=== PATIENT | male | born 1935 | race Caucasian/White ===

== ENCOUNTER → 2017-09-23 | Outpatient (CLI) | payer MEDICARE ==
[~2017-09-23] MED LIST: ALLO300T2 PO; AMOX1TAB43 PO; AMOX875T PO; ASPI81TA28 PO; ATOR-22 PO; BENA20TA14 PO; CHOL100010 PO; CRDCD/180 PO; ENOX100I SC; GLIM1TAB2 PO; GLIM2TAB2 PO; GUAISYP4 PO; INDO-22 PO; LCTX PO; LEVO1TAB35 PO; LPR25 PO; LVNIS100 SQ; LVNIS120 SQ; METF-384 PO; METF1TAB85 PO; METO25TA56 PO; MIRT15TA3 PO; MIRT30TA2 PO; MULT-513 PO; NUTR-7 PO; NVLGI/PEN SC; ONDA-170 PO; OXGN; PRD20 PO; PRED20TA PO; SENN-65 PO; SENNTAB23 PO; TRAM-10 PO; VERA120T2 PO; VERA240T20 PO; keytruda IV; lasix; potassium
[2017-09-23 10:08] VITALS: BP 113/68; PULSE 98; TEMP 36.3; O2SAT 98
--- NOTE | 2017-09-23 17:10 | Radiation Oncology Follow-Up ---
Radiation Oncology Follow-Up Date of Visit Sep 23, 2017. 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 Sneed presented in April 2017 with a persistent cough for several months. He did have a chest x-ray on 04/23/2017 which revealed a left hilar mass. He did have a CT thorax completed on 05/05/2017 which revealed a large posterior left upper lobe mass extending from the dary with associated left hilar nodes and the mass measures 6.9 cm in greatest dimension and encases the left pulmonary artery. The patient underwent a CT-guided biopsy of the left lung mass on 05/17/2017 which confirmed spindle cell carcinoma with squamous differentiation. The patient underwent an MRI of the brain on 06/01/2017 which revealed no evidence of metastatic disease. The patient underwent a PET/CT scan on 06/08/2017 which confirmed in FDG avid mass in the superior segment of the left lower lobe with associated left hilar adenopathy consistent with lung cancer but no other areas of distant metastatic disease. The patient's was seen and evaluated at the multidisciplinary thoracic clinic at [facility] in [place], [place] and the general consensus and recommendation was to proceed with definitive chemotherapy and radiation therapy in the patient was deemed a poor surgical candidate based on anatomical findings and age. The patient was seen in consultation by Dr. Russell Ndiaye who has conferred with the medical team in [place], [place] and the consensus was to proceed with carboplatin/ Taxol chemotherapy with radiation therapy. We are now seeing the patient in consultation discussed role of radiation therapy. Overall, the patient is doing relatively well. He only has a cough. Otherwise his energy, appetite and weight are stable. He denies any hemoptysis. He denies any other significant symptoms. Status post completion of combined radiation and chemotherapy. Radiation completed 08/16/2017. He received 6000 cGy. Interim History He has had a slow recovery following the chemoradiation. He had significant difficulty with appetite. The chemotherapy affected his taste. He had approximate 30 pound weight loss. He has had issues with constipation. He recently saw Dr. Ndiaye who prescribed prednisone to stimulate his appetite. This did help and he has had improvement in his appetite over the past day. He also recommended Senokot for constipation. He feels that the prednisone is also helping with his respiratory status. He is having less coughing. He is able to take a deep breath without coughing. He is a diabetic. The prednisone thus far has not affected his blood sugars. He denies dysphagia. He does state that he eats slowly. He has seen Dr. Ndiaye in follow-up and recently underwent a PET scan. While under treatment he developed an area of cellulitis of his arm. That was treated and resolved without difficulty. He also was having some leg edema and was prescribed Lasix by his primary care physician. Allergies Coded Allergies: No Known Allergies (Unverified , 06/22/17) Home Medications Scheduled Allopurinol (Zyloprim), 300 MG PO DAILY Aspirin (Aspirin Ec), 81 MG PO DAILY Atorvastatin (Lipitor), 1 TAB PO DAILY Benazepril (Lotensin), 20 MG PO DAILY Cholecalciferol (Vitamin D), TAB DAILY Glimepiride (Glimepiride), 2 MG PO DAILY Metformin Hcl (Metformin Hcl Er), 1 TAB PO DAILY Multivitamins/Minerals (Mvi With Minerals), 1 TAB PO DAILY Prednisone (Prednisone), 1 TAB PO DIRECTED Senna/Docusate Sod (Senokot S), 2 TAB PO BID Verapamil Sust Rel (Calan Sr Ext Rel), 240 MG PO DAILY [lasix], DAILY [potassium], DAILY Scheduled PRN Indomethacin (Indocin), 25 MG PO TID PRN for prn Review of Systems Gastrointestinal: Symptoms: Constipation GI Comments: last BM weeks ago Oral: Symptoms: No Problems Respiratory: Symptoms: Dry Cough, SOB With Exertion Urinary: Symptoms: WNL Comments: slower, weaker stream Skin: Symptoms: No Problems Physical Exam Vital Signs Date Time Temp Pulse Resp B/P (MAP) Pulse Ox O2 Delivery O2 Flow Rate FiO2 09/23/17 10:08 36.3 98 20 113/68 98 General Appearance: no apparent distress Eyes: normal inspection, EOMI ENT: normal ENT inspection, hearing grossly normal Respiratory/Chest: no respiratory distress, no accessory muscle use, + decreased breath sounds Cardiovascular: regular rate, rhythm, no gallop, no murmur Extremities: no pedal edema Neurologic/Psychiatric: no motor/sensory deficits, alert, normal mood/affect Skin: warm/dry Pain Management Patient Reports Pain: No Pain Location: None Patient Preferred Pain Scale: 0 - 10 Initial Pain Intensity: 0.0 Pain Management Plan He denies pain and therefore requires no pain management. Pathology Pathology Results: not applicable Imaging Imaging Studies: were reviewed, and pertinent findings noted below Imaging Comments Date/Time of Imaging Study Study Completed: 09/07/2017 11:10 AM [employer] Interactive PACS Image Narrative EXAM PET CT SKULL BASE TO MID THIGH FDG - 09/07/2017 11:10 am HISTORY Evaluation of response of spindle cell lung carcinoma with squamous differentiation status post chemoradiation. DATE OF DICTATION: 09/07/2017 COMPARISON PET-CT dated 06/08/2017, CT chest 04/27/2017, MRI brain 06/01/2017, renal ultrasound 08/26/2017. TECHNIQUE Following the intravenous administration of approximately 7.75 mCi of FDG 18 and the oral administration of Gastrografin, PET/CT imaging was performed from the skull base to the mid thighs 65 minutes following the radiotracer injection. Low-dose CT was performed for anatomic localization and attenuation correction purposes only. The patient's glucose level at the time of radiotracer injection was 152mg/dL. This is a follow up PET/CT for the above indication. FINDINGS PET SCAN: Head/Neck: No metabolically active cervical lymphadenopathy. Physiologic FDG activity is present within the brain, salivary glands, and pharyngeal mucosa. Chest: Left lower lobe mass (SUV max 11.2 from 11.2), decreased in size now 3.3 x 5.1 cm from 4.2 x 5.1 cm in the 05/2017 PET-CT. Persistent consolidation between the left hilum and mass. There is focal uptake in the region of the medial basal left lower lobe bronchus with surrounding ground- glass opacity measuring approximately 1.0 x 1.5 cm, SUV max 4.2. Decreased uptake in the left hilum when compared to prior. No metabolically active axillary or mediastinal lymphadenopathy. Abdomen/Pelvis: No metabolically active intraperitoneal mass. No metabolically active abdominal or pelvic lymphadenopathy. Physiologic FDG activity is present within the gastrointestinal and genitourinary system. Musculoskeletal: No abnormal focal FDG activity localizes to the bones. No aggressive osseous abnormality. Decreased uptake over the mid thoracic spine likely secondary radiation changes. ADDITIONAL CT FINDINGS: Lines: None. Head / Neck: Stable 1.3 cm right thyroid lobe nodule. Chest: Aortic valve and coronary artery calcifications. Minimal dependent atelectasis in the right base. Abdomen / Pelvis: Punctate calcifications in the head of the pancreas. Coarse prostatic calcifications. Diverticulosis without evidence of diverticulitis. Aortic atherosclerosis. Musculoskeletal / Other: Degenerative changes of the spine. IMPRESSION 1. Mild decrease in size of the left lower lobe mass with similar metabolic activity compared to prior. 2. Small focal ground-glass opacity in the region of the medial basal left lower lobe bronchus with mild uptake, new from prior. This could be inflammatory or postobstructive, attention on follow-up. I have personally reviewed this examination and agree with the resident/fellow physician's interpretation. Resident Physician: DARIUS LOCKHART [[id number]] Radiologist: MERT HERNANDEZ MD [[id number]] Authenticated By Authenticating Date Authenticating Time Reading Providers(s) MERT HERNANDEZ MD 09-09-2017 09:10 MERT HERNANDEZ MD Assessment & Plan Plan: Patient was also seen and examined by Dr. Estevez today. He he has improved with initiation of prednisone therapy. His appetite has improved. He also feels his respiratory status has improved. The PET scan was reviewed. He' ll be seeing Dr. Ndiaye 10/05/2017. We asked him to return to our office in 4 months. We discussed that the side effects that he has experienced should steadily improve with time. He may call if he has any questions or concerns in the interim. Assessment & Plan (Attending) ADDENDUM: I agree with note created by Wilma Ragland PA-C. I reviewed the patient's chart and information with her. I have examined and evaluated the patient. I reviewed relevant clinical information and answered the patient's and /or family's questions. TELLER HEAD Total Time In Follow-Up I spent 20 minutes speaking to the patient performing examination. I spent 15 minutes reviewing information of completing this note. Total Time (Attending) In Follow-Up I spent 15 minutes examining and counseling the patient. TELLER HEAD Copy To Feliz St M.D.; Russell Ndiaye M.D.
== END | disposition home or self-care (01) ==
LOC: C.ONC 09:41
PROVIDERS: ATTEND Physician Assistant Medical
DX: Z08 Encounter for follow-up examination after completed treatment for malignant neoplasm (principal); Z92.3 Personal history of irradiation; Z85.118 Personal history of other malignant neoplasm of bronchus and lung

== ENCOUNTER 2018-01-03 10:54 | Inpatient (IN) | payer MEDICARE, OTHER ==
[~2018-01-03] VITALS: Ht 177.8 cm; Wt 97.5 kg
[~2018-01-03 10:54] MED LIST changes: -AMOX1TAB43 PO; -AMOX875T PO; -CRDCD/180 PO; -ENOX100I SC; -GLIM2TAB2 PO; -GUAISYP4 PO; -LCTX PO; -LEVO1TAB35 PO; -LPR25 PO; -LVNIS100 SQ; -LVNIS120 SQ; -METF-384 PO; -METO25TA56 PO; -MIRT15TA3 PO; -MIRT30TA2 PO; -NUTR-7 PO; -NVLGI/PEN SC; -ONDA-170 PO; -OXGN; -PRD20 PO; -SENNTAB23 PO; -TRAM-10 PO; -VERA120T2 PO; -keytruda IV
--- NOTE | 2018-01-03 11:10 | EMERGENCY ROOM VISIT NOTE ---
History Report prepared by Nani: Derrick Garcia Under the Supervision of: Dr. Donn Damian D.O. First contact with patient: 11:02 Chief Complaint: RESPIRATORY PROBLEMS Stated Complaint: SHORTNESS OF BREATH Nursing Triage Summary: pt reports feeling sob has red warm left leg . pt hwere form [facility] office. History of Present Illness The patient is a 82 year old male who presents to the Emergency Room with complaints of persistent shortness of breath since this morning. The patient has a history of lung cancer. Per , the patient has only been drinking Boost supplements and has not eaten for five days. The patient does not use at home oxygen. He denies any chest pain, new swelling in legs, nausea, vomiting, or fevers. He states that he is cold all of the time, though this is normal for him. He has a history of DM. He denies any history of HTN. He denies any history of blood clots. He denies any history of PNA. Dr. Estevez is the patients oncologist. Per , the patient had his third treatment recently and has not been well since then. Per nursing staff, the patient was sent to the ED by his oncologists office due to redness in his legs and increased warmth. They were concerned for a DVT, though the patient states that his legs are always red and swollen. The patient is scheduled to have PET scan next week. Source of History: patient, spouse/significant other Onset: since this morning Position: chest (lungs) Quality: other (shortness of breath) Timing: other (persistent) Associated Symptoms: No fevers, No chest pain, No nausea, No vomiting Note: He notes loss of appetite. He denies any new leg swelling. Review of Systems See HPI for pertinent positives & negatives. A total of 10 systems reviewed and were otherwise negative. Past Medical & Surgical Medical Problems: (1) Cancer of lower lobe of left lung (2) Diastolic dysfunction (3) DM type 2 (diabetes mellitus, type 2) (4) Dyslipidemia (5) HTN (hypertension) (6) Mild aortic valve stenosis Surgical Problems: (1) History of cataract surgery (2) S/P tonsillectomy Family History Cancer Diabetes mellitus Heart disease Hypertension Social History Smoking Status: Never Smoker Smokeless Tobacco Use: No Alcohol Use: none Drug Use: none Marital Status: Housing Status: lives with significant other Occupation Status: unemployed Current/Historical Medications Scheduled Allopurinol (Zyloprim), 300 MG PO DAILY Aspirin (Aspirin Ec), 81 MG PO DAILY Atorvastatin (Lipitor), 1 TAB PO DAILY Cholecalciferol (Vitamin D), 1 TAB PO DAILY Glimepiride (Glimepiride), 2 MG PO DAILY Metformin Hcl (Metformin Hcl Er), 1 TAB PO DAILY Multivitamins/Minerals (Mvi With Minerals), 1 TAB PO DAILY Verapamil Sust Rel (Calan Sr Ext Rel), 120 MG PO DAILY Scheduled PRN Sennosides-Docusate Sodium (Stool Softener), 1 TAB PO BID PRN for Constipation Allergies Coded Allergies: No Known Allergies (Unverified , 01/03/18) Physical Exam Vital Signs Date Time Temp Pulse Resp B/P (MAP) Pulse Ox O2 Delivery O2 Flow Rate FiO2 01/03/18 17:30 36.5 81 20 136/74 95 Nasal Cannula 2.0 01/03/18 17:16 77 103/68 95 01/03/18 14:01 78 20 118/70 99 Nasal Cannula 2.0 01/03/18 13:57 116/49 01/03/18 12:31 81 20 102/57 97 Nasal Cannula 2.0 01/03/18 12:24 83 23 96 01/03/18 12:01 108/62 01/03/18 11:59 95 Nasal Cannula 2.0 01/03/18 11:59 95 Nasal Cannula 2.0 01/03/18 11:54 84 23 01/03/18 11:31 117/64 01/03/18 11:24 86 33 01/03/18 11:22 91 01/03/18 11:19 121/61 01/03/18 10:58 36.5 97 20 110/63 87 Room Air Physical Exam GENERAL: Patient is awake, alert, and in no acute distress. Patient is non- anxious appearing. EYES: The conjunctivae are clear. The pupils are round and reactive. EARS, NOSE, MOUTH AND THROAT: The nose is without any evidence of any deformity. Mucous membranes are dry, tongue is midline NECK: The neck is nontender and supple. RESPIRATORY: Normal respiratory effort is noted there is no evidence of wheezing rhonchi or rales CARDIOVASCULAR: Lung sounds were diminished throughout with rales at both bases. Mild tachypnea noted. GASTROINTESTINAL: The abdomen is soft. Bowel sounds are present in all quadrants. Abdomen is nontender MUSCULOSKELETAL/EXTREMITIES: There is no evidence of gross deformity full range of motion is noted in the hips and shoulders SKIN: Pedal edema bilaterally. NEUROLOGIC: Patient is awake alert and oriented x3. Medical Decision & Procedures ER Provider Diagnostic Interpretation: Radiology results as stated below per my review and radiologist interpretation: SINGLE VIEW CHEST CLINICAL HISTORY: Dyspnea. FINDINGS: An AP, portable, upright chest radiograph is compared to study dated 05/17/2017 and correlated with PET/CT dated 09/07/2017. The examination is degraded by portable technique and patient rotation. The heart is top normal for projection and there is atherosclerotic calcification of the thoracic aorta. There is dense airspace consolidation seen in the lower lobes bilaterally, left greater than right. Trace pleural effusions are suspected. No pneumothorax is seen. The skeletal structures are osteopenic. The bony thorax is grossly intact. IMPRESSION: 1. There is dense bibasilar lower lobe airspace consolidation, left greater than right. Although some of this is likely related to the patient's known left-sided lung mass, the appearance suggests superimposed pneumonia/aspiration pneumonitis. Clinical correlation will be required. Follow-up to resolution is recommended. 2. Trace pleural effusions. Electronically signed by: Michael Pollock M.D. 01/03/2018 11:48 AM Dictated Date/Time: 01/03/2018 11:46 AM ULTRASOUND BILATERAL LOWER EXTREMITY VENOUS CLINICAL HISTORY: Lower extremity edema. COMPARISON STUDY: No priors. TECHNIQUE: Real-time, grayscale, and color Doppler sonography of the deep veins of the right and left lower extremity was performed from the inguinal crease to the calf. Compression and augmentation were utilized. FINDINGS: Right lower extremity: There is no sonographic evidence of deep venous thrombosis in the right lower extremity. The common femoral, superficial femoral, and popliteal veins are patent and normally compressible. The greater saphenous vein and the profunda femoris vein at the junction with the common femoral vein are clear. The visualized calf veins are patent. Left lower extremity: There is age indeterminant and nonocclusive deep venous thrombosis identified in the left popliteal vein. Remaining left lower extremity veins are clear. The common femoral and superficial femoral veins are patent and normally compressible. The greater saphenous vein and the profunda femoris vein at the junction with the common femoral vein are clear. The visualized calf veins are patent. IMPRESSION: 1. There is no sonographic evidence of deep venous thrombosis identified in the right lower extremity. 2. There is age indeterminant and possibly chronic nonocclusive deep venous thrombosis identified in the left popliteal vein. Electronically signed by: Michael Pollock M.D. 01/03/2018 1:24 PM Dictated Date/Time: 01/03/2018 1:16 PM CHEST CTA for PULMONARY ARTERIES CT DOSE: 535.32 mGycm HISTORY: Short of breath. TECHNIQUE: Multiaxial CT images of the chest were performed following the intravenous administration of contrast to evaluate the pulmonary arteries. Maximal intensity projection images were also obtained. A dose lowering technique was utilized adhering to the principles of ALARA. COMPARISON STUDY: PET CT 09/07/2017. FINDINGS: The central airways are patent. Mild emphysema. Small focus of gas within the apex of the left pleural space consistent with a tiny pneumothorax. No significant pleural or pericardial effusions. The upper abdominal structures are not well visualized due to streak artifact from the overlapping arms. No definite hepatic or splenic masses. The 1.5 cm right adrenal gland nodule appears stable. This may contain macroscopic fat suggestive of an adrenal myelolipoma. However, this is difficult to characterize due to the artifact. No suspicious lytic or blastic osseous lesions. Prominent subcarinal lymph nodes have slightly increased in size. Dominant subcarinal lymph node measures 1 cm short axis diameter. A few mildly enlarged right hilar lymph nodes measuring up to 1.3 cm. Normal caliber thoracic aorta with no evidence for dissection. The heart remains top normal in size. No new filling defects within the opacified pulmonary arteries to suggest acute pulmonary embolus. Of note the left lower lobe posterior and lateral segmental pulmonary arteries are occluded. This remains unchanged from the prior study and is likely due to the known left lower lobe mass. Abnormal left retrohilar soft tissue abutting the distal left lower lobe pulmonary artery best in image 153. This is consistent with left hilar lymphadenopathy/residual mass. Interval development of multifocal consolidation seen within the bilateral mid to lower lung zones. This obscures the patient's left lower lobe mass. Mild interstitial thickening at the base of the left lower lobe. IMPRESSION: 1. No evidence for acute pulmonary embolus. 2. 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 Of note, the left retrohilar lymphadenopathy and left lower lobe mass are not well delineated due to the interval development of bilateral mid to lower lung zone areas of consolidation. This is nonspecific but favors a pneumonia. 3. Tiny left apical pneumothorax. 4. Slight progression of the bilateral hilar and subcarinal lymphadenopathy. 5. Emphysema. 6. Mild interstitial thickening at the base of the left lower lobe. This bears watching to exclude the possibility of developing lymphangitic spread of tumor. Electronically signed by: Joseph Duffy M.D. 01/03/2018 2:17 PM Dictated Date/Time: 01/03/2018 1:58 PM Laboratory Results Test 01/03/18 11:40 01/03/18 11:46 01/03/18 14:30 Immature Granulocyte % (Auto) 0.5 % White Blood Count 17.61 K/uL (4.8-10.8) Red Blood Count 3.36 M/uL (4.7-6.1) Hemoglobin 8.9 g/dL (14.0-18.0) Hematocrit 28.2 % (42-52) Mean Corpuscular Volume 83.9 fL (80-100) Mean Corpuscular Hemoglobin 26.5 pg (25-34) Mean Corpuscular Hemoglobin Concent 31.6 g/dl (32-36) Platelet Count 580 K/uL (130-400) Mean Platelet Volume 8.2 fL (7.4-10.4) Neutrophils (%) (Auto) 87.5 % Lymphocytes (%) (Auto) 4.2 % Monocytes (%) (Auto) 4.8 % Eosinophils (%) (Auto) 2.8 % Basophils (%) (Auto) 0.2 % Neutrophils # (Auto) 15.41 K/uL (1.4-6.5) Lymphocytes # (Auto) 0.74 K/uL (1.2-3.4) Monocytes # (Auto) 0.84 K/uL (0.11-0.59) Eosinophils # (Auto) 0.49 K/uL (0-0.5) Basophils # (Auto) 0.04 K/uL (0-0.2) Immature Granulocyte # (Auto) 0.09 K/uL (0.00-0.02) Polychromasia 1+ Hypochromasia PRESENT Anisocytosis PRESENT Prothrombin Time 12.6 SECONDS (9.0-12.0) Prothromb Time International Ratio 1.2 (0.9-1.1) Activated Partial Thromboplast Time 30.8 SECONDS (21.0-31.0) Partial Thromboplastin Ratio 1.2 Total Bilirubin 0.5 mg/dl (0.2-1) Aspartate Amino Transf (AST/SGOT) 45 U/L (15-37) Alanine Aminotransferase (ALT/SGPT) 40 U/L (12-78) Alkaline Phosphatase 84 U/L (45-117) Troponin I < 0.015 ng/ml (0-0.045) Pro-B-Type Natriuretic Peptide 4999 pg/ml (0-1800) Total Protein 7.6 gm/dl (6.4-8.2) Albumin 1.8 gm/dl (3.4-5.0) Globulin 5.8 gm/dl (2.5-4.0) Albumin/Globulin Ratio 0.3 (0.9-2) Bedside D-Dimer > 450 ng/mlFEU (0-450) Influenza Type A (RT-PCR) Neg for Influ A (NEG) Influenza Type B (RT-PCR) Neg for Influ B (NEG) Laboratory results per my review. Medications Administered Medications (Trade) Dose Ordered Sig/Mert Route Start Time Stop Time Status Last Admin Dose Admin Levofloxacin (Levaquin / D5W) 750 mg NOW STAT IV 01/03/18 14:08 01/03/18 14:09 DC 01/03/18 14:34 750 MG Sodium Chloride 1,000 ml @ 999 mls/hr Q1H1M STAT IV 01/03/18 14:08 01/03/18 15:08 DC 01/03/18 14:34 999 MLS/HR Sodium Chloride 1,000 ml @ 80 mls/hr [id number] IV 01/03/18 16:00 02/02/18 15:59 01/04/18 05:40 80 MLS/HR Insulin Aspart (novoLOG ASPART) SLIDING SCALE If C... ACHS SC 01/03/18 16:00 02/02/18 15:59 01/03/18 21:06 3 UNITS ECG Per My Interpretation Indication: SOB/dyspnea Rate (beats per minute): 90 Rhythm: normal sinus Findings: no acute ischemic change, no ectopy (No PVCs) Comparison ECG Date: no prior available ED Course 1104: The patient was evaluated in room C1B. A complete history and physical examination were performed. 1408: Ordered NSS 1,000 ml @ 999 mls/hr IV and Levofloxacin 750 mg IV 1314: I reassessed the patient at this time. The patient agreed to have a CT scan. 1406: I reassessed the patient at this time. He is resting comfortably. I discussed the results and treatment plan with the patient. I answered all pertaining questions that he had. He expressed understanding and verbalized agreement. The patient will be further evaluated. 1413: I spoke with VERO Michel marino. We discussed the patient's case. The patient will be evaluated by the [facility] for further management. Medical Decision Prior records/ancillary studies reviewed. Triage Nursing notes reviewed. The patient's history was concerning for respiratory difficulties. Differential diagnosis: Etiologies such as infections, reactive airway disease, pneumonia, pneumothorax , COPD, CHF, cardiac ischemia, pulmonary embolism, musculoskeletal, gastrointestinal, as well as others were entertained. The patient is an 82-year-old male who presented to the emergency department at the request of his primary care physician for difficulty breathing. The patient was seen at the primary oncologist office for difficulty breathing and was found to have hypoxia. He was sent to the emergency department for further evaluation. The patient was found to have signs of pneumonia as well as worsening lung cancer. He also had a small apical pneumothorax. There is no definite pulmonary embolism noted on CT. I discussed patient's laboratory and radiographic studies with him. He was treated with IV fluids and IV antibiotics. Because of his hypoxia and other comorbidities I discussed his case with the on-call Critical access hospitalist group. They have agreed to evaluate the patient in the emergency department for further management and disposition. Medication Reconcilliation Current Medication List: was personally reviewed by me Blood Pressure Screening Patient's blood pressure: Normal blood pressure Consults Time Called: 1408 Consulting Physician: VERO Michel Returned Call: 1413 I spoke with VERO Michel. We discussed the patient' s case. The patient will be evaluated by the [facility] for further management. Impression Primary Impression: SOB (shortness of breath) Additional Impressions: Hypoxia PNA (pneumonia) Lung cancer Pneumothorax Scribe Attestation The scribe's documentation has been prepared under my direction and personally reviewed by me in its entirety. I confirm that the note above accurately reflects all work, treatment, procedures, and medical decision making performed by me. Departure Information Dispostion Being Evaluated By Hospitalist Referrals No Doctor, Assigned (PCP) Patient Instructions My [facility] Problem Qualifiers Additional Impressions: PNA (pneumonia) Pneumonia type: due to unspecified organism Laterality: unspecified laterality Lung location: unspecified part of lung Qualified Codes: J18.9 - Pneumonia, unspecified organism Lung cancer Laterality: unspecified laterality Lung location: unspecified part of lung Qualified Codes: C34.90 - Malignant neoplasm of unspecified part of unspecified bronchus or lung Pneumothorax Pneumothorax type: unspecified pneumothorax Qualified Codes: J93.9 - Pneumothorax, unspecified
[2018-01-03] MEDS ORDERED: SENNTAB23 PO (11:38)
--- NOTE | 2018-01-03 11:50 | DIAGNOSTIC IMAGING REPORT ---
SINGLE VIEW CHEST CLINICAL HISTORY: Dyspnea. FINDINGS: An AP, portable, upright chest radiograph is compared to study dated 05/17/2017 and correlated with PET/CT dated 09/07/2017. The examination is degraded by portable technique and patient rotation. The heart is top normal for projection and there is atherosclerotic calcification of the thoracic aorta. There is dense airspace consolidation seen in the lower lobes bilaterally, left greater than right. Trace pleural effusions are suspected. No pneumothorax is seen. The skeletal structures are osteopenic. The bony thorax is grossly intact. IMPRESSION: 1. There is dense bibasilar lower lobe airspace consolidation, left greater than right. Although some of this is likely related to the patient's known left-sided lung mass, the appearance suggests superimposed pneumonia/aspiration pneumonitis. Clinical correlation will be required. Follow-up to resolution is recommended. 2. Trace pleural effusions. Electronically signed by: Michael Pollock M.D. 01/03/2018 11:48 AM Dictated Date/Time: 01/03/2018 11:46 AM
[2018-01-03 11:53] LABS: HEMATOCRIT 28.2 % (42-52); HEMOGLOBIN 8.9 g/dL (14.0-18.0); MEAN CELL VOLUME 83.9 fL (80-100); MEAN CORPUSCULAR HEMOGLOBIN 26.5 pg (25-34); MEAN CORPUSCULAR HGB CONC 31.6 g/dl (32-36); MEAN PLATELET VOLUME 8.2 fL (7.4-10.4); PLATELET COUNT 580 K/uL (130-400); RED CELL DISTRIBUTION WIDTH CV 18.4 % (11.5-14.5); RED CELL DISTRIBUTION WIDTH SD 56.5 fL (36.4-46.3); WHITE BLOOD COUNT 17.61 K/uL (4.8-10.8)
[2018-01-03 12:02] LABS: INR 1.2 (0.9-1.1); PTT PATIENT 30.8 SECONDS (21.0-31.0)
[2018-01-03 12:11] LABS: ALBUMIN 1.8 gm/dl (3.4-5.0); ALT/SGPT 40 U/L (12-78); BLOOD UREA NITROGEN 23 mg/dl (7-18); CALCIUM 9.3 mg/dl (8.5-10.1); CARBON DIOXIDE 28 mmol/L (21-32); CREATININE 1.04 mg/dl (0.60-1.40); GLUCOSE 206 mg/dl (70-99); POTASSIUM 3.8 mmol/L (3.5-5.1); SODIUM 140 mmol/L (136-145)
[2018-01-03 12:13] LABS: BASO % 0.2 %; BASO ABS # 0.04 K/uL (0-0.2); EOS % 2.8 %; EOS ABS # 0.49 K/uL (0-0.5); IG# 0.09 K/uL (0.00-0.02); LYMPH % 4.2 %; LYMPH ABS # 0.74 K/uL (1.2-3.4); MONO % 4.8 %; MONO ABS # 0.84 K/uL (0.11-0.59); NEUT % 87.5 %; NEUT ABS # 15.41 K/uL (1.4-6.5)
[2018-01-03 12:16] LABS: ALKALINE PHOSPHATASE 84 U/L (45-117); AST/SGOT 45 U/L (15-37); TOTAL PROTEIN 7.6 gm/dl (6.4-8.2)
--- NOTE | 2018-01-03 13:25 | DIAGNOSTIC IMAGING REPORT ---
ULTRASOUND BILATERAL LOWER EXTREMITY VENOUS CLINICAL HISTORY: Lower extremity edema. COMPARISON STUDY: No priors. TECHNIQUE: Real-time, grayscale, and color Doppler sonography of the deep veins of the right and left lower extremity was performed from the inguinal crease to the calf. Compression and augmentation were utilized. FINDINGS: Right lower extremity: There is no sonographic evidence of deep venous thrombosis in the right lower extremity. The common femoral, superficial femoral, and popliteal veins are patent and normally compressible. The greater saphenous vein and the profunda femoris vein at the junction with the common femoral vein are clear. The visualized calf veins are patent. Left lower extremity: There is age indeterminant and nonocclusive deep venous thrombosis identified in the left popliteal vein. Remaining left lower extremity veins are clear. The common femoral and superficial femoral veins are patent and normally compressible. The greater saphenous vein and the profunda femoris vein at the junction with the common femoral vein are clear. The visualized calf veins are patent. IMPRESSION: 1. There is no sonographic evidence of deep venous thrombosis identified in the right lower extremity. 2. There is age indeterminant and possibly chronic nonocclusive deep venous thrombosis identified in the left popliteal vein. Electronically signed by: Michael Pollock M.D. 01/03/2018 1:24 PM Dictated Date/Time: 01/03/2018 1:16 PM
[2018-01-03] MEDS ORDERED: OPTIRAY 320 IV PRN (13:30)
[2018-01-03] MEDS ORDERED: LEVAQUIN 750MG / 150ML D5W IV STA (14:08)
[2018-01-03] MEDS ORDERED: SODIUM CHLORIDE 0.9% 1000ML 1,000 ML IV STA (14:08)
--- NOTE | 2018-01-03 14:18 | DIAGNOSTIC IMAGING REPORT ---
CHEST CTA for PULMONARY ARTERIES CT DOSE: 535.32 mGycm HISTORY: Short of breath. TECHNIQUE: Multiaxial CT images of the chest were performed following the intravenous administration of contrast to evaluate the pulmonary arteries. Maximal intensity projection images were also obtained. A dose lowering technique was utilized adhering to the principles of ALARA. COMPARISON STUDY: PET CT 09/07/2017. FINDINGS: The central airways are patent. Mild emphysema. Small focus of gas within the apex of the left pleural space consistent with a tiny pneumothorax. No significant pleural or pericardial effusions. The upper abdominal structures are not well visualized due to streak artifact from the overlapping arms. No definite hepatic or splenic masses. The 1.5 cm right adrenal gland nodule appears stable. This may contain macroscopic fat suggestive of an adrenal myelolipoma. However, this is difficult to characterize due to the artifact. No suspicious lytic or blastic osseous lesions. Prominent subcarinal lymph nodes have slightly increased in size. Dominant subcarinal lymph node measures 1 cm short axis diameter. A few mildly enlarged right hilar lymph nodes measuring up to 1.3 cm. Normal caliber thoracic aorta with no evidence for dissection. The heart remains top normal in size. No new filling defects within the opacified pulmonary arteries to suggest acute pulmonary embolus. Of note the left lower lobe posterior and lateral segmental pulmonary arteries are occluded. This remains unchanged from the prior study and is likely due to the known left lower lobe mass. Abnormal left retrohilar soft tissue abutting the distal left lower lobe pulmonary artery best in image 153. This is consistent with left hilar lymphadenopathy/residual mass. Interval development of multifocal consolidation seen within the bilateral mid to lower lung zones. This obscures the patient's left lower lobe mass. Mild interstitial thickening at the base of the left lower lobe. IMPRESSION: 1. No evidence for acute pulmonary embolus. 2. 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 Of note, the left retrohilar lymphadenopathy and left lower lobe mass are not well delineated due to the interval development of bilateral mid to lower lung zone areas of consolidation. This is nonspecific but favors a pneumonia. 3. Tiny left apical pneumothorax. 4. Slight progression of the bilateral hilar and subcarinal lymphadenopathy. 5. Emphysema. 6. Mild interstitial thickening at the base of the left lower lobe. This bears watching to exclude the possibility of developing lymphangitic spread of tumor. Electronically signed by: Joseph Duffy M.D. 01/03/2018 2:17 PM Dictated Date/Time: 01/03/2018 1:58 PM
[2018-01-03] MEDS ORDERED: CONSULT PHARMACY STA (15:12)
[2018-01-03] MEDS ORDERED: ACETAMINOPHEN 325 MG TAB PO PRN (15:15)
[2018-01-03] MEDS ORDERED: ONDANSETRON INJ 2 MG/ML 2 ML VIAL IV PRN (15:15)
[2018-01-03] MEDS ORDERED: DEXTROSE 50% 50 ML SYR IV PRN (15:30)
[2018-01-03] MEDS ORDERED: GLUCOSE 40% GEL 15 GM TUBE PO PRN (15:30)
[2018-01-03] MEDS ORDERED: DOCUSATE SODIUM/SENNA 50/8.6MG TAB PO PRN (15:30)
[2018-01-03] MEDS ORDERED: VERA120T2 PO (15:30)
[2018-01-03] MEDS ORDERED: GLUCAGON FOR INJ 1 MG VIAL SQ PRN (15:30)
[2018-01-03] MEDS ORDERED: GLUCOSE 10 TABS/TUBE PO PRN (15:30)
[2018-01-03 15:43] LABS: INFLUENZA A PCR Neg for Influ A (NEG); INFLUENZA B PCR Neg for Influ B (NEG)
--- NOTE | 2018-01-03 15:50 | Medical Consult ---
Consultation Note Date of Service Jan 03, 2018. Consultation Note Consult Dictated #[id number]
--- NOTE | 2018-01-03 16:22 | History and Physical ---
History & Physical Date & Time of Service: Jan 03, 2018 ~ 14:45 Chief Complaint: Shortness Of Breath Primary Care Physician: Ady Mayo MD History of Present Illness 82-year-old male who presents to the ER with a chief complaint of shortness of breath. Patient has history of lung cancer and follows with Dr. Ray Estevez. He completed chemotherapy and radiation treatments and is now currently receiving Pembrolizumab. Patient reports that over the past 1 week he has had increasing shortness of breath and generalized weakness. He was seen in the oncology clinic today and found to be saturating 85% on room air. He was referred to the ER for further evaluation. He reports a very poor appetite however denies nausea, abdominal pain, and vomiting. He is moving his bowels without difficulty. He has had a chronic cough since his diagnosis of lung cancer. He actually reports the cough has improved over the past 1 week. He reports cough is nonproductive. He denies fever and chills. No lightheadedness , dizziness, diaphoresis, or syncopal events. He denies chest pain or palpitations. He reports yesterday he developed urinary incontinence which is a new problem for him. He denies dysuria. In the ED patient underwent CTA chest that showed bibasilar pneumonia and a tiny left apical pneumothorax. He also had bilateral lower extremity Dopplers that showed an age indeterminate popliteal DVT on the left. He is saturating well on 2 L of oxygen. Other vitals are stable. WBC 17 K, other labs unremarkable. He was given IVF and IV Levaquin. 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 (2) Diastolic dysfunction Status: Chronic (3) DM type 2 (diabetes mellitus, type 2) Status: Chronic (4) Dyslipidemia Status: Chronic (5) HTN (hypertension) Status: Chronic (6) Mild aortic valve stenosis Status: Chronic Surgical Problems: (1) History of cataract surgery Status: Chronic (2) S/P tonsillectomy Status: Chronic Family History Noncontributory secondary to patient's advanced age Social History Smoking Status: Former Smoker Alcohol Use: none Immunizations History of Influenza Vaccine: Yes Influenza Vaccine Date: Aug 10, 2017 History of Tetanus Vaccine?: Yes Tetanus Immunization Date: Sep 09, 2010 History of Pneumococcal: Yes Pneumococcal Date: Jun 23, 2015 Allergies Coded Allergies: No Known Allergies (Unverified , 01/03/18) Home Medications Scheduled Allopurinol (Zyloprim), 300 MG PO DAILY Aspirin (Aspirin Ec), 81 MG PO DAILY Atorvastatin (Lipitor), 1 TAB PO DAILY Cholecalciferol (Vitamin D), 1 TAB PO DAILY Glimepiride (Glimepiride), 2 MG PO DAILY Metformin Hcl (Metformin Hcl Er), 1 TAB PO DAILY Multivitamins/Minerals (Mvi With Minerals), 1 TAB PO DAILY Verapamil Sust Rel (Calan Sr Ext Rel), 120 MG PO DAILY Scheduled PRN Sennosides-Docusate Sodium (Stool Softener), 1 TAB PO BID PRN for Constipation Review of Systems ROS per HPI, all other systems reviewed and negative Physical Exam Vital Signs Date Time Temp Pulse Resp B/P (MAP) Pulse Ox O2 Delivery O2 Flow Rate FiO2 01/03/18 14:01 78 20 118/70 99 Nasal Cannula 2.0 01/03/18 13:57 116/49 01/03/18 12:31 81 20 102/57 97 Nasal Cannula 2.0 01/03/18 12:24 83 23 96 01/03/18 12:01 108/62 01/03/18 11:59 95 Nasal Cannula 2.0 01/03/18 11:59 95 Nasal Cannula 2.0 01/03/18 11:54 84 23 01/03/18 11:31 117/64 01/03/18 11:24 86 33 01/03/18 11:22 91 01/03/18 11:19 121/61 01/03/18 10:58 36.5 97 20 110/63 87 Room Air General Appearance: WD/WN, no apparent distress Head: normocephalic, atraumatic Eyes: normal inspection, EOMI, sclerae normal ENT: hearing grossly normal, + pertinent finding (mucous membranes dry) Neck: supple, no JVD, trachea midline Respiratory/Chest: + decreased breath sounds, + crackles (BL bases, R>L) Cardiovascular: regular rate, rhythm, no edema, normal peripheral pulses, + systolic murmur Abdomen/GI: normal bowel sounds, non tender, soft, no organomegaly Extremities/Musculoskelatal: normal inspection, no calf tenderness, normal capillary refill Neurologic/Psych: no motor/sensory deficits, alert, normal mood/affect, oriented x 3 Skin: normal color, warm/dry Diagnostics Laboratory Results Results Past 24 Hours Test 01/03/18 11:40 01/03/18 11:46 01/03/18 14:30 Range/Units White Blood Count 17.61 4.8-10.8 K/uL Red Blood Count 3.36 4.7-6.1 M/uL Hemoglobin 8.9 14.0-18.0 g/dL Hematocrit 28.2 42-52 % Mean Corpuscular Volume 83.9 80-100 fL Mean Corpuscular Hemoglobin 26.5 25-34 pg Mean Corpuscular Hemoglobin Concent 31.6 32-36 g/dl Platelet Count 580 130-400 K/uL Mean Platelet Volume 8.2 7.4-10.4 fL Neutrophils (%) (Auto) 87.5 % Lymphocytes (%) (Auto) 4.2 % Monocytes (%) (Auto) 4.8 % Eosinophils (%) (Auto) 2.8 % Basophils (%) (Auto) 0.2 % Neutrophils # (Auto) 15.41 1.4-6.5 K/uL Lymphocytes # (Auto) 0.74 1.2-3.4 K/uL Monocytes # (Auto) 0.84 0.11-0.59 K/uL Eosinophils # (Auto) 0.49 0-0.5 K/uL Basophils # (Auto) 0.04 0-0.2 K/uL RDW Standard Deviation 56.5 36.4-46.3 fL RDW Coefficient of Variation 18.4 11.5-14.5 % Immature Granulocyte % (Auto) 0.5 % Immature Granulocyte # (Auto) 0.09 0.00-0.02 K/uL Polychromasia 1+ Hypochromasia PRESENT Anisocytosis PRESENT Prothrombin Time 12.6 9.0-12.0 SECONDS Prothromb Time International Ratio 1.2 0.9-1.1 Activated Partial Thromboplast Time 30.8 21.0-31.0 SECONDS Partial Thromboplastin Ratio 1.2 Sodium Level 140 136-145 mmol/L Potassium Level 3.8 3.5-5.1 mmol/L Chloride Level 105 98-107 mmol/L Carbon Dioxide Level 28 21-32 mmol/L Anion Gap 7.0 3-11 mmol/L Blood Urea Nitrogen 23 7-18 mg/dl Creatinine 1.04 0.60-1.40 mg/dl Est Creatinine Clear Calc Drug Dose 61.8 ml/min Estimated GFR () 76.1 Estimated GFR (Non- 65.6 BUN/Creatinine Ratio 22.4 10-20 Random Glucose 206 70-99 mg/dl Calcium Level 9.3 8.5-10.1 mg/dl Total Bilirubin 0.5 0.2-1 mg/dl Aspartate Amino Transf (AST/SGOT) 45 15-37 U/L Alanine Aminotransferase (ALT/SGPT) 40 12-78 U/L Alkaline Phosphatase 84 45-117 U/L Troponin I < 0.015 0-0.045 ng/ml Pro-B-Type Natriuretic Peptide 4999 0-1800 pg/ml Total Protein 7.6 6.4-8.2 gm/dl Albumin 1.8 3.4-5.0 gm/dl Globulin 5.8 2.5-4.0 gm/dl Albumin/Globulin Ratio 0.3 0.9-2 Bedside D-Dimer > 450 0-450 ng/mlFEU Influenza Type A (RT-PCR) Neg for Influ A NEG Influenza Type B (RT-PCR) Neg for Influ B NEG Microbiology Results 01/03/18 Blood Culture, Received Pending 01/03/18 Blood Culture, Received Pending Diagnostic Radiology BLLE DOPPLER IMPRESSION: 1. There is no sonographic evidence of deep venous thrombosis identified in the right lower extremity. 2. There is age indeterminant and possibly chronic nonocclusive deep venous thrombosis identified in the left popliteal vein. CXR IMPRESSION: 1. There is dense bibasilar lower lobe airspace consolidation, left greater than right. Although some of this is likely related to the patient's known left-sided lung mass, the appearance suggests superimposed pneumonia/aspiration pneumonitis. Clinical correlation will be required. Follow-up to resolution is recommended. 2. Trace pleural effusions. CTA CHEST IMPRESSION: 1. No evidence for acute pulmonary embolus. 2. 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 Of note, the left retrohilar lymphadenopathy and left lower lobe mass are not well delineated due to the interval development of bilateral mid to lower lung zone areas of consolidation. This is nonspecific but favors a pneumonia. 3. Tiny left apical pneumothorax. 4. Slight progression of the bilateral hilar and subcarinal lymphadenopathy. 5. Emphysema. 6. Mild interstitial thickening at the base of the left lower lobe. This bears watching to exclude the possibility of developing lymphangitic spread of tumor. Impression Assessment and Plan ACUTE HYPOXIC RESPIRATORY FAILURE BIBASILAR PNEUMONIA LEFT APICAL PNEUMOTHORAX -Admit patient to telemetry -Patient presenting from oncology clinic for increasing shortness of breath and hypoxia; in the ED patient saturating 87% on room air which improved with 2 L of oxygen via nasal cannula -Chest x-ray and CT chest showing bibasilar pneumonia; no signs of pulmonary embolism on CT -S/P Levaquin in the ED, will continue with an check MRSA nasal swab and if positive will add vancomycin -WBC 17 K, however no other signs of sepsis -Blood and sputum cultures -Tiny left apical pneumothorax noted on CT chest, will consult thoracic surgery , case discussed with Da Baker PA-C LEFT POPLITEAL DVT -Age indeterminate versus chronic noted on Doppler -Given patient's malignancy history will start Lovenox 1 mg/KG Q12h HISTORY OF SPINDLE CELL LUNG CARCINOMA -Follows with Dr. Ray Estevez -Completed radiation and chemotherapy, currently receiving Keytruda HYPERTENSION -Blood pressure controlled we will continue verapamil DIABETES MELLITUS -Hgb A1c 6.3 11/2017 -We will hold oral agents and utilize SSI while hospitalized HYPERLIPIDEMIA -Continue statin DVT PROPHYLAXIS -Started on therapeutic dose Lovenox CODE STATUS -Full code as per my discussion with the patient DISPOSITION -In my clinical judgment this beneficiary meets acute admission criteria, established by [facility], that includes being hospitalized through two midnights. Resuscitation Status VTE Prophylaxis Will order VTE Prophylaxis: Yes Note ATTENDING ADDENDUM Record reviewed. Patient interviewed and examined. Care coordinated with VERO Michel. Please refer to her documentation for patient's history. Briefly, 82-year-old male undergoing chemotherapy for lung cancer. Experiencing malaise and increasing dyspnea over past several days. Congested cough which is nonproductive. Seen in clinic today and found to be hypoxic. Referred to ED for further evaluation and management. EXAM: General-no acute distress VS- as noted HEENT-anicteric Neck-no JVD Lungs-bibasilar rales Heart- RRR, III/ sys murmur at base Abdomen- + BS, soft, nontender Extremities- no pretibial edema or calf tenderness Neuro-alert, oriented DATA: Hemoglobin 8.9, white count 17,610, platelet count 580,000. D-dimer greater than 450. Random glucose 206. Other labs as noted. Chest x-ray demonstrated bibasilar densities and trace pleural effusions. CTA chest negative for pulmonary embolism. Left lower lobe mass and hilar adenopathy noted. Bibasilar infiltrates. Suspected small left apical pneumothorax. Venous duplex of lower extremities demonstrated nonocclusive age-indeterminate thrombus in the left popliteal vein. EKG performed 1114 reviewed and demonstrated normal sinus rhythm at 90/minute, no acute changes. ASSESSMENT AND PLAN: Bibasilar pneumonia. Blood cultures obtained. Not producing any sputum for Gram stain, C&S. IV antibiotic coverage with levofloxacin. Add MRSA coverage for possible MRSA pneumonia if nasal MRSA screen positive. Hypoxia probably secondary to underlying COPD and lung cancer with superimposed pneumonia. Pulmonary embolism ruled out by CTA. Supplemental oxygen as necessary. Venous duplex of lower extremities demonstrates nonocclusive thrombus left popliteal vein. SQ enoxaparin best therapy in light of active malignancy. Please refer to SHIRLEY Eagle's documentation for discussion of other issues. Reji Kennedy MD .
--- NOTE | 2018-01-03 16:40 | CONSULTATION REPORT ---
DATE OF CONSULTATION: 01/03/2018 REASON FOR CONSULTATION: Questionable left apical pneumothorax. HISTORY OF PRESENT ILLNESS: Mr. Sneed is an 82-year-old male I evaluated in the Emergency Department with his son and , who were present. The patient says that he was diagnosed with lung cancer in April of 2017. He has been treated with radiation as well as traditional chemotherapy and he says that now, he is currently being treated with Keytruda. The patient presented to the Emergency Department because over the past several days, the patient has had some worsening fatigue, short of breath with activity and a poor appetite and generally feeling weak and run down. Because of this, his prompted him to come to the Emergency Department. The patient says that he has not fallen, hit his head, or had any visual changes, tinnitus, sore throat or neck pain. He denies any chest pain, but he says he is short of breath. He denies any fever, shakes, or chills. He denies abdominal pain, nausea, or vomiting. He denies dysuria. He does not have any history of DVT or PE. He denies anxiety or depression. In the Emergency Department, labs were drawn where CBC showed a white blood cell count of 17.6. Hemoglobin and hematocrit 8.9 and 28.2. Platelet count was 580,000. Coagulation studies showed an INR of 1.2. PTT was within normal range and a D-dimer is elevated at greater than 450. Chemistry profile showed sodium, potassium and creatinine were all within the normal range. BUN was noted to have a slight elevation at 23. Serology was sent for influenza A and B, which were both noted to be negative. The patient did have a lower extremity venous ultrasound that showed concern for a chronic nonocclusive DVT in the left popliteal vein. A chest x-ray was undertaken that showed trace pleural effusions. This did show a bibasilar lower lobe airspace consolidations, worse on the left than on the right. In addition, a CT scan of the chest was performed that did show a tiny left apical pneumothorax. There was hilar and subcarinal adenopathy noted. There are bibasilar areas of lung zone consolidation concerning for pneumonia. We have been asked to see the patient due to the concern for a tiny left apical pneumothorax. At time of visit with the Emergency Department, he is resting comfortably in bed and was in no distress at this time. PAST MEDICAL HISTORY: Includes, 1. Lung cancer. 2. Hyperlipidemia. 3. Diabetes. SURGICAL HISTORY: The patient says he has never had any surgery other than a needle biopsy to diagnose his lung cancer. SOCIAL HISTORY: He is a lifetime nonsmoker. 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 FAMILY HISTORY: Negative for lung cancer. He said several family members did have melanoma. REVIEW OF SYSTEMS: As noted above. PHYSICAL EXAMINATION: VITAL SIGNS: The patient is afebrile with a temperature of 36.5, pulse is 70 and regular, respirations are 20 and unlabored, blood pressure 118/70, and pulse ox 99% on 2 liters. SKIN: Warm with turgor. GENERAL: He is alert and he is oriented x3, in no distress. HEENT: Head is atraumatic and normocephalic. Eyes: Pupils are equal, round and reactive to light and accommodation. Extraocular motions are intact. Ears: Auditory acuity is grossly intact. Nose: Nasal patency was intact. Sinuses are nontender. Mouth is moist without exudates. NECK: Supple. No JVD is noted. CARDIOVASCULAR: Regular rate and rhythm. LUNGS: The patient's lungs sounds reveal decreased breath sounds at the bases. There is no wheezing, rhonchi, rales, or use of accessory muscles. ABDOMEN: Soft and nontender. EXTREMITIES: Revealed no cyanosis, clubbing or edema. NEUROLOGIC: Revealed cranial nerves II through XII are grossly intact. No focal deficits are noted. DIAGNOSTIC DATA: As noted above. IMPRESSION: An 82-year-old male with lung cancer with questionable left apical pneumothorax. PLAN: I have reviewed the CT scan. It is unclear if the patient does have a tiny left apical pneumothorax or if this merely represents a bullae or bleb. Nonetheless, the patient is in no distress at this time and even if this was a tiny left apical pneumothorax, due to its small size and lack of distress on the part of the patient, no intervention is required. We will follow the patient with a chest x-ray tomorrow and then we will follow x-rays thereafter based on the patient's symptoms. Again at this time, the patient does not require any intervention such as a chest tube. The remainder of his care will be deferred to the medical service and I have discussed with Dr. Kennedy our plan for the patient's questionable pneumothorax.
[2018-01-03] MEDS: INSULIN ASPART 100 UNITS/ML 3 ML PEN SC SCH ×2 (17:00→21:06)
[2018-01-03 17:30] VITALS: BP 136/74; PULSE 81; TEMP 36.5; O2SAT 95; BMI 30.4
[2018-01-03] MEDS: SODIUM CHLORIDE 0.9% 1000ML 1,000 ML IV SCH (18:52)
[2018-01-03] MEDS: ENOXAPARIN 100 MG/1ML SYR SQ SCH (18:53)
[2018-01-03 18:59] VITALS: BP 117/81; PULSE 98; TEMP 36.4
[2018-01-03 19:09] VITALS: BP 101/49; PULSE 86; TEMP 36.9; O2SAT 94
[2018-01-03 20:00] VITALS: O2SAT 94
[2018-01-04] VITALS (10 sets, daily range): BP systolic 103–125; BP diastolic 55–74; PULSE 78–93; TEMP 36.5–37.4; O2SAT 91–95; Ht 177.8 cm; Wt 97.5 kg
[2018-01-04] MEDS: SODIUM CHLORIDE 0.9% 1000ML 1,000 ML IV SCH (05:40)
[2018-01-04] MEDS: ENOXAPARIN 100 MG/1ML SYR SQ SCH ×2 (05:42→17:46)
--- NOTE | 2018-01-04 07:16 | DIAGNOSTIC IMAGING REPORT ---
CHEST ONE VIEW PORTABLE CLINICAL HISTORY: pneumothorax dyspnea COMPARISON STUDY: 01/03/2018 FINDINGS: Unchanging parenchymal infiltrative change left mid to lower lung as well as right base. No significant pneumothorax. Mild chronic elevation left hemidiaphragm. Left basilar parenchymal masses partially obscured. IMPRESSION: Stable examination chest with no change in the prior study. Bibasilar parenchymal densities persist and are stable. No significant pneumothorax. The above report was generated using voice recognition software. It may contain grammatical, syntax or spelling errors. Electronically signed by: Aureliano Otoole M.D. 01/04/2018 7:14 AM Dictated Date/Time: 01/04/2018 7:13 AM
[2018-01-04 07:28] LABS: HEMATOCRIT 28.2 % (42-52); HEMOGLOBIN 8.6 g/dL (14.0-18.0); MEAN CELL VOLUME 85.2 fL (80-100); MEAN CORPUSCULAR HGB CONC 30.5 g/dl (32-36); MEAN PLATELET VOLUME 8.6 fL (7.4-10.4); PLATELET COUNT 581 K/uL (130-400); RED CELL DISTRIBUTION WIDTH CV 18.3 % (11.5-14.5); WHITE BLOOD COUNT 16.26 K/uL (4.8-10.8)
[2018-01-04] MEDS: INSULIN ASPART 100 UNITS/ML 3 ML PEN SC SCH ×4 (07:36→21:00)
[2018-01-04 08:05] LABS: CALCIUM 8.7 mg/dl (8.5-10.1); CREATININE 0.73 mg/dl (0.60-1.40); POTASSIUM 3.6 mmol/L (3.5-5.1)
[2018-01-04] MEDS: VERAPAMIL HCL 120 MG TABCR PO SCH (08:34)
[2018-01-04] MEDS: ALLOPURINOL 300 MG TAB PO SCH (08:34)
[2018-01-04] MEDS: CEROVITE ADV FORMULA TAB PO SCH (08:34)
[2018-01-04] MEDS: ASPIRIN 81 MG ECTAB PO SCH (08:34)
[2018-01-04] MEDS: ATORVASTATIN 20 MG TAB PO SCH (08:34)
[2018-01-04] MEDS: CHOLECALCIFEROL 1000 INTER.UNIT TAB PO SCH (08:35)
--- NOTE | 2018-01-04 09:13 | Progress Note ---
Progress Note Date of Service Jan 04, 2018. Progress Note Mr. Sneed was seen this morning. I reviewed his CT scan yesterday. This is a small bulla or a small loculated pneumothorax in the medial aspect of the left side and I would not be concerned with it. His x-ray today shows no evidence for pneumothorax. I think this is a serendipitous finding which has no clinical significance. We will continue to follow along but I do not think this is going to become an issue for this unfortunate man with lung cancer.
--- NOTE | 2018-01-04 13:14 | Progress Note ---
Subjective Date of Service: Jan 04, 2018. Subjective Pt evaluation today including: conversation w/ patient, conversation w/ family , physical exam, lab review, review of studies, review of inpatient medication list Saw/examined the patient in room 212 patient is sitting comfortably in a chair no significant shortness of breath +weakness persists denies chest pain/palpitations as per - patient has been having lack of appetite for the past few months; has had 60lbs. weight loss Review of Systems Constitutional: + weakness, + fatigue, No fever, No chills Respiratory: + shortness of breath, No cough, No sputum Cardiac: No chest pain, No edema, No palpitations Abdomen: No pain, No nausea, No vomiting, No diarrhea Medications Current Inpatient Medications Medications (Trade) Dose Ordered Sig/Mert Route Start Time Stop Time Status Last Admin Dose Admin Ioversol (Optiray 320) 125 ml UD PRN IV 01/03/18 13:30 01/07/18 13:29 Acetaminophen (Tylenol Tab) 650 mg Q4H PRN PO 01/03/18 15:15 02/02/18 15:14 Ondansetron HCl (Zofran Inj) 4 mg Q6H PRN IV 01/03/18 15:15 02/02/18 15:14 Levofloxacin 750 mg/Prmx 150 ml @ 100 mls/hr Q24H IV 01/04/18 14:00 01/10/18 13:59 Enoxaparin Sodium (Lovenox Inj) 100 mg Q12H SQ 01/03/18 18:00 02/02/18 17:59 01/04/18 05:42 100 MG Insulin Aspart (novoLOG ASPART) SLIDING SCALE If C... ACHS SC 01/03/18 16:00 02/02/18 15:59 01/04/18 12:18 3 UNITS Glucose (Glucose 40% Gel) 15-30 GRAMS 15 GRAMS... UD PRN PO 01/03/18 15:30 02/02/18 15:29 Glucose (Glucose Chew Tab) 4-8 Tablets 4 Tabl... UD PRN PO 01/03/18 15:30 02/02/18 15:29 Dextrose (Dextrose 50% 50ML Syringe) 25-50ML OF 50% DW IV FOR... UD PRN IV 01/03/18 15:30 02/02/18 15:29 Glucagon (Glucagon Inj) 1 mg UD PRN SQ 01/03/18 15:30 02/02/18 15:29 Allopurinol (Zyloprim Tab) 300 mg DAILY PO 01/04/18 09:00 02/03/18 08:59 01/04/18 08:34 300 MG Aspirin (Ecotrin Tab) 81 mg DAILY PO 01/04/18 09:00 02/03/18 08:59 01/04/18 08:34 81 MG Atorvastatin Calcium (Lipitor Tab) 20 mg DAILY PO 01/04/18 09:00 02/03/18 08:59 01/04/18 08:34 20 MG Cholecalciferol (Vitamin D Tab) 1,000 inter.unit DAILY PO 01/04/18 09:00 02/03/18 08:59 01/04/18 08:35 1,000 INTER.UNIT Multivitamins/ Minerals (Multivitamin W/ Minerals Tab) 1 tab DAILY PO 01/04/18 09:00 02/03/18 08:59 01/04/18 08:34 1 TAB Senna/Docusate Sodium (Senokot S Tab) 1 tab BID PRN PO 01/03/18 15:30 02/02/18 15:29 Verapamil HCl (Calan-Sr Tab) 120 mg DAILY PO 01/04/18 09:00 02/03/18 08:59 01/04/18 08:34 120 MG Enteral Nutritional Formula (Boost Glucose Control) 1 can BIDM PO 01/04/18 16:45 02/03/18 16:44 UNV Objective Vital Signs Date Time Temp Pulse Resp B/P (MAP) Pulse Ox O2 Delivery O2 Flow Rate FiO2 01/04/18 11:06 36.5 85 18 111/60 (77) 94 Nasal Cannula 2.0 01/04/18 09:22 Nasal Cannula 2.0 01/04/18 08:00 Nasal Cannula 2.0 01/04/18 07:55 36.8 93 18 125/74 (91) 91 Nasal Cannula 01/04/18 04:21 37.0 83 18 115/67 (83) 93 Nasal Cannula 2.0 01/04/18 04:00 93 Nasal Cannula 2.0 01/04/18 00:30 37.0 78 19 107/59 (75) 94 Nasal Cannula 2.0 01/04/18 00:00 94 Nasal Cannula 2.0 01/03/18 20:00 94 Nasal Cannula 2.0 01/03/18 19:09 36.9 86 32 101/49 (66) 94 Nasal Cannula 2.0 01/03/18 18:59 36.4 98 14 117/81 (93) 01/03/18 17:30 36.5 81 20 136/74 95 Nasal Cannula 2.0 01/03/18 17:16 77 103/68 95 01/03/18 14:01 78 20 118/70 99 Nasal Cannula 2.0 01/03/18 13:57 116/49 Physical Exam General Appearance: no apparent distress Respiratory/Chest: lungs clear, normal breath sounds, no respiratory distress, no accessory muscle use Cardiovascular: regular rate, rhythm, no edema, + systolic murmur Extremities: normal inspection, no pedal edema, no calf tenderness Neurologic/Psychiatric: no motor/sensory deficits, alert, normal mood/affect Laboratory Results Last 24 Hours Test 01/03/18 14:30 01/03/18 20:53 01/03/18 23:17 01/04/18 06:41 Influenza Type A (RT-PCR) Neg for Influ A Influenza Type B (RT-PCR) Neg for Influ B Bedside Glucose 212 mg/dl Urine Color DK YELLOW Urine Appearance CLEAR Urine pH 5.0 Urine Specific Odonnell > 1.045 Urine Protein TRACE Urine Glucose (UA) TRACE Urine Ketones NEG Urine Occult Blood 1+ Urine Nitrite NEG Urine Bilirubin NEG Urine Urobilinogen NEG Urine Leukocyte Esterase NEG Urine WBC (Auto) 1-5 /hpf Urine RBC (Auto) 5-10 /hpf Urine Hyaline Casts (Auto) 0 /lpf Urine Epithelial Cells (Auto) 5-10 /lpf Urine Bacteria (Auto) NEG Urine Yeast (Auto) White Blood Count 16.26 K/uL Red Blood Count 3.31 M/uL Hemoglobin 8.6 g/dL Hematocrit 28.2 % Mean Corpuscular Volume 85.2 fL Mean Corpuscular Hemoglobin 26.0 pg Mean Corpuscular Hemoglobin Concent 30.5 g/dl RDW Standard Deviation 57.0 fL RDW Coefficient of Variation 18.3 % Platelet Count 581 K/uL Mean Platelet Volume 8.6 fL Sodium Level 143 mmol/L Potassium Level 3.6 mmol/L Chloride Level 110 mmol/L Carbon Dioxide Level 25 mmol/L Anion Gap 8.0 mmol/L Blood Urea Nitrogen 18 mg/dl Creatinine 0.73 mg/dl Est Creatinine Clear Calc Drug Dose 87.8 ml/min Estimated GFR () 98.7 Estimated GFR (Non- 85.2 BUN/Creatinine Ratio 24.5 Random Glucose 77 mg/dl Calcium Level 8.7 mg/dl Test 01/04/18 06:56 01/04/18 11:22 Bedside Glucose 95 mg/dl 161 mg/dl Assessment and Plan This is an 82 year old male with a PMH of non-small cell lung carcinoma with ongoing chemotherapy, HTN, DM2, HLD - presents with weakness, hypoxia, shortness of breath, lack of appetite and subsequently found to have pneumonia Acute Hypoxic Respiratory Failure Community Acquired Pneumonia 01/04 * patient with hypoxic episodes in oncology office - was sent to the ED for further evaluation * CT chest - suggests bibasilar opacities * started on Levaquin - which we will continue for 7-10 days * WBC improving from 01/03; will monitor * O2 saturation improved with 2L of O2, will wean as tolerated in the next day or two * may need a two step prior to discharge Chronic Nonocclusive Popliteal DVT * Lovenox due to malignancy * will add Lovenox teaching * outpatient oncology follow-up for length of treatment Tiny Apical Pneumothorax * appreciate cardiothoracic surgery input * no further management necessary as this will likely resolve on its own Generalized Weakness Decreased PO intake * added boost BID with meals * PT/OT ordered, uses wheelchair intermittently DM2 * hold oral agents, insulin sliding scale added HTN * BP stable, continue home medications DVT ppx * Lovenox 1mg/kg q12 FULL CODE
[2018-01-04] MEDS: LEVOFLOXACIN / D5W 750 MG in PREMIXED IN D5W 150 ML IV SCH (15:35)
[2018-01-04] MEDS: BOOST GLUCOSE CONTROL PO SCH (15:45)
[2018-01-05] VITALS (9 sets, daily range): BP systolic 92–133; BP diastolic 56–85; PULSE 73–120; TEMP 36.2–37.2; O2SAT 93–95
[2018-01-05] MEDS: ENOXAPARIN 100 MG/1ML SYR SQ SCH ×2 (06:30→17:12)
[2018-01-05 06:55] LABS: HEMATOCRIT 27.7 % (42-52); HEMOGLOBIN 8.5 g/dL (14.0-18.0); MEAN CELL VOLUME 84.2 fL (80-100); MEAN CORPUSCULAR HEMOGLOBIN 25.8 pg (25-34); MEAN CORPUSCULAR HGB CONC 30.7 g/dl (32-36); MEAN PLATELET VOLUME 8.3 fL (7.4-10.4); PLATELET COUNT 566 K/uL (130-400); RED CELL DISTRIBUTION WIDTH CV 18.3 % (11.5-14.5); RED CELL DISTRIBUTION WIDTH SD 56.6 fL (36.4-46.3); WHITE BLOOD COUNT 15.11 K/uL (4.8-10.8)
[2018-01-05] MEDS: INSULIN ASPART 100 UNITS/ML 3 ML PEN SC SCH ×4 (07:00→20:52)
[2018-01-05 07:22] LABS: CALCIUM 8.8 mg/dl (8.5-10.1); CREATININE 0.72 mg/dl (0.60-1.40); POTASSIUM 3.6 mmol/L (3.5-5.1)
[2018-01-05] MEDS: CEROVITE ADV FORMULA TAB PO SCH (07:53)
[2018-01-05] MEDS: CHOLECALCIFEROL 1000 INTER.UNIT TAB PO SCH (07:53)
[2018-01-05] MEDS: ALLOPURINOL 300 MG TAB PO SCH (07:53)
[2018-01-05] MEDS: ATORVASTATIN 20 MG TAB PO SCH (07:53)
[2018-01-05] MEDS: ASPIRIN 81 MG ECTAB PO SCH (07:53)
[2018-01-05] MEDS: BOOST GLUCOSE CONTROL PO SCH ×2 (07:55→16:45)
[2018-01-05] MEDS: VERAPAMIL HCL 120 MG TABCR PO SCH (07:56)
--- NOTE | 2018-01-05 08:21 | Progress Note ---
Subjective Date of Service: Jan 05, 2018. Subjective Pt evaluation today including: conversation w/ patient, physical exam, lab review, review of studies, review of inpatient medication list Saw/examined the patient in room 212 He's doing well today; still has supplemental oxygen intermittent productive cough No problem/issue Review of Systems Constitutional: No fever, No chills Respiratory: + cough, + sputum, + shortness of breath, + dyspnea on exertion, No wheezing, No dyspnea at rest, No hemoptysis Cardiac: No chest pain, No edema, No palpitations Abdomen: No pain, No nausea, No vomiting, No diarrhea, No constipation Heme: No abnormal bleeding/bruising Medications Current Inpatient Medications Medications (Trade) Dose Ordered Sig/Mert Route Start Time Stop Time Status Last Admin Dose Admin Ioversol (Optiray 320) 125 ml UD PRN IV 01/03/18 13:30 01/07/18 13:29 Acetaminophen (Tylenol Tab) 650 mg Q4H PRN PO 01/03/18 15:15 02/02/18 15:14 Ondansetron HCl (Zofran Inj) 4 mg Q6H PRN IV 01/03/18 15:15 02/02/18 15:14 Levofloxacin 750 mg/Prmx 150 ml @ 100 mls/hr Q24H IV 01/04/18 14:00 01/10/18 13:59 01/04/18 15:35 100 MLS/HR Enoxaparin Sodium (Lovenox Inj) 100 mg Q12H SQ 01/03/18 18:00 02/02/18 17:59 01/05/18 06:30 100 MG Insulin Aspart (novoLOG ASPART) SLIDING SCALE If C... ACHS SC 01/03/18 16:00 02/02/18 15:59 01/04/18 17:45 8 UNITS Glucose (Glucose 40% Gel) 15-30 GRAMS 15 GRAMS... UD PRN PO 01/03/18 15:30 02/02/18 15:29 Glucose (Glucose Chew Tab) 4-8 Tablets 4 Tabl... UD PRN PO 01/03/18 15:30 02/02/18 15:29 Dextrose (Dextrose 50% 50ML Syringe) 25-50ML OF 50% DW IV FOR... UD PRN IV 01/03/18 15:30 02/02/18 15:29 Glucagon (Glucagon Inj) 1 mg UD PRN SQ 01/03/18 15:30 02/02/18 15:29 Allopurinol (Zyloprim Tab) 300 mg DAILY PO 01/04/18 09:00 02/03/18 08:59 01/05/18 07:53 300 MG Aspirin (Ecotrin Tab) 81 mg DAILY PO 01/04/18 09:00 02/03/18 08:59 01/05/18 07:53 81 MG Atorvastatin Calcium (Lipitor Tab) 20 mg DAILY PO 01/04/18 09:00 02/03/18 08:59 01/05/18 07:53 20 MG Cholecalciferol (Vitamin D Tab) 1,000 inter.unit DAILY PO 01/04/18 09:00 02/03/18 08:59 01/05/18 07:53 1,000 INTER.UNIT Multivitamins/ Minerals (Multivitamin W/ Minerals Tab) 1 tab DAILY PO 01/04/18 09:00 02/03/18 08:59 01/05/18 07:53 1 TAB Senna/Docusate Sodium (Senokot S Tab) 1 tab BID PRN PO 01/03/18 15:30 02/02/18 15:29 Verapamil HCl (Calan-Sr Tab) 120 mg DAILY PO 01/04/18 09:00 02/03/18 08:59 01/05/18 07:56 120 MG Enteral Nutritional Formula (Boost Glucose Control) 1 can BIDM PO 01/04/18 16:45 02/03/18 16:44 01/05/18 07:55 1 CAN Objective Vital Signs Date Time Temp Pulse Resp B/P (MAP) Pulse Ox O2 Delivery O2 Flow Rate FiO2 01/05/18 07:24 36.7 106 16 133/85 (101) 95 Nasal Cannula 2.0 01/05/18 04:00 93 Nasal Cannula 2.0 01/05/18 04:00 37.0 84 26 108/65 (79) 93 Nasal Cannula 3.0 01/05/18 00:00 37.2 74 32 120/63 (82) 95 Nasal Cannula 2.0 01/05/18 00:00 95 Nasal Cannula 2.0 01/04/18 20:15 94 Nasal Cannula 2.0 01/04/18 19:35 37.4 81 18 103/55 (71) 94 Nasal Cannula 2.0 01/04/18 16:15 95 Nasal Cannula 2.0 01/04/18 15:45 36.7 90 18 113/59 (77) 95 Nasal Cannula 2.0 01/04/18 12:00 Nasal Cannula 2.0 01/04/18 11:06 36.5 85 18 111/60 (77) 94 Nasal Cannula 2.0 01/04/18 09:22 Nasal Cannula 2.0 Physical Exam General Appearance: no apparent distress, + pertinent finding (chronically ill appearing) Respiratory/Chest: chest non-tender, lungs clear, normal breath sounds, no respiratory distress, no accessory muscle use Cardiovascular: regular rate, rhythm, no edema, no murmur Extremities: normal inspection, no pedal edema Laboratory Results Last 24 Hours Test 01/04/18 11:22 01/04/18 16:18 01/04/18 21:06 01/05/18 06:27 Bedside Glucose 161 mg/dl 248 mg/dl 66 mg/dl 113 mg/dl Test 01/05/18 06:40 White Blood Count 15.11 K/uL Red Blood Count 3.29 M/uL Hemoglobin 8.5 g/dL Hematocrit 27.7 % Mean Corpuscular Volume 84.2 fL Mean Corpuscular Hemoglobin 25.8 pg Mean Corpuscular Hemoglobin Concent 30.7 g/dl RDW Standard Deviation 56.6 fL RDW Coefficient of Variation 18.3 % Platelet Count 566 K/uL Mean Platelet Volume 8.3 fL Sodium Level 143 mmol/L Potassium Level 3.6 mmol/L Chloride Level 111 mmol/L Carbon Dioxide Level 25 mmol/L Anion Gap 7.0 mmol/L Blood Urea Nitrogen 16 mg/dl Creatinine 0.72 mg/dl Est Creatinine Clear Calc Drug Dose 89.0 ml/min Estimated GFR () 99.3 Estimated GFR (Non- 85.7 BUN/Creatinine Ratio 22.2 Random Glucose 104 mg/dl Calcium Level 8.8 mg/dl Assessment and Plan This is an 82 year old male with a PMH of non-small cell lung carcinoma with ongoing chemotherapy, HTN, DM2, HLD - presents with weakness, hypoxia, shortness of breath, lack of appetite and subsequently found to have pneumonia Acute Hypoxic Respiratory Failure Community Acquired Pneumonia 3/15 * patient doing better; white count improving, CXR stable * will continue Levaquin for the pneumonia * wean O2 as tolerated * transfer to med/surg * two step in AM 01/04 * patient with hypoxic episodes in oncology office - was sent to the ED for further evaluation * CT chest - suggests bibasilar opacities * started on Levaquin - which we will continue for 7-10 days * WBC improving from 01/03; will monitor * O2 saturation improved with 2L of O2, will wean as tolerated in the next day or two * may need a two step prior to discharge Chronic Nonocclusive Popliteal DVT * Lovenox due to malignancy * will add Lovenox teaching * outpatient oncology follow-up for length of treatment Thrombocytosis * patient noted to have thrombocytosis as outpatient as well * possibly a side effect of chemotherapy Tiny Apical Pneumothorax * appreciate cardiothoracic surgery input * no further management necessary as this will likely resolve on its own Generalized Weakness Decreased PO intake * added boost BID with meals * PT/OT ordered, uses wheelchair intermittently DM2 * hold oral agents, insulin sliding scale added HTN * BP stable, continue home medications DVT ppx * Lovenox 1mg/kg q12 FULL CODE
--- NOTE | 2018-01-05 09:11 | SURGERY PROGRESS NOTE ---
DATE: 01/05/2018 Mr. Sneed is on 2 liters O2 with 95% saturation and stable vital signs. We were asked to see him for a possible pneumothorax on the left; however, I do not think this is a true finding. His x-ray shows no evidence of pneumothorax, but he has of course chronic changes and opacifications bilaterally, worse on the left than the right. At this point, I would follow up with a chest x-ray tomorrow. However, if there is no evidence of a pneumothorax on that x-ray I would not be concerned about this question of pneumothorax.
--- NOTE | 2018-01-05 09:29 | Progress Note ---
Progress Note Date of Service Jan 05, 2018. Progress Note Received a call about patient going into A. Fib with RVR this seems like a new diagnosis - not on records EKG confirmed A. Fib in the 120s-130s will add metoprolol for rate control Already anticoagulated with Lovenox
[2018-01-05] MEDS ORDERED: POTASSIUM CHLORIDE 20 MEQ TABCR PO STA (09:30)
[2018-01-05] MEDS ORDERED: METOPROLOL TARTRATE 25 MG TAB PO ONE ×2 (09:30→12:15)
[2018-01-05] MEDS ORDERED: METOPROLOL TARTRATE 25 MG TAB PO SCH ×3 (14:00→21:00)
[2018-01-05] MEDS: LEVOFLOXACIN / D5W 750 MG in PREMIXED IN D5W 150 ML IV SCH (14:17)
[2018-01-05] MEDS: METOPROLOL TARTRATE 25 MG TAB PO SCH (20:52)
[2018-01-06] VITALS (7 sets, daily range): BP systolic 97–127; BP diastolic 51–70; PULSE 74–85; TEMP 36.3–37.1; O2SAT 93–99
[2018-01-06] MEDS: ENOXAPARIN 100 MG/1ML SYR SQ SCH ×2 (05:18→17:28)
[2018-01-06] MEDS ORDERED: LORATADINE 10 MG TAB PO ONE (07:00)
[2018-01-06 07:13] LABS: HEMATOCRIT 28.1 % (42-52); HEMOGLOBIN 8.6 g/dL (14.0-18.0); MEAN CELL VOLUME 84.1 fL (80-100); MEAN CORPUSCULAR HEMOGLOBIN 25.7 pg (25-34); MEAN CORPUSCULAR HGB CONC 30.6 g/dl (32-36); MEAN PLATELET VOLUME 8.4 fL (7.4-10.4); PLATELET COUNT 587 K/uL (130-400); RED CELL DISTRIBUTION WIDTH CV 18.6 % (11.5-14.5); RED CELL DISTRIBUTION WIDTH SD 57.4 fL (36.4-46.3); WHITE BLOOD COUNT 15.14 K/uL (4.8-10.8)
[2018-01-06] MEDS: BOOST GLUCOSE CONTROL PO SCH ×2 (07:30→16:45)
[2018-01-06 07:41] LABS: CALCIUM 9.1 mg/dl (8.5-10.1); CREATININE 0.76 mg/dl (0.60-1.40)
--- NOTE | 2018-01-06 07:42 | DIAGNOSTIC IMAGING REPORT ---
CHEST ONE VIEW PORTABLE CLINICAL HISTORY: Pneumothorax. Lung mass. COMPARISON STUDY: Chest CT January 03, 2018 and chest radiograph January 04, 2018. FINDINGS: No pneumothorax is visualized. Lung volumes remain diminished. There is persistent dense right basilar opacity and extensive left mid and left lower lung airspace opacity. Left lower lung aeration has diminished since prior exam. There is no evidence for pulmonary edema. Left pneumothorax following loss is noted. Cardiomediastinal silhouette is stable. IMPRESSION: 1. No pneumothorax identified. 2. Persistent dense bibasilar opacities, left greater than right. Left lower lung aeration has diminished since previous exam. Electronically signed by: Lg Saldana M.D. 01/06/2018 7:41 AM Dictated Date/Time: 01/06/2018 7:38 AM
[2018-01-06] MEDS: CEROVITE ADV FORMULA TAB PO SCH (07:59)
[2018-01-06] MEDS: ALLOPURINOL 300 MG TAB PO SCH (07:59)
[2018-01-06] MEDS: ASPIRIN 81 MG ECTAB PO SCH (07:59)
[2018-01-06] MEDS: ATORVASTATIN 20 MG TAB PO SCH (07:59)
[2018-01-06] MEDS: CHOLECALCIFEROL 1000 INTER.UNIT TAB PO SCH (07:59)
[2018-01-06] MEDS: METOPROLOL TARTRATE 25 MG TAB PO SCH ×2 (07:59→20:45)
--- NOTE | 2018-01-06 08:47 | Progress Note ---
Subjective Date of Service: Jan 06, 2018. Subjective Pt evaluation today including: conversation w/ patient, physical exam, lab review, review of studies, review of inpatient medication list Saw/examined the patient in room 212 He's doing much better today Improved PO intake +weakness Review of Systems Constitutional: + weakness, No fever, No chills, No fatigue Respiratory: + cough, + shortness of breath, No sputum, No wheezing, No dyspnea on exertion, No dyspnea at rest, No hemoptysis Cardiac: No chest pain, No edema, No palpitations Abdomen: No pain, No nausea, No vomiting, No diarrhea, No constipation, No GI bleeding Heme: No abnormal bleeding/bruising Medications Current Inpatient Medications Medications (Trade) Dose Ordered Sig/Mert Route Start Time Stop Time Status Last Admin Dose Admin Ioversol (Optiray 320) 125 ml UD PRN IV 01/03/18 13:30 01/07/18 13:29 Acetaminophen (Tylenol Tab) 650 mg Q4H PRN PO 01/03/18 15:15 02/02/18 15:14 Ondansetron HCl (Zofran Inj) 4 mg Q6H PRN IV 01/03/18 15:15 02/02/18 15:14 Levofloxacin 750 mg/Prmx 150 ml @ 100 mls/hr Q24H IV 01/04/18 14:00 01/10/18 13:59 01/05/18 14:17 100 MLS/HR Enoxaparin Sodium (Lovenox Inj) 100 mg Q12H SQ 01/03/18 18:00 02/02/18 17:59 01/06/18 05:18 100 MG Insulin Aspart (novoLOG ASPART) SLIDING SCALE If C... ACHS SC 01/03/18 16:00 02/02/18 15:59 01/05/18 17:11 3 UNITS Glucose (Glucose 40% Gel) 15-30 GRAMS 15 GRAMS... UD PRN PO 01/03/18 15:30 02/02/18 15:29 Glucose (Glucose Chew Tab) 4-8 Tablets 4 Tabl... UD PRN PO 01/03/18 15:30 02/02/18 15:29 Dextrose (Dextrose 50% 50ML Syringe) 25-50ML OF 50% DW IV FOR... UD PRN IV 01/03/18 15:30 02/02/18 15:29 Glucagon (Glucagon Inj) 1 mg UD PRN SQ 01/03/18 15:30 02/02/18 15:29 Allopurinol (Zyloprim Tab) 300 mg DAILY PO 01/04/18 09:00 02/03/18 08:59 01/06/18 07:59 300 MG Aspirin (Ecotrin Tab) 81 mg DAILY PO 01/04/18 09:00 02/03/18 08:59 01/06/18 07:59 81 MG Atorvastatin Calcium (Lipitor Tab) 20 mg DAILY PO 01/04/18 09:00 02/03/18 08:59 01/06/18 07:59 20 MG Cholecalciferol (Vitamin D Tab) 1,000 inter.unit DAILY PO 01/04/18 09:00 02/03/18 08:59 01/06/18 07:59 1,000 INTER.UNIT Multivitamins/ Minerals (Multivitamin W/ Minerals Tab) 1 tab DAILY PO 01/04/18 09:00 02/03/18 08:59 01/06/18 07:59 1 TAB Senna/Docusate Sodium (Senokot S Tab) 1 tab BID PRN PO 01/03/18 15:30 02/02/18 15:29 Enteral Nutritional Formula (Boost Glucose Control) 1 can BIDM PO 01/04/18 16:45 02/03/18 16:44 01/05/18 07:55 1 CAN Metoprolol Tartrate (Lopressor Tab) 25 mg BID PO 01/05/18 21:00 02/04/18 20:59 01/06/18 07:59 25 MG Objective Vital Signs Date Time Temp Pulse Resp B/P (MAP) Pulse Ox O2 Delivery O2 Flow Rate FiO2 01/06/18 07:59 37.0 78 19 115/69 (84) 95 Nasal Cannula 3.0 01/06/18 04:46 37.1 76 23 127/70 (89) 96 Nasal Cannula 3.0 01/06/18 04:00 Nasal Cannula 01/06/18 00:12 37.0 74 18 97/60 (72) 95 Nasal Cannula 3.0 01/05/18 23:59 Nasal Cannula 01/05/18 20:00 Nasal Cannula 01/05/18 19:38 36.5 94 18 100/72 (81) 95 Nasal Cannula 2.5 01/05/18 16:00 95 Nasal Cannula 2.0 01/05/18 15:37 36.7 73 18 92/56 (68) 95 Nasal Cannula 2.5 01/05/18 12:05 36.2 120 20 109/63 (78) 95 Nasal Cannula 2.0 01/05/18 12:00 95 Nasal Cannula 2.0 Physical Exam General Appearance: no apparent distress, + pertinent finding (chronically ill appearing) Respiratory/Chest: no respiratory distress, no accessory muscle use, + decreased breath sounds Cardiovascular: regular rate, rhythm, no edema, no murmur Extremities: normal range of motion, non-tender, normal inspection, no pedal edema, no calf tenderness Neurologic/Psychiatric: no motor/sensory deficits, alert, normal mood/affect Laboratory Results Last 24 Hours Test 01/05/18 11:39 01/05/18 16:32 01/05/18 20:42 01/06/18 06:16 Bedside Glucose 206 mg/dl 224 mg/dl 105 mg/dl 106 mg/dl Test 01/06/18 07:00 White Blood Count 15.14 K/uL Red Blood Count 3.34 M/uL Hemoglobin 8.6 g/dL Hematocrit 28.1 % Mean Corpuscular Volume 84.1 fL Mean Corpuscular Hemoglobin 25.7 pg Mean Corpuscular Hemoglobin Concent 30.6 g/dl RDW Standard Deviation 57.4 fL RDW Coefficient of Variation 18.6 % Platelet Count 587 K/uL Mean Platelet Volume 8.4 fL Sodium Level 141 mmol/L Potassium Level 4.0 mmol/L Chloride Level 109 mmol/L Carbon Dioxide Level 25 mmol/L Anion Gap 7.0 mmol/L Blood Urea Nitrogen 18 mg/dl Creatinine 0.76 mg/dl Est Creatinine Clear Calc Drug Dose 84.9 ml/min Estimated GFR () 97.1 Estimated GFR (Non- 83.8 BUN/Creatinine Ratio 23.7 Random Glucose 100 mg/dl Calcium Level 9.1 mg/dl Magnesium Level 2.1 mg/dl Assessment and Plan This is an 82 year old male with a PMH of non-small cell lung carcinoma with ongoing chemotherapy, HTN, DM2, HLD - presents with weakness, hypoxia, shortness of breath, lack of appetite and subsequently found to have pneumonia Acute Hypoxic Respiratory Failure Community Acquired Pneumonia 3/16 * patient doing well * PT/OT ordered * continue Levaquin for now for PNA * two step prior to discharge 01/05 * patient doing better; white count improving, CXR stable * will continue Levaquin for the pneumonia * wean O2 as tolerated * transfer to med/surg * two step in AM 01/04 * patient with hypoxic episodes in oncology office - was sent to the ED for further evaluation * CT chest - suggests bibasilar opacities * started on Levaquin - which we will continue for 7-10 days * WBC improving from 01/03; will monitor * O2 saturation improved with 2L of O2, will wean as tolerated in the next day or two * may need a two step prior to discharge New Onset A. Fib with RVR * patient went into A. fib with RVR on 01/05 * was given b-anatoly and converted back to sinus * will continue Lopressor 25mg BID and Lovenox for anticoagulation Chronic Nonocclusive Popliteal DVT * Lovenox due to malignancy * will add Lovenox teaching * outpatient oncology follow-up for length of treatment Thrombocytosis * patient noted to have thrombocytosis as outpatient as well * possibly a side effect of chemotherapy Tiny Apical Pneumothorax * appreciate cardiothoracic surgery input * no further management necessary as this will likely resolve on its own Generalized Weakness Decreased PO intake * added boost BID with meals * PT/OT ordered, uses wheelchair intermittently DM2 * hold oral agents, insulin sliding scale added HTN * BP stable, continue home medications DVT ppx * Lovenox 1mg/kg q12 FULL CODE
[2018-01-06] MEDS: INSULIN ASPART 100 UNITS/ML 3 ML PEN SC SCH ×4 (09:45→20:48)
--- NOTE | 2018-01-06 10:02 | Pulmonary Consultation ---
History General Date of Service: Jan 06, 2018. Stated Complaint: PNA HPI The patient is a 82 year old male who presents to [facility] with complaints of PNA. The patient's primary care provider is Ady Mayo MD. 82-year-old gentleman admitted for progressive shortness of breath and weakness 1 week. He was also noting some urinary incontinence. 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 Estevez of the [facility] oncology group. During the patient's workup he had a CT angiogram demonstrating progressive fibronodular disease of the lung as well as mediastinal adenopathy but no definitive pulmonary emboli was noted. But a lower extremity DVT study did show a VTE of indeterminate chronicity. The patient was notably hypoxic but started on Lovenox and is notably progressed in a positive direction after treatment. Today the patient notes he continues to have his baseline cough with no active production or hemoptysis and he is returning quickly to his baseline pulmonary status. He currently denies: Fevers, chills, riders, pleurisy, shortness of breath or classic cardiac chest pain. Workup EKG 01/05/2018: Atrial fibrillation/RVR 123 WBC: [id number] D-dimer: >450 Microbiology expectorated sputum, urine, blood x2: No significant growth MRSA swab of the nose 01/03/2018: Negative PmHx: 1. Spindle Cell/squamous cell differentiation Lung Ca follow-up by Dr. Ray Estevez Chemo: Paclitaxel/carboplatin-XRT from 07/06/2017 through 08/09/2017 now on Pembrolizumab (started: 11/07/2017) PD L1 expression 80% MRI of the brain 06/01/2017: Negative for metastatic disease PET-CT scan 09/07/2017 partial response but still significant residual disease in left lower lobe 2. Diabetes mellitus 3. Dyslipidemia 4. Hypertension 5. Mild aortic valve stenosis 6. Gout 7. Melanoma of the left cheek pT1a PsHx: 1. Cataract surgery 2. Tonsillectomy 3. Transthoracic needle aspiration 05/17/2017 4. Colonoscopy 5. 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 Review of Systems Constitutional: reports: weakness Eyes: reports: no symptoms ENT: reports: no symptoms Cardiovascular: reports: no symptoms Respiratory: reports: as stated in HPI Gastrointestinal: reports: no symptoms Genitourinary - Male: reports: no symptoms Musculoskeletal: reports: no symptoms Integumentary: reports: no symptoms Neurologic: reports: no symptoms Psychiatric: reports: no symptoms Endocrine: no symptoms Hematologic / Lymphatic: no symptoms Allergic / Immunologic: no symptoms Past Medical History Past Medical History: Please refer to HPI Past Surgical History: Please refer to HPI Family History Cancer Diabetes mellitus Heart disease Hypertension Please refer to HPI Social History Please refer to HPI Hx Tobacco Use In Past Year?: No Smoking Status: Former Smoker Immunizations History of Influenza Vaccine: Yes Influenza Vaccine Date: Aug 10, 2017 History of Tetanus Vaccine?: Yes Tetanus Immunization Date: Sep 09, 2010 History of Pneumococcal: Yes Pneumococcal Date: Jun 23, 2015 History of MDRO History of MDRO: No Allergies Coded Allergies: No Known Allergies (Unverified , 01/03/18) Current Medications Reported Home Medications Medications Dose Route/Sig Max Daily Dose Days Date Category Calan Sr Ext Rel (Verapamil HCl) 120 Mg Tabcr 120 Mg PO DAILY 01/03/18 Reported Stool Softener (Sennosides-Docusate Sodium) 1 Tab Tab 1 Tab PO BID PRN 01/03/18 Reported Vitamin D (Cholecalciferol) 1,000 Unit Tab 1 Tab PO DAILY 08/15/17 Reported Aspirin Ec (Aspirin) 81 Mg Tab 81 Mg PO DAILY 06/22/17 Reported Mvi With Minerals (Multivitamins/Minerals) Tab 1 Tab PO DAILY 06/22/17 Reported Metformin Hcl Er (Metformin Hcl) 500 Mg Tab 1 Tab PO DAILY 90 06/22/17 Reported Lipitor (Atorvastatin Calcium) 20 Mg Tab 1 Tab PO DAILY 30 06/22/17 Reported Glimepiride 1 Mg Tab 2 Mg PO DAILY 30 06/22/17 Reported Zyloprim (Allopurinol) 300 Mg Tab 300 Mg PO DAILY 06/22/17 Reported Physical Physical Exam Vital Signs: Date Time Temp Pulse Resp B/P (MAP) Pulse Ox O2 Delivery O2 Flow Rate FiO2 01/06/18 07:59 37.0 78 19 115/69 (84) 95 Nasal Cannula 3.0 01/06/18 04:46 37.1 76 23 127/70 (89) 96 Nasal Cannula 3.0 01/06/18 04:00 Nasal Cannula 01/06/18 00:12 37.0 74 18 97/60 (72) 95 Nasal Cannula 3.0 01/05/18 23:59 Nasal Cannula 01/05/18 20:00 Nasal Cannula 01/05/18 19:38 36.5 94 18 100/72 (81) 95 Nasal Cannula 2.5 01/05/18 16:00 95 Nasal Cannula 2.0 01/05/18 15:37 36.7 73 18 92/56 (68) 95 Nasal Cannula 2.5 01/05/18 12:05 36.2 120 20 109/63 (78) 95 Nasal Cannula 2.0 01/05/18 12:00 95 Nasal Cannula 2.0 General Appearance: WELL-APPEARING, NO APPARENT DISTRESS Head: NORMOCEPHALIC, ATRAUMATIC Eyes: PERRLA, NO DISCHARGE, EOMI, SCLERAE NORMAL ENT: NORMAL EAR EXAM, NORMAL NASAL EXAM, NORMAL MOUTH EXAM, NORMAL THROAT EXAM Neck: NORMAL RANGE OF MOTION, NO TENDERNESS, TRACHEA MIDLINE Respiratory: other (Rhonchi appreciated bilaterally) Cardiovasular: REGULAR RATE/RHYTHM, NORMAL S1S2, NO M/G/R, NO MURMUR, NO GALLOP Abdomen: NON TENDER, NORMAL BOWEL SOUNDS, NO REBOUND, NO MASSES, NO GUARDING, NO ORGANOMEGALY Genitourinary - Male: EXTERNAL GENITALIA NORMAL Back: NORMAL INSPECTION, NO MIDLINE TENDERNESS, NO CVA TENDERNESS, NO PARAVERTEBRAL TTP Upper Extremities: NO EDEMA, NO DEFORMITY, NORMAL ROM Lower Extremities: other (Bilateral lower extremity 1+ pitting edema with stasis dermatitis) Neuro: ALERT, ORIENTED x 3, NORMAL MOTOR EXAM, NORMAL SENSATION Reflexes: biceps (R) (2+), bicpes (L) (2+), achilles (R) (2+), achilles (L) (2+ ) Babinski Testing: right (downgoing), left (downgoing) Psychiatric: NORMAL AFFECT, NO SUICIDAL IDEATION Diagnostics Labs Results Past 24 Hours Test 01/05/18 11:39 01/05/18 16:32 01/05/18 20:42 01/06/18 06:16 Range/Units Bedside Glucose 206 224 105 106 70-99 mg/dl Test 01/06/18 07:00 Range/Units White Blood Count 15.14 4.8-10.8 K/uL Red Blood Count 3.34 4.7-6.1 M/uL Hemoglobin 8.6 14.0-18.0 g/dL Hematocrit 28.1 42-52 % Mean Corpuscular Volume 84.1 80-100 fL Mean Corpuscular Hemoglobin 25.7 25-34 pg Mean Corpuscular Hemoglobin Concent 30.6 32-36 g/dl RDW Standard Deviation 57.4 36.4-46.3 fL RDW Coefficient of Variation 18.6 11.5-14.5 % Platelet Count 587 130-400 K/uL Mean Platelet Volume 8.4 7.4-10.4 fL Sodium Level 141 136-145 mmol/L Potassium Level 4.0 3.5-5.1 mmol/L Chloride Level 109 98-107 mmol/L Carbon Dioxide Level 25 21-32 mmol/L Anion Gap 7.0 3-11 mmol/L Blood Urea Nitrogen 18 7-18 mg/dl Creatinine 0.76 0.60-1.40 mg/dl Est Creatinine Clear Calc Drug Dose 84.9 ml/min Estimated GFR () 97.1 Estimated GFR (Non- 83.8 BUN/Creatinine Ratio 23.7 10-20 Random Glucose 100 70-99 mg/dl Calcium Level 9.1 8.5-10.1 mg/dl Magnesium Level 2.1 1.8-2.4 mg/dl Diagnostic Radiology CT images 09/07/2017 compared to 01/03/2018 notable progression of bilateral lower lobe, right middle lobe infiltrate, I seriously doubt the patient got radiation to the right middle lobe, small loculated pneumothorax left apical anterior medial region EKG Please refer to HPI Impression Assessment and Plan 82-year-old gentleman with what appears to be progressive non-small cell carcinoma the lung admitted with hypoxia: 1. Hypoxia: His acute on chronic changes are clinically consistent with a VTE/ PE. I do agree with initiating Lovenox for anticoagulation. This should be readdressed by his oncology team within a 3 month window. At that time the patient can be reevaluated for his response to his underlying small cell lung CA which is most likely the etiology of the event. #2 pulmonary emboli: Do agree with initiating Lovenox at this time as the patient has high probability of VTE/PE. #3 lung cancer: Patient's previous PET imaging in August 2017 only shows partial response in his recent CTA does show extensive mediastinal adenopathy and possible extension into the contralateral lung. At this time the patient is to have a PET scan as an outpatient ordered by Dr. sEtevez the [facility] oncology group. At this time I would not perform any active biopsies of the patient was recently started on anticoagulation. If Dr. Estevez requires in the future more definitive biopsy I suggest we move forward with EBUS/ENB and possible transbronchial biopsies. Signoff: At this time I do not believe pulmonary can be of any more benefit please contact the team if the clinical situation requires.
[2018-01-06] MEDS: LEVOFLOXACIN / D5W 750 MG in PREMIXED IN D5W 150 ML IV SCH (14:51)
--- NOTE | 2018-01-06 16:04 | SURGERY PROGRESS NOTE ---
DATE: 01/06/2018 SUBJECTIVE: Mr. Sneed was seen today. We have been asked to see him because he has a bulla in his medial left upper lobe, which was felt to possibly represent a pneumothorax. He has no evidence of a pneumothorax on today's film, although he does have significant volume loss. Clinically, I think he looks better. At this point, I would not follow him any more from a thoracic surgery standpoint. Please call if needed.
[2018-01-07] VITALS (7 sets, daily range): BP systolic 105–127; BP diastolic 50–67; PULSE 76–91; TEMP 36.5–37.2; O2SAT 93–98
[2018-01-07] MEDS: ENOXAPARIN 100 MG/1ML SYR SQ SCH ×2 (05:38→17:59)
[2018-01-07] MEDS: BOOST GLUCOSE CONTROL PO SCH ×2 (07:30→16:45)
[2018-01-07 07:42] LABS: CALCIUM 9.2 mg/dl (8.5-10.1); CREATININE 0.89 mg/dl (0.60-1.40)
[2018-01-07] MEDS: ALLOPURINOL 300 MG TAB PO SCH (07:54)
[2018-01-07] MEDS: CHOLECALCIFEROL 1000 INTER.UNIT TAB PO SCH (07:54)
[2018-01-07] MEDS: CEROVITE ADV FORMULA TAB PO SCH (07:54)
[2018-01-07] MEDS: METOPROLOL TARTRATE 25 MG TAB PO SCH ×2 (07:54→21:30)
[2018-01-07] MEDS: ATORVASTATIN 20 MG TAB PO SCH (07:54)
[2018-01-07] MEDS: ASPIRIN 81 MG ECTAB PO SCH (07:55)
[2018-01-07] MEDS: INSULIN ASPART 100 UNITS/ML 3 ML PEN SC SCH ×4 (08:06→21:00)
[2018-01-07 08:13] LABS: HEMATOCRIT 30.7 % (42-52); HEMOGLOBIN 9.5 g/dL (14.0-18.0); MEAN CELL VOLUME 83.9 fL (80-100); MEAN CORPUSCULAR HGB CONC 30.9 g/dl (32-36); MEAN PLATELET VOLUME 8.8 fL (7.4-10.4); PLATELET COUNT 692 K/uL (130-400); RED CELL DISTRIBUTION WIDTH CV 18.7 % (11.5-14.5); RED CELL DISTRIBUTION WIDTH SD 57.3 fL (36.4-46.3); WHITE BLOOD COUNT 16.39 K/uL (4.8-10.8)
[2018-01-07] MEDS: LEVOFLOXACIN / D5W 750 MG in PREMIXED IN D5W 150 ML IV SCH (13:59)
--- NOTE | 2018-01-07 16:29 | Progress Note ---
Subjective Date of Service: Jan 07, 2018. Subjective Pt evaluation today including: conversation w/ patient, conversation w/ family , physical exam, lab review, review of studies, review of inpatient medication list Saw/examined the patient in room 212 He is doing well today, and son at bedside. Talked to them in depth regarding oxygen use and his condition He is very weak and he knows this, but refuses to go to [facility]. States he wants to go home first with home health, if he does not do well, he will go to [facility] Review of Systems Constitutional: + weakness, + fatigue, No fever, No chills Respiratory: + cough, No sputum, No wheezing, No shortness of breath, No dyspnea at rest, No hemoptysis Cardiac: No chest pain, No edema, No palpitations Abdomen: No pain, No nausea, No vomiting, No diarrhea Neurologic: + balance problems Medications Current Inpatient Medications Medications (Trade) Dose Ordered Sig/Mert Route Start Time Stop Time Status Last Admin Dose Admin Acetaminophen (Tylenol Tab) 650 mg Q4H PRN PO 01/03/18 15:15 02/02/18 15:14 Ondansetron HCl (Zofran Inj) 4 mg Q6H PRN IV 01/03/18 15:15 02/02/18 15:14 Levofloxacin 750 mg/Prmx 150 ml @ 100 mls/hr Q24H IV 01/04/18 14:00 01/10/18 13:59 01/07/18 13:59 100 MLS/HR Enoxaparin Sodium (Lovenox Inj) 100 mg Q12H SQ 01/03/18 18:00 02/02/18 17:59 01/07/18 05:38 100 MG Insulin Aspart (novoLOG ASPART) SLIDING SCALE If C... ACHS SC 01/03/18 16:00 02/02/18 15:59 01/07/18 08:06 3 UNITS Glucose (Glucose 40% Gel) 15-30 GRAMS 15 GRAMS... UD PRN PO 01/03/18 15:30 02/02/18 15:29 Glucose (Glucose Chew Tab) 4-8 Tablets 4 Tabl... UD PRN PO 01/03/18 15:30 02/02/18 15:29 Dextrose (Dextrose 50% 50ML Syringe) 25-50ML OF 50% DW IV FOR... UD PRN IV 01/03/18 15:30 02/02/18 15:29 Glucagon (Glucagon Inj) 1 mg UD PRN SQ 01/03/18 15:30 02/02/18 15:29 Allopurinol (Zyloprim Tab) 300 mg DAILY PO 01/04/18 09:00 02/03/18 08:59 01/07/18 07:54 300 MG Aspirin (Ecotrin Tab) 81 mg DAILY PO 01/04/18 09:00 02/03/18 08:59 01/07/18 07:55 81 MG Atorvastatin Calcium (Lipitor Tab) 20 mg DAILY PO 01/04/18 09:00 02/03/18 08:59 01/07/18 07:54 20 MG Cholecalciferol (Vitamin D Tab) 1,000 inter.unit DAILY PO 01/04/18 09:00 02/03/18 08:59 01/07/18 07:54 1,000 INTER.UNIT Multivitamins/ Minerals (Multivitamin W/ Minerals Tab) 1 tab DAILY PO 01/04/18 09:00 02/03/18 08:59 01/07/18 07:54 1 TAB Senna/Docusate Sodium (Senokot S Tab) 1 tab BID PRN PO 01/03/18 15:30 02/02/18 15:29 Enteral Nutritional Formula (Boost Glucose Control) 1 can BIDM PO 01/04/18 16:45 02/03/18 16:44 01/05/18 07:55 1 CAN Metoprolol Tartrate (Lopressor Tab) 25 mg BID PO 01/05/18 21:00 02/04/18 20:59 01/07/18 07:54 25 MG Objective Vital Signs Date Time Temp Pulse Resp B/P (MAP) Pulse Ox O2 Delivery O2 Flow Rate FiO2 01/07/18 16:00 Nasal Cannula 3.0 01/07/18 15:41 36.5 91 18 111/67 (82) 93 Nasal Cannula 01/07/18 12:00 Nasal Cannula 3.0 01/07/18 11:42 36.8 79 20 115/64 (81) 98 01/07/18 08:00 Nasal Cannula 3.0 01/07/18 06:57 36.6 87 16 127/59 (81) 93 Nasal Cannula 2.0 01/07/18 04:10 36.8 81 19 118/56 (76) 94 Nasal Cannula 3.0 01/07/18 04:06 Nasal Cannula 3.0 01/07/18 00:10 37.0 78 18 105/50 (68) 97 Nasal Cannula 2.0 01/07/18 00:00 Nasal Cannula 3.0 01/06/18 20:17 36.6 85 18 113/51 (71) 96 Nasal Cannula 3.0 01/06/18 20:00 Nasal Cannula 3.0 Physical Exam General Appearance: no apparent distress Respiratory/Chest: no respiratory distress, no accessory muscle use, + decreased breath sounds Cardiovascular: regular rate, rhythm, no edema, no murmur Extremities: normal inspection, no pedal edema Laboratory Results Last 24 Hours Test 01/06/18 20:21 01/07/18 06:42 01/07/18 07:13 01/07/18 11:22 Bedside Glucose 122 mg/dl 117 mg/dl 129 mg/dl White Blood Count 16.39 K/uL Red Blood Count 3.66 M/uL Hemoglobin 9.5 g/dL Hematocrit 30.7 % Mean Corpuscular Volume 83.9 fL Mean Corpuscular Hemoglobin 26.0 pg Mean Corpuscular Hemoglobin Concent 30.9 g/dl RDW Standard Deviation 57.3 fL RDW Coefficient of Variation 18.7 % Platelet Count 692 K/uL Mean Platelet Volume 8.8 fL Sodium Level 138 mmol/L Potassium Level 4.0 mmol/L Chloride Level 105 mmol/L Carbon Dioxide Level 26 mmol/L Anion Gap 7.0 mmol/L Blood Urea Nitrogen 16 mg/dl Creatinine 0.89 mg/dl Est Creatinine Clear Calc Drug Dose 72.4 ml/min Estimated GFR () 91.0 Estimated GFR (Non- 78.5 BUN/Creatinine Ratio 18.5 Random Glucose 129 mg/dl Calcium Level 9.2 mg/dl Assessment and Plan This is an 82 year old male with a PMH of non-small cell lung carcinoma with ongoing chemotherapy, HTN, DM2, HLD - presents with weakness, hypoxia, shortness of breath, lack of appetite and subsequently found to have pneumonia Acute Hypoxic Respiratory Failure Community Acquired Pneumonia 01/07 * will continue Levaquin as outpatient * requires 2L at rest, 4L at ambulation * continue PT/OT * will d/c on Lovenox injections * change verapamil to metoprolol 01/06 * patient doing well * PT/OT ordered * continue Levaquin for now for PNA * two step prior to discharge 01/05 * patient doing better; white count improving, CXR stable * will continue Levaquin for the pneumonia * wean O2 as tolerated * transfer to med/surg * two step in AM 01/04 * patient with hypoxic episodes in oncology office - was sent to the ED for further evaluation * CT chest - suggests bibasilar opacities * started on Levaquin - which we will continue for 7-10 days * WBC improving from 01/03; will monitor * O2 saturation improved with 2L of O2, will wean as tolerated in the next day or two * may need a two step prior to discharge New Onset A. Fib with RVR * patient went into A. fib with RVR on 01/05 * was given b-anatoly and converted back to sinus * will continue Lopressor 25mg BID and Lovenox for anticoagulation Chronic Nonocclusive Popliteal DVT * Lovenox due to malignancy * will add Lovenox teaching * outpatient oncology follow-up for length of treatment Thrombocytosis * patient noted to have thrombocytosis as outpatient as well * possibly a side effect of chemotherapy Tiny Apical Pneumothorax * appreciate cardiothoracic surgery input * no further management necessary as this will likely resolve on its own Generalized Weakness Decreased PO intake * added boost BID with meals * PT/OT ordered, uses wheelchair intermittently DM2 * hold oral agents, insulin sliding scale added HTN * BP stable, continue home medications DVT ppx * Lovenox 1mg/kg q12 FULL CODE
[2018-01-07] MEDS ORDERED: LOVENOX TEACHING KIT ONE (16:30)
[2018-01-08 03:36] VITALS: BP 128/64; PULSE 82; TEMP 37.1; O2SAT 94
[2018-01-08] MEDS: ENOXAPARIN 100 MG/1ML SYR SQ SCH (05:54)
[2018-01-08 06:22] LABS: HEMATOCRIT 28.3 % (42-52); HEMOGLOBIN 8.6 g/dL (14.0-18.0); MEAN CELL VOLUME 83.2 fL (80-100); MEAN CORPUSCULAR HEMOGLOBIN 25.3 pg (25-34); MEAN CORPUSCULAR HGB CONC 30.4 g/dl (32-36); MEAN PLATELET VOLUME 8.5 fL (7.4-10.4); PLATELET COUNT 590 K/uL (130-400); RED CELL DISTRIBUTION WIDTH CV 18.5 % (11.5-14.5); WHITE BLOOD COUNT 13.23 K/uL (4.8-10.8)
[2018-01-08 06:42] LABS: CALCIUM 8.7 mg/dl (8.5-10.1); CREATININE 0.67 mg/dl (0.60-1.40); POTASSIUM 3.8 mmol/L (3.5-5.1)
[2018-01-08] MEDS: BOOST GLUCOSE CONTROL PO SCH (07:30)
[2018-01-08] MEDS: ASPIRIN 81 MG ECTAB PO SCH (08:12)
[2018-01-08] MEDS: ATORVASTATIN 20 MG TAB PO SCH (08:12)
[2018-01-08] MEDS: METOPROLOL TARTRATE 25 MG TAB PO SCH (08:12)
[2018-01-08] MEDS: CEROVITE ADV FORMULA TAB PO SCH (08:12)
[2018-01-08] MEDS: CHOLECALCIFEROL 1000 INTER.UNIT TAB PO SCH (08:12)
[2018-01-08] MEDS: ALLOPURINOL 300 MG TAB PO SCH (08:12)
[2018-01-08] MEDS: INSULIN ASPART 100 UNITS/ML 3 ML PEN SC SCH ×2 (08:13→11:59)
[2018-01-08 08:29] VITALS: BP 113/58; PULSE 75; TEMP 36.8; O2SAT 96
--- NOTE | 2018-01-08 08:46 | Progress Note ---
Subjective Date of Service: Jan 08, 2018. Subjective Pt evaluation today including: conversation w/ patient, physical exam, lab review, review of studies, review of inpatient medication list Saw/examined the patient in room 212 He is resting comfortably; tells me he had a good night sleep No issues today; breathing stable Tells me he has a walker at home, oxygen is set up, he has learned Lovenox injections Eager to get out of the hospital; son and are going to come to the hospital today to pick him up after holiness. Review of Systems Constitutional: + weakness, No fever, No chills Respiratory: + cough, + shortness of breath (improving), No sputum, No wheezing , No dyspnea on exertion, No dyspnea at rest, No hemoptysis Cardiac: No chest pain Abdomen: No pain, No nausea, No vomiting, No diarrhea Psychiatric: No depression symptoms, No anxiety, No insomnia Heme: No abnormal bleeding/bruising Medications Current Inpatient Medications Medications (Trade) Dose Ordered Sig/Mert Route Start Time Stop Time Status Last Admin Dose Admin Acetaminophen (Tylenol Tab) 650 mg Q4H PRN PO 01/03/18 15:15 02/02/18 15:14 Ondansetron HCl (Zofran Inj) 4 mg Q6H PRN IV 01/03/18 15:15 02/02/18 15:14 Levofloxacin 750 mg/Prmx 150 ml @ 100 mls/hr Q24H IV 01/04/18 14:00 01/10/18 13:59 01/07/18 13:59 100 MLS/HR Enoxaparin Sodium (Lovenox Inj) 100 mg Q12H SQ 01/03/18 18:00 02/02/18 17:59 01/08/18 05:54 100 MG Insulin Aspart (novoLOG ASPART) SLIDING SCALE If C... ACHS SC 01/03/18 16:00 02/02/18 15:59 01/08/18 08:13 3 UNITS Glucose (Glucose 40% Gel) 15-30 GRAMS 15 GRAMS... UD PRN PO 01/03/18 15:30 02/02/18 15:29 Glucose (Glucose Chew Tab) 4-8 Tablets 4 Tabl... UD PRN PO 01/03/18 15:30 02/02/18 15:29 Dextrose (Dextrose 50% 50ML Syringe) 25-50ML OF 50% DW IV FOR... UD PRN IV 01/03/18 15:30 02/02/18 15:29 Glucagon (Glucagon Inj) 1 mg UD PRN SQ 01/03/18 15:30 02/02/18 15:29 Allopurinol (Zyloprim Tab) 300 mg DAILY PO 01/04/18 09:00 02/03/18 08:59 01/08/18 08:12 300 MG Aspirin (Ecotrin Tab) 81 mg DAILY PO 01/04/18 09:00 02/03/18 08:59 01/08/18 08:12 81 MG Atorvastatin Calcium (Lipitor Tab) 20 mg DAILY PO 01/04/18 09:00 02/03/18 08:59 01/08/18 08:12 20 MG Cholecalciferol (Vitamin D Tab) 1,000 inter.unit DAILY PO 01/04/18 09:00 02/03/18 08:59 01/08/18 08:12 1,000 INTER.UNIT Multivitamins/ Minerals (Multivitamin W/ Minerals Tab) 1 tab DAILY PO 01/04/18 09:00 02/03/18 08:59 01/08/18 08:12 1 TAB Senna/Docusate Sodium (Senokot S Tab) 1 tab BID PRN PO 01/03/18 15:30 02/02/18 15:29 Enteral Nutritional Formula (Boost Glucose Control) 1 can BIDM PO 01/04/18 16:45 02/03/18 16:44 01/05/18 07:55 1 CAN Metoprolol Tartrate (Lopressor Tab) 25 mg BID PO 01/05/18 21:00 02/04/18 20:59 01/08/18 08:12 25 MG Objective Vital Signs Date Time Temp Pulse Resp B/P (MAP) Pulse Ox O2 Delivery O2 Flow Rate FiO2 01/08/18 08:29 36.8 75 18 113/58 (76) 96 01/08/18 08:00 Nasal Cannula 3.0 01/08/18 04:00 Nasal Cannula 3.0 01/08/18 03:36 37.1 82 19 128/64 (85) 94 Nasal Cannula 3.0 01/07/18 23:59 Nasal Cannula 3.0 01/07/18 23:56 36.8 76 18 112/62 (79) 95 Nasal Cannula 3.0 01/07/18 20:00 Nasal Cannula 3.0 01/07/18 19:49 37.2 76 18 119/63 (81) 97 Nasal Cannula 3.0 01/07/18 16:00 Nasal Cannula 3.0 01/07/18 15:41 36.5 91 18 111/67 (82) 93 Nasal Cannula 3.0 01/07/18 12:00 Nasal Cannula 3.0 01/07/18 11:42 36.8 79 20 115/64 (81) 98 Physical Exam General Appearance: no apparent distress Respiratory/Chest: no respiratory distress, no accessory muscle use, + decreased breath sounds Cardiovascular: regular rate, rhythm, no edema, no murmur Extremities: normal range of motion, non-tender, normal inspection, no pedal edema, no calf tenderness Neurologic/Psychiatric: no motor/sensory deficits, alert, normal mood/affect Laboratory Results Last 24 Hours Test 01/07/18 11:22 01/07/18 16:16 01/07/18 19:52 01/08/18 06:02 Bedside Glucose 129 mg/dl 224 mg/dl 100 mg/dl White Blood Count 13.23 K/uL Red Blood Count 3.40 M/uL Hemoglobin 8.6 g/dL Hematocrit 28.3 % Mean Corpuscular Volume 83.2 fL Mean Corpuscular Hemoglobin 25.3 pg Mean Corpuscular Hemoglobin Concent 30.4 g/dl RDW Standard Deviation 57.0 fL RDW Coefficient of Variation 18.5 % Platelet Count 590 K/uL Mean Platelet Volume 8.5 fL Sodium Level 141 mmol/L Potassium Level 3.8 mmol/L Chloride Level 106 mmol/L Carbon Dioxide Level 27 mmol/L Anion Gap 8.0 mmol/L Blood Urea Nitrogen 13 mg/dl Creatinine 0.67 mg/dl Est Creatinine Clear Calc Drug Dose 96.1 ml/min Estimated GFR () 102.3 Estimated GFR (Non- 88.2 BUN/Creatinine Ratio 20.0 Random Glucose 119 mg/dl Calcium Level 8.7 mg/dl Test 01/08/18 06:57 Bedside Glucose 121 mg/dl Assessment and Plan This is an 82 year old male with a PMH of non-small cell lung carcinoma with ongoing chemotherapy, HTN, DM2, HLD - presents with weakness, hypoxia, shortness of breath, lack of appetite and subsequently found to have pneumonia Acute Hypoxic Respiratory Failure Community Acquired Pneumonia 01/08 * doing well, taught how to inject Lovenox * continue Levaquin, home O2, metoprolol * will require home PT/OT * very weak, risk of readmission - family will be home to help him; may need [facility] if no improvement at home 01/07 * will continue Levaquin as outpatient * requires 2L at rest, 4L at ambulation * continue PT/OT * will d/c on Lovenox injections * change verapamil to metoprolol 01/06 * patient doing well * PT/OT ordered * continue Levaquin for now for PNA * two step prior to discharge 01/05 * patient doing better; white count improving, CXR stable * will continue Levaquin for the pneumonia * wean O2 as tolerated * transfer to med/surg * two step in AM 01/04 * patient with hypoxic episodes in oncology office - was sent to the ED for further evaluation * CT chest - suggests bibasilar opacities * started on Levaquin - which we will continue for 7-10 days * WBC improving from 01/03; will monitor * O2 saturation improved with 2L of O2, will wean as tolerated in the next day or two * may need a two step prior to discharge New Onset A. Fib with RVR * patient went into A. fib with RVR on 01/05 * was given b-anatoly and converted back to sinus * will continue Lopressor 25mg BID and Lovenox for anticoagulation Chronic Nonocclusive Popliteal DVT * Lovenox due to malignancy * will add Lovenox teaching * outpatient oncology follow-up for length of treatment Thrombocytosis * patient noted to have thrombocytosis as outpatient as well * possibly a side effect of chemotherapy Tiny Apical Pneumothorax * appreciate cardiothoracic surgery input * no further management necessary as this will likely resolve on its own Generalized Weakness Decreased PO intake * added boost BID with meals * PT/OT ordered, uses wheelchair intermittently DM2 * hold oral agents, insulin sliding scale added HTN * BP stable, continue home medications DVT ppx * Lovenox 1mg/kg q12 FULL CODE
[2018-01-08 12:01] VITALS: BP 103/54; PULSE 95; TEMP 36.7; O2SAT 96
[2018-01-08] MEDS: LEVOFLOXACIN / D5W 750 MG in PREMIXED IN D5W 150 ML IV SCH (12:43)
[2018-01-08 14:38] VITALS: BP 103/54; PULSE 95; TEMP 36.7; O2SAT 96
[2018-01-08] MEDS ORDERED: NUTR-7 PO (14:51)
[2018-01-08] MEDS ORDERED: LPR25 PO (14:51)
[2018-01-08] MEDS ORDERED: LEVO1TAB35 PO (14:51)
[2018-01-08] MEDS ORDERED: LVNIS100 SQ (14:51)
[2018-01-08] MEDS ORDERED: OXGN (14:52)
--- NOTE | 2018-01-08 14:58 | Discharge Instructions ---
Discharge Instructions Date of Service Jan 08, 2018. Admission Reason for Admission: PNA Discharge Discharge Diagnosis / Problem: Pneumonia, left leg clot, lung cancer Discharge Goals Goal(s): Decrease discomfort, Improve function, Diagnostic testing, Therapeutic intervention Activity Recommendations Activity Limitations: resume your previous activity . Instructions / Follow-Up Instructions / Follow-Up Please follow-up with Dr. Mayo on January 12 at 11:00AM * You will be discharged with Levaquin (antibiotic) - take this once a day for the next 5 days * You will be discharged with Lovenox (blood thinner) - inject yourself twice a day * Stop taking Verapamil - you will now take Metoprolol (other name is Lopressor ) twice a day * You will need oxygen, use 2L at rest and while seated; use 4L when walking around/exerting yourself * Use boost 2-3 times a day - speak with oncology regarding lack of appetite * You will need a PET scan when ordered by oncology Current Hospital Diet Patient's current hospital diet: Diabetes Type 2 Diet, AHA Diet (Heart Healthy) Discharge Diet Recommended Diet: AHA Diet (Heart Healthy), Diabetes Type 2 Diet Pending Studies Studies pending at discharge: no Medical Emergencies . Who to Call and When: Medical Emergencies: If at any time you feel your situation is an emergency, please call 911 immediately. . Non-Emergent Contact Non-Emergency issues call your: Primary Care Provider, Oncologist . . "Provider Documentation" section prepared by Ling Vincent. .
--- NOTE | 2018-01-08 15:01 | Discharge Summary ---
Discharge Summary Date of Service Jan 08, 2018. 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 Oxygen Dependence Medication Reconciliation New Medications: Home O2 Therapy (Oxygen) Gas 2 LITERS NA UD for 30 Days Levofloxacin (Levaquin) 750 Mg Tab 750 MG PO DAILY for 5 Days, #5 TAB Enoxaparin (Enoxaparin Sodium) 100 Mg/Ml Inj 100 MG SQ Q12H for 30 Days, #60 ML 2 Refills Metoprolol Tartrate (Lopressor) 25 Mg Tab 25 MG PO BID for 30 Days, #60 TAB 3 Refills Nutritional Supplements (Boost) 1 Liq Liq 1 CAN PO BIDM for 30 Days, #60 CAN Continued Medications: Allopurinol (Zyloprim) 300 Mg Tab 300 MG PO DAILY, TAB Aspirin (Aspirin Ec) 81 Mg Tab 81 MG PO DAILY Atorvastatin (Lipitor) 20 Mg Tab 1 TAB PO DAILY for 30 Days, #30 TAB 5 Refills Cholecalciferol (Vitamin D) 1,000 Unit Tab 1 TAB PO DAILY Glimepiride (Glimepiride) 1 Mg Tab 2 MG PO DAILY for 30 Days, #60 TAB 5 Refills Metformin Hcl (Metformin Hcl Er) 500 Mg Tab 1 TAB PO DAILY for 90 Days, #90 TAB 1 Refill Multivitamins/Minerals (Mvi With Minerals) Tab 1 TAB PO DAILY, TAB Sennosides-Docusate Sodium (Stool Softener) 1 Tab Tab 1 TAB PO BID PRN for Constipation Discontinued Medications: Verapamil Sust Rel (Calan Sr Ext Rel) 120 Mg Tabcr 120 MG PO DAILY, TAB Admission Information HPI (per Admitting provider): 82-year-old male who presents to the ER with a chief complaint of shortness of breath. Patient has history of lung cancer and follows with Dr. Ray Estevez. He completed chemotherapy and radiation treatments and is now currently receiving Pembrolizumab. Patient reports that over the past 1 week he has had increasing shortness of breath and generalized weakness. He was seen in the oncology clinic today and found to be saturating 85% on room air. He was referred to the ER for further evaluation. He reports a very poor appetite however denies nausea, abdominal pain, and vomiting. He is moving his bowels without difficulty. He has had a chronic cough since his diagnosis of lung cancer. He actually reports the cough has improved over the past 1 week. He reports cough is nonproductive. He denies fever and chills. No lightheadedness , dizziness, diaphoresis, or syncopal events. He denies chest pain or palpitations. He reports yesterday he developed urinary incontinence which is a new problem for him. He denies dysuria. In the ED patient underwent CTA chest that showed bibasilar pneumonia and a tiny left apical pneumothorax. He also had bilateral lower extremity Dopplers that showed an age indeterminate popliteal DVT on the left. He is saturating well on 2 L of oxygen. Other vitals are stable. WBC 17 K, other labs unremarkable. He was given IVF and IV Levaquin. Physical Exam (per Admitting): General Appearance: WD/WN, no apparent distress Head: normocephalic, atraumatic Eyes: normal inspection, EOMI, sclerae normal ENT: hearing grossly normal, + pertinent finding (mucous membranes dry) Neck: supple, no JVD, trachea midline Respiratory/Chest: + decreased breath sounds, + crackles (BL bases, R>L) Cardiovascular: regular rate, rhythm, no edema, normal peripheral pulses, + systolic murmur Abdomen/GI: normal bowel sounds, non tender, soft, no organomegaly Extremities/Musculoskelatal: normal inspection, no calf tenderness, normal capillary refill Neurologic/Psych: no motor/sensory deficits, alert, normal mood/affect, oriented x 3 Skin: normal color, warm/dry Hospital Course This is an 82 year old male with a PMH of non-small cell lung carcinoma with ongoing chemotherapy, HTN, DM2, HLD - presents with weakness, hypoxia, shortness of breath, lack of appetite and subsequently found to have pneumonia Acute Hypoxic Respiratory Failure Community Acquired Pneumonia 01/08 * doing well, taught how to inject Lovenox * continue Levaquin, home O2, metoprolol * will require home PT/OT * very weak, risk of readmission - family will be home to help him; may need [facility] if no improvement at home 01/07 * will continue Levaquin as outpatient * requires 2L at rest, 4L at ambulation * continue PT/OT * will d/c on Lovenox injections * change verapamil to metoprolol 3/16 * patient doing well * PT/OT ordered * continue Levaquin for now for PNA * two step prior to discharge 01/05 * patient doing better; white count improving, CXR stable * will continue Levaquin for the pneumonia * wean O2 as tolerated * transfer to med/surg * two step in AM 01/04 * patient with hypoxic episodes in oncology office - was sent to the ED for further evaluation * CT chest - suggests bibasilar opacities * started on Levaquin - which we will continue for 7-10 days * WBC improving from 01/03; will monitor * O2 saturation improved with 2L of O2, will wean as tolerated in the next day or two * may need a two step prior to discharge New Onset A. Fib with RVR * patient went into A. fib with RVR on 01/05 * was given b-anatoly and converted back to sinus * will continue Lopressor 25mg BID and Lovenox for anticoagulation Chronic Nonocclusive Popliteal DVT * Lovenox due to malignancy * will add Lovenox teaching * outpatient oncology follow-up for length of treatment Thrombocytosis * patient noted to have thrombocytosis as outpatient as well * possibly a side effect of chemotherapy Tiny Apical Pneumothorax * appreciate cardiothoracic surgery input * no further management necessary as this will likely resolve on its own Generalized Weakness Decreased PO intake * added boost BID with meals * PT/OT ordered, uses wheelchair intermittently DM2 * hold oral agents, insulin sliding scale added HTN * BP stable, continue home medications DVT ppx * Lovenox 1mg/kg q12 FULL CODE Total time spent on discharge = 50 minutes This includes examination of the patient, discharge planning, medication reconciliation, and communication with other providers. Discharge Instructions Please follow-up with Dr. Mayo on January 12 at 11:00AM * You will be discharged with Levaquin (antibiotic) - take this once a day for the next 5 days * You will be discharged with Lovenox (blood thinner) - inject yourself twice a day * Stop taking Verapamil - you will now take Metoprolol (other name is Lopressor ) twice a day * You will need oxygen, use 2L at rest and while seated; use 4L when walking around/exerting yourself * Use boost 2-3 times a day - speak with oncology regarding lack of appetite * You will need a PET scan when ordered by oncology
== END 2018-01-08 15:56 | disposition home health service (06) | DRG 193 ==
LOC: C.EDB 10:56 → C.2E 15:07 → ENRESERV 16:52 → C.2E 17:29 → UNDOADMIN 17:29 → C.2E 17:31 → ENRESERV 01-05 08:44 → CANBEDREQ 01-05 09:05
PROVIDERS: ADMIT Hospitalist; ATTEND Family Medicine
DX: J18.9 Pneumonia, unspecified organism (principal); J96.01 Acute respiratory failure with hypoxia; J93.9 Pneumothorax, unspecified; C34.32 Malignant neoplasm of lower lobe, left bronchus or lung; I82.532 Chronic embolism and thrombosis of left popliteal vein; I48.91 Unspecified atrial fibrillation; D47.3 Essential (hemorrhagic) thrombocythemia; R53.1 Weakness; R63.8 Other symptoms and signs concerning food and fluid intake; J43.9 Emphysema, unspecified; R91.8 Other nonspecific abnormal finding of lung field; I10 Essential (primary) hypertension; E11.9 Type 2 diabetes mellitus without complications; E78.5 Hyperlipidemia, unspecified; Z92.21 Personal history of antineoplastic chemotherapy; Z92.3 Personal history of irradiation; Z87.891 Personal history of nicotine dependence; Z99.81 Dependence on supplemental oxygen; Z79.82 Long term (current) use of aspirin; Z79.84 Long term (current) use of oral hypoglycemic drugs; Z79.899 Other long term (current) drug therapy; Z80.8 Family history of malignant neoplasm of other organs or systems; Z83.3 Family history of diabetes mellitus; Z82.49 Family history of ischemic heart disease and other diseases of the circulatory system

== ENCOUNTER → 2018-01-25 | Outpatient (CLI) | payer MEDICARE ==
[~2018-01-25] MED LIST changes: +AMOX1TAB43 PO; -BENA20TA14 PO; +ENOX100I PO; +GLIM2TAB2 PO; +GUAISYP4 PO; -INDO-22 PO; +LPR25 PO; +LVNIS100 SQ; +LVNIS120 SQ; +METO25TA56 PO; +MIRT15TA3 PO; +MIRT30TA2 PO; +NUTR-7 PO; +NVLGI/PEN SC; +OXGN; +PRD20 PO; -PRED20TA PO; -SENN-65 PO; +SENNTAB23 PO; +TRAM-10 PO; -VERA240T20 PO; +keytruda IV; -lasix; -potassium
[2018-01-25 14:27] VITALS: BP 95/63; PULSE 109; TEMP 36.7; O2SAT 92
--- NOTE | 2018-01-25 16:09 | Radiation Oncology Follow-Up ---
Radiation Oncology Follow-Up Date of Visit Jan 25, 2018. 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 He received 6000 cGy. Last Edited By: Wilma Ragland on Jan 25, 2018 15:57 History of Present Illness Mr. Nedra blake presented in April 2017 with a persistent cough for several months. He did have a chest x-ray on 04/23/2017 which revealed a left hilar mass. He did have a CT thorax completed on 05/05/2017 which revealed a large posterior left upper lobe mass extending from the dary with associated left hilar nodes and the mass measures 6.9 cm in greatest dimension and encases the left pulmonary artery. The patient underwent a CT-guided biopsy of the left lung mass on 05/17/2017 which confirmed spindle cell carcinoma with squamous differentiation. The patient underwent an MRI of the brain on 06/01/2017 which revealed no evidence of metastatic disease. The patient underwent a PET/CT scan on 06/08/2017 which confirmed in FDG avid mass in the superior segment of the left lower lobe with associated left hilar adenopathy consistent with lung cancer but no other areas of distant metastatic disease. The patient's was seen and evaluated at the multidisciplinary thoracic clinic at [facility] in [place], [place] and the general consensus and recommendation was to proceed with definitive chemotherapy and radiation therapy in the patient was deemed a poor surgical candidate based on anatomical findings and age. The patient was seen in consultation by Dr. Russell Ndiaye who has conferred with the medical team in [place], [place] and the consensus was to proceed with carboplatin/ Taxol chemotherapy with radiation therapy. We are now seeing the patient in consultation discussed role of radiation therapy. Overall, the patient is doing relatively well. He only has a cough. Otherwise his energy, appetite and weight are stable. He denies any hemoptysis. He denies any other significant symptoms. Status post completion of combined radiation and chemotherapy. Radiation completed 08/16/2017. He received 6000 cGy. Interim History Since his last visit he has been a change in his respiratory status. He was hospitalized with pneumonia. He had a CAT scan January 03, 2018.IMPRESSION: 1. No evidence for acute pulmonary embolus.2. 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 Of note, the left retrohilar lymphadenopathy and left lower lobe mass are not well delineated due to the interval development of bilateral mid to lower lung zone areas of consolidation. This is nonspecific but favors a pneumonia 3. Tiny left apical pneumothorax.4. Slight progression of the bilateral hilar and subcarinal lymphadenopathy.5. Emphysema. 6. Mild interstitial thickening at the base of the left lower lobe. This bears watching to exclude the possibility of developing lymphangitic spread of tumor. He improved and was discharged home. He is now oxygen dependent. The oxygen is at 2 L. When he is active he increases this to 3 L. He does fatigue easily. He has been seen in follow-up in medical oncology is now being followed by Dr. Estevez. A PET scan has been scheduled for February 02, 2018. Since discharged from the hospital he feels there is slight improvement in his respiratory status. Dr. Mcneil has now retired he is following with Dr. Estevez in medical oncology. He is currently receiving Keytruda. Allergies Coded Allergies: No Known Allergies (Unverified , 01/03/18) Home Medications Scheduled Allopurinol (Zyloprim), 300 MG PO DAILY Aspirin (Aspirin Ec), 81 MG PO DAILY Atorvastatin (Lipitor), 1 TAB PO DAILY Cholecalciferol (Vitamin D), 1 TAB PO DAILY Enoxaparin (Enoxaparin Sodium), 100 MG SQ Q12H Glimepiride (Glimepiride), 2 MG PO DAILY Home O2 Therapy (Oxygen), 2 LITERS NA UD Metformin Hcl (Metformin Hcl Er), 1 TAB PO DAILY Metoprolol Tartrate (Lopressor), 25 MG PO BID Mirtazapine Soltab (Remeron Soltab), 30 MG PO HS Multivitamins/Minerals (Mvi With Minerals), 1 TAB PO DAILY Nutritional Supplements (Boost), 1 CAN PO BIDM [keytruda], q3wk Scheduled PRN Sennosides-Docusate Sodium (Stool Softener), 1 TAB PO BID PRN for Constipation Review of Systems Gastrointestinal: Symptoms: WNL GI Comments: last BM weeks ago Oral: Symptoms: No Problems Respiratory: Symptoms: Dry Cough, SOB At Rest, SOB With Exertion Respiratory Comments: Oxygen 3 liter, 2 liter when at home Urinary: Symptoms: WNL Comments: slower, weaker stream Skin: Symptoms: No Problems Physical Exam Vital Signs Date Time Temp Pulse Resp B/P (MAP) Pulse Ox O2 Delivery O2 Flow Rate FiO2 01/25/18 14:27 36.7 109 20 95/63 92 Fatigue: Moderate General Appearance: no apparent distress Eyes: normal inspection, EOMI ENT: normal ENT inspection, hearing grossly normal Neck: no adenopathy, thyroid normal Respiratory/Chest: no respiratory distress, no accessory muscle use, + decreased breath sounds Cardiovascular: no gallop, no murmur, + irregularly irregular Extremities: no pedal edema Neurologic/Psychiatric: no motor/sensory deficits, alert, normal mood/affect Skin: warm/dry Pain Management Patient Reports Pain: No Pain Location: None Patient Preferred Pain Scale: 0 - 10 Initial Pain Intensity: 0.0 Pain Management Plan He denies pain therefore requires no pain management. Laboratory Laboratory Results: not applicable Pathology Pathology Results: were reviewed, and pertinent findings noted in HPI Imaging Imaging Studies: were reviewed Imaging Comments Reviewed in the interim history Assessment & Plan Plan: Continue regular follow-up with his primary care provider and medical oncologist. He is now oxygen dependent. He continues on Keytruda. He will have a PET scan on February 01. This will be reviewed. He was seen and examined by Dr. Estevez. A follow-up appointment with our office was not given. He may return on an as-needed basis. We discussed the heart irregularity. He has a history of atrial fibrillation which appears to be paroxysmal. He is on anticoagulation therapy. He may call our office if he has any questions or concerns. Assessment & Plan (Attending) I agree with note created by Wilma Ragland PA-C. I reviewed the patient's chart and information with her. I have examined and evaluated the patient. I reviewed relevant clinical information and answered the patient's and/or family' s questions. CLARITY DEVELOPER Total Time In Follow-Up I spent 20 minutes speaking to the patient in performing examination. I spent 15 minutes reviewing information and completing this note. AK Total Time (Attending) In Follow-Up I spent 15 minutes examining and counseling the patient. CLARITY DEVELOPER Copy To Ady Mayo MD; Ray Estevez M.D.
== END | disposition home or self-care (01) ==
LOC: C.ONC 14:09
PROVIDERS: ATTEND Physician Assistant Medical
DX: Z08 Encounter for follow-up examination after completed treatment for malignant neoplasm (principal); Z92.3 Personal history of irradiation; Z85.118 Personal history of other malignant neoplasm of bronchus and lung

== ENCOUNTER 2018-01-30 23:41 | Emergency (ER) | payer MEDICARE ==
[~2018-01-30] VITALS: Ht 177.8 cm; Wt 87.5 kg
[~2018-01-30 23:41] MED LIST changes: -ALLO300T2 PO; -AMOX1TAB43 PO; -ASPI81TA28 PO; -ATOR-22 PO; -CHOL100010 PO; -ENOX100I PO; -GLIM2TAB2 PO; -GUAISYP4 PO; -LVNIS120 SQ; -METF1TAB85 PO; -METO25TA56 PO; -MIRT15TA3 PO; -MULT-513 PO; -NVLGI/PEN SC; -PRD20 PO; -SENNTAB23 PO; -TRAM-10 PO; -keytruda IV
[2018-01-30 23:46] VITALS: Ht 177.8 cm; Wt 87.5 kg
--- NOTE | 2018-01-31 00:37 | EMERGENCY ROOM VISIT NOTE ---
History Report prepared by Nani: Mayela Leonardo Under the Supervision of: Dr. Ryann Bailey D.O. First contact with patient: 00:05 Chief Complaint: FALL Stated Complaint: FALL History of Present Illness The patient is a 82 year old male who presents to the Emergency Room with complaints of weakness secondary to falling earlier today. His reports that he has a history of falling, noting that he has fallen 4 times in the past 3 months. He began experiencing some back pain after his most recent fall, which was about 2 weeks ago. The patient uses a walker to ambulate, noting that tonight the patient tried to sit down on the edge of the bed and ended up falling on top of his caregiver. Because he landed on top of her, the patient only ended up hitting his right elbow. She reports that he has a history of lung cancer, noting that he was receiving chemotherapy treatment for a while but is now trying Keytruda. Since he has been doing this this treatment, the patient has been experiencing a loss of appetite, increased fatigue, weakness, and bruising more easily. His explains that he has very little oral intake because of his loss of appetite and loss of his sense of taste. She tries to give him boost with ice cream. He has a history of hypotension and wears oxygen at home. 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 He was diagnosed with pneumonia 5 weeks ago. Source of History: patient Onset: earlier today Position: other (diffusily throughout his body ) Quality: other (weakness) Timing: other (persistent) Review of Systems See HPI for pertinent positives & negatives. A total of 10 systems reviewed and were otherwise negative. Past Medical & Surgical Medical Problems: (1) Cancer of lower lobe of left lung (2) Diastolic dysfunction (3) DM type 2 (diabetes mellitus, type 2) (4) Dyslipidemia (5) HTN (hypertension) (6) Mild aortic valve stenosis Surgical Problems: (1) History of cataract surgery (2) S/P tonsillectomy Family History Cancer Diabetes mellitus Heart disease Hypertension Social History Smoking Status: Former Smoker Alcohol Use: none Housing Status: lives with significant other Current/Historical Medications Scheduled Allopurinol (Zyloprim), 300 MG PO DAILY Aspirin (Aspirin Ec), 81 MG PO DAILY Atorvastatin (Lipitor), 20 MG PO DAILY Cholecalciferol (Vitamin D), 1,000 INTER.UNIT PO DAILY Enoxaparin (Enoxaparin Sodium), 100 MG SQ Q12H Glimepiride (Glimepiride), 2 MG PO DAILY Home O2 Therapy (Oxygen), 2 LITERS NA UD Metformin Hcl (Metformin Hcl Er), 500 MG PO DAILY Metoprolol Tartrate (Lopressor) (Lopressor), 25 MG PO BID Mirtazapine (Remeron), 15 MG PO HS Multivitamins/Minerals (Mvi With Minerals), 1 TAB PO DAILY Nutritional Supplements (Boost), 1 CAN PO BIDM [keytruda], 1 DOSE IV Q3 WEEKS Scheduled PRN Sennosides-Docusate Sodium (Stool Softener), 1 TAB PO BID PRN for Constipation Allergies Coded Allergies: No Known Allergies (Unverified , 01/03/18) Physical Exam Vital Signs Date Time Temp Pulse Resp B/P (MAP) Pulse Ox O2 Delivery O2 Flow Rate FiO2 01/31/18 03:00 36.8 103 22 97 01/31/18 02:30 101 22 117/67 97 Nasal Cannula 5.0 01/31/18 01:56 106 24 90/61 96 Nasal Cannula 5.0 01/31/18 01:41 113 18 90 Nasal Cannula 4.0 01/30/18 23:52 107 01/30/18 23:46 36.8 106 22 124/81 93 Nasal Cannula 5.0 Physical Exam HEENT: Head - normocephalic and atraumatic Pupils are equal, round, and reactive to light. Extraocular eye muscles are intact, and sclera are anicteric. Nose - moist nasal mucosa without discharge. Mouth - extremely dried buccal mucosa with cracked lips. Oropharynx is nonerythematous and there is no tonsillar exudate or edema noted. Neck: Supple; no JVD, nuchal rigidity, cervical lymphadenopathy. Heart: Regular rate and rhythm. There is a normal S1 and S2 with no murmurs, clicks, or gallops appreciated. Lungs: Clear to auscultation bilaterally with no wheezes, rales, or rhonchi. Abdomen: Soft, completely nontender, nondistended, with good bowel sounds. There are no palpable pulsatile masses or hepatosplenomegaly. There is no guarding, rigidity, or rebound noted. Extremities: No evidence of cyanosis, clubbing, or edema. There are easily palpable peripheral pulses. Skin: Skin is dry with poor turgor and skin tear on right elbow. Medical Decision & Procedures Laboratory Results 01/31/18 01:00 Red Blood Count 3.77, Mean Corpuscular Volume 82.8, Mean Corpuscular Hemoglobin 25.7, Mean Corpuscular Hemoglobin Concent 31.1, Mean Platelet Volume 9.0, Neutrophils (%) (Auto) 84.8, Lymphocytes (%) (Auto) 1.5, Monocytes (%) (Auto) 8.2, Eosinophils (%) (Auto) 5.1, Basophils (%) (Auto) 0.1, Neutrophils # (Auto) 12.50, Lymphocytes # (Auto) 0.22, Monocytes # (Auto) 1.21, Eosinophils # (Auto) 0.75, Basophils # (Auto) 0.02 01/31/18 01:00 Test 01/31/18 01:00 01/31/18 01:55 White Blood Count 14.74 K/uL (4.8-10.8) Red Blood Count 3.77 M/uL (4.7-6.1) Hemoglobin 9.7 g/dL (14.0-18.0) Hematocrit 31.2 % (42-52) Mean Corpuscular Volume 82.8 fL (80-100) Mean Corpuscular Hemoglobin 25.7 pg (25-34) Mean Corpuscular Hemoglobin Concent 31.1 g/dl (32-36) Platelet Count 312 K/uL (130-400) Mean Platelet Volume 9.0 fL (7.4-10.4) Neutrophils (%) (Auto) 84.8 % Lymphocytes (%) (Auto) 1.5 % Monocytes (%) (Auto) 8.2 % Eosinophils (%) (Auto) 5.1 % Basophils (%) (Auto) 0.1 % Neutrophils # (Auto) 12.50 K/uL (1.4-6.5) Lymphocytes # (Auto) 0.22 K/uL (1.2-3.4) Monocytes # (Auto) 1.21 K/uL (0.11-0.59) Eosinophils # (Auto) 0.75 K/uL (0-0.5) Basophils # (Auto) 0.02 K/uL (0-0.2) RDW Standard Deviation 64.5 fL (36.4-46.3) RDW Coefficient of Variation 21.1 % (11.5-14.5) Immature Granulocyte % (Auto) 0.3 % Immature Granulocyte # (Auto) 0.04 K/uL (0.00-0.02) Hypochromasia PRESENT Anisocytosis PRESENT Anion Gap 8.0 mmol/L (3-11) Est Creatinine Clear Calc Drug Dose 58.5 ml/min Estimated GFR () 82.7 Estimated GFR (Non- 71.4 BUN/Creatinine Ratio 18.7 (10-20) Calcium Level 9.6 mg/dl (8.5-10.1) Total Bilirubin 0.8 mg/dl (0.2-1) Aspartate Amino Transf (AST/SGOT) U/L (15-37) Alanine Aminotransferase (ALT/SGPT) 59 U/L (12-78) Alkaline Phosphatase 94 U/L (45-117) Total Protein 7.6 gm/dl (6.4-8.2) Albumin 2.0 gm/dl (3.4-5.0) Globulin 5.6 gm/dl (2.5-4.0) Albumin/Globulin Ratio 0.4 (0.9-2) Urine Color MARISA Urine Appearance CLOUDY (CLEAR) Urine pH 5.0 (4.5-7.5) Urine Specific [place] 1.025 (1.000-1.030) Urine Protein 2+ (NEG) Urine Glucose (UA) NEG (NEG) Urine Ketones TRACE (NEG) Urine Occult Blood 2+ (NEG) Urine Nitrite NEG (NEG) Urine Bilirubin NEG (NEG) Urine Urobilinogen NEG (NEG) Urine Leukocyte Esterase TRACE (NEG) Laboratory results per my review. Procedure IV normal saline solution ECG Per My Interpretation Indication: weakness Rate (beats per minute): 106 Rhythm: sinus tachycardia Findings: PVC, no acute ischemic change, no ectopy ED Course 0007: Past medical records reviewed. The patient was evaluated in room C4 by the medical student under my supervision. A complete history and physical exam was performed. An IV lock was initiated and labs were drawn as above. He was ordered IV fluids. A 12-lead EKG was obtained. The wound on his right elbow was cleansed and dressed. 0142: I reevaluated the patient, who was resting and discussed test findings with the patient and his . They seem to have understanding. I strongly encouraged the patient to take increased nutrition as a means to survive and not to view eating for only pleasure. 0243: Upon reevaluation, the patient is resting comfortably. I discussed findings and results with his caregiver. She verbalized agreement of the treatment plan. The patient was discharged home. Medical Decision The patient is a 82 year old male who presents to the ED with weakness. Differential diagnosis includes dehydration, malnutrition, orthostasis, and hyponatremia. Lab results showed: white count of 114.7, hemoglobin 19.7 which is baseline for him, glucose 123, normal renal function and LFTs, urine had 2+ protein trace ketones and 2+ blood. This is an 82-year-old male patient who presents to the emergency department after a fall. The patient's explains that he frequently does fall because he is so weak most likely secondary to malnutrition. He is currently taking a medication that takes away his sense of taste and he has significant loss of appetite. On physical exam, the patient appeared quite dehydrated but his BUN/ creatinine ratio was normal. He did have some ketonuria. Again, I spent some time talking to the patient about the importance of fluid and food intake for his nutritional status. He agreed that he would try to eat more and drink more. We also talked about fall precautions. I have encouraged the patient to follow-up with his PCP if he continues to feel weak or has continued difficulty with nutritional intake. Medication Reconcilliation Current Medication List: was personally reviewed by me Blood Pressure Screening Patient's blood pressure: Normal blood pressure Blood pressure disposition: Did not require urgent referral Impression Primary Impression: Fall Additional Impressions: Malnutrition Dehydration Scribe Attestation The scribe's documentation has been prepared under my direction and personally reviewed by me in its entirety. I confirm that the note above accurately reflects all work, treatment, procedures, and medical decision making performed by me. Departure Information Dispostion Home / Self-Care Referrals Ady Mayo MD (PCP) Forms HOME CARE DOCUMENTATION FORM, IMPORTANT VISIT INFORMATION Patient Instructions [facility] Additional Instructions Rest. Take plenty of clear liquids You MUST eat to prevent malnutrition Problem Qualifiers Primary Impression: Fall Encounter type: initial encounter Qualified Codes: W19.XXXA - Unspecified fall, initial encounter Additional Impressions: Malnutrition Malnutrition type: unspecified type Qualified Codes: E46 - Unspecified protein-calorie malnutrition
[2018-01-31 01:16] LABS: BASO % 0.1 %; BASO ABS # 0.02 K/uL (0-0.2); EOS % 5.1 %; EOS ABS # 0.75 K/uL (0-0.5); HEMATOCRIT 31.2 % (42-52); HEMOGLOBIN 9.7 g/dL (14.0-18.0); IG# 0.04 K/uL (0.00-0.02); LYMPH % 1.5 %; LYMPH ABS # 0.22 K/uL (1.2-3.4); MEAN CELL VOLUME 82.8 fL (80-100); MEAN CORPUSCULAR HEMOGLOBIN 25.7 pg (25-34); MEAN CORPUSCULAR HGB CONC 31.1 g/dl (32-36); MONO % 8.2 %; MONO ABS # 1.21 K/uL (0.11-0.59); NEUT % 84.8 %; PLATELET COUNT 312 K/uL (130-400); RED CELL DISTRIBUTION WIDTH CV 21.1 % (11.5-14.5); RED CELL DISTRIBUTION WIDTH SD 64.5 fL (36.4-46.3); WHITE BLOOD COUNT 14.74 K/uL (4.8-10.8)
[2018-01-31 02:08] LABS: CALCIUM 9.6 mg/dl (8.5-10.1); CREATININE 0.97 mg/dl (0.60-1.40); TOTAL PROTEIN 7.6 gm/dl (6.4-8.2)
[2018-01-31 02:30] VITALS: BP 117/67
[2018-01-31 03:00] VITALS: PULSE 103; TEMP 36.8; O2SAT 97
[2018-02-06] MEDS ORDERED: METO25TA56 PO (00:54)
[2018-02-06] MEDS ORDERED: NUTR-7 PO (00:54)
[2018-02-06] MEDS ORDERED: GLIM2TAB2 PO (00:54)
[2018-02-06] MEDS ORDERED: MIRT15TA3 PO (00:54)
[2018-02-06] MEDS ORDERED: OXGN (00:54)
[2018-02-06] MEDS ORDERED: ASPI81TA28 PO (08:34)
[2018-02-06] MEDS ORDERED: MULT-513 PO (08:34)
[2018-02-06] MEDS ORDERED: METF1TAB85 PO (08:34)
[2018-02-06] MEDS ORDERED: ATOR-22 PO (08:34)
[2018-02-06] MEDS ORDERED: ALLO300T2 PO (08:34)
[2018-02-06] MEDS ORDERED: CHOL100010 PO (09:00)
== END 2018-01-31 03:00 | disposition home or self-care (01) ==
LOC: EDBD 23:41 → C.EDC 23:43 → C.EDB 01-31 03:00
DX: S51.011A Laceration without foreign body of right elbow, initial encounter (principal); W01.198A Fall on same level from slipping, tripping and stumbling with subsequent striking against other object, initial encounter; E46 Unspecified protein-calorie malnutrition; E86.0 Dehydration; R82.4 Acetonuria; M54.9 Dorsalgia, unspecified; C34.92 Malignant neoplasm of unspecified part of left bronchus or lung; E11.9 Type 2 diabetes mellitus without complications; I95.9 Hypotension, unspecified; I10 Essential (primary) hypertension; Z87.891 Personal history of nicotine dependence; Z79.82 Long term (current) use of aspirin; Z79.84 Long term (current) use of oral hypoglycemic drugs; Z79.899 Other long term (current) drug therapy; Z99.81 Dependence on supplemental oxygen; Z83.3 Family history of diabetes mellitus; Z82.49 Family history of ischemic heart disease and other diseases of the circulatory system

== ENCOUNTER 2018-02-06 11:24 | Inpatient (IN) | payer MEDICARE, OTHER ==
[~2018-02-06] VITALS: Ht 177.8 cm; Wt 88.4 kg
[~2018-02-06 11:24] MED LIST changes: +ALLO300T2 PO; +ASPI81TA28 PO; +ATOR-22 PO; +CHOL100010 PO; -GLIM1TAB2 PO; +GLIM2TAB2 PO; -LPR25 PO; +METF1TAB85 PO; +METO25TA56 PO; +MIRT15TA3 PO; -MIRT30TA2 PO; +MULT-513 PO; +VANCOMYCIN IV 2,000 MG in SODIUM CHLORIDE 0.9% 500ML 500 ML IV ONE
[2018-02-06] MEDS ORDERED: SENNTAB23 PO (11:38)
[2018-02-06] MEDS ORDERED: SODIUM CHLORIDE 0.9% 1000ML 1,000 ML IV STA (11:39)
[2018-02-06] MEDS ORDERED: SODIUM CHLORIDE 0.9% 250ML 250 ML IV STA (11:39)
[2018-02-06] MEDS ORDERED: METOPROLOL TARTRATE 1 MG/ML VIAL IV STA (11:40)
[2018-02-06 11:45] LABS: BASO % 0.3 %; BASO ABS # 0.03 K/uL (0-0.2); EOS % 5.8 %; EOS ABS # 0.68 K/uL (0-0.5); HEMATOCRIT 32.8 % (42-52); HEMOGLOBIN 10.1 g/dL (14.0-18.0); IG# 0.09 K/uL (0.00-0.02); LYMPH ABS # 0.35 K/uL (1.2-3.4); MEAN CELL VOLUME 83.9 fL (80-100); MEAN CORPUSCULAR HEMOGLOBIN 25.8 pg (25-34); MEAN CORPUSCULAR HGB CONC 30.8 g/dl (32-36); MEAN PLATELET VOLUME 9.3 fL (7.4-10.4); MONO % 8.4 %; MONO ABS # 0.98 K/uL (0.11-0.59); NEUT % 81.7 %; NEUT ABS # 9.52 K/uL (1.4-6.5); PLATELET COUNT 592 K/uL (130-400); RED CELL DISTRIBUTION WIDTH CV 20.2 % (11.5-14.5); RED CELL DISTRIBUTION WIDTH SD 61.7 fL (36.4-46.3); WHITE BLOOD COUNT 11.65 K/uL (4.8-10.8)
[2018-02-06 11:54] LABS: PTT PATIENT 35.2 SECONDS (21.0-31.0)
--- NOTE | 2018-02-06 11:54 | DIAGNOSTIC IMAGING REPORT ---
CHEST ONE VIEW PORTABLE CLINICAL HISTORY: atrial flutter chest pain COMPARISON STUDY: 01/06/2018 FINDINGS: Mildly progressive parenchymal infiltrate right base. Slight improvement of the diffuse parenchymal infiltrate left mid to lower lung. The consolidative components are diminished. No evidence for pneumothorax. Pulmonary apices are clear. IMPRESSION: 1. Bibasilar parenchymal infiltrates. 2. Slight improvement in aeration left lung base. 3. Slight increase in parenchymal infiltrative change right base. The above report was generated using voice recognition software. It may contain grammatical, syntax or spelling errors. Electronically signed by: Aureliano Otoole M.D. 02/06/2018 11:52 AM Dictated Date/Time: 02/06/2018 11:51 AM
[2018-02-06] MEDS ORDERED: VANCOMYCIN IV STA (11:55)
[2018-02-06] MEDS ORDERED: PIPERACILLIN/TAZOBACTAM 4.5 GM/100ML D5W IV STA (11:55)
[2018-02-06] MEDS ORDERED: LEVAQUIN 750MG / 150ML D5W IV STA (11:55)
[2018-02-06] MEDS ORDERED: SODIUM CHLORIDE 0.9% IV STA (11:55)
[2018-02-06] MEDS ORDERED: VANCOMYCIN CONSULT ACTIVE PRN ×2 (12:00→14:40)
[2018-02-06 12:06] LABS: ALBUMIN 1.8 gm/dl (3.4-5.0); CALCIUM 9.3 mg/dl (8.5-10.1); CREATININE 0.86 mg/dl (0.60-1.40); POTASSIUM 4.8 mmol/L (3.5-5.1)
[2018-02-06] MEDS ORDERED: GUAISYP4 PO (12:07)
[2018-02-06 12:13] LABS: CKMB 1.1 ng/ml (0.5-3.6); PHOSPHORUS 3.8 mg/dl (2.5-4.9); TOTAL PROTEIN 6.5 gm/dl (6.4-8.2)
[2018-02-06 14:06] VITALS: O2SAT 95; BMI 28.9
[2018-02-06] MEDS ORDERED: ONDANSETRON INJ 2 MG/ML 2 ML VIAL IV PRN (14:15)
[2018-02-06] MEDS ORDERED: NITROGLYCERIN 0.4 MG SL PER TAB CHARGE SL PRN (14:15)
[2018-02-06] MEDS ORDERED: ACETAMINOPHEN 325 MG TAB PO PRN (14:15)
[2018-02-06] MEDS ORDERED: POLYETHYLENE (MIRALAX) 17 GM PACK PO PRN (14:15)
--- NOTE | 2018-02-06 14:17 | EMERGENCY ROOM VISIT NOTE ---
History Report prepared by Nani: Funmilayo Ramos Under the Supervision of: Dr. Araceli Gupta M.D. First contact with patient: 11:24 Chief Complaint: CARDIAC ASSESSMENT Stated Complaint: AFIB History of Present Illness The patient is a 82 year old male who presents to the Emergency Room for a cardiac assessment. The patient has a history of atrial fibrillation. He is currently undergoing chemotherapy treatment for lung cancer. His last treatment was 01/24/18. His home health nurse came in to his house today for a routine check -up. They noted the patient's HR to be elevated. He was also complaining of feeling weak and dehydrated. They called an ambulance and the patient was brought to the ED for further evaluation. The patient denies fevers. Son reports that he has not been drinking a lot of fluids. The patient is typically on 2L of NC/O2. 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 A total of 10 systems reviewed and were otherwise negative. Past Medical & Surgical Medical Problems: (1) Cancer of lower lobe of left lung (2) Diastolic dysfunction (3) DM type 2 (diabetes mellitus, type 2) (4) Dyslipidemia (5) Fall (6) HTN (hypertension) (7) Malnutrition (8) Mild aortic valve stenosis Surgical Problems: (1) History of cataract surgery (2) S/P tonsillectomy Family History Cancer Diabetes mellitus Heart disease Hypertension Social History Smoking Status: Former Smoker Alcohol Use: none Marital Status: Housing Status: lives with significant other Occupation Status: retired Current/Historical Medications Scheduled Allopurinol (Zyloprim), 300 MG PO DAILY Aspirin (Aspirin Ec), 81 MG PO DAILY Atorvastatin (Lipitor), 20 MG PO DAILY Cholecalciferol (Vitamin D), 1,000 INTER.UNIT PO DAILY Enoxaparin (Enoxaparin Sodium), 100 MG SQ Q12H Glimepiride (Glimepiride), 2 MG PO DAILY Home O2 Therapy (Oxygen), 2 LITERS NA UD Metformin Hcl (Metformin Hcl Er), 500 MG PO DAILY Metoprolol Tartrate (Lopressor) (Lopressor), 25 MG PO BID Mirtazapine (Remeron), 15 MG PO HS Multivitamins/Minerals (Mvi With Minerals), 1 TAB PO DAILY Nutritional Supplements (Boost), 1 CAN PO BIDM [keytruda], 1 DOSE IV Q3 WEEKS Scheduled PRN Guaifenesin/Codeine (Robitussin-Ac Syrup), 10 ML PO Q4H PRN for Cough Sennosides-Docusate Sodium (Stool Softener), 1 TAB PO BID PRN for Constipation Allergies Coded Allergies: No Known Allergies (Unverified , 01/03/18) Physical Exam Vital Signs Date Time Temp Pulse Resp B/P (MAP) Pulse Ox O2 Delivery O2 Flow Rate FiO2 02/06/18 14:06 95 Nasal Cannula 5.0 02/06/18 12:40 93 30 102/62 95 Nasal Cannula 5.0 02/06/18 12:07 89 02/06/18 12:01 94 Nasal Cannula 5.0 02/06/18 12:01 85 22 103/59 93 Nasal Cannula 5.0 02/06/18 11:25 36.4 156 31 102/70 98 Nasal Cannula 5.0 Physical Exam Vital signs reviewed. General: Chronically ill appearing elderly male, in no significant distress. HEENT: No scleral icterus, PERRLA, neck supple. Dry mucous membranes. Atraumatic. Cardiovascular: Rapid and regular rate and rhythm, no extra sounds. Pulmonary: Crackles at bases bilaterally, normal work of breathing. Abdomen: Soft, nontender, nondistended, positive bowel sounds. Musculoskeletal: Bandage to the right galaviz, no surrounding erythema, no peripheral edema. Neurologic: Patient awake alert and oriented x 3, full strength in all 4 extremities. Cranial nerves 2 through 12 grossly intact. Skin: Warm, dry, no rash Medical Decision & Procedures ER Provider Diagnostic Interpretation: Radiology results as stated below per my review and radiologist interpretation: CHEST ONE VIEW PORTABLE CLINICAL HISTORY: atrial flutter chest pain COMPARISON STUDY: 01/06/2018 FINDINGS: Mildly progressive parenchymal infiltrate right base. Slight improvement of the diffuse parenchymal infiltrate left mid to lower lung. The consolidative components are diminished. No evidence for pneumothorax. Pulmonary apices are clear. IMPRESSION: 1. Bibasilar parenchymal infiltrates. 2. Slight improvement in aeration left lung base. 3. Slight increase in parenchymal infiltrative change right base. The above report was generated using voice recognition software. It may contain grammatical, syntax or spelling errors. Electronically signed by: Aureliano Otoole M.D. 02/06/2018 11:52 AM Dictated Date/Time: 02/06/2018 11:51 AM Laboratory Results Test 02/06/18 00:00 02/06/18 11:25 02/06/18 12:47 Urine Color YELLOW Urine Appearance CLOUDY (CLEAR) Urine pH 5.0 (4.5-7.5) Urine Specific [place] > 1.045 (1.000-1.030) Urine Protein TRACE (NEG) Urine Glucose (UA) NEG (NEG) Urine Ketones NEG (NEG) Urine Occult Blood 3+ (NEG) Urine Nitrite NEG (NEG) Urine Bilirubin NEG (NEG) Urine Urobilinogen NEG (NEG) Urine Leukocyte Esterase SMALL (NEG) Urine WBC (Auto) >30 /hpf (0-5) Urine RBC (Auto) >30 /hpf (0-4) Urine Hyaline Casts (Auto) 0 /lpf (0-5) Urine Epithelial Cells (Auto) >30 /lpf (0-5) Urine Bacteria (Auto) NEG (NEG) Urine Renal Epithelial Cells /lpf (0-5) Urine Pathogenic Casts /lpf (0) Influenza Type A (RT-PCR) Neg for Influ A (NEG) Influenza Type B (RT-PCR) Neg for Influ B (NEG) Hypochromasia PRESENT Prothrombin Time 11.0 SECONDS (9.0-12.0) Prothromb Time International Ratio 1.0 (0.9-1.1) Activated Partial Thromboplast Time 35.2 SECONDS (21.0-31.0) Partial Thromboplastin Ratio 1.4 Phosphorus Level 3.8 mg/dl (2.5-4.9) Magnesium Level 2.2 mg/dl (1.8-2.4) Total Bilirubin 0.5 mg/dl (0.2-1) Direct Bilirubin 0.2 mg/dl (0-0.2) Aspartate Amino Transf (AST/SGOT) 19 U/L (15-37) Alanine Aminotransferase (ALT/SGPT) 34 U/L (12-78) Alkaline Phosphatase 113 U/L (45-117) Total Creatine Kinase 15 U/L (39-308) Creatine Kinase MB 1.1 ng/ml (0.5-3.6) Creatine Kinase MB Ratio 7.3 (0-3.0) Total Protein 6.5 gm/dl (6.4-8.2) Albumin 1.8 gm/dl (3.4-5.0) Thyroid Stimulating Hormone (TSH) 0.943 uIu/ml (0.300-4.500) Free Thyroxine 1.17 ng/dl (0.80-1.60) Free Triiodothyronine 1.83 pg/ml (2.30-4.20) Bedside Lactic Acid Venous 1.42 mmol/L (0.90-1.70) Laboratory results per my review. Medications Administered Medications (Trade) Dose Ordered Sig/Mert Route Start Time Stop Time Status Last Admin Dose Admin Sodium Chloride 250 ml @ 999 mls/hr Q16M STAT IV 02/06/18 11:39 02/06/18 11:54 DC 02/06/18 11:39 999 MLS/HR Sodium Chloride 1,000 ml @ 150 mls/hr Q6H40M STAT IV 02/06/18 11:39 02/06/18 17:45 DC 02/06/18 12:14 150 MLS/HR Piperacillin Sod/ Tazobactam Sod (Zosyn Iv) 4.5 gm NOW STAT IV 02/06/18 11:55 02/06/18 11:59 DC 02/06/18 11:55 4.5 GM Levofloxacin (Levaquin / D5W) 750 mg NOW STAT IV 02/06/18 11:55 02/06/18 11:59 DC 02/06/18 13:05 750 MG Vancomycin HCl 2000 mg/Sodium Chloride 540 ml @ 200 mls/hr ONE ONCE IV 02/06/18 11:15 02/06/18 13:56 DC 02/06/18 15:01 200 MLS/HR ECG Per My Interpretation Indication: tachycardia Rate (beats per minute): 92 Rhythm: normal sinus Findings: no acute ischemic change, left axis deviation, no ectopy ED Course 1114: I took medic command. The patient received 10 mg IV Cardizem en route. 1115: Vancomycin HCl 2000 mg/Sodium Chloride 540 ml @ 200 mls/hr IV 1124: Past medical records reviewed. The patient was evaluated in room C1B. A complete history and physical examination was performed. 1139: NSS 1000 ml @ 150 mls/hr IV, NSS 250 ml @ 999 mls/hr IV 1155: Levofloxacin 750 mg IV, Zosyn 4.5 gm IV 1320: I spoke with Karine Saldaña PA-C. We discussed the patient's case. [facility] 1401: I reassessed the patient at this time. He is feeling better and resting comfortably. I discussed the results and treatment plan with the patient and his family. I answered all pertaining questions that they had. They expressed understanding and verbalized agreement. Medical Decision Differential diagnosis: Acute coronary syndrome, cardiac arrhythmia, sepsis, pulmonary embolus, aortic dissection, musculoskeletal pain, pneumonia, pleural effusion, pneumothorax This patient was evaluated and appeared to be in no significant distress. Patient is chronically ill with lung cancer and current chemotherapy treatments. He is found to be in a rapid atrial flutter. Patient had been given 10 mg of IV Cardizem prior to arrival by my medical command. IV fluids were initiated. Upon arrival to the emergency department, the patient remained in rapid atrial flutter however he did convert to a normal sinus rhythm several minutes later. IV metoprolol was ordered however discontinued prior to administration. Chest x-ray was obtained and reveals significant bilateral pulmonary consolidations. Patient has a mildly elevated white blood cell count , no significant electrolyte abnormalities. Blood cultures were obtained. Patient was initiated on IV vancomycin, Zosyn and Levaquin. Case was discussed with the [facility] hospitalist service for further management. Medication Reconcilliation Current Medication List: was personally reviewed by mo Blood Pressure Screening Patient's blood pressure: Low blood pressure Consults Time Called: 1319 Consulting Physician: Karine Saldaña PA-C Returned Call: 1320 I spoke with Karine Saldaña PA-C. We discussed the patient's case. The patient will be evaluated by the [facility] Hospitalist Group for further management. Impression Primary Impression: Atrial flutter with rapid ventricular response Additional Impressions: Bilateral pneumonia Lung cancer Critical Care I have personally spent greater than 35 minutes of critical care time in the direct management of this patient. This includes bedside care, interpretation of diagnostic studies, and testing, discussion with consultants, patient, and family members, and other required patient management activities. This 35 minutes is in excess of all separately billable procedures. Scribe Attestation The scribe's documentation has been prepared under my direction and personally reviewed by me in its entirety. I confirm that the note above accurately reflects all work, treatment, procedures, and medical decision making performed by me. Departure Information Dispostion Being Evaluated By Hospitalist Referrals Ady Mayo MD (PCP) Patient Instructions My [facility] Problem Qualifiers
[2018-02-06] MEDS ORDERED: keytruda IV (14:27)
[2018-02-06] MEDS ORDERED: IV FLUIDS COMPLETED PRN (14:30)
[2018-02-06] MEDS ORDERED: METOPROLOL TARTRATE 25 MG TAB PO STA (14:33)
[2018-02-06] MEDS ORDERED: PIPERACILL/TAZOBAC CONSULT ACTIVE PRN (14:45)
[2018-02-06] MEDS ORDERED: DEXTROSE 50% 50 ML SYR IV PRN (14:45)
[2018-02-06] MEDS ORDERED: GLUCOSE 10 TABS/TUBE PO PRN (14:45)
[2018-02-06] MEDS ORDERED: GLUCAGON FOR INJ 1 MG VIAL SQ PRN (14:45)
[2018-02-06] MEDS ORDERED: DOCUSATE SODIUM/SENNA 50/8.6MG TAB PO PRN (14:45)
[2018-02-06] MEDS ORDERED: GLUCOSE 40% GEL 15 GM TUBE PO PRN (14:45)
[2018-02-06] MEDS ORDERED: OPTIRAY 320 IV PRN (14:45)
--- NOTE | 2018-02-06 15:07 | Pharmacy Progress Note ---
Pharmacy Antibiotic Consult Date of Service: Feb 06, 2018. Pharmacy Dosing Scope Pharmacy is consulted to initiate Vanc/Zosyn IV dosing therapy, order appropriate labs and adjust drug dose/frequency. Subjective The patient is a 82 year old male admitted on 02/06/18. Objective Height (Feet): 5 Height (Inches): 10.00 Weight (Kilograms): 91.500 Lab Results (24hrs): Test 02/06/18 11:25 02/06/18 12:47 White Blood Count 11.65 K/uL (4.8-10.8) Red Blood Count 3.91 M/uL (4.7-6.1) Hemoglobin 10.1 g/dL (14.0-18.0) Hematocrit 32.8 % (42-52) Mean Corpuscular Volume 83.9 fL (80-100) Mean Corpuscular Hemoglobin 25.8 pg (25-34) Mean Corpuscular Hemoglobin Concent 30.8 g/dl (32-36) Platelet Count 592 K/uL (130-400) Mean Platelet Volume 9.3 fL (7.4-10.4) Neutrophils (%) (Auto) 81.7 % Lymphocytes (%) (Auto) 3.0 % Monocytes (%) (Auto) 8.4 % Eosinophils (%) (Auto) 5.8 % Basophils (%) (Auto) 0.3 % Neutrophils # (Auto) 9.52 K/uL (1.4-6.5) Lymphocytes # (Auto) 0.35 K/uL (1.2-3.4) Monocytes # (Auto) 0.98 K/uL (0.11-0.59) Eosinophils # (Auto) 0.68 K/uL (0-0.5) Basophils # (Auto) 0.03 K/uL (0-0.2) RDW Standard Deviation 61.7 fL (36.4-46.3) RDW Coefficient of Variation 20.2 % (11.5-14.5) Immature Granulocyte % (Auto) 0.8 % Immature Granulocyte # (Auto) 0.09 K/uL (0.00-0.02) Hypochromasia PRESENT Anisocytosis PRESENT Prothrombin Time 11.0 SECONDS (9.0-12.0) Prothromb Time International Ratio 1.0 (0.9-1.1) Activated Partial Thromboplast Time 35.2 SECONDS (21.0-31.0) Partial Thromboplastin Ratio 1.4 Sodium Level 141 mmol/L (136-145) Potassium Level 4.8 mmol/L (3.5-5.1) Chloride Level 105 mmol/L (98-107) Carbon Dioxide Level 29 mmol/L (21-32) Anion Gap 7.0 mmol/L (3-11) Blood Urea Nitrogen 19 mg/dl (7-18) Creatinine 0.86 mg/dl (0.60-1.40) Est Creatinine Clear Calc Drug Dose 72.7 ml/min Estimated GFR () 92.3 Estimated GFR (Non- 79.6 BUN/Creatinine Ratio 22.1 (10-20) Random Glucose 133 mg/dl (70-99) Calcium Level 9.3 mg/dl (8.5-10.1) Phosphorus Level 3.8 mg/dl (2.5-4.9) Magnesium Level 2.2 mg/dl (1.8-2.4) Total Bilirubin 0.5 mg/dl (0.2-1) Direct Bilirubin 0.2 mg/dl (0-0.2) Aspartate Amino Transf (AST/SGOT) 19 U/L (15-37) Alanine Aminotransferase (ALT/SGPT) 34 U/L (12-78) Alkaline Phosphatase 113 U/L (45-117) Total Creatine Kinase 15 U/L (39-308) Creatine Kinase MB 1.1 ng/ml (0.5-3.6) Creatine Kinase MB Ratio 7.3 (0-3.0) Troponin I < 0.015 ng/ml (0-0.045) Total Protein 6.5 gm/dl (6.4-8.2) Albumin 1.8 gm/dl (3.4-5.0) Thyroid Stimulating Hormone (TSH) 0.943 uIu/ml (0.300-4.500) Free Thyroxine 1.17 ng/dl (0.80-1.60) Free Triiodothyronine 1.83 pg/ml (2.30-4.20) Bedside Lactic Acid Venous 1.42 mmol/L (0.90-1.70) Assessment & Plan ASSESSMENT: * Mr Sneed is an 82yo gentleman admitted for a cardiac assessment, possible B/ L pneumonia. * Patient is currently receiving chemotherapy for lung CA, last chemo 01/24/18. Other significant PMH includes diabetes and recent hospital admission. * Patient initiated on broad-spectrum antibiotics empirically in the ED. PLAN: Vancomycin * Loading dose: Vanc 2000 mg (~22mg/kg) IV X 1 dose then: * Vanc 1250mg (~14mg/kg) mg IV every 12 hours. * Patient's estimated p'kinetic parameters (based on CrCl ~73mL/min): * Ke ~ 0.065/hr t1/2 ~ 10.7hr * Goal trough level estimate: between 15 - 20 mcg/mL for pulmonary infx. * Will check a trough level prior to the 3rd or 4th maintenance dose to assess for dose appropriateness. Zosyn * Zosyn 4.5gm IV x1 dose in the ED, then * Zosyn 3.375gm IV q8h Levaquin 750mg IV x1 dose given in the ED Pharmacy will continue to follow and will adjust dose/frequency as necessary. Thank you
--- NOTE | 2018-02-06 15:29 | History and Physical ---
History & Physical Date & Time of Service: Feb 06, 2018 at 14:45 Chief Complaint: AFIB Primary Care Physician: Ady Mayo MD History of Present Illness Source: patient, family, clinic records, hospital records Pt is 82 y/o M with PMH HTN, HLD, DM II, gout, spindle cell lung CA presented to ER with complaint of weakness. Patient following with Dr. Estevez for lung CA , finished chemo and radiation, on chemo due to last dose on 01/24/18. Patient reports chronic weakness however has had increased weakness over the past several days. States yesterday increased difficulty getting out of bed. And today was unable to get out of bed secondary to increased generalized weakness and increased weakness to legs. Patient reports home health was in to see patient and sent patient to ER secondary to increased weakness. EMS found patient to be in rapid atrial flutter rate in the 150s, was given 10 mg Cardizem in route. In ER patient converted to sinus rhythm rate in 90s. Patient reports chronic decreased appetite. Past 3 days has not been eating and very little water intake. Patient reports has been having dry mouth and this morning noticed increased dry mouth and was having trouble talking with the dryness in his mouth. Patient reports past couple of weeks has been having trouble swallowing and feels like solid food "sticks". Patient is unsure if feels like sticking in his mouth or throat. Reports choked a couple of days ago. Denies any pain with swallowing. patient states can swallow fluids without any difficulty. He reports chronic cough and sometimes productive of clear to pale yellow sputum. Patient denies any increased cough or increased sputum production. Reports chronic shortness of breath, does not feel increased shortness of breath. Patient is on oxygen 2 L NC and 4 L NC with ambulation. Patient reports uses walker to ambulate. History of hospitalization 01/03/18-01/08/18 for hypoxia, pneumonia and developed A. fib in hospital and chronic left lower extremity DVT noted. Patient was treated with IV Levaquin, sent home on oxygen, Lovenox, metoprolol, Levaquin p.o. 5 days. Patient states since discharge has been receiving home health nursing and physical therapist. Last BM 2 days ago. Denies nausea or vomiting.Denies fever/chills, diaphoresis, melena, hematochezia, CORDOBA, dizziness, syncope, vision changes, neck pain, CP, hemoptysis, orthopnea, palpitations, otalgia, rhinorrhea, abdominal pain, paresthesias, extremity edema, rashes, dysuria, hematuria, urinary frequency, urinary retention. 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 He received 6000 cGy. Status: Chronic (2) Diastolic dysfunction Status: Chronic (3) DM type 2 (diabetes mellitus, type 2) Status: Chronic (4) Dyslipidemia Status: Chronic (5) Fall Status: Resolved (6) HTN (hypertension) Status: Chronic (7) Malnutrition Status: Chronic (8) Mild aortic valve stenosis Status: Chronic Surgical Problems: (1) History of cataract surgery Status: Chronic (2) S/P tonsillectomy Status: Chronic Family History Cancer Diabetes mellitus Heart disease Hypertension Social History Smoking Status: Former Smoker Smokeless Tobacco Use: No Alcohol Use: none Drug Use: cocaine Marital Status: Housing status: lives with significant other Occupational Status: retired Immunizations History of Influenza Vaccine: Yes Influenza Vaccine Date: Aug 10, 2017 History of Tetanus Vaccine?: Yes Tetanus Immunization Date: Sep 09, 2010 History of Pneumococcal: Yes Pneumococcal Date: Jun 23, 2015 Allergies Coded Allergies: No Known Allergies (Unverified , 01/03/18) Home Medications Scheduled Allopurinol (Zyloprim), 300 MG PO DAILY Aspirin (Aspirin Ec), 81 MG PO DAILY Atorvastatin (Lipitor), 20 MG PO DAILY Cholecalciferol (Vitamin D), 1,000 INTER.UNIT PO DAILY Enoxaparin (Enoxaparin Sodium), 100 MG SQ Q12H Glimepiride (Glimepiride), 2 MG PO DAILY Home O2 Therapy (Oxygen), 2 LITERS NA UD Metformin Hcl (Metformin Hcl Er), 500 MG PO DAILY Metoprolol Tartrate (Lopressor) (Lopressor), 25 MG PO BID Mirtazapine (Remeron), 15 MG PO HS Multivitamins/Minerals (Mvi With Minerals), 1 TAB PO DAILY Nutritional Supplements (Boost), 1 CAN PO BIDM [keytruda], 1 DOSE IV Q3 WEEKS Scheduled PRN Guaifenesin/Codeine (Robitussin-Ac Syrup), 10 ML PO Q4H PRN for Cough Sennosides-Docusate Sodium (Stool Softener), 1 TAB PO BID PRN for Constipation Review of Systems See HPI for pertinent positives & negatives. All other systems reviewed and were otherwise negative Physical Exam Vital Signs Date Time Temp Pulse Resp B/P (MAP) Pulse Ox O2 Delivery O2 Flow Rate FiO2 02/06/18 14:06 95 Nasal Cannula 5.0 02/06/18 12:40 93 30 102/62 95 Nasal Cannula 5.0 02/06/18 12:07 89 02/06/18 12:01 94 Nasal Cannula 5.0 02/06/18 12:01 85 22 103/59 93 Nasal Cannula 5.0 02/06/18 11:25 36.4 156 31 102/70 98 Nasal Cannula 5.0 General Appearance: WD/WN, no apparent distress Head: normocephalic, atraumatic Eyes: normal inspection, PERRL, EOMI, sclerae normal ENT: hearing grossly normal, pharynx normal, + pertinent finding (Mucous membranes dry) Neck: supple, no JVD, trachea midline Respiratory/Chest: + decreased breath sounds (Throughout), + rales (Bilateral bases), + pertinent finding (Respiration rate 22, tenderness to palpation left lateral chest, no rashes noted) Cardiovascular: regular rate, rhythm (Rate 94), normal peripheral pulses Abdomen/GI: normal bowel sounds, non tender, soft Back: no CVA tenderness Neurologic/Psych: alert, normal mood/affect, oriented x 3 (Slurred speech, no facial drooping, tongue midline, bilateral arms with range of motion intact and equal strength, decreased range of motion and decreased strength strength bilateral lower extremities noted equally, pedal pushes and pulls intact bilaterally) Skin: warm/dry, + pertinent finding (Positive excoriations noted to bilateral arms, neck, face, legs. Right lower anterior leg with abrasions without surrounding erythema or red streaking) Diagnostics Laboratory Results Results Past 24 Hours Test 02/06/18 11:25 02/06/18 12:47 Range/Units White Blood Count 11.65 4.8-10.8 K/uL Red Blood Count 3.91 4.7-6.1 M/uL Hemoglobin 10.1 14.0-18.0 g/dL Hematocrit 32.8 42-52 % Mean Corpuscular Volume 83.9 80-100 fL Mean Corpuscular Hemoglobin 25.8 25-34 pg Mean Corpuscular Hemoglobin Concent 30.8 32-36 g/dl Platelet Count 592 130-400 K/uL Mean Platelet Volume 9.3 7.4-10.4 fL Neutrophils (%) (Auto) 81.7 % Lymphocytes (%) (Auto) 3.0 % Monocytes (%) (Auto) 8.4 % Eosinophils (%) (Auto) 5.8 % Basophils (%) (Auto) 0.3 % Neutrophils # (Auto) 9.52 1.4-6.5 K/uL Lymphocytes # (Auto) 0.35 1.2-3.4 K/uL Monocytes # (Auto) 0.98 0.11-0.59 K/uL Eosinophils # (Auto) 0.68 0-0.5 K/uL Basophils # (Auto) 0.03 0-0.2 K/uL RDW Standard Deviation 61.7 36.4-46.3 fL RDW Coefficient of Variation 20.2 11.5-14.5 % Immature Granulocyte % (Auto) 0.8 % Immature Granulocyte # (Auto) 0.09 0.00-0.02 K/uL Hypochromasia PRESENT Anisocytosis PRESENT Prothrombin Time 11.0 9.0-12.0 SECONDS Prothromb Time International Ratio 1.0 0.9-1.1 Activated Partial Thromboplast Time 35.2 21.0-31.0 SECONDS Partial Thromboplastin Ratio 1.4 Sodium Level 141 136-145 mmol/L Potassium Level 4.8 3.5-5.1 mmol/L Chloride Level 105 98-107 mmol/L Carbon Dioxide Level 29 21-32 mmol/L Anion Gap 7.0 3-11 mmol/L Blood Urea Nitrogen 19 7-18 mg/dl Creatinine 0.86 0.60-1.40 mg/dl Est Creatinine Clear Calc Drug Dose 72.7 ml/min Estimated GFR () 92.3 Estimated GFR (Non- 79.6 BUN/Creatinine Ratio 22.1 10-20 Random Glucose 133 70-99 mg/dl Calcium Level 9.3 8.5-10.1 mg/dl Phosphorus Level 3.8 2.5-4.9 mg/dl Magnesium Level 2.2 1.8-2.4 mg/dl Total Bilirubin 0.5 0.2-1 mg/dl Direct Bilirubin 0.2 0-0.2 mg/dl Aspartate Amino Transf (AST/SGOT) 19 15-37 U/L Alanine Aminotransferase (ALT/SGPT) 34 12-78 U/L Alkaline Phosphatase 113 45-117 U/L Total Creatine Kinase 15 39-308 U/L Creatine Kinase MB 1.1 0.5-3.6 ng/ml Creatine Kinase MB Ratio 7.3 0-3.0 Troponin I < 0.015 0-0.045 ng/ml Total Protein 6.5 6.4-8.2 gm/dl Albumin 1.8 3.4-5.0 gm/dl Thyroid Stimulating Hormone (TSH) 0.943 0.300-4.500 uIu/ml Free Thyroxine 1.17 0.80-1.60 ng/dl Free Triiodothyronine 1.83 2.30-4.20 pg/ml Bedside Lactic Acid Venous 1.42 0.90-1.70 mmol/L Microbiology Results 02/06/18 Blood Culture, Received Pending 02/06/18 Blood Culture, Received Pending Diagnostic Radiology CXR: IMPRESSION: 1. Bibasilar parenchymal infiltrates. 2. Slight improvement in aeration left lung base. 3. Slight increase in parenchymal infiltrative change right base. EKG 11:51 AM EKG: sinus rhythm, rate 92, left axis deviation Impression Assessment and Plan A FLUTTER WITH RVR Patient found to be a flutter with rates in the 150s by EMS this morning, was given 10 mg Cardizem in route. Patient has since converted to sinus rhythm in ER. Patient denied any increased shortness of breath, palpitations or chest pain. Patient with history of A. fib during hospitalization in 12/2017 and is on metoprolol and Lovenox. Patient did not take his morning dose of metoprolol , however did take his dose of Lovenox. Initial troponin negative. TSH: 0.94, magnesium: 2.2 -A flutter likely secondary to pneumonia and dehydration -Telemetry to monitor -Patient given his morning p.o. dose of metoprolol -Continue Lovenox -Continue metoprolol -trend troponin -Echo -CT chest to rule out PE -Consider cardiology consult, and outpatient cardiology f/u PNEUMONIA CXR: Bibasilar parenchymal infiltrates, Slight improvement in aeration left lung base, Slight increase in parenchymal infiltrative change right base. WBC: 11.6. 94% on 4 L NC, R: 22. POC lactic acid: 1.4. Patient given Levaquin, Zosyn, vancomycin, 250 mL bolus and 150 mL/h NSS in ER. -Pt with recent CAP hospitalized 01/03/18-01/08/18. Will cover for possible HCAP, aspiration pneumonia -Pending blood cultures -Sputum culture -Vancomycin, Zosyn now, and deescalate when appropriate -CT chest to rule out PE -IVF -Continue supplemental oxygen -Pulmonology consult DEHYDRATION Patient with poor oral intake secondary to decreased appetite and noted to be dry on exam today. Cr: 0.86 (baseline). BUN/creatinine ratio: 22. Patient received 250 mL bolus then 150 mL/h NSS in ER. -IVF -Monitor PRP, CBC -Continue Boost supplement WEAKNESS Worsening generalized weakness, Likely secondary to dehydration, deconditioning. No focal deficits noted on exam. -Pending UA -PT/OT eval CHRONIC HYPOXIA Patient uses 2 L NC continuous and 4 L NC with ambulation. Patient is 94% on 4 L NC. -Continue supplemental oxygen DYSPHASIA Patient reports some trouble swallowing intermittently over the past couple weeks. Reports some intermittent choking with solids -Speech therapy for swallowing eval HISTORY SPINDLE CELL LUNG CARCINOMA Follows with Dr. Estevez. Was treated with chemo and radiation. Currently on Keytruda CHRONIC THROMBUS LEFT POPLITEAL VEIN Patient denies any increased lower extremity edema or lower extremity pain. Patient on Lovenox -Continue Lovenox CHRONIC ANEMIA Hgb: 10 (approximate baseline). No active bleeding -Monitor H&H DM II H A1c 6.3 on 11/2017. Glucose: 133 in ER -Hold glimepiride -novolog sliding scale per protocol HTN Stable -continue metoprolol HLD -Continue statin DVT Prophylaxis -Pt on therapeutic dose Lovenox for known LLE DVT Disposition admit tele Full Code as per discussion with pt Follows with Dr Mayo for routine care Pt was seen with Dr Crespo. See addendum ADDENDUM: I have seen and examined the patient and agree with the assessment and plan as above. Appreciate pulm input. DO Zak Advanced Directives Existing Living Will: Yes Existing Power of Supervisor Mixing: Yes Resuscitation Status VTE Prophylaxis Will order VTE Prophylaxis: Yes Additional Copies To Ady Mayo MD
--- NOTE | 2018-02-06 15:41 | DIAGNOSTIC IMAGING REPORT ---
(CHEST FOR PE) ANGIO WITH CLINICAL HISTORY: 82 years-old Male presenting with ^SOB. TECHNIQUE: Multidetector CT angiography of the chest was performed after administration of intravenous contrast. 3-D volumetric and/or maximum intensity projection (MIP) images were subsequently reconstructed for review. IV contrast: 88 mL of Optiray 320. A dose lowering technique was used consistent with the principles of ALARA (as low as reasonably achievable). COMPARISON: 01/03/2018, PET/CT from 06/08/[address] from 04/27/2017. CT DOSE (mGy.cm): The estimated cumulative dose is 564.57 mGy.cm. FINDINGS: All Source Analyst topogram: Bibasilar predominant opacities. Pulmonary vasculature: The study is extremely limited for the assessment of the pulmonary vascular tree secondary to respiratory motion artifact. Allowing for limited image quality, no gross central filling defect to suggest pulmonary embolus. The left lower lobe pulmonary artery is occluded on a chronic basis (series 4 image 161). Main pulmonary artery top normal in size. No flattening of the interventricular septum. No intracardiac filling defect. No reflux of contrast into the hepatic veins. Remaining chest: On soft tissue windows, normal thyroid and thoracic inlet. Conglomerate left hilar lymphadenopathy suspected. Less extensive right hilar lymphadenopathy. Subcentimeter scattered mediastinal lymph nodes. Atherosclerosis of the aorta. Multichamber enlargement of the heart. Coronary artery calcification. No pericardial or pleural effusion. Upper abdomen normal. On lung windows, interval worsened consolidation in the right lung with dense multifocal solid peripheral wedgelike consolidation. This largely spares the right apex. Trace emphysematous changes evident. Chronic opacities in the left lung most severely affecting the left lower lobe. Bronchiectasis evident. Central airways patent. On bone windows, degenerative changes of the spine. IMPRESSION: 1. Significant interval worsening of consolidation in the right lung since the prior exam. The predominantly peripheral wedgelike regions of solid consolidation could suggest pulmonary infarcts though no acute pulmonary emboli are evident allowing for the significantly degraded evaluation due to respiratory motion artifact. Alternatively, increased opacities could represent worsened infection. 2. Chronic left lung consolidation with bronchiectatic change. Underlying infection is difficult to exclude. 3. 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 A discrete mass was visualized on prior chest CT from April 2017 though margins of a discrete mass are now not apparent. 4. Emphysema. Electronically signed by: Shlomo Hurtado M.D. 02/06/2018 3:40 PM Dictated Date/Time: 02/06/2018 3:28 PM
[2018-02-06 17:30] VITALS: BP 120/76; PULSE 79; TEMP 36.5; O2SAT 94
[2018-02-06] MEDS: SODIUM CHLORIDE 0.9% 1000ML 1,000 ML IV SCH (18:21)
[2018-02-06] MEDS: PIPERACILL/TAZOBAC IV 3.375 GM in DEXTROSE 5% 100ML 100 ML IV SCH (18:21)
--- NOTE | 2018-02-06 18:28 | Pulmonary Consultation ---
History General Date of Service: Feb 06, 2018. Stated Complaint: Atrial Flutter With Rapid Ventricular Response HPI Dear Karine: Thank you for your kind referral of Mr. Sneed to pulmonary service. This is 82 -year-old gentleman who has been recently diagnosed with non-small cell lung CA , spindle cells, underwent chemotherapy in 2016 and completed his course of chemoradiation back in July 2017. Afterward the patient was started on Keytruda as part of his immunotherapy. The patient ever since started to have increasing weakness and lack of appetite according to him. He is having also with appeared to be dysphagia as well. Up until today, the patient presented to the hospital after he was found by his visiting nurse to be very weak and having increasing shortness of breath. The patient did not have any cough no hemoptysis. No nausea or vomiting. He has been having weight loss and difficulty swallowing. The patient complains of palpitation, no chest pain was reported. In the ED the patient was found to be in a flutter with RVR. Underwent an extensive workup including CAT scan of the chest with IV contrast which revealed old pulmonary embolism, he did have also a significant increase in the consolidation bilaterally that was noted compared to the CAT scan done a month ago. The patient did have also left hilar mass with lymphadenopathy that is not very obvious on this imaging. Patient is been on oxygen. He was not hypoxic but started on oxygen, and in the ED he received a dose of Cardizem and was admitted for further management. Historian: patient, family, other (Records) Review of Systems Constitutional: reports: no symptoms Eyes: reports: no symptoms ENT: reports: other (Dysphagia and lack of appetite) Cardiovascular: reports: palpitations Respiratory: reports: cough, shortness of breath Gastrointestinal: reports: other (Dysphasia) Genitourinary - Male: denies: no symptoms, as stated in HPI, dysuria, hematuria , hesitancy, impotence, itching, penile discharge, rash, urinary frequency, urinary incontinence, urinary retention, urinary urgency, other Musculoskeletal: denies: no symptoms, as stated in HPI, arthralgias, neck pain , back pain, joint pain, joint swelling, deformity, myalgias, muscle spasms, other Integumentary: reports: other (Generalized weakness) Psychiatric: denies: no symptoms, as stated in HPI, anxiety, depression, suicidal ideation, homicidal ideation, visual hallucinations, auditory hallucinations, mood changes, alcohol abuse, drug abuse, other Past Medical History Past Medical History: Spindle cell non-small cell lung CA, treated with chemoradiation, currently on immunotherapy. History of pulmonary embolism, treated with Lovenox. COPD changes noted also on the CAT scan. Chronic hypoxic respiratory failure. New onset atrial flutter. Family History Cancer Diabetes mellitus Heart disease Hypertension Social History Hx Tobacco Use In Past Year?: No Smoking Status: Former Smoker Marital status: Housing status: lives with significant other Occupational Status: retired Immunizations History of Influenza Vaccine: Yes Influenza Vaccine Date: Aug 10, 2017 History of Tetanus Vaccine?: Yes Tetanus Immunization Date: Sep 09, 2010 History of Pneumococcal: Yes Pneumococcal Date: Jun 23, 2015 History of MDRO History of MDRO: No Allergies Coded Allergies: No Known Allergies (Unverified , 01/03/18) Current Medications Reported Home Medications Medications Dose Route/Sig Max Daily Dose Days Date Category Robitussin-Ac Syrup (Codeine Phosphate/Guaifenesin) Syrp 10 Ml PO Q4H PRN 4 02/06/18 Reported Boost (Nutritional Supplements) 1 Liq Liq 1 Can PO BIDM 01/31/18 Reported Lopressor (Metoprolol Tartrate) 25 Mg Tab 25 Mg PO BID 01/31/18 Reported Oxygen Gas 2 Liters NA UD 01/31/18 Reported Remeron (Mirtazapine) 15 Mg Tab 15 Mg PO HS 01/31/18 Reported Glimepiride 2 Mg Tab 2 Mg PO DAILY 01/31/18 Reported [keytruda] 1 Dose IV Q3 WEEKS 01/25/18 Reported Enoxaparin Sodium (Enoxaparin) 100 Mg/Ml Inj 100 Mg SQ Q12H 30 01/08/18 Rx Stool Softener (Sennosides-Docusate Sodium) 1 Tab Tab 1 Tab PO BID PRN 01/03/18 Reported Vitamin D (Cholecalciferol) 1,000 Unit Tab 1,000 Inter.unit PO DAILY 08/15/17 Reported Aspirin Ec (Aspirin) 81 Mg Tab 81 Mg PO DAILY 06/22/17 Reported Mvi With Minerals (Multivitamins/Minerals) Tab 1 Tab PO DAILY 06/22/17 Reported Metformin Hcl Er (Metformin Hcl) 500 Mg Tab 500 Mg PO DAILY 06/22/17 Reported Lipitor (Atorvastatin Calcium) 20 Mg Tab 20 Mg PO DAILY 06/22/17 Reported Zyloprim (Allopurinol) 300 Mg Tab 300 Mg PO DAILY 06/22/17 Reported Physical Physical Exam Vital Signs: Date Time Temp Pulse Resp B/P (MAP) Pulse Ox O2 Delivery O2 Flow Rate FiO2 02/06/18 17:06 36.4 93 30 102/62 95 02/06/18 14:06 95 Nasal Cannula 5.0 02/06/18 12:40 93 30 102/62 95 Nasal Cannula 5.0 02/06/18 12:07 89 02/06/18 12:01 94 Nasal Cannula 5.0 02/06/18 12:01 85 22 103/59 93 Nasal Cannula 5.0 02/06/18 11:25 36.4 156 31 102/70 98 Nasal Cannula 5.0 General Appearance: other (Chronic ill appearing) Eyes: PERRLA, EOMI ENT: NORMAL THROAT EXAM Neck: NORMAL RANGE OF MOTION, TRACHEA MIDLINE Respiratory: rhonchi Cardiovasular: NORMAL S1S2, NO M/G/R, NO MURMUR, NO GALLOP Abdomen: NON TENDER, NO MASSES, NO GUARDING Upper Extremities: NO EDEMA Lower Extremities: NO EDEMA Neuro: ALERT, ORIENTED x 3 Psychiatric: NORMAL AFFECT Diagnostics Labs Results Past 24 Hours Test 02/06/18 00:00 02/06/18 11:25 02/06/18 12:47 02/06/18 17:39 Range/Units White Blood Count 11.65 4.8-10.8 K/uL Red Blood Count 3.91 4.7-6.1 M/uL Hemoglobin 10.1 14.0-18.0 g/dL Hematocrit 32.8 42-52 % Mean Corpuscular Volume 83.9 80-100 fL Mean Corpuscular Hemoglobin 25.8 25-34 pg Mean Corpuscular Hemoglobin Concent 30.8 32-36 g/dl Platelet Count 592 130-400 K/uL Mean Platelet Volume 9.3 7.4-10.4 fL Neutrophils (%) (Auto) 81.7 % Lymphocytes (%) (Auto) 3.0 % Monocytes (%) (Auto) 8.4 % Eosinophils (%) (Auto) 5.8 % Basophils (%) (Auto) 0.3 % Neutrophils # (Auto) 9.52 1.4-6.5 K/uL Lymphocytes # (Auto) 0.35 1.2-3.4 K/uL Monocytes # (Auto) 0.98 0.11-0.59 K/uL Eosinophils # (Auto) 0.68 0-0.5 K/uL Basophils # (Auto) 0.03 0-0.2 K/uL RDW Standard Deviation 61.7 36.4-46.3 fL RDW Coefficient of Variation 20.2 11.5-14.5 % Immature Granulocyte % (Auto) 0.8 % Immature Granulocyte # (Auto) 0.09 0.00-0.02 K/uL Hypochromasia PRESENT Anisocytosis PRESENT Prothrombin Time 11.0 9.0-12.0 SECONDS Prothromb Time International Ratio 1.0 0.9-1.1 Activated Partial Thromboplast Time 35.2 21.0-31.0 SECONDS Partial Thromboplastin Ratio 1.4 Sodium Level 141 136-145 mmol/L Potassium Level 4.8 3.5-5.1 mmol/L Chloride Level 105 98-107 mmol/L Carbon Dioxide Level 29 21-32 mmol/L Anion Gap 7.0 3-11 mmol/L Blood Urea Nitrogen 19 7-18 mg/dl Creatinine 0.86 0.60-1.40 mg/dl Est Creatinine Clear Calc Drug Dose 72.7 ml/min Estimated GFR () 92.3 Estimated GFR (Non- 79.6 BUN/Creatinine Ratio 22.1 10-20 Random Glucose 133 70-99 mg/dl Calcium Level 9.3 8.5-10.1 mg/dl Phosphorus Level 3.8 2.5-4.9 mg/dl Magnesium Level 2.2 1.8-2.4 mg/dl Total Bilirubin 0.5 0.2-1 mg/dl Direct Bilirubin 0.2 0-0.2 mg/dl Aspartate Amino Transf (AST/SGOT) 19 15-37 U/L Alanine Aminotransferase (ALT/SGPT) 34 12-78 U/L Alkaline Phosphatase 113 45-117 U/L Total Creatine Kinase 15 39-308 U/L Creatine Kinase MB 1.1 0.5-3.6 ng/ml Creatine Kinase MB Ratio 7.3 0-3.0 Troponin I < 0.015 0-0.045 ng/ml Total Protein 6.5 6.4-8.2 gm/dl Albumin 1.8 3.4-5.0 gm/dl Thyroid Stimulating Hormone (TSH) 0.943 0.300-4.500 uIu/ml Free Thyroxine 1.17 0.80-1.60 ng/dl Free Triiodothyronine 1.83 2.30-4.20 pg/ml Bedside Lactic Acid Venous 1.42 0.90-1.70 mmol/L Bedside Glucose 98 70-99 mg/dl Test 02/06/18 17:48 Range/Units Microbiology Results 02/06/18 Blood Culture, Received Pending 02/06/18 Blood Culture, Received Pending Diagnostic Radiology Labs, previous pathology, and CAT scan of the chest or reviewed personally. Impression Assessment and Plan 1. Acute lung injury, could represent drug-induced such as chemotherapy received a few months ago versus radiation lung injury. Noted that the consolidation are in close proximity to the lung mass. These findings do not represent pulmonary infarct. 2. Chronic PE without resolution of the filling defect, currently on Lovenox. 3. COPD. 4. Chronic hypoxic respiratory failure on home oxygen. 5. Dysphagia which could be related to previous radiation exposure or lack of appetite due to ongoing malignancy. Plan: 1. Agree with broad-spectrum antibiotic coverage given his immunocompromised state. 2. I will start the patient on high-dose steroids, and assess his response on a daily basis clinically. 3. Continue with current treatment for a flutter. 4. Patient is already on full dose Lovenox. 5. Discussed with the family in details as well as with the patient. Thank you for your kind referral, will follow.
[2018-02-06] MEDS: BOOST VANILLA PO SCH (18:36)
[2018-02-06] MEDS: INSULIN ASPART 100 UNITS/ML 3 ML PEN SC SCH ×2 (18:54→21:39)
[2018-02-06] MEDS: METHYLPREDNISOLONE IV 80 MG in SYRINGE 0 ML IV SCH (18:56)
[2018-02-06 18:57] LABS: INFLUENZA A PCR Neg for Influ A (NEG); INFLUENZA B PCR Neg for Influ B (NEG)
[2018-02-06 19:09] VITALS: BP 134/97; PULSE 95; TEMP 36.4; O2SAT 94
[2018-02-06] MEDS ORDERED: INSULIN GLARGINE SOLOSTAR 100 UNITS/ML 3 ML PEN SC SCH (21:00)
[2018-02-06] MEDS: METOPROLOL TARTRATE 25 MG TAB PO SCH (21:39)
[2018-02-06] MEDS: MIRTAZAPINE TAB 15 MG TAB PO SCH (21:39)
[2018-02-06] MEDS: ENOXAPARIN 100 MG/1ML SYR SQ SCH (21:40)
[2018-02-06 21:41] VITALS: BP 110/67; PULSE 90; O2SAT 88
[2018-02-06 21:44] VITALS: O2SAT 91
[2018-02-06 23:48] VITALS: BP 110/61; PULSE 72; TEMP 36.4; O2SAT 96
[2018-02-07] VITALS (10 sets, daily range): BP systolic 101–122; BP diastolic 61–77; PULSE 53–89; TEMP 36.3–36.7; O2SAT 91–100; Ht 177.8 cm; Wt 88.4 kg
[2018-02-07] MEDS: METHYLPREDNISOLONE IV 80 MG in SYRINGE 0 ML IV SCH ×4 (00:21→18:25)
[2018-02-07] MEDS ORDERED: VANCOMYCIN IV 1,250 MG in SODIUM CHLORIDE 0.9% 250ML 250 ML IV SCH (02:00)
[2018-02-07] MEDS: PIPERACILL/TAZOBAC IV 3.375 GM in DEXTROSE 5% 100ML 100 ML IV SCH ×3 (02:45→19:49)
[2018-02-07] MEDS: SODIUM CHLORIDE 0.9% 1000ML 1,000 ML IV SCH ×2 (04:05→10:28)
[2018-02-07 06:09] LABS: BASO % 0.1 %; BASO ABS # 0.01 K/uL (0-0.2); EOS % 0.1 %; EOS ABS # 0.01 K/uL (0-0.5); HEMATOCRIT 29.7 % (42-52); HEMOGLOBIN 9.1 g/dL (14.0-18.0); LYMPH % 2.1 %; LYMPH ABS # 0.19 K/uL (1.2-3.4); MEAN CELL VOLUME 83.4 fL (80-100); MEAN CORPUSCULAR HEMOGLOBIN 25.6 pg (25-34); MEAN CORPUSCULAR HGB CONC 30.6 g/dl (32-36); MEAN PLATELET VOLUME 8.7 fL (7.4-10.4); MONO % 1.5 %; MONO ABS # 0.13 K/uL (0.11-0.59); NEUT % 95.1 %; NEUT ABS # 8.49 K/uL (1.4-6.5); PLATELET COUNT 548 K/uL (130-400); RED CELL DISTRIBUTION WIDTH CV 20.6 % (11.5-14.5); RED CELL DISTRIBUTION WIDTH SD 63.1 fL (36.4-46.3); WHITE BLOOD COUNT 8.93 K/uL (4.8-10.8)
[2018-02-07 06:39] LABS: CALCIUM 9.4 mg/dl (8.5-10.1); CREATININE 0.98 mg/dl (0.60-1.40); POTASSIUM 4.6 mmol/L (3.5-5.1)
[2018-02-07] MEDS ORDERED: PHARMACY GLYCEMIC MGMT CONSULT PRN (08:28)
[2018-02-07] MEDS ORDERED: INSULIN GLARGINE SOLOSTAR 100 UNITS/ML 3 ML PEN SC SCH (09:00)
[2018-02-07] MEDS ORDERED: INSULIN GLARGINE SOLOSTAR 100 UNITS/ML 3 ML PEN SC ONE (09:00)
[2018-02-07] MEDS: BOOST VANILLA PO SCH (09:55)
[2018-02-07] MEDS: CHOLECALCIFEROL 1000 INTER.UNIT TAB PO SCH (09:56)
[2018-02-07] MEDS: ALLOPURINOL 300 MG TAB PO SCH (09:56)
[2018-02-07] MEDS: ASPIRIN 81 MG ECTAB PO SCH (09:56)
[2018-02-07] MEDS: METOPROLOL TARTRATE 25 MG TAB PO SCH ×2 (09:57→19:50)
[2018-02-07] MEDS: CEROVITE ADV FORMULA TAB PO SCH (09:57)
[2018-02-07] MEDS: ATORVASTATIN 20 MG TAB PO SCH (09:57)
[2018-02-07] MEDS: INSULIN ASPART 100 UNITS/ML 3 ML PEN SC SCH ×4 (09:59→20:59)
[2018-02-07] MEDS: ENOXAPARIN 100 MG/1ML SYR SQ SCH ×2 (10:00→19:51)
--- NOTE | 2018-02-07 11:20 | Progress Note ---
Medicine Progress Note Date & Time of Visit: Feb 07, 2018 at 11:10. Subjective Seen resting in bed, comfortable In good spirits, alert oriented 3 Remaining in sinus rhythm rate controlled States he feels okay overall Denies shortness of breath, increased cough, fever chills Denies palpitations, chest pain No other symptoms Objective Last 8 Hrs Date Time Temp Pulse Resp B/P (MAP) Pulse Ox O2 Delivery O2 Flow Rate FiO2 02/07/18 10:49 36.3 89 20 108/62 (77) 91 Nasal Cannula 5.0 02/07/18 07:34 36.4 73 20 122/77 (92) 100 3.0 02/07/18 04:00 Nasal Cannula 3.0 02/07/18 03:45 36.4 73 22 104/63 (77) 97 Nasal Cannula 3.0 Physical Exam: General-oriented 3, not in distress, speaking sentences no accessory muscle use Head- atraumatic Eyes- PERRL, EOMI, anicteric ENT- oropharynx clear Neck- supple, no JVD, no adenopathy, no thyromegaly; carotids +2/2 Lungs-very mild rhonchi bilateral bases, no wheezing Heart- regular rhythm; grade 2 out of 6 murmur, normal rate Abdomen- normal bowel sounds, soft, nontender, no masses or hepatosplenomegaly Extremities- no pretibial edema, no calf tenderness; peripheral pulses intact Neuro- alert, oriented x 3; PERRL, EOMI; no facial palsy; no dysarthria; motor 5 /5 bilaterally; no cogwheel rigidity; patellar DTRs +2/2; toes downgoing bilaterally; finger to nose intact bilaterally Skin- warm & dry Laboratory Results: Last 24 Hours Test 02/06/18 11:25 02/06/18 12:47 02/06/18 17:39 02/06/18 17:48 White Blood Count 11.65 K/uL Red Blood Count 3.91 M/uL Hemoglobin 10.1 g/dL Hematocrit 32.8 % Mean Corpuscular Volume 83.9 fL Mean Corpuscular Hemoglobin 25.8 pg Mean Corpuscular Hemoglobin Concent 30.8 g/dl Platelet Count 592 K/uL Mean Platelet Volume 9.3 fL Neutrophils (%) (Auto) 81.7 % Lymphocytes (%) (Auto) 3.0 % Monocytes (%) (Auto) 8.4 % Eosinophils (%) (Auto) 5.8 % Basophils (%) (Auto) 0.3 % Neutrophils # (Auto) 9.52 K/uL Lymphocytes # (Auto) 0.35 K/uL Monocytes # (Auto) 0.98 K/uL Eosinophils # (Auto) 0.68 K/uL Basophils # (Auto) 0.03 K/uL RDW Standard Deviation 61.7 fL RDW Coefficient of Variation 20.2 % Immature Granulocyte % (Auto) 0.8 % Immature Granulocyte # (Auto) 0.09 K/uL Hypochromasia PRESENT Anisocytosis PRESENT Prothrombin Time 11.0 SECONDS Prothromb Time International Ratio 1.0 Activated Partial Thromboplast Time 35.2 SECONDS Partial Thromboplastin Ratio 1.4 Sodium Level 141 mmol/L Potassium Level 4.8 mmol/L Chloride Level 105 mmol/L Carbon Dioxide Level 29 mmol/L Anion Gap 7.0 mmol/L Blood Urea Nitrogen 19 mg/dl Creatinine 0.86 mg/dl Est Creatinine Clear Calc Drug Dose 72.7 ml/min Estimated GFR () 92.3 Estimated GFR (Non- 79.6 BUN/Creatinine Ratio 22.1 Random Glucose 133 mg/dl Calcium Level 9.3 mg/dl Phosphorus Level 3.8 mg/dl Magnesium Level 2.2 mg/dl Total Bilirubin 0.5 mg/dl Direct Bilirubin 0.2 mg/dl Aspartate Amino Transf (AST/SGOT) 19 U/L Alanine Aminotransferase (ALT/SGPT) 34 U/L Alkaline Phosphatase 113 U/L Total Creatine Kinase 15 U/L Creatine Kinase MB 1.1 ng/ml Creatine Kinase MB Ratio 7.3 Troponin I < 0.015 ng/ml < 0.015 ng/ml Total Protein 6.5 gm/dl Albumin 1.8 gm/dl Thyroid Stimulating Hormone (TSH) 0.943 uIu/ml Free Thyroxine 1.17 ng/dl Free Triiodothyronine 1.83 pg/ml Bedside Lactic Acid Venous 1.42 mmol/L Bedside Glucose 98 mg/dl Test 02/06/18 21:33 02/06/18 22:49 02/07/18 05:39 02/07/18 06:37 Bedside Glucose 139 mg/dl 239 mg/dl Troponin I < 0.015 ng/ml White Blood Count 8.93 K/uL Red Blood Count 3.56 M/uL Hemoglobin 9.1 g/dL Hematocrit 29.7 % Mean Corpuscular Volume 83.4 fL Mean Corpuscular Hemoglobin 25.6 pg Mean Corpuscular Hemoglobin Concent 30.6 g/dl Platelet Count 548 K/uL Mean Platelet Volume 8.7 fL Neutrophils (%) (Auto) 95.1 % Lymphocytes (%) (Auto) 2.1 % Monocytes (%) (Auto) 1.5 % Eosinophils (%) (Auto) 0.1 % Basophils (%) (Auto) 0.1 % Neutrophils # (Auto) 8.49 K/uL Lymphocytes # (Auto) 0.19 K/uL Monocytes # (Auto) 0.13 K/uL Eosinophils # (Auto) 0.01 K/uL Basophils # (Auto) 0.01 K/uL RDW Standard Deviation 63.1 fL RDW Coefficient of Variation 20.6 % Immature Granulocyte % (Auto) 1.1 % Immature Granulocyte # (Auto) 0.10 K/uL Anisocytosis PRESENT Sodium Level 138 mmol/L Potassium Level 4.6 mmol/L Chloride Level 107 mmol/L Carbon Dioxide Level 25 mmol/L Anion Gap 6.0 mmol/L Blood Urea Nitrogen 25 mg/dl Creatinine 0.98 mg/dl Est Creatinine Clear Calc Drug Dose 63.0 ml/min Estimated GFR () 81.7 Estimated GFR (Non- 70.5 BUN/Creatinine Ratio 25.8 Random Glucose 226 mg/dl Calcium Level 9.4 mg/dl Test 02/07/18 10:19 Bedside Glucose 300 mg/dl Date/Time Source Procedure Growth Status 02/06/18 12:46 Blood Blood Culture Pending Received 02/06/18 12:15 Blood Blood Culture Pending Received Assessment & Plan Hemoglobin 9, monitor 82-year-old, male, with lung cancer on chemo and radiation , diabetes type 2, hypertension Presenting with low oxygen saturation. A FLUTTER WITH RVR Patient found to be a flutter with rates in the 150s by EMS this morning, was given 10 mg Cardizem in route. Patient has since converted to sinus rhythm in ER. He remains in sinus rhythm so for Continue metoprolol 25 mg twice daily Continue Lovenox 100 mg subcu every 12 Monitor PNEUMONIA, POSSIBLE HEALTHCARE VERSUS ASPIRATION PNEUMONIA CXR: Bibasilar parenchymal infiltrates, Slight improvement in aeration left lung base, Slight increase in parenchymal infiltrative change right base. WBC: 11.6. 94% on 4 L NC, R: 22. POC lactic acid: 1.4. Patient given Levaquin, Zosyn, vancomycin, 250 mL bolus and 150 mL/h NSS in ER. - CT chest: 1. Significant interval worsening of consolidation in the right lung since the prior exam. The predominantly peripheral wedgelike regions of solid consolidation could suggest pulmonary infarcts though no acute pulmonary emboli are evident allowing for the significantly degraded evaluation due to respiratory motion artifact. Alternatively, increased opacities could represent worsened infection. 2. Chronic left lung consolidation with bronchiectatic change. Underlying infection is difficult to exclude. -Pending blood cultures -Sputum culture Pulmonary consulted Currently on Solu-Medrol IV Continue Vanco and Zosyn day 2 Continue to monitor response Speech therapy evaluation ordered ACUTE ON CHRONIC HYPOXIC RESPIRATORY FAILURE Patient uses 2 L NC continuous and 4 L NC with ambulation. Patient is 94% on 4 L NC. Secondary to above Wean off oxygen accordingly back to usual baseline of 2 L nasal cannula WEAKNESS Worsening generalized weakness, Likely secondary to dehydration, deconditioning. No focal deficits noted on exam. Urine cultures pending -PT/OT eval MICROSCOPIC HEMATURIA - monitor HISTORY SPINDLE CELL LUNG CARCINOMA Follows with Dr. Estevez. Was treated with chemo and radiation. Currently on Keytruda CHRONIC THROMBUS LEFT POPLITEAL VEIN Patient denies any increased lower extremity edema or lower extremity pain. Patient on Lovenox -Continue Lovenox CHRONIC ANEMIA Hgb: 10 (approximate baseline). No active bleeding -Monitor H&H DM II H A1c 6.3 on 11/2017. Glucose: 133 in ER -Hold glimepiride -novolog sliding scale per protocol HTN Stable -continue metoprolol HLD -Continue statin DVT Prophylaxis -Pt on therapeutic dose Lovenox for known LLE DVT Disposition Pending PT OT evaluation and progress Continued [facility] stay due to: abnormal vital signs Current Inpatient Medications: Current Inpatient Medications Medications (Trade) Dose Ordered Sig/Mert Route Start Time Stop Time Status Last Admin Dose Admin Acetaminophen (Tylenol Tab) 650 mg Q4H PRN PO 02/06/18 14:15 03/08/18 14:14 Ondansetron HCl (Zofran Inj) 4 mg Q6H PRN IV 02/06/18 14:15 5/16/18 14:14 Nitroglycerin (Nitrostat Tab) 0.4 mg UD PRN SL 02/06/18 14:15 03/08/18 14:14 Polyethylene (Miralax Powder Packet) 17 gm DAILY PRN PO 02/06/18 14:15 03/08/18 14:14 Miscellaneous (Iv Fluids Completed) 1 ea PRN PRN N/A 02/06/18 14:30 02/06/19 14:29 Sodium Chloride 1,000 ml @ 75 mls/hr [id number] IV 02/06/18 14:45 03/08/18 14:44 02/07/18 10:28 75 MLS/HR Miscellaneous Information (Consult) 1 ea UD PRN N/A 02/06/18 14:40 03/08/18 14:39 Miscellaneous Information (Consult) 1 ea UD PRN N/A 02/06/18 14:45 03/08/18 14:44 Allopurinol (Zyloprim Tab) 300 mg DAILY PO 02/07/18 09:00 03/09/18 08:59 02/07/18 09:56 300 MG Aspirin (Ecotrin Tab) 81 mg DAILY PO 02/07/18 09:00 03/09/18 08:59 02/07/18 09:56 81 MG Atorvastatin Calcium (Lipitor Tab) 20 mg DAILY PO 02/07/18 09:00 03/09/18 08:59 02/07/18 09:57 20 MG Cholecalciferol (Vitamin D Tab) 1,000 inter.unit DAILY PO 02/07/18 09:00 03/09/18 08:59 02/07/18 09:56 1,000 INTER.UNIT Enoxaparin Sodium (Lovenox Inj) 100 mg Q12H SQ 02/06/18 21:00 03/08/18 20:59 02/07/18 10:00 100 MG Metoprolol Tartrate (Lopressor Tab) 25 mg BID PO 02/06/18 21:00 03/08/18 20:59 02/07/18 09:57 25 MG Mirtazapine (Remeron Tab) 15 mg HS PO 02/06/18 21:00 03/08/18 20:59 02/06/18 21:39 15 MG Multivitamins/ Minerals (Multivitamin W/ Minerals Tab) 1 tab DAILY PO 02/07/18 09:00 03/09/18 08:59 02/07/18 09:57 1 TAB Enteral Nutritional Formula (Boost) 1 can BIDM PO 02/06/18 17:36 03/08/18 17:59 02/07/18 09:55 1 CAN Senna/Docusate Sodium (Senokot S Tab) 1 tab BID PRN PO 02/06/18 14:45 03/08/18 14:44 02/06/18 21:50 1 TAB Insulin Aspart (novoLOG ASPART) SLIDING SCALE If C... ACHS SC 02/06/18 16:00 03/08/18 15:59 02/07/18 09:59 6 UNITS Glucose (Glucose 40% Gel) 15-30 GRAMS 15 GRAMS... UD PRN PO 02/06/18 14:45 03/08/18 14:44 Glucose (Glucose Chew Tab) 4-8 Tablets 4 Tabl... UD PRN PO 02/06/18 14:45 03/08/18 14:44 Dextrose (Dextrose 50% 50ML Syringe) 25-50ML OF 50% DW IV FOR... UD PRN IV 02/06/18 14:45 03/08/18 14:44 Glucagon (Glucagon Inj) 1 mg UD PRN SQ 02/06/18 14:45 03/08/18 14:44 Ioversol (Optiray 320) 125 ml UD PRN IV 02/06/18 14:45 02/10/18 14:44 Piperacillin Sod/ Tazobactam Sod 3.375 gm/Dextrose 115 ml @ 28.75 mls/ hr Q8H IV 02/06/18 18:00 02/13/18 17:59 02/07/18 10:27 28.75 MLS/HR Methylprednisolone Sodium Succinate 80 mg/Syringe 1.28 ml @ 1.5 mls/min Q6 IV 02/06/18 18:45 03/08/18 18:44 02/07/18 05:55 1.5 MLS/MIN Miscellaneous Information (Consult Glycemic Management Pharmacy) 1 ea UD PRN N/A 02/07/18 08:28 03/09/18 08:27 Insulin Glargine (Lantus Solostar Pen) 15 units BID SC 02/07/18 09:00 03/09/18 08:59 Future Hold Vancomycin HCl 1250 mg/Sodium Chloride 275 ml @ 125 mls/hr Q14H IV 02/07/18 16:00 02/13/18 15:59
--- NOTE | 2018-02-07 12:03 | Pulmonology Progress Note ---
Pulmonary Progress Note Date of Service Feb 07, 2018. Attending Dr. Duckworth Subjective The patient feels slightly better, however he continued to have shortness of breath, he does have cough without sputum production, no chest pain was reported. He slept overnight without difficulty. Denies any hemoptysis. No change in bowel movements or urine habits. No persistent nausea or vomiting. His appetite appeared better. Objective Physical exam of 02/07/2018 revealed vital signs stable, his O2 saturation 91% on 5 L via nasal cannula, no oral thrush, S1-S2 regular rate and rhythm, distant breath sounds with crackles and egophony on the left side. Abdomen is benign. No edema in the periphery. Most recent data revealed stable labs, no new imaging other than the previous CAT scan from yesterday which showed multiple areas of consolidation and left hilar mass. Small pleural effusion bilaterally at the bases. Assessment & Plan 1. Acute lung injury, drug-induced versus radiation pneumonitis. Although infectious process cannot be totally ruled out. 2. 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 3. 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 4. Chronic respiratory failure on home O2. 5. Chronic PE anticoagulated with Lovenox. 6. Dysphagia could be related to recent radiation therapy. Plan: 1. Continue with high-dose steroids at 80 mg Solu-Medrol IV every 6 hours. 2. Broad-spectrum antibiotic for at least 72 hours prior to De-escalate to oral antibiotics. 3. Modified barium swallow will be helpful in this patient. Speech pathology consult. 4. Out of bed and ambulate the patient if possible. 5. Send sputum culture. 6. If all cultures are negative after 72 hours, the patient can be changed to oral antibiotic. And complete the course was 7 days. 7. Continue with Lovenox full dose for life. 8. Appreciate all consults input. Thank you, will follow. Data Medications: Current Inpatient Medications Medications (Trade) Dose Ordered Sig/Mert Route Start Time Stop Time Status Last Admin Dose Admin Acetaminophen (Tylenol Tab) 650 mg Q4H PRN PO 02/06/18 14:15 03/08/18 14:14 Ondansetron HCl (Zofran Inj) 4 mg Q6H PRN IV 02/06/18 14:15 03/08/18 14:14 Nitroglycerin (Nitrostat Tab) 0.4 mg UD PRN SL 02/06/18 14:15 03/08/18 14:14 Polyethylene (Miralax Powder Packet) 17 gm DAILY PRN PO 02/06/18 14:15 03/08/18 14:14 Miscellaneous (Iv Fluids Completed) 1 ea PRN PRN N/A 02/06/18 14:30 02/06/19 14:29 Sodium Chloride 1,000 ml @ 75 mls/hr [id number] IV 02/06/18 14:45 03/08/18 14:44 02/07/18 10:28 75 MLS/HR Miscellaneous Information (Consult) 1 ea UD PRN N/A 02/06/18 14:40 03/08/18 14:39 Miscellaneous Information (Consult) 1 ea UD PRN N/A 02/06/18 14:45 03/08/18 14:44 Allopurinol (Zyloprim Tab) 300 mg DAILY PO 02/07/18 09:00 03/09/18 08:59 02/07/18 09:56 300 MG Aspirin (Ecotrin Tab) 81 mg DAILY PO 02/07/18 09:00 03/09/18 08:59 02/07/18 09:56 81 MG Atorvastatin Calcium (Lipitor Tab) 20 mg DAILY PO 02/07/18 09:00 03/09/18 08:59 02/07/18 09:57 20 MG Cholecalciferol (Vitamin D Tab) 1,000 inter.unit DAILY PO 02/07/18 09:00 03/09/18 08:59 02/07/18 09:56 1,000 INTER.UNIT Enoxaparin Sodium (Lovenox Inj) 100 mg Q12H SQ 02/06/18 21:00 03/08/18 20:59 02/07/18 10:00 100 MG Metoprolol Tartrate (Lopressor Tab) 25 mg BID PO 02/06/18 21:00 03/08/18 20:59 02/07/18 09:57 25 MG Mirtazapine (Remeron Tab) 15 mg HS PO 02/06/18 21:00 03/08/18 20:59 02/06/18 21:39 15 MG Multivitamins/ Minerals (Multivitamin W/ Minerals Tab) 1 tab DAILY PO 02/07/18 09:00 03/09/18 08:59 02/07/18 09:57 1 TAB Enteral Nutritional Formula (Boost) 1 can BIDM PO 02/06/18 17:36 03/08/18 17:59 02/07/18 09:55 1 CAN Senna/Docusate Sodium (Senokot S Tab) 1 tab BID PRN PO 02/06/18 14:45 03/08/18 14:44 02/06/18 21:50 1 TAB Insulin Aspart (novoLOG ASPART) SLIDING SCALE If C... ACHS SC 02/06/18 16:00 03/08/18 15:59 02/07/18 09:59 6 UNITS Glucose (Glucose 40% Gel) 15-30 GRAMS 15 GRAMS... UD PRN PO 02/06/18 14:45 03/08/18 14:44 Glucose (Glucose Chew Tab) 4-8 Tablets 4 Tabl... UD PRN PO 02/06/18 14:45 03/08/18 14:44 Dextrose (Dextrose 50% 50ML Syringe) 25-50ML OF 50% DW IV FOR... UD PRN IV 02/06/18 14:45 03/08/18 14:44 Glucagon (Glucagon Inj) 1 mg UD PRN SQ 02/06/18 14:45 03/08/18 14:44 Ioversol (Optiray 320) 125 ml UD PRN IV 02/06/18 14:45 02/10/18 14:44 Piperacillin Sod/ Tazobactam Sod 3.375 gm/Dextrose 115 ml @ 28.75 mls/ hr Q8H IV 02/06/18 18:00 02/13/18 17:59 02/07/18 10:27 28.75 MLS/HR Methylprednisolone Sodium Succinate 80 mg/Syringe 1.28 ml @ 1.5 mls/min Q6 IV 02/06/18 18:45 03/08/18 18:44 02/07/18 05:55 1.5 MLS/MIN Miscellaneous Information (Consult Glycemic Management Pharmacy) 1 ea UD PRN N/A 02/07/18 08:28 03/09/18 08:27 Insulin Glargine (Lantus Solostar Pen) 15 units BID SC 02/07/18 09:00 03/09/18 08:59 Future Hold Vancomycin HCl 1250 mg/Sodium Chloride 275 ml @ 125 mls/hr Q14H IV 02/07/18 16:00 02/13/18 15:59 Vital Signs: Date Time Temp Pulse Resp B/P (MAP) Pulse Ox O2 Delivery O2 Flow Rate FiO2 02/07/18 10:49 36.3 89 20 108/62 (77) 91 Nasal Cannula 5.0 02/07/18 07:34 36.4 73 20 122/77 (92) 100 3.0 02/07/18 04:00 Nasal Cannula 3.0 02/07/18 03:45 36.4 73 22 104/63 (77) 97 Nasal Cannula 3.0 02/06/18 23:59 Nasal Cannula 3.0 02/06/18 23:48 36.4 72 23 110/61 (77) 96 Nasal Cannula 3.0 02/06/18 21:44 91 Nasal Cannula 4.0 02/06/18 21:41 90 110/67 (81) 88 Room Air 02/06/18 20:00 Nasal Cannula 2.0 02/06/18 19:09 36.4 95 20 134/97 (109) 94 Nasal Cannula 2.0 02/06/18 17:30 36.5 79 20 120/76 (91) 94 2.0 02/06/18 17:06 36.4 93 30 102/62 95 02/06/18 14:06 95 Nasal Cannula 5.0 02/06/18 12:40 93 30 102/62 95 Nasal Cannula 5.0 02/06/18 12:07 89 02/06/18 12:01 94 Nasal Cannula 5.0 02/06/18 12:01 85 22 103/59 93 Nasal Cannula 5.0 Laboratory Results: Last 24 Hours Test 02/06/18 12:47 02/06/18 17:39 02/06/18 17:48 02/06/18 21:33 Bedside Lactic Acid Venous 1.42 mmol/L Bedside Glucose 98 mg/dl 139 mg/dl Troponin I < 0.015 ng/ml Test 02/06/18 22:49 02/07/18 05:39 02/07/18 06:37 02/07/18 10:19 Troponin I < 0.015 ng/ml White Blood Count 8.93 K/uL Red Blood Count 3.56 M/uL Hemoglobin 9.1 g/dL Hematocrit 29.7 % Mean Corpuscular Volume 83.4 fL Mean Corpuscular Hemoglobin 25.6 pg Mean Corpuscular Hemoglobin Concent 30.6 g/dl Platelet Count 548 K/uL Mean Platelet Volume 8.7 fL Neutrophils (%) (Auto) 95.1 % Lymphocytes (%) (Auto) 2.1 % Monocytes (%) (Auto) 1.5 % Eosinophils (%) (Auto) 0.1 % Basophils (%) (Auto) 0.1 % Neutrophils # (Auto) 8.49 K/uL Lymphocytes # (Auto) 0.19 K/uL Monocytes # (Auto) 0.13 K/uL Eosinophils # (Auto) 0.01 K/uL Basophils # (Auto) 0.01 K/uL RDW Standard Deviation 63.1 fL RDW Coefficient of Variation 20.6 % Immature Granulocyte % (Auto) 1.1 % Immature Granulocyte # (Auto) 0.10 K/uL Anisocytosis PRESENT Sodium Level 138 mmol/L Potassium Level 4.6 mmol/L Chloride Level 107 mmol/L Carbon Dioxide Level 25 mmol/L Anion Gap 6.0 mmol/L Blood Urea Nitrogen 25 mg/dl Creatinine 0.98 mg/dl Est Creatinine Clear Calc Drug Dose 63.0 ml/min Estimated GFR () 81.7 Estimated GFR (Non- 70.5 BUN/Creatinine Ratio 25.8 Random Glucose 226 mg/dl Calcium Level 9.4 mg/dl Bedside Glucose 239 mg/dl 300 mg/dl
--- NOTE | 2018-02-07 14:25 | ECHOCARDIOGRAM REPORT ---
*NOTICE TO RECEIVING [employer] This information is strictly Confidential and protected under [place] law. [place] law prohibits you from making any further disclosure of this information unless further disclosure is expressly permitted by the written consent of the person to whom it pertains or is authorized by law. A general authorization for the release of medical or other information is not sufficient for this purpose. Hospital accepts no responsibility if the information is made available to any other person, INCLUDING THE PATIENT. Interpretation Summary * Name: EUN GAMBLE Study Date: 02/07/2018 06:46 AM BP: 104/63 mmHg * Patient Location: C.2E\S\E209\S\1 HR: 73 * : 1935 (M/d/yyyy) Gender: Male Height: 70 in * Age: 82 yrs Ethnicity: CA Weight: 201 lb * Ordering Physician: Karine Saldaña * Referring Physician: Self, Referred * Performed By: Christel Pitts RDCS * * Reason For Study: Atrial Flutter * BSA: 2.1 m2 * -- Conclusions -- * Sinus rhythm was present during the echocardiogram. * There is mild concentric left ventricular hypertrophy. * The left ventricular wall motion is normal. * The LV ejection Fraction = 55-60%. * The right ventricle is normal size. * The right ventricular systolic function is normal as assessed by tricuspid annular plane systolic excursion (TAPSE) (normal >1.5 cm). * The aortic valve is trileaflet. * The aortic valve is mildly calcified. * Mild valvular aortic stenosis. * There is mild mitral regurgitation. * There is mild tricuspid regurgitation. * Mild pulmonary hypertension is present. * The calculated pulmonary artery systolic pressure is 48 mmHg, assuming a right atrial pressure of 3 mmHg. * Grade I diastolic dysfunction, (abnormal relaxation pattern). Procedure Details * A complete two-dimensional transthoracic echocardiogram was performed (2D, M-mode, Doppler and color flow Doppler). * The study was technically difficult. * The study was technically difficult, but visualization was adequate with the administration of Definity ultrasound contrast. * A contrast injection of Definity was performed to improve assessment of LV function. * Contrast was injected into an intravenous site in the left arm. * One vial of Definity ultrasound contrast was diluted in normal saline to a total volume of 10 ml. A total of '2' ml of solution was administered during imaging. * Lot # [id number] of Definity utilized for procedure. * Expiration date 1Apr1. * The attending nurse who injected the contrast agent was Maco Otero RN. Left Ventricle * The left ventricle is normal in size. * There is mild concentric left ventricular hypertrophy. * Left ventricular systolic function is normal. * Ejection Fraction = 55-60%. * The left ventricular wall motion is normal. Right Ventricle * The right ventricle is normal size. * The right ventricular systolic function is normal as assessed by tricuspid annular plane systolic excursion (TAPSE) (normal >1.5 cm). Atria * The left atrium is mildly dilated. * Right atrial size is normal. * There is no evidence of atrial septal defect, but resolution does not allow assessment for a patent foramen ovale. Mitral Valve * The mitral valve is normal. * There is no mitral valve stenosis. * There is mild mitral regurgitation. Tricuspid Valve * The tricuspid valve is normal. * There is no tricuspid stenosis. * There is mild tricuspid regurgitation. * Mild pulmonary hypertension is present. The calculated pulmonary artery systolic pressure is 48 mmHg, assuming a right atrial pressure of 3 mmHg. Aortic Valve * The aortic valve is trileaflet. * The aortic valve is mildly calcified. * Mild valvular aortic stenosis. * There is no significant aortic regurgitation. Pulmonic Valve * The pulmonary valve is not well seen, but the Doppler examination is normal without significant regurgitation or stenosis. Great Vessels * The aortic root and proximal ascending aorta are normal sized. Pericardium/Pleural * There is no pericardial effusion. Great Vessels * Normal inferior vena cava diameter and respiratory variation suggests normal central venous pressure. Left Ventricular Diastolic Function * Grade I diastolic dysfunction, (abnormal relaxation pattern). MMode 2D Measurements and Calculations IVSd 1.2 cm IVSs 1.9 cm LVIDd 4.3 cm LVIDs 2.5 cm LVPWd 1.1 cm LVPWs 1.6 cm IVS/LVPW 1.1 FS 41.3 % EDV(Teich) 81.9 ml ESV(Teich) 22.5 ml EF(Teich) 72.5 % EDV(cubed) 78.1 ml ESV(cubed) 15.8 ml EF(cubed) 79.8 % % IVS thick 56.6 % % LVPW thick 45.6 % LV mass(C)d 175.0 grams LV mass(C)dI 83.7 grams/m\S\2 LV mass(C)s 170.0 grams LV mass(C)sI 81.3 grams/m\S\2 SV(Teich) 59.4 ml SI(Teich) 28.4 ml/m\S\2 SV(cubed) 62.4 ml SI(cubed) 29.8 ml/m\S\2 Ao root diam 3.0 cm Ao root area 7.0 cm\S\2 ACS 1.3 cm LA dimension 4.5 cm LA/Ao 1.5 LVOT diam 2.0 cm LVOT area 3.0 cm\S\2 LVAd ap4 26.6 cm\S\2 LVLd ap4 7.7 cm EDV(MOD-sp4) 78.1 ml EDV(sp4-el) 78.6 ml LVAs ap4 14.7 cm\S\2 LVLs ap4 6.5 cm ESV(MOD-sp4) 31.3 ml ESV(sp4-el) 28.1 ml EF(MOD-sp4) 59.9 % EF(sp4-el) 64.3 % LVAd ap2 31.2 cm\S\2 LVLd ap2 8.1 cm EDV(MOD-sp2) 101.6 ml EDV(sp2-el) 102.1 ml LVAs ap2 18.6 cm\S\2 LVLs ap2 7.0 cm ESV(MOD-sp2) 44.1 ml ESV(sp2-el) 41.5 ml EF(MOD-sp2) 56.6 % EF(sp2-el) 59.4 % LVLd %diff 5.4 % EDV(MOD-bp) 91.6 ml LVLs %diff 7.5 % ESV(MOD-bp) 37.9 ml EF(MOD-bp) 58.7 % SV(MOD-sp4) 46.8 ml SI(MOD-sp4) 22.4 ml/m\S\2 SV(MOD-sp2) 57.5 ml SI(MOD-sp2) 27.5 ml/m\S\2 SV(MOD-bp) 53.8 ml SI(MOD-bp) 25.7 ml/m\S\2 SV(sp4-el) 50.5 ml SI(sp4-el) 24.1 ml/m\S\2 SV(sp2-el) 60.6 ml SI(sp2-el) 29.0 ml/m\S\2 Doppler Measurements and Calculations MV E max shayla 121.2 cm/sec MV A max shayla 113.0 cm/sec MV E/A 1.1 MV dec time 0.25 sec Ao V2 max 258.9 cm/sec Ao max PG 26.8 mmHg Ao max PG (full) 22.6 mmHg Ao V2 mean 172.1 cm/sec Ao mean PG 13.4 mmHg Ao mean PG (full) 11.3 mmHg Ao V2 VTI 57.7 cm MINDY(I,A) 1.3 cm\S\2 MINDY(I,D) 1.3 cm\S\2 MINDY(V,A) 1.2 cm\S\2 MINDY(V,D) 1.2 cm\S\2 LV V1 max PG 4.2 mmHg LV V1 mean PG 2.1 mmHg LV V1 max 102.9 cm/sec LV V1 mean 68.3 cm/sec LV V1 VTI 24.6 cm SV(Ao) 401.4 ml SI(Ao) 191.9 ml/m\S\2 SV(LVOT) 73.7 ml SI(LVOT) 35.2 ml/m\S\2 PA V2 max 104.8 cm/sec PA max PG 4.4 mmHg PI max shayla 204.5 cm/sec PI max PG 16.7 mmHg PI dec slope 197.2 cm/sec\S\2 PI P1/2t 303.7 msec TR max shayla 294.9 cm/sec
[2018-02-07] MEDS ORDERED: INSULIN HUMAN REGULAR PER UNIT 8 UNITS in SYRINGE 7.92 ML IV SCH (14:30)
--- NOTE | 2018-02-07 14:36 | Pharmacy Progress Note ---
Pharmacy Glycemic Short Note 2 Date of Service Feb 07, 2018. OUTPATIENT ANTIDIABETIC REGIMEN: * Metformin 500mg PO daily * Amaryl 2mg PO daily * HbA1c: pending with tomorrow's labs ASSESSMENT: * Mr Sneed is an 82yo diabetic gentleman admitted with Aflutter/RVR and ? pneumonia * Patient was started on SoluMedrol 80mg IV q6h yesterday afternoon. BSGs have been elevated today as a result. * Patient was provided with a "loading dose" of 25 units Lantus this morning and initiated on basal/bolus insulin. * Pre-lunch BSG significantly elevated, so patient provided with an IV insulin bolus. PLAN FOR INPATIENT GLYCEMIC CONTROL: * Hold outpatient oral diabetes medications * Basal insulin * Lantus 25 units SQ x1 dose this am, then Lantus 15 units SQ BID * Bolus insulin * NovoLog per scale ACHS or Q6hrs while NPO, plus 0000 and 0400 until hyperglycemia has resolved * Goal Range: Low 120 mg/dL - High 160 mg/dL * Correction Factor: 25 mg/dL/unit * Nutritional / Prandial insulin per carb ratio of 1 unit per 9 grams CHO consumed PLAN FOR DISCHARGE: * pending A1c results -- will re-evaluate prior to discharge
[2018-02-07] MEDS: VANCOMYCIN IV 1,250 MG in SODIUM CHLORIDE 0.9% 250ML 250 ML IV SCH (17:32)
[2018-02-07] MEDS: BOOST GLUCOSE CONTROL PO SCH (17:34)
[2018-02-07] MEDS: MIRTAZAPINE TAB 15 MG TAB PO SCH (19:51)
[2018-02-08] VITALS (7 sets, daily range): BP systolic 104–128; BP diastolic 55–82; PULSE 51–83; TEMP 36.3–36.7; O2SAT 95–99
[2018-02-08] MEDS: INSULIN ASPART 100 UNITS/ML 3 ML PEN SC SCH ×6 (00:40→20:35)
[2018-02-08] MEDS: METHYLPREDNISOLONE IV 80 MG in SYRINGE 0 ML IV SCH ×4 (00:41→17:24)
[2018-02-08] MEDS: PIPERACILL/TAZOBAC IV 3.375 GM in DEXTROSE 5% 100ML 100 ML IV SCH ×3 (03:30→17:24)
[2018-02-08] MEDS: VANCOMYCIN IV 1,250 MG in SODIUM CHLORIDE 0.9% 250ML 250 ML IV SCH ×2 (06:38→20:29)
[2018-02-08] MEDS ORDERED: NURSING VERBAL MED ORDER ONE (06:45)
[2018-02-08 06:56] LABS: HEMOGLOBIN A1C 6.1 % (4.5-5.6)
[2018-02-08 07:29] LABS: CREATININE 1.11 mg/dl (0.60-1.40)
[2018-02-08] MEDS: BOOST GLUCOSE CONTROL PO SCH ×2 (07:30→16:45)
[2018-02-08] MEDS: CHOLECALCIFEROL 1000 INTER.UNIT TAB PO SCH (08:13)
[2018-02-08] MEDS: ATORVASTATIN 20 MG TAB PO SCH (08:13)
[2018-02-08] MEDS: METOPROLOL TARTRATE 25 MG TAB PO SCH ×2 (08:13→20:31)
[2018-02-08] MEDS: CEROVITE ADV FORMULA TAB PO SCH (08:13)
[2018-02-08] MEDS: INSULIN GLARGINE SOLOSTAR 100 UNITS/ML 3 ML PEN SC SCH ×2 (08:16→20:36)
[2018-02-08] MEDS: ASPIRIN 81 MG ECTAB PO SCH (08:17)
[2018-02-08] MEDS: ENOXAPARIN 100 MG/1ML SYR SQ SCH ×2 (08:17→20:31)
[2018-02-08] MEDS: ALLOPURINOL 300 MG TAB PO SCH (08:17)
--- NOTE | 2018-02-08 08:39 | Clinical Documentation Query ---
JO ANN Kim : CLINICAL DOCUMENTATION QUERY Patient is an 82 year old male admitted for evaluation of atrial flutter with RVR in the setting of possible aspiration pneumonia. H&P notes continuous use of supplemental O2 via nasal cannula, 2 L/min at rest and 4 L/min with ambulation. As appropriate, consider capture of this clinical information as suggested below. Thank you. In your clinical opinion is this patient being managed for: ( X ) Chronic respiratory failure with hypoxia ( ) Not Agree ( ) Other explanation of clinical findings (Please Explain) ( ) Unable to determine (Please Define) ( ) Need to Discuss The medical record reflects the following clinical findings, treatment, and risk factors. Clinical Indicators: As above Treatment: Provision of supplemental O2 Risk Factors: Lung CA, former smoker. Please clarify and document your clinical opinion in the progress notes and discharge summary. Terms such as "probable", "suspected", "likely", "questionable", "possible", or "still to be ruled out" are acceptable. IF IN AGREEMENT, YOU MUST DOCUMENT ABOVE DIAGNOSTIC STATEMENT IN DAILY PROGRESS NOTES AND DISCHARGE SUMMARY. This document is not part of the patient's record. Thank You, Harish Coughlin, RN [phone]
--- NOTE | 2018-02-08 10:27 | Pharmacy Progress Note ---
Pharmacy Glycemic Short Note 2 Date of Service Feb 08, 2018. OUTPATIENT ANTIDIABETIC REGIMEN: * Metformin 500mg PO daily * Amaryl 2mg PO daily * HbA1c: pending with tomorrow's labs ASSESSMENT: 02/07/18 * Mr Sneed is an 82yo diabetic gentleman admitted with Aflutter/RVR and ? pneumonia * Patient was started on SoluMedrol 80mg IV q6h yesterday afternoon. BSGs have been elevated today as a result. * Patient was provided with a "loading dose" of 25 units Lantus this morning and initiated on basal/bolus insulin. * Pre-lunch BSG significantly elevated, so patient provided with an IV insulin bolus. 02/08/18 * BSGs have trended down nicely since insulin regimen was adjusted yesterday. * Fasting BSG 170 this AM with 40 units of Lantus on board and after receiving 9 units of Novolog correction overnight * High-dose Solu-Medrol continues today * Will increase the ongoing basal and prandial insulin orders at this time based upon response to insulin doses yesterday, new doses will be in line with wt-based severe stress doses PLAN FOR INPATIENT GLYCEMIC CONTROL: * Hold outpatient oral diabetes medications * Basal insulin * Lantus 22 units SQ BID (increase in dose) * Bolus insulin * NovoLog per scale ACHS or Q6hrs while NPO, plus 0000 and 0400 for one additional night * Goal Range: Low 110 mg/dL - High 140 mg/dL (lowered) * Correction Factor: 20 mg/dL/unit (dose increased) * Nutritional / Prandial insulin per carb ratio of 1 unit per 6 grams CHO consumed (dose increased) * Reassess insulin doses with each step down in steroid dose PLAN FOR DISCHARGE: * A1c indicates good control with out-pt regimen; would recommend resuming home meds on discharge
--- NOTE | 2018-02-08 12:57 | DIAGNOSTIC IMAGING REPORT ---
VIDEO SWALLOW HISTORY: Dysphagia pharyngeal dysphagia; please schedule per order TECHNIQUE: Video fluoroscopic evaluation of swallowing was performed in the AP and lateral projections by the speech pathology staff. The patient is fed nectar-thick and thin liquid barium, a barium coated wafer, and barium pudding. FLUOROSCOPY TIME: 3.2 minutes. COMPARISON STUDY: None. FINDINGS: There is normal hyoid excursion and epiglottic deflection. Trace amount of aspiration with thin liquids. No significant cough reflex. The remainder the study is unremarkable. IMPRESSION: 1. Trace amount of silent aspiration with thin liquids. 2. Please see the speech pathologist report for detailed findings and recommendations. The above report was generated using voice recognition software. It may contain grammatical, syntax or spelling errors. Electronically signed by: Aureliano Otoole M.D. 02/08/2018 12:56 PM Dictated Date/Time: 02/08/2018 12:55 PM
[2018-02-08] MEDS ORDERED: VANCOMYCIN TROUGH ONE ×2 (13:30→19:30)
--- NOTE | 2018-02-08 14:34 | Pulmonology Progress Note ---
Pulmonary Progress Note Date of Service Feb 08, 2018. Attending Dr. Duckworth Subjective Although the patient has been feeling better, he continues to have cough without sputum production. He denies any chest pain. He was able to be ambulatory to the chair, speaks in full sentences, no sputum production. Objective Physical exam of 02/07/2018 revealed vital signs stable, his O2 saturation 91% on 5 L via nasal cannula, no oral thrush, S1-S2 regular rate and rhythm, distant breath sounds with crackles and egophony on the left side. Abdomen is benign. No edema in the periphery. Most recent data revealed stable labs, no new imaging other than the previous CAT scan from yesterday which showed multiple areas of consolidation and left hilar mass. Small pleural effusion bilaterally at the bases. Physical exam on 02/08/2018 showed vital signs stable, saturation of 95% on 5 L, S1-S2 regular rate and rhythm, egophony on the left, otherwise minimal crackles on the right. Assessment & Plan 1. Acute lung injury, drug-induced versus radiation pneumonitis. Although infectious process cannot be totally ruled out. 2. 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 3. 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 4. Chronic respiratory failure on home O2. 5. Chronic PE anticoagulated with Lovenox. 6. Dysphagia could be related to recent radiation therapy. Plan: 1. Continue with high-dose steroids at 80 mg Solu-Medrol IV every 6 hours. We will change the patient to prednisone p.o., the treatment with the steroids should be continued for at least 3 months. With very slow taper. 2. Broad-spectrum antibiotic for at least 72 hours prior to De-escalate to oral antibiotics. Only blood culture with gram-positive bacilli which likely contaminant. 3. Modified barium swallow will be helpful in this patient. Speech pathology consult appreciated. 4. Out of bed and ambulate the patient if possible. 5. No significant positive cultures. 6. If all cultures are negative after 72 hours, the patient can be changed to oral antibiotic. And complete the course was 7 days. 7. Continue with Lovenox full dose for life. 8. Appreciate all consults input. Thank you, will follow. Data Medications: Current Inpatient Medications Medications (Trade) Dose Ordered Sig/Mert Route Start Time Stop Time Status Last Admin Dose Admin Acetaminophen (Tylenol Tab) 650 mg Q4H PRN PO 02/06/18 14:15 03/08/18 14:14 Ondansetron HCl (Zofran Inj) 4 mg Q6H PRN IV 02/06/18 14:15 03/08/18 14:14 Nitroglycerin (Nitrostat Tab) 0.4 mg UD PRN SL 02/06/18 14:15 03/08/18 14:14 Polyethylene (Miralax Powder Packet) 17 gm DAILY PRN PO 02/06/18 14:15 03/08/18 14:14 Miscellaneous (Iv Fluids Completed) 1 ea PRN PRN N/A 02/06/18 14:30 02/06/19 14:29 Miscellaneous Information (Consult) 1 ea UD PRN N/A 02/06/18 14:40 03/08/18 14:39 Miscellaneous Information (Consult) 1 ea UD PRN N/A 02/06/18 14:45 03/08/18 14:44 Allopurinol (Zyloprim Tab) 300 mg DAILY PO 02/07/18 09:00 03/09/18 08:59 02/08/18 08:17 300 MG Aspirin (Ecotrin Tab) 81 mg DAILY PO 02/07/18 09:00 03/09/18 08:59 02/08/18 08:17 81 MG Atorvastatin Calcium (Lipitor Tab) 20 mg DAILY PO 02/07/18 09:00 03/09/18 08:59 02/08/18 08:13 20 MG Cholecalciferol (Vitamin D Tab) 1,000 inter.unit DAILY PO 02/07/18 09:00 03/09/18 08:59 02/08/18 08:13 1,000 INTER.UNIT Enoxaparin Sodium (Lovenox Inj) 100 mg Q12H SQ 02/06/18 21:00 03/08/18 20:59 02/08/18 08:17 100 MG Metoprolol Tartrate (Lopressor Tab) 25 mg BID PO 02/06/18 21:00 03/08/18 20:59 02/08/18 08:13 25 MG Mirtazapine (Remeron Tab) 15 mg HS PO 02/06/18 21:00 03/08/18 20:59 02/07/18 19:51 15 MG Multivitamins/ Minerals (Multivitamin W/ Minerals Tab) 1 tab DAILY PO 02/07/18 09:00 03/09/18 08:59 02/08/18 08:13 1 TAB Senna/Docusate Sodium (Senokot S Tab) 1 tab BID PRN PO 02/06/18 14:45 03/08/18 14:44 02/06/18 21:50 1 TAB Insulin Aspart (novoLOG ASPART) SLIDING SCALE If C... ACHS SC 02/06/18 16:00 03/08/18 15:59 02/08/18 12:23 12 UNITS Glucose (Glucose 40% Gel) 15-30 GRAMS 15 GRAMS... UD PRN PO 02/06/18 14:45 03/08/18 14:44 Glucose (Glucose Chew Tab) 4-8 Tablets 4 Tabl... UD PRN PO 02/06/18 14:45 03/08/18 14:44 Dextrose (Dextrose 50% 50ML Syringe) 25-50ML OF 50% DW IV FOR... UD PRN IV 02/06/18 14:45 03/08/18 14:44 Glucagon (Glucagon Inj) 1 mg UD PRN SQ 02/06/18 14:45 03/08/18 14:44 Ioversol (Optiray 320) 125 ml UD PRN IV 02/06/18 14:45 02/10/18 14:44 Piperacillin Sod/ Tazobactam Sod 3.375 gm/Dextrose 115 ml @ 28.75 mls/ hr Q8H IV 02/06/18 18:00 02/13/18 17:59 02/08/18 09:44 28.75 MLS/HR Methylprednisolone Sodium Succinate 80 mg/Syringe 1.28 ml @ 1.5 mls/min Q6 IV 02/06/18 18:45 03/08/18 18:44 02/08/18 11:26 1.5 MLS/MIN Miscellaneous Information (Consult Glycemic Management Pharmacy) 1 ea UD PRN N/A 02/07/18 08:28 03/09/18 08:27 Vancomycin HCl 1250 mg/Sodium Chloride 275 ml @ 125 mls/hr Q14H IV 02/07/18 16:00 02/13/18 15:59 02/08/18 06:38 125 MLS/HR Insulin Aspart (novoLOG ASPART) SLIDING SCALE If C... 0000,0400 SC 02/08/18 00:00 03/10/18 00:00 02/08/18 03:40 2 UNITS Enteral Nutritional Formula (Boost Glucose Control) 1 can BIDM PO 02/07/18 16:45 03/09/18 16:44 02/07/18 17:34 1 CAN Insulin Glargine (Lantus Solostar Pen) 22 units BID SC 02/08/18 09:00 03/10/18 08:59 02/08/18 08:16 22 UNITS Vital Signs: Date Time Temp Pulse Resp B/P (MAP) Pulse Ox O2 Delivery O2 Flow Rate FiO2 02/08/18 12:00 36.7 70 18 104/55 (71) 97 Nasal Cannula 3.0 02/08/18 12:00 98 Nasal Cannula 3.0 02/08/18 08:02 36.5 83 16 112/64 (80) 97 Nasal Cannula 02/08/18 08:00 98 Nasal Cannula 3.0 02/08/18 04:00 Nasal Cannula 3.0 02/08/18 03:32 36.5 66 21 120/66 (84) 98 Nasal Cannula 4.0 02/08/18 00:01 Nasal Cannula 4.0 02/07/18 23:48 36.3 53 22 101/61 (74) 99 Nasal Cannula 4.0 02/07/18 20:00 Nasal Cannula 5.0 02/07/18 19:05 36.7 78 18 111/64 (80) 100 Nasal Cannula 4.5 100 02/07/18 16:00 100 Nasal Cannula 5.0 02/07/18 15:50 80 95 02/07/18 15:46 36.4 76 16 111/64 (80) 94 Nasal Cannula 4.5 100 Laboratory Results: Last 24 Hours Test 02/07/18 17:37 02/07/18 19:56 02/08/18 00:37 02/08/18 03:36 Bedside Glucose 257 mg/dl 241 mg/dl 216 mg/dl 201 mg/dl Test 02/08/18 05:51 02/08/18 06:01 02/08/18 06:03 02/08/18 11:27 Bedside Glucose 170 mg/dl 193 mg/dl Creatinine 1.11 mg/dl Est Creatinine Clear Calc Drug Dose 55.6 ml/min Estimated GFR () 70.3 Estimated GFR (Non- 60.7 Estimated Average Glucose 128 mg/dl Hemoglobin A1c 6.1 %
--- NOTE | 2018-02-08 16:52 | Progress Note ---
Medicine Progress Note Date & Time of Visit: Feb 08, 2018 at 16:46. Subjective Seen resting bedside chair, alert, oriented 2, comfortable States he feels improved today compared to yesterday Has occasional dry cough Ambulating to the bathroom with less dyspnea No fever/chills No chest pain, palpitations Denies other symptoms Objective Last 8 Hrs Date Time Temp Pulse Resp B/P (MAP) Pulse Ox O2 Delivery O2 Flow Rate FiO2 02/08/18 15:40 36.4 67 20 128/72 (90) 99 4.0 100 02/08/18 12:00 36.7 70 18 104/55 (71) 97 Nasal Cannula 3.0 02/08/18 12:00 98 Nasal Cannula 3.0 Physical Exam: General-oriented 3, not in distress, speaking sentences no accessory muscle use Eyes- anicteric Neck- supple, no JVD Lungs-decreased breath sounds bilateral bases, mild rales Heart- regular rhythm; grade 2 out of 6 murmur, normal rate Abdomen- normal bowel sounds, soft, nontender, nondistended Extremities- no pretibial edema, no calf tenderness Neuro- alert, oriented x 3; no gross neurologic deficits Skin- warm & dry Laboratory Results: Last 24 Hours Test 02/07/18 17:37 02/07/18 19:56 02/08/18 00:37 02/08/18 03:36 Bedside Glucose 257 mg/dl 241 mg/dl 216 mg/dl 201 mg/dl Test 02/08/18 05:51 02/08/18 06:01 02/08/18 06:03 02/08/18 11:27 Bedside Glucose 170 mg/dl 193 mg/dl Creatinine 1.11 mg/dl Est Creatinine Clear Calc Drug Dose 55.6 ml/min Estimated GFR () 70.3 Estimated GFR (Non- 60.7 Estimated Average Glucose 128 mg/dl Hemoglobin A1c 6.1 % Test 02/08/18 16:21 Bedside Glucose 149 mg/dl Assessment & Plan Hemoglobin 9, monitor 82-year-old, male, with lung cancer on chemo and radiation , diabetes type 2, hypertension Presenting with low oxygen saturation. ACUTE LUNG INJURY, CHEMO VERSUS RADIATION RELATED [facility] PNEUMONIA, RULE OUT ASPIRATION CXR: Bibasilar parenchymal infiltrates, Slight improvement in aeration left lung base, Slight increase in parenchymal infiltrative change right base. WBC: 11.6. 94% on 4 L NC, R: 22. POC lactic acid: 1.4. Patient given Levaquin, Zosyn, vancomycin, 250 mL bolus and 150 mL/h NSS in ER. - CT chest: 1. Significant interval worsening of consolidation in the right lung since the prior exam. The predominantly peripheral wedgelike regions of solid consolidation could suggest pulmonary infarcts though no acute pulmonary emboli are evident allowing for the significantly degraded evaluation due to respiratory motion artifact. Alternatively, increased opacities could represent worsened infection. 2. Chronic left lung consolidation with bronchiectatic change. Underlying infection is difficult to exclude. -Blood cultures: Positive for 1 out of 2 bottles gram-positive bacilli -Sputum culture: Pending collection Pulmonary consulted Improving Currently on Solu-Medrol IV 80 mg every 6 hours Continue Vanco and Zosyn day 3 Continue to monitor response Appreciate pulmonary service recommendations Speech therapy evaluation ordered, for video swallow evaluation ACUTE ON CHRONIC HYPOXIC RESPIRATORY FAILURE Patient uses 2 L NC continuous and 4 L NC with ambulation. Patient is 94% on 4 L NC. Secondary to above Wean off oxygen accordingly back to usual baseline of 2 L nasal cannula A FLUTTER WITH RVR Patient found to be a flutter with rates in the 150s by EMS this morning, was given 10 mg Cardizem in route. Patient has since converted to sinus rhythm in ER. He remains in sinus rhythm so far Continue metoprolol 25 mg twice daily Continue Lovenox 100 mg subcu every 12 hours Monitor WEAKNESS Worsening generalized weakness, Likely secondary to dehydration, deconditioning. No focal deficits noted on exam. Urine cultures negative -PT/OT eval MICROSCOPIC HEMATURIA - monitor HISTORY SPINDLE CELL LUNG CARCINOMA Follows with Dr. Estevez. Was treated with chemo and radiation. Currently on Keytruda Discussed with Dr. Estevez, plan to hold he treated for now Follow-up with Dr. Estevez next week as scheduled CHRONIC THROMBUS LEFT POPLITEAL VEIN Patient denies any increased lower extremity edema or lower extremity pain. Patient on Lovenox -Continue Lovenox therapeutic dosing CHRONIC ANEMIA Hgb: 10 (approximate baseline). No active bleeding -Monitor H&H DM II H A1c 6.3 on 11/2017. Glucose: 133 in ER -Hold glimepiride -novolog sliding scale per protocol Pharmacy glycemic control consulted as patient is on high-dose steroids HTN Stable -continue metoprolol HLD -Continue statin DVT Prophylaxis -Pt on therapeutic dose Lovenox for known LLE DVT Disposition Pending PT OT evaluation and progress Continued [facility] stay due to: abnormal vital signs Current Inpatient Medications: Current Inpatient Medications Medications (Trade) Dose Ordered Sig/Mert Route Start Time Stop Time Status Last Admin Dose Admin Acetaminophen (Tylenol Tab) 650 mg Q4H PRN PO 02/06/18 14:15 03/08/18 14:14 Ondansetron HCl (Zofran Inj) 4 mg Q6H PRN IV 02/06/18 14:15 03/08/18 14:14 Nitroglycerin (Nitrostat Tab) 0.4 mg UD PRN SL 02/06/18 14:15 03/08/18 14:14 Polyethylene (Miralax Powder Packet) 17 gm DAILY PRN PO 02/06/18 14:15 03/08/18 14:14 Miscellaneous (Iv Fluids Completed) 1 ea PRN PRN N/A 02/06/18 14:30 02/06/19 14:29 Miscellaneous Information (Consult) 1 ea UD PRN N/A 02/06/18 14:40 03/08/18 14:39 Miscellaneous Information (Consult) 1 ea UD PRN N/A 02/06/18 14:45 03/08/18 14:44 Allopurinol (Zyloprim Tab) 300 mg DAILY PO 02/07/18 09:00 03/09/18 08:59 02/08/18 08:17 300 MG Aspirin (Ecotrin Tab) 81 mg DAILY PO 02/07/18 09:00 03/09/18 08:59 02/08/18 08:17 81 MG Atorvastatin Calcium (Lipitor Tab) 20 mg DAILY PO 02/07/18 09:00 03/09/18 08:59 02/08/18 08:13 20 MG Cholecalciferol (Vitamin D Tab) 1,000 inter.unit DAILY PO 02/07/18 09:00 03/09/18 08:59 02/08/18 08:13 1,000 INTER.UNIT Enoxaparin Sodium (Lovenox Inj) 100 mg Q12H SQ 02/06/18 21:00 03/08/18 20:59 02/08/18 08:17 100 MG Metoprolol Tartrate (Lopressor Tab) 25 mg BID PO 02/06/18 21:00 03/08/18 20:59 02/08/18 08:13 25 MG Mirtazapine (Remeron Tab) 15 mg HS PO 02/06/18 21:00 03/08/18 20:59 02/07/18 19:51 15 MG Multivitamins/ Minerals (Multivitamin W/ Minerals Tab) 1 tab DAILY PO 02/07/18 09:00 03/09/18 08:59 02/08/18 08:13 1 TAB Senna/Docusate Sodium (Senokot S Tab) 1 tab BID PRN PO 02/06/18 14:45 03/08/18 14:44 02/06/18 21:50 1 TAB Insulin Aspart (novoLOG ASPART) SLIDING SCALE If C... ACHS SC 02/06/18 16:00 03/08/18 15:59 02/08/18 12:23 12 UNITS Glucose (Glucose 40% Gel) 15-30 GRAMS 15 GRAMS... UD PRN PO 02/06/18 14:45 03/08/18 14:44 Glucose (Glucose Chew Tab) 4-8 Tablets 4 Tabl... UD PRN PO 02/06/18 14:45 03/08/18 14:44 Dextrose (Dextrose 50% 50ML Syringe) 25-50ML OF 50% DW IV FOR... UD PRN IV 02/06/18 14:45 03/08/18 14:44 Glucagon (Glucagon Inj) 1 mg UD PRN SQ 02/06/18 14:45 03/08/18 14:44 Ioversol (Optiray 320) 125 ml UD PRN IV 02/06/18 14:45 02/10/18 14:44 Piperacillin Sod/ Tazobactam Sod 3.375 gm/Dextrose 115 ml @ 28.75 mls/ hr Q8H IV 02/06/18 18:00 02/13/18 17:59 02/08/18 09:44 28.75 MLS/HR Methylprednisolone Sodium Succinate 80 mg/Syringe 1.28 ml @ 1.5 mls/min Q6 IV 02/06/18 18:45 03/08/18 18:44 02/08/18 11:26 1.5 MLS/MIN Miscellaneous Information (Consult Glycemic Management Pharmacy) 1 ea UD PRN N/A 4/17/18 08:28 03/09/18 08:27 Vancomycin HCl 1250 mg/Sodium Chloride 275 ml @ 125 mls/hr Q14H IV 02/07/18 16:00 02/13/18 15:59 02/08/18 06:38 125 MLS/HR Insulin Aspart (novoLOG ASPART) SLIDING SCALE If C... 0000,0400 SC 02/08/18 00:00 03/10/18 00:00 02/08/18 03:40 2 UNITS Enteral Nutritional Formula (Boost Glucose Control) 1 can BIDM PO 02/07/18 16:45 03/09/18 16:44 02/07/18 17:34 1 CAN Insulin Glargine (Lantus Solostar Pen) 22 units BID SC 02/08/18 09:00 03/10/18 08:59 02/08/18 08:16 22 UNITS
[2018-02-08] MEDS: MIRTAZAPINE TAB 15 MG TAB PO SCH (20:32)
--- NOTE | 2018-02-08 20:54 | Pharmacy Progress Note ---
Pharmacy Abx Dose Short Note Date of Service Feb 08, 2018. Assessment & Plan Assessment Mr. Sneed's trough tonight resulted supratherapeutic, 27.2mcg/mL. Given his habitus and declining renal fxn, I surmise he won't need re-dosed until the AM of 02/09/18. Plan Random lvl ordered for AM of 02/09/18. Vanco on hold until random lvl is assessed. Pharmacy will continue to follow and will adjust dose/frequency as necessary. Thank you.
[2018-02-09] VITALS (9 sets, daily range): BP systolic 113–137; BP diastolic 57–67; PULSE 50–86; TEMP 36.3–36.9; O2SAT 91–100
[2018-02-09] MEDS: INSULIN ASPART 100 UNITS/ML 3 ML PEN SC SCH ×6 (00:04→21:11)
[2018-02-09] MEDS: METHYLPREDNISOLONE IV 80 MG in SYRINGE 0 ML IV SCH ×5 (00:04→23:56)
[2018-02-09] MEDS: PIPERACILL/TAZOBAC IV 3.375 GM in DEXTROSE 5% 100ML 100 ML IV SCH ×3 (01:47→18:16)
[2018-02-09 04:21] LABS: HEMATOCRIT 28.2 % (42-52); HEMOGLOBIN 8.5 g/dL (14.0-18.0); MEAN CELL VOLUME 83.9 fL (80-100); MEAN CORPUSCULAR HEMOGLOBIN 25.3 pg (25-34); MEAN CORPUSCULAR HGB CONC 30.1 g/dl (32-36); MEAN PLATELET VOLUME 8.4 fL (7.4-10.4); PLATELET COUNT 456 K/uL (130-400); RED CELL DISTRIBUTION WIDTH CV 20.1 % (11.5-14.5); RED CELL DISTRIBUTION WIDTH SD 61.8 fL (36.4-46.3); WHITE BLOOD COUNT 15.14 K/uL (4.8-10.8)
[2018-02-09 04:55] LABS: CALCIUM 8.9 mg/dl (8.5-10.1); CREATININE 0.97 mg/dl (0.60-1.40); POTASSIUM 3.8 mmol/L (3.5-5.1)
[2018-02-09] MEDS: BOOST GLUCOSE CONTROL PO SCH ×2 (07:30→16:45)
[2018-02-09] MEDS: ASPIRIN 81 MG ECTAB PO SCH (07:54)
[2018-02-09] MEDS: ALLOPURINOL 300 MG TAB PO SCH (07:54)
[2018-02-09] MEDS: ATORVASTATIN 20 MG TAB PO SCH (07:54)
[2018-02-09] MEDS: CHOLECALCIFEROL 1000 INTER.UNIT TAB PO SCH (07:54)
[2018-02-09] MEDS: METOPROLOL TARTRATE 25 MG TAB PO SCH ×2 (07:58→21:05)
[2018-02-09] MEDS: CEROVITE ADV FORMULA TAB PO SCH (08:00)
[2018-02-09] MEDS: ENOXAPARIN 100 MG/1ML SYR SQ SCH (08:01)
[2018-02-09] MEDS: INSULIN GLARGINE SOLOSTAR 100 UNITS/ML 3 ML PEN SC SCH ×2 (08:03→21:10)
--- NOTE | 2018-02-09 11:16 | Medical Consult ---
Consultation Date of Consultation: Feb 09, 2018. Attending Physician: Kishan Byrd MD Reason for Consultation: Gram-positive bacteremia History of Present Illness 82-year-old male with known lung cancer diagnosed in 2017, status post chemotherapy and radiation therapy last fall, more recently undergoing therapy with Keytruda. Over the last 2-3 weeks prior to admission, patient has been noted to have increasing weakness, anorexia, and shortness of breath with difficulty ambulation, also noted some left leg weakness. He was seen at home by visiting nurse who felt patient required hospitalization and was sent to the emergency department and was admitted for further management. Patient had CT scanning done, read by me, which shows evidence of an old pulmonary embolus, as well as bilateral areas of consolidation and a left hilar mass. He was started empirically on broad-spectrum antibiotics with vancomycin and Zosyn, and states that over the last 24 hours has shown improvement with increasing strength, better appetite, slightly less shortness of breath. He has not had any fever, had occasional chills and sweats. No hemoptysis. Denies any significant travel or exposure history. Past Medical/Surgical History Medical Problems: (1) Atrial flutter with rapid ventricular response Status: Acute (2) Bilateral pneumonia Status: Acute (3) Dehydration Status: Acute (4) Fall Status: Acute (5) Lung cancer Status: Acute (6) Malnutrition Status: Acute Medical Problems: (1) Cancer of lower lobe of left lung (2) Diastolic dysfunction (3) DM type 2 (diabetes mellitus, type 2) (4) Dyslipidemia (5) Fall (6) HTN (hypertension) (7) Malnutrition (8) Mild aortic valve stenosis Surgical Problems: (1) History of cataract surgery (2) S/P tonsillectomy Family History Cancer Diabetes mellitus Heart disease Hypertension Social History Smoking Status: Former Smoker Smokeless Tobacco Use: No Alcohol Use: none Drug Use: cocaine Marital Status: Housing Status: lives with significant other Occupation Status: retired Allergies Coded Allergies: No Known Allergies (Unverified , 01/03/18) Current Inpatient Medications Current Inpatient Medications Medications (Trade) Dose Ordered Sig/Mert Route Start Time Stop Time Status Last Admin Dose Admin Acetaminophen (Tylenol Tab) 650 mg Q4H PRN PO 02/06/18 14:15 03/08/18 14:14 Ondansetron HCl (Zofran Inj) 4 mg Q6H PRN IV 02/06/18 14:15 03/08/18 14:14 Nitroglycerin (Nitrostat Tab) 0.4 mg UD PRN SL 02/06/18 14:15 03/08/18 14:14 Polyethylene (Miralax Powder Packet) 17 gm DAILY PRN PO 02/06/18 14:15 03/08/18 14:14 Miscellaneous (Iv Fluids Completed) 1 ea PRN PRN N/A 02/06/18 14:30 02/06/19 14:29 Miscellaneous Information (Consult) 1 ea UD PRN N/A 02/06/18 14:40 03/08/18 14:39 Miscellaneous Information (Consult) 1 ea UD PRN N/A 02/06/18 14:45 03/08/18 14:44 Allopurinol (Zyloprim Tab) 300 mg DAILY PO 02/07/18 09:00 03/09/18 08:59 02/09/18 07:54 300 MG Aspirin (Ecotrin Tab) 81 mg DAILY PO 02/07/18 09:00 03/09/18 08:59 02/09/18 07:54 81 MG Atorvastatin Calcium (Lipitor Tab) 20 mg DAILY PO 02/07/18 09:00 03/09/18 08:59 02/09/18 07:54 20 MG Cholecalciferol (Vitamin D Tab) 1,000 inter.unit DAILY PO 02/07/18 09:00 03/09/18 08:59 02/09/18 07:54 1,000 INTER.UNIT Enoxaparin Sodium (Lovenox Inj) 100 mg Q12H SQ 02/06/18 21:00 03/08/18 20:59 02/09/18 08:01 100 MG Metoprolol Tartrate (Lopressor Tab) 25 mg BID PO 02/06/18 21:00 03/08/18 20:59 02/09/18 07:58 25 MG Mirtazapine (Remeron Tab) 15 mg HS PO 02/06/18 21:00 03/08/18 20:59 02/08/18 20:32 15 MG Multivitamins/ Minerals (Multivitamin W/ Minerals Tab) 1 tab DAILY PO 02/07/18 09:00 03/09/18 08:59 02/09/18 08:00 1 TAB Senna/Docusate Sodium (Senokot S Tab) 1 tab BID PRN PO 02/06/18 14:45 03/08/18 14:44 02/06/18 21:50 1 TAB Insulin Aspart (novoLOG ASPART) SLIDING SCALE If C... ACHS SC 02/06/18 16:00 03/08/18 15:59 02/08/18 20:35 2 UNITS Glucose (Glucose 40% Gel) 15-30 GRAMS 15 GRAMS... UD PRN PO 02/06/18 14:45 03/08/18 14:44 Glucose (Glucose Chew Tab) 4-8 Tablets 4 Tabl... UD PRN PO 02/06/18 14:45 03/08/18 14:44 Dextrose (Dextrose 50% 50ML Syringe) 25-50ML OF 50% DW IV FOR... UD PRN IV 02/06/18 14:45 03/08/18 14:44 Glucagon (Glucagon Inj) 1 mg UD PRN SQ 02/06/18 14:45 03/08/18 14:44 Ioversol (Optiray 320) 125 ml UD PRN IV 02/06/18 14:45 02/10/18 14:44 Piperacillin Sod/ Tazobactam Sod 3.375 gm/Dextrose 115 ml @ 28.75 mls/ hr Q8H IV 02/06/18 18:00 02/13/18 17:59 02/09/18 01:47 28.75 MLS/HR Methylprednisolone Sodium Succinate 80 mg/Syringe 1.28 ml @ 1.5 mls/min Q6 IV 02/06/18 18:45 03/08/18 18:44 02/09/18 05:27 1.5 MLS/MIN Miscellaneous Information (Consult Glycemic Management Pharmacy) 1 ea UD PRN N/A 02/07/18 08:28 03/09/18 08:27 Vancomycin HCl 1250 mg/Sodium Chloride 275 ml @ 125 mls/hr Q14H IV 02/07/18 16:00 02/13/18 15:59 Future Hold 02/08/18 06:38 125 MLS/HR Insulin Aspart (novoLOG ASPART) SLIDING SCALE If C... 0000,0400 SC 02/08/18 00:00 5/18/18 00:00 02/09/18 04:49 1 UNITS Enteral Nutritional Formula (Boost Glucose Control) 1 can BIDM PO 02/07/18 16:45 03/09/18 16:44 02/07/18 17:34 1 CAN Insulin Glargine (Lantus Solostar Pen) 22 units BID SC 02/08/18 09:00 03/10/18 08:59 02/09/18 08:03 22 UNITS Review of Systems Constitutional: + sweats, + weight loss, + weakness, + fatigue, No fever Eyes: No problem reported ENT: + trouble swallowing Respiratory: + shortness of breath, + dyspnea on exertion Cardiovascular: No problem reported Abdomen: No problem reported Musculoskeletal: No problem reported Genitourinary - Male: No problem reported Neurologic: No problem reported Psychiatric: No problem reported Endocrine: No problem reported Hematologic / Lymphatic: No problem reported Integumentary: No problem reported Physical Exam Date Time Temp Pulse Resp B/P (MAP) Pulse Ox O2 Delivery O2 Flow Rate FiO2 02/09/18 08:00 Nasal Cannula 3.0 02/09/18 07:39 36.3 50 18 117/57 (77) 98 3.0 02/09/18 04:00 Nasal Cannula 3.0 02/09/18 03:43 36.3 52 17 113/64 (80) 98 Nasal Cannula 3.0 02/09/18 00:00 Nasal Cannula 3.0 02/08/18 23:43 36.3 51 20 110/62 (78) 99 Nasal Cannula 3.0 02/08/18 19:30 Nasal Cannula 3.0 02/08/18 19:29 36.4 74 18 128/82 (97) 95 Nasal Cannula 4.0 100 02/08/18 16:00 Nasal Cannula 3.0 02/08/18 15:40 36.4 67 20 128/72 (90) 99 4.0 100 02/08/18 12:00 36.7 70 18 104/55 (71) 97 Nasal Cannula 3.0 02/08/18 12:00 98 Nasal Cannula 3.0 General Appearance: WD/WN, no apparent distress Head: normocephalic, atraumatic Eyes: normal inspection, EOMI, sclerae normal ENT: normal ENT inspection, hearing grossly normal, pharynx normal Neck: supple, no adenopathy, thyroid normal, trachea midline Respiratory/Chest: chest non-tender, no respiratory distress, no accessory muscle use, + crackles Cardiovascular: regular rate, rhythm, no gallop, no murmur Abdomen/GI: normal bowel sounds, non tender, soft, no organomegaly Back: normal inspection, no CVA tenderness Extremities/Musculoskelatal: no calf tenderness, normal capillary refill, non- tender Neurologic/Psych: alert, normal mood/affect, oriented x 3 Skin: normal color, warm/dry, no rash Lymphatic: no adenopathy Laboratory Results RUN DATE: 02/09/18 [facility] PAGE 1 RUN TIME: 1104 Specimen Inquiry PATIENT: TYEEUN LOC: Luis U # : [id number] AGE/SX: 82/M ROOM: E209 REG : 02/07/[address]: Kishan Byrd MD : 1935 BED: 1 DIS : STATUS: ADM IN TLOC: SPEC #: [id number] ABEBE: 02/06/185 STATUS: AYAH REPierre #: [id number] RECD: 02/06/18-[address]: Araceli Gupta M.D. SOURCE: BLOOD ENTR: 02/06/18-[address]: Ady Mayo MD [facility]: ORDERED: BLOOD CULTURE Procedure Result Verified Site BLD CULT Final 02/09/18-1104 Organism 1 BACILL.SP.NOT ANTHRACIS/CEREUS SENS NO SENSITIVITY TO FOLLOW Phoned Positive Blood Culture Gram Stain Report to TORRIE CASIANO on 02/08/18 At 0750 By RANI. Results were verbalized back to RANI. Last 24 Hours Test 02/08/18 11:27 02/08/18 16:21 02/08/18 19:40 02/08/18 20:03 Bedside Glucose 193 mg/dl 149 mg/dl 174 mg/dl Vancomycin Level Trough 27.2 mcg/ml Test 02/09/18 00:03 02/09/18 04:09 02/09/18 04:13 02/09/18 06:22 Bedside Glucose 136 mg/dl 144 mg/dl White Blood Count 15.14 K/uL Red Blood Count 3.36 M/uL Hemoglobin 8.5 g/dL Hematocrit 28.2 % Mean Corpuscular Volume 83.9 fL Mean Corpuscular Hemoglobin 25.3 pg Mean Corpuscular Hemoglobin Concent 30.1 g/dl RDW Standard Deviation 61.8 fL RDW Coefficient of Variation 20.1 % Platelet Count 456 K/uL Mean Platelet Volume 8.4 fL Sodium Level 141 mmol/L Potassium Level 3.8 mmol/L Chloride Level 111 mmol/L Carbon Dioxide Level 29 mmol/L Anion Gap 1.0 mmol/L Blood Urea Nitrogen 32 mg/dl Creatinine 0.97 mg/dl Est Creatinine Clear Calc Drug Dose 63.7 ml/min Estimated GFR () 82.7 Estimated GFR (Non- 71.4 BUN/Creatinine Ratio 33.4 Random Glucose 128 mg/dl Calcium Level 8.9 mg/dl Random Vancomycin Level 26.9 mcg/ml Procalcitonin 0.19 ng/ml Test 02/09/18 07:00 Bedside Glucose 135 mg/dl (CHEST FOR PE) ANGIO WITH CLINICAL HISTORY: 82 years-old Male presenting with ^SOB. TECHNIQUE: Multidetector CT angiography of the chest was performed after administration of intravenous contrast. 3-D volumetric and/or maximum intensity projection (MIP) images were subsequently reconstructed for review. IV contrast: 88 mL of Optiray 320. A dose lowering technique was used consistent with the principles of ALARA (as low as reasonably achievable). COMPARISON: 01/03/2018, PET/CT from 06/08/[address] from 04/27/2017. CT DOSE (mGy.cm): The estimated cumulative dose is 564.57 mGy.cm. FINDINGS: [employer] topogram: Bibasilar predominant opacities. Pulmonary vasculature: The study is extremely limited for the assessment of the pulmonary vascular tree secondary to respiratory motion artifact. Allowing for limited image quality, no gross central filling defect to suggest pulmonary embolus. The left lower lobe pulmonary artery is occluded on a chronic basis (series 4 image 161). Main pulmonary artery top normal in size. No flattening of the interventricular septum. No intracardiac filling defect. No reflux of contrast into the hepatic veins. Remaining chest: On soft tissue windows, normal thyroid and thoracic inlet. Conglomerate left hilar lymphadenopathy suspected. Less extensive right hilar lymphadenopathy. Subcentimeter scattered mediastinal lymph nodes. Atherosclerosis of the aorta. Multichamber enlargement of the heart. Coronary artery calcification. No pericardial or pleural effusion. Upper abdomen normal. On lung windows, interval worsened consolidation in the right lung with dense multifocal solid peripheral wedgelike consolidation. This largely spares the right apex. Trace emphysematous changes evident. Chronic opacities in the left lung most severely affecting the left lower lobe. Bronchiectasis evident. Central airways patent. On bone windows, degenerative changes of the spine. IMPRESSION: 1. Significant interval worsening of consolidation in the right lung since the prior exam. The predominantly peripheral wedgelike regions of solid consolidation could suggest pulmonary infarcts though no acute pulmonary emboli are evident allowing for the significantly degraded evaluation due to respiratory motion artifact. Alternatively, increased opacities could represent worsened infection. 2. Chronic left lung consolidation with bronchiectatic change. Underlying infection is difficult to exclude. 3. 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 A discrete mass was visualized on prior chest CT from April 2017 though margins of a discrete mass are now not apparent. 4. Emphysema. Electronically signed by: Shlomo Hurtado M.D. 02/06/2018 3:40 PM Dictated Date/Time: 02/06/2018 3:28 PM The status of this report is Signed. Draft = Not yet reviewed or approved by Radiologist. Signed = Reviewed and approved by Radiologist. <AttendingPhy></AttendingPhy> <FamilyPhy>Ady Mayo MD</FamilyPhy> <PrimaryPhy>Ady Mayo MD</PrimaryPhy> <UnitNumber>[id number]</ UnitNumber> <VisitNumber>[id number]</VisitNumber> <PatientName>TYEEUN< /PatientName> <DateOfBirth>1935</DateO Assessment & Plan 82-year-old male with known lung cancer on chemotherapy status post radiation therapy last year admitted with progressively worsening shortness of breath, weakness and anorexia with weight loss, found to have evidence worsening infiltrations on chest x-ray with swallowing study consistent with possible aspiration. Patient appears to have improved clinically on current antibiotics and steroids, so would continue on IV Zosyn, discontinue vancomycin, and continue steroids as per Pulmonary. Likely patient can be transitioned to oral antibiotics with Augmentin in the next 24-48 hours. Will follow.
--- NOTE | 2018-02-09 13:31 | Progress Note ---
Medicine Progress Note Date & Time of Visit: Feb 09, 2018 at 13:26. Subjective Seen resting in bed side chair, comfortable, on 3 L oxygen by nasal cannula States he continues to feel improved today Still has cough with speaking, nonproductive No fevers chills Strength improving No other symptoms Objective Last 8 Hrs Date Time Temp Pulse Resp B/P (MAP) Pulse Ox O2 Delivery O2 Flow Rate FiO2 02/09/18 11:30 Nasal Cannula 3.0 02/09/18 11:29 36.4 86 20 123/67 (85) 91 4.0 02/09/18 08:00 Nasal Cannula 3.0 02/09/18 07:39 36.3 50 18 117/57 (77) 98 3.0 Physical Exam: General-oriented 3, not in distress, speaking sentences no accessory muscle use Eyes- anicteric Neck-no JVD Lungs-decreased breath sounds bilaterally-improving No wheezing Heart- regular rhythm; grade 2 out of 6 murmur, normal rate Abdomen- normal bowel sounds, soft, nontender, nondistended Extremities- no pretibial edema, no calf tenderness Neuro- alert, oriented x 3; no gross neurologic deficits Skin- warm & dry Laboratory Results: Last 24 Hours Test 02/08/18 16:21 02/08/18 19:40 02/08/18 20:03 02/09/18 00:03 Bedside Glucose 149 mg/dl 174 mg/dl 136 mg/dl Vancomycin Level Trough 27.2 mcg/ml Test 02/09/18 04:09 02/09/18 04:13 02/09/18 06:22 02/09/18 07:00 White Blood Count 15.14 K/uL Red Blood Count 3.36 M/uL Hemoglobin 8.5 g/dL Hematocrit 28.2 % Mean Corpuscular Volume 83.9 fL Mean Corpuscular Hemoglobin 25.3 pg Mean Corpuscular Hemoglobin Concent 30.1 g/dl RDW Standard Deviation 61.8 fL RDW Coefficient of Variation 20.1 % Platelet Count 456 K/uL Mean Platelet Volume 8.4 fL Sodium Level 141 mmol/L Potassium Level 3.8 mmol/L Chloride Level 111 mmol/L Carbon Dioxide Level 29 mmol/L Anion Gap 1.0 mmol/L Blood Urea Nitrogen 32 mg/dl Creatinine 0.97 mg/dl Est Creatinine Clear Calc Drug Dose 63.7 ml/min Estimated GFR () 82.7 Estimated GFR (Non- 71.4 BUN/Creatinine Ratio 33.4 Random Glucose 128 mg/dl Calcium Level 8.9 mg/dl Random Vancomycin Level 26.9 mcg/ml Bedside Glucose 144 mg/dl 135 mg/dl Procalcitonin 0.19 ng/ml Test 02/09/18 11:13 02/09/18 13:01 Bedside Glucose 195 mg/dl Assessment & Plan Hemoglobin 9, monitor 82-year-old, male, with lung cancer on chemo and radiation , diabetes type 2, hypertension Presenting with low oxygen saturation. ACUTE LUNG INJURY, CHEMO VERSUS RADIATION RELATED COMPONENT OF ASPIRATION PNEUMONIA CXR: Bibasilar parenchymal infiltrates, Slight improvement in aeration left lung base, Slight increase in parenchymal infiltrative change right base. WBC: 11.6. 94% on 4 L NC, R: 22. POC lactic acid: 1.4. Patient given Levaquin, Zosyn, vancomycin, 250 mL bolus and 150 mL/h NSS in ER. - CT chest: 1. Significant interval worsening of consolidation in the right lung since the prior exam. The predominantly peripheral wedgelike regions of solid consolidation could suggest pulmonary infarcts though no acute pulmonary emboli are evident allowing for the significantly degraded evaluation due to respiratory motion artifact. Alternatively, increased opacities could represent worsened infection. 2. Chronic left lung consolidation with bronchiectatic change. Underlying infection is difficult to exclude. -Blood cultures: Positive for 1 out of 2 bottles-bacillus likely contaminant -Sputum culture: Pending collection Pulmonary consulted Improving daily Know down to 3 L Currently on Solu-Medrol IV 80 mg every 6 hours Continue Zosyn day #4 Discontinue Continue to monitor response Appreciate pulmonary service recommendations Speech therapy evaluation ordered, status post video swallow evaluation: Showing aspiration with thin liquids Sena thick liquid ordered ACUTE ON CHRONIC HYPOXIC RESPIRATORY FAILURE secondary to above Patient uses 2 L NC continuous and 4 L NC with ambulation. Patient is 94% on 4 L NC. Secondary to above Wean off oxygen accordingly back to usual baseline of 2 L nasal cannula A FLUTTER WITH RVR Patient found to be a flutter with rates in the 150s by EMS this morning, was given 10 mg Cardizem in route. Patient has since converted to sinus rhythm in ER. He remains in sinus rhythm so far Continue metoprolol 25 mg twice daily Continue Lovenox 100 mg subcu every 12 hours Monitor WEAKNESS Worsening generalized weakness, Likely secondary to dehydration, deconditioning. No focal deficits noted on exam. Urine cultures negative -PT/OT eval MICROSCOPIC HEMATURIA - monitor HISTORY SPINDLE CELL LUNG CARCINOMA Follows with Dr. Estevez. Was treated with chemo and radiation. Currently on Keytruda Discussed with Dr. Estevez, plan to hold he treated for now Follow-up with Dr. Estevez next week as scheduled CHRONIC THROMBUS LEFT POPLITEAL VEIN Patient denies any increased lower extremity edema or lower extremity pain. Patient on Lovenox -Continue Lovenox therapeutic dosing CHRONIC ANEMIA Hgb: 10 (approximate baseline). No active bleeding -Monitor H&H DM II H A1c 6.3 on 11/2017. Glucose: 133 in ER -Hold glimepiride -novolog sliding scale per protocol Pharmacy glycemic control consulted as patient is on high-dose steroids HTN Stable -continue metoprolol HLD -Continue statin DVT Prophylaxis -Pt on therapeutic dose Lovenox for known LLE DVT Disposition Pending PT OT evaluation and progress Possible transition to inpatient rehab or [facility] facility when cleared by pulmonary Continued [facility] stay due to: abnormal vital signs Current Inpatient Medications: Current Inpatient Medications Medications (Trade) Dose Ordered Sig/Mert Route Start Time Stop Time Status Last Admin Dose Admin Acetaminophen (Tylenol Tab) 650 mg Q4H PRN PO 02/06/18 14:15 03/08/18 14:14 Ondansetron HCl (Zofran Inj) 4 mg Q6H PRN IV 02/06/18 14:15 03/08/18 14:14 Nitroglycerin (Nitrostat Tab) 0.4 mg UD PRN SL 02/06/18 14:15 03/08/18 14:14 Polyethylene (Miralax Powder Packet) 17 gm DAILY PRN PO 02/06/18 14:15 03/08/18 14:14 Miscellaneous (Iv Fluids Completed) 1 ea PRN PRN N/A 02/06/18 14:30 02/06/19 14:29 Miscellaneous Information (Consult) 1 ea UD PRN N/A 02/06/18 14:45 03/08/18 14:44 Allopurinol (Zyloprim Tab) 300 mg DAILY PO 02/07/18 09:00 03/09/18 08:59 02/09/18 07:54 300 MG Aspirin (Ecotrin Tab) 81 mg DAILY PO 02/07/18 09:00 03/09/18 08:59 02/09/18 07:54 81 MG Atorvastatin Calcium (Lipitor Tab) 20 mg DAILY PO 02/07/18 09:00 03/09/18 08:59 02/09/18 07:54 20 MG Cholecalciferol (Vitamin D Tab) 1,000 inter.unit DAILY PO 02/07/18 09:00 03/09/18 08:59 02/09/18 07:54 1,000 INTER.UNIT Enoxaparin Sodium (Lovenox Inj) 100 mg Q12H SQ 02/06/18 21:00 03/08/18 20:59 02/09/18 08:01 100 MG Metoprolol Tartrate (Lopressor Tab) 25 mg BID PO 02/06/18 21:00 03/08/18 20:59 02/09/18 07:58 25 MG Mirtazapine (Remeron Tab) 15 mg HS PO 02/06/18 21:00 03/08/18 20:59 02/08/18 20:32 15 MG Multivitamins/ Minerals (Multivitamin W/ Minerals Tab) 1 tab DAILY PO 02/07/18 09:00 03/09/18 08:59 02/09/18 08:00 1 TAB Senna/Docusate Sodium (Senokot S Tab) 1 tab BID PRN PO 02/06/18 14:45 03/08/18 14:44 02/06/18 21:50 1 TAB Insulin Aspart (novoLOG ASPART) SLIDING SCALE If C... ACHS SC 02/06/18 16:00 03/08/18 15:59 02/09/18 12:38 5 UNITS Glucose (Glucose 40% Gel) 15-30 GRAMS 15 GRAMS... UD PRN PO 02/06/18 14:45 03/08/18 14:44 Glucose (Glucose Chew Tab) 4-8 Tablets 4 Tabl... UD PRN PO 02/06/18 14:45 03/08/18 14:44 Dextrose (Dextrose 50% 50ML Syringe) 25-50ML OF 50% DW IV FOR... UD PRN IV 02/06/18 14:45 03/08/18 14:44 Glucagon (Glucagon Inj) 1 mg UD PRN SQ 02/06/18 14:45 03/08/18 14:44 Ioversol (Optiray 320) 125 ml UD PRN IV 02/06/18 14:45 02/10/18 14:44 Piperacillin Sod/ Tazobactam Sod 3.375 gm/Dextrose 115 ml @ 28.75 mls/ hr Q8H IV 02/06/18 18:00 02/13/18 17:59 02/09/18 11:28 28.75 MLS/HR Methylprednisolone Sodium Succinate 80 mg/Syringe 1.28 ml @ 1.5 mls/min Q6 IV 02/06/18 18:45 03/08/18 18:44 02/09/18 11:29 1.5 MLS/MIN Miscellaneous Information (Consult Glycemic Management Pharmacy) 1 ea UD PRN N/A 02/07/18 08:28 03/09/18 08:27 Enteral Nutritional Formula (Boost Glucose Control) 1 can BIDM PO 02/07/18 16:45 03/09/18 16:44 02/07/18 17:34 1 CAN Insulin Glargine (Lantus Solostar Pen) 22 units BID SC 02/08/18 09:00 03/10/18 08:59 02/09/18 08:03 22 UNITS
--- NOTE | 2018-02-09 20:54 | Pulmonology Progress Note ---
Pulmonary Progress Note Date of Service Feb 09, 2018. Attending Dr. Duckworth Subjective The patient feels better, however he continues to be short of breath with ambulation, he does have nonproductive cough, no chest pain, no events overnight. Objective Physical exam of 02/07/2018 revealed vital signs stable, his O2 saturation 91% on 5 L via nasal cannula, no oral thrush, S1-S2 regular rate and rhythm, distant breath sounds with crackles and egophony on the left side. Abdomen is benign. No edema in the periphery. Most recent data revealed stable labs, no new imaging other than the previous CAT scan from yesterday which showed multiple areas of consolidation and left hilar mass. Small pleural effusion bilaterally at the bases. Physical exam on 02/08/2018 showed vital signs stable, saturation of 95% on 5 L, S1-S2 regular rate and rhythm, egophony on the left, otherwise minimal crackles on the right. His physical exam of 02/09/2018 revealed stable vital signs, his O2 sat is 100% on 4 L nasal cannula, he was ambulatory, heart examination S1-S2 regular rate and rhythm, he does have egophony in the left upper and crackles at the bases, abdomen is benign, trace edema in the periphery. Laboratory was reviewed which showed leukocytosis secondary to steroids, the rest of his labs appeared similar. Assessment & Plan 1. Acute lung injury, drug-induced , Although infectious process cannot be totally ruled out. 2. 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 3. 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 4. Chronic respiratory failure on home O2. 5. Chronic PE anticoagulated with Lovenox. 6. Dysphagia could be related to recent radiation therapy. Plan: 1. Continue with high-dose steroids at 80 mg Solu-Medrol IV every 6 hours. I will change it to prednisone 40 mg p.o. twice daily and continue at this dose for at least a week prior to start tapering by 10 mg every 5 days. 2. Broad-spectrum antibiotic for at least 72 hours prior to De-escalate to oral antibiotics. Only blood culture with gram-positive bacilli which likely contaminant. 3. Modified barium swallow will be helpful in this patient. Speech pathology consult appreciated. Patient remains at risk for aspiration. Thickened fluid has been given. 4. Out of bed and ambulate the patient if possible. 5. No significant positive cultures. 6. If all cultures are negative after 72 hours, the patient can be changed to oral antibiotic. And complete the course was 7 days. 7. Continue with Lovenox full dose for life. 8. Appreciate all consults input. 9. He will need home O2. Thank you, will follow. Data Medications: Current Inpatient Medications Medications (Trade) Dose Ordered Sig/Mert Route Start Time Stop Time Status Last Admin Dose Admin Acetaminophen (Tylenol Tab) 650 mg Q4H PRN PO 02/06/18 14:15 03/08/18 14:14 Ondansetron HCl (Zofran Inj) 4 mg Q6H PRN IV 02/06/18 14:15 03/08/18 14:14 Nitroglycerin (Nitrostat Tab) 0.4 mg UD PRN SL 02/06/18 14:15 03/08/18 14:14 Polyethylene (Miralax Powder Packet) 17 gm DAILY PRN PO 02/06/18 14:15 03/08/18 14:14 Miscellaneous (Iv Fluids Completed) 1 ea PRN PRN N/A 02/06/18 14:30 02/06/19 14:29 Miscellaneous Information (Consult) 1 ea UD PRN N/A 02/06/18 14:45 03/08/18 14:44 Allopurinol (Zyloprim Tab) 300 mg DAILY PO 02/07/18 09:00 03/09/18 08:59 02/09/18 07:54 300 MG Aspirin (Ecotrin Tab) 81 mg DAILY PO 02/07/18 09:00 03/09/18 08:59 02/09/18 07:54 81 MG Atorvastatin Calcium (Lipitor Tab) 20 mg DAILY PO 02/07/18 09:00 03/09/18 08:59 02/09/18 07:54 20 MG Cholecalciferol (Vitamin D Tab) 1,000 inter.unit DAILY PO 02/07/18 09:00 03/09/18 08:59 02/09/18 07:54 1,000 INTER.UNIT Metoprolol Tartrate (Lopressor Tab) 25 mg BID PO 02/06/18 21:00 03/08/18 20:59 02/09/18 07:58 25 MG Mirtazapine (Remeron Tab) 15 mg HS PO 02/06/18 21:00 03/08/18 20:59 02/08/18 20:32 15 MG Multivitamins/ Minerals (Multivitamin W/ Minerals Tab) 1 tab DAILY PO 02/07/18 09:00 03/09/18 08:59 02/09/18 08:00 1 TAB Senna/Docusate Sodium (Senokot S Tab) 1 tab BID PRN PO 02/06/18 14:45 03/08/18 14:44 02/06/18 21:50 1 TAB Insulin Aspart (novoLOG ASPART) SLIDING SCALE If C... ACHS SC 02/06/18 16:00 03/08/18 15:59 02/09/18 16:48 3 UNITS Glucose (Glucose 40% Gel) 15-30 GRAMS 15 GRAMS... UD PRN PO 02/06/18 14:45 03/08/18 14:44 Glucose (Glucose Chew Tab) 4-8 Tablets 4 Tabl... UD PRN PO 02/06/18 14:45 03/08/18 14:44 Dextrose (Dextrose 50% 50ML Syringe) 25-50ML OF 50% DW IV FOR... UD PRN IV 02/06/18 14:45 03/08/18 14:44 Glucagon (Glucagon Inj) 1 mg UD PRN SQ 02/06/18 14:45 03/08/18 14:44 Ioversol (Optiray 320) 125 ml UD PRN IV 02/06/18 14:45 02/10/18 14:44 Piperacillin Sod/ Tazobactam Sod 3.375 gm/Dextrose 115 ml @ 28.75 mls/ hr Q8H IV 02/06/18 18:00 02/13/18 17:59 02/09/18 18:16 28.75 MLS/HR Methylprednisolone Sodium Succinate 80 mg/Syringe 1.28 ml @ 1.5 mls/min Q6 IV 02/06/18 18:45 03/08/18 18:44 02/09/18 18:16 1.5 MLS/MIN Miscellaneous Information (Consult Glycemic Management Pharmacy) 1 ea UD PRN N/A 02/07/18 08:28 03/09/18 08:27 Enteral Nutritional Formula (Boost Glucose Control) 1 can BIDM PO 02/07/18 16:45 03/09/18 16:44 02/07/18 17:34 1 CAN Insulin Glargine (Lantus Solostar Pen) 22 units BID SC 02/08/18 09:00 03/10/18 08:59 02/09/18 08:03 22 UNITS Enoxaparin Sodium (Lovenox Inj) 90 mg Q24H SQ 02/10/18 09:00 03/12/18 08:59 I & O: 24-Hour Column 02/10/18 08:00 Intake Total 544 ml Balance 544 ml Vital Signs: Date Time Temp Pulse Resp B/P (MAP) Pulse Ox O2 Delivery O2 Flow Rate FiO2 02/09/18 20:00 96 Nasal Cannula 4.0 100 02/09/18 19:09 36.9 75 24 120/57 (78) 96 02/09/18 18:58 36.3 59 20 137/64 (88) 98 Nasal Cannula 4.0 100 02/09/18 16:00 99 Nasal Cannula 4.0 100 02/09/18 15:28 36.3 59 20 137/64 (88) 100 Nasal Cannula 4.0 02/09/18 11:30 Nasal Cannula 3.0 02/09/18 11:29 36.4 86 20 123/67 (85) 91 4.0 02/09/18 08:00 Nasal Cannula 3.0 02/09/18 07:39 36.3 50 18 117/57 (77) 98 3.0 02/09/18 04:00 Nasal Cannula 3.0 02/09/18 03:43 36.3 52 17 113/64 (80) 98 Nasal Cannula 3.0 02/09/18 00:00 Nasal Cannula 3.0 02/08/18 23:43 36.3 51 20 110/62 (78) 99 Nasal Cannula 3.0 Laboratory Results: Last 24 Hours Test 02/09/18 00:03 02/09/18 04:09 02/09/18 04:13 02/09/18 06:22 Bedside Glucose 136 mg/dl 144 mg/dl White Blood Count 15.14 K/uL Red Blood Count 3.36 M/uL Hemoglobin 8.5 g/dL Hematocrit 28.2 % Mean Corpuscular Volume 83.9 fL Mean Corpuscular Hemoglobin 25.3 pg Mean Corpuscular Hemoglobin Concent 30.1 g/dl RDW Standard Deviation 61.8 fL RDW Coefficient of Variation 20.1 % Platelet Count 456 K/uL Mean Platelet Volume 8.4 fL Sodium Level 141 mmol/L Potassium Level 3.8 mmol/L Chloride Level 111 mmol/L Carbon Dioxide Level 29 mmol/L Anion Gap 1.0 mmol/L Blood Urea Nitrogen 32 mg/dl Creatinine 0.97 mg/dl Est Creatinine Clear Calc Drug Dose 63.7 ml/min Estimated GFR () 82.7 Estimated GFR (Non- 71.4 BUN/Creatinine Ratio 33.4 Random Glucose 128 mg/dl Calcium Level 8.9 mg/dl Random Vancomycin Level 26.9 mcg/ml Procalcitonin 0.19 ng/ml Test 02/09/18 07:00 02/09/18 11:13 02/09/18 13:01 02/09/18 16:00 Bedside Glucose 135 mg/dl 195 mg/dl 151 mg/dl Heparin Anti-Xa Act, Low Molec Wt 2.40 IU/ML
[2018-02-09] MEDS: MIRTAZAPINE TAB 15 MG TAB PO SCH (21:06)
[2018-02-10] VITALS (11 sets, daily range): BP systolic 123–148; BP diastolic 61–86; PULSE 46–69; TEMP 36.3–36.7; O2SAT 95–100
[2018-02-10] MEDS: PIPERACILL/TAZOBAC IV 3.375 GM in DEXTROSE 5% 100ML 100 ML IV SCH ×3 (01:47→19:06)
[2018-02-10] MEDS: METHYLPREDNISOLONE IV 80 MG in SYRINGE 0 ML IV SCH (05:55)
[2018-02-10] MEDS: BOOST GLUCOSE CONTROL PO SCH ×2 (07:30→16:45)
[2018-02-10] MEDS: INSULIN ASPART 100 UNITS/ML 3 ML PEN SC SCH ×4 (08:36→20:33)
[2018-02-10] MEDS: INSULIN GLARGINE SOLOSTAR 100 UNITS/ML 3 ML PEN SC SCH ×2 (08:37→17:32)
[2018-02-10] MEDS: ENOXAPARIN 100 MG/1ML SYR SQ SCH (08:38)
[2018-02-10] MEDS: ATORVASTATIN 20 MG TAB PO SCH (08:38)
[2018-02-10] MEDS: ASPIRIN 81 MG ECTAB PO SCH (08:38)
[2018-02-10] MEDS: METOPROLOL TARTRATE 25 MG TAB PO SCH ×2 (08:38→20:32)
[2018-02-10] MEDS: CEROVITE ADV FORMULA TAB PO SCH (08:38)
[2018-02-10] MEDS: ALLOPURINOL 300 MG TAB PO SCH (08:38)
[2018-02-10] MEDS: CHOLECALCIFEROL 1000 INTER.UNIT TAB PO SCH (08:38)
[2018-02-10 11:04] LABS: CALCIUM 9.1 mg/dl (8.5-10.1); CREATININE 1.11 mg/dl (0.60-1.40); POTASSIUM 3.8 mmol/L (3.5-5.1)
[2018-02-10 11:09] LABS: BASO % 0.1 %; BASO ABS # 0.01 K/uL (0-0.2); EOS % 0.1 %; EOS ABS # 0.01 K/uL (0-0.5); HEMATOCRIT 32.2 % (42-52); HEMOGLOBIN 9.7 g/dL (14.0-18.0); IG# 0.34 K/uL (0.00-0.02); LYMPH % 3.5 %; MEAN CELL VOLUME 85.2 fL (80-100); MEAN CORPUSCULAR HEMOGLOBIN 25.7 pg (25-34); MEAN CORPUSCULAR HGB CONC 30.1 g/dl (32-36); MEAN PLATELET VOLUME 8.7 fL (7.4-10.4); MONO % 1.7 %; MONO ABS # 0.29 K/uL (0.11-0.59); NEUT % 92.6 %; NEUT ABS # 16.11 K/uL (1.4-6.5); PLATELET COUNT 559 K/uL (130-400); RED CELL DISTRIBUTION WIDTH CV 20.5 % (11.5-14.5); RED CELL DISTRIBUTION WIDTH SD 63.9 fL (36.4-46.3); WHITE BLOOD COUNT 17.36 K/uL (4.8-10.8)
--- NOTE | 2018-02-10 11:43 | Pharmacy Progress Note ---
Pharmacy Glycemic Short Note 2 Date of Service Feb 10, 2018. OUTPATIENT ANTIDIABETIC REGIMEN: * Metformin 500mg PO daily * Amaryl 2mg PO daily * HbA1c: pending with tomorrow's labs ASSESSMENT: 02/07/18 * Mr Sneed is an 82yo diabetic gentleman admitted with Aflutter/RVR and ? pneumonia * Patient was started on SoluMedrol 80mg IV q6h yesterday afternoon. BSGs have been elevated today as a result. * Patient was provided with a "loading dose" of 25 units Lantus this morning and initiated on basal/bolus insulin. * Pre-lunch BSG significantly elevated, so patient provided with an IV insulin bolus. 02/08/18 * BSGs have trended down nicely since insulin regimen was adjusted yesterday. * Fasting BSG 170 this AM with 40 units of Lantus on board and after receiving 9 units of Novolog correction overnight * High-dose Solu-Medrol continues today * Will increase the ongoing basal and prandial insulin orders at this time based upon response to insulin doses yesterday, new doses will be in line with wt-based severe stress doses 02/09/18 * No changes made to regimen; BSGs ranged 136-193 over the previous 24 hours, only 1 BSG above 180 02/10/18 * Fasting BSGs improving daily. FBS 107 this AM with 44 units Lantus on board. * 2 of 3 post-prandial BSGs elevated yesterday. Will increase the prandial insulin dose today. * Steroid dose is being reduced substantially. Will begin once daily prednisone in the AM tomorrow. Would expect insulin resistance to improve over the next 24 hours as a result. I do anticipate insulin needs w/ meals to remain higher today however. * Will change Lantus to once daily in the AM tomorrow to coincide with Prednisone administration. May need to consider transition to NPH insulin w/ AM Prednisone if fasting BSGs lower than desired yet post-prandial BSGs not well controlled with Novolog. PLAN FOR INPATIENT GLYCEMIC CONTROL: * Hold outpatient oral diabetes medications * Basal insulin * Lantus 22 units SQ BID today - however move evening dose up to dinner-time * Reduce Lantus to 30 units Q AM starting tomorrow * Bolus insulin * NovoLog per scale ACHS or Q6hrs while NPO * Goal Range: Low 110 mg/dL - High 140 mg/dL * Correction Factor: 20 mg/dL/unit * Nutritional / Prandial insulin per carb ratio of 1 unit per 5 grams CHO consumed (dose increased) * Reassess insulin doses with each step down in steroid dose PLAN FOR DISCHARGE: * A1c indicates good control with out-pt regimen; would recommend resuming home meds on discharge
--- NOTE | 2018-02-10 13:38 | DIAGNOSTIC IMAGING REPORT ---
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 TECHNIQUE: Portable upright AP view of the chest was obtained. COMPARISON: 02/06/2018. FINDINGS: Atherosclerosis of aortic arch. Cardiac silhouette enlarged. Patchy opacities in the mid to basilar predominant distribution. Slight improved aeration of both lung bases. Background reticulation may be present. Prominence of the bilateral dary. Overall mildly low lung volumes. Pleural thickening or trace pleural effusions may be present. No large pneumothorax. Degenerative changes of the thoracic spine. Upper abdomen normal. IMPRESSION: 1. Slight improved aeration of both lung bases with persistent patchy mid to basilar predominant opacities. 2. Underlying chronic lung disease. 3. Cardiomegaly. Electronically signed by: Shlomo Hurtado M.D. 02/10/2018 1:37 PM Dictated Date/Time: 02/10/2018 1:35 PM
--- NOTE | 2018-02-10 17:55 | Progress Note ---
Medicine Progress Note Date & Time of Visit: Feb 10, 2018 at 17:50. Subjective seen resting in bedside chair, comfortable states he felt more short of breath ambulating today has some dry cough no chest pain, dizziness, palpitations no other symptoms Objective Last 8 Hrs Date Time Temp Pulse Resp B/P (MAP) Pulse Ox O2 Delivery O2 Flow Rate FiO2 02/10/18 16:00 95 Nasal Cannula 3.0 02/10/18 15:28 36.4 55 16 130/61 (84) 99 Nasal Cannula 3.5 100 02/10/18 12:00 95 Nasal Cannula 3.0 02/10/18 11:54 36.7 50 19 143/71 (95) 95 Nasal Cannula 4.0 Physical Exam: General-oriented 3, not in distress, speaking sentences no accessory muscle use Eyes- anicteric Neck-no JVD Lungs-decreased breath sounds bilaterally-improving No rales/wheezing Heart- regular rhythm; grade 2 out of 6 murmur, normal rate Abdomen- normal bowel sounds, soft, nontender, nondistended Extremities- no pretibial edema, no calf tenderness Neuro- alert, oriented x 3; no gross neurologic deficits Skin- warm & dry Laboratory Results: Last 24 Hours Test 02/09/18 19:57 02/10/18 00:57 02/10/18 05:08 02/10/18 07:00 Bedside Glucose 221 mg/dl 149 mg/dl 120 mg/dl 107 mg/dl Test 02/10/18 10:36 02/10/18 11:18 02/10/18 16:08 White Blood Count 17.36 K/uL Red Blood Count 3.78 M/uL Hemoglobin 9.7 g/dL Hematocrit 32.2 % Mean Corpuscular Volume 85.2 fL Mean Corpuscular Hemoglobin 25.7 pg Mean Corpuscular Hemoglobin Concent 30.1 g/dl Platelet Count 559 K/uL Mean Platelet Volume 8.7 fL Neutrophils (%) (Auto) 92.6 % Lymphocytes (%) (Auto) 3.5 % Monocytes (%) (Auto) 1.7 % Eosinophils (%) (Auto) 0.1 % Basophils (%) (Auto) 0.1 % Neutrophils # (Auto) 16.11 K/uL Lymphocytes # (Auto) 0.60 K/uL Monocytes # (Auto) 0.29 K/uL Eosinophils # (Auto) 0.01 K/uL Basophils # (Auto) 0.01 K/uL RDW Standard Deviation 63.9 fL RDW Coefficient of Variation 20.5 % Immature Granulocyte % (Auto) 2.0 % Immature Granulocyte # (Auto) 0.34 K/uL Anisocytosis PRESENT Sodium Level 143 mmol/L Potassium Level 3.8 mmol/L Chloride Level 112 mmol/L Carbon Dioxide Level 30 mmol/L Anion Gap 1.0 mmol/L Blood Urea Nitrogen 33 mg/dl Creatinine 1.11 mg/dl Est Creatinine Clear Calc Drug Dose 56.3 ml/min Estimated GFR () 70.3 Estimated GFR (Non- 60.7 BUN/Creatinine Ratio 29.9 Random Glucose 139 mg/dl Calcium Level 9.1 mg/dl Bedside Glucose 123 mg/dl 117 mg/dl Assessment & Plan Hemoglobin 9, monitor 82-year-old, male, with lung cancer on chemo and radiation , diabetes type 2, hypertension Presenting with low oxygen saturation. ACUTE LUNG INJURY, CHEMO VERSUS RADIATION RELATED COMPONENT OF ASPIRATION PNEUMONIA CXR: Bibasilar parenchymal infiltrates, Slight improvement in aeration left lung base, Slight increase in parenchymal infiltrative change right base. WBC: 11.6. 94% on 4 L NC, R: 22. POC lactic acid: 1.4. Patient given Levaquin, Zosyn, vancomycin, 250 mL bolus and 150 mL/h NSS in ER. - CT chest: 1. Significant interval worsening of consolidation in the right lung since the prior exam. The predominantly peripheral wedgelike regions of solid consolidation could suggest pulmonary infarcts though no acute pulmonary emboli are evident allowing for the significantly degraded evaluation due to respiratory motion artifact. Alternatively, increased opacities could represent worsened infection. 2. Chronic left lung consolidation with bronchiectatic change. Underlying infection is difficult to exclude. -Blood cultures: Positive for 1 out of 2 bottles-bacillus likely contaminant -Sputum culture: Pending collection Pulmonary consulted Improving daily Now down to 3 L on Solu-Medrol IV 80 mg every 6 hours--> changed to Prednisone 60mg po daily Continue Zosyn day #5 Continue to monitor response Appreciate pulmonary service recommendations Speech therapy evaluation ordered, status post video swallow evaluation: Showing aspiration with thin liquids [place] thick liquid ordered ACUTE ON CHRONIC HYPOXIC RESPIRATORY FAILURE secondary to above Patient uses 2 L NC continuous and 4 L NC with ambulation. Patient is 94% on 4 L NC. Secondary to above Wean off oxygen accordingly back to usual baseline of 2 L nasal cannula A FLUTTER WITH RVR Patient found to be a flutter with rates in the 150s by EMS this morning, was given 10 mg Cardizem in route. Patient has since converted to sinus rhythm in ER. He remains in sinus rhythm so far Continue metoprolol 25 mg twice daily continue Lovenox Monitor WEAKNESS Worsening generalized weakness, Likely secondary to dehydration, deconditioning. No focal deficits noted on exam. Urine cultures negative -PT/OT eval MICROSCOPIC HEMATURIA - monitor HISTORY SPINDLE CELL LUNG CARCINOMA Follows with Dr. Estevez. Was treated with chemo and radiation. Currently on Keytruda Discussed with Dr. Estevez, plan to hold he treated for now Follow-up with Dr. Estevez next week as scheduled CHRONIC THROMBUS LEFT POPLITEAL VEIN Patient denies any increased lower extremity edema or lower extremity pain. Patient on Lovenox -- anti Xa level elevated thus, pharmacist recommending to reduce dose from 100mg BID to 90mg daily monitor CHRONIC ANEMIA Hgb: 10 (approximate baseline). No active bleeding -Monitor H&H DM II H A1c 6.3 on 11/2017. Glucose: 133 in ER -Hold glimepiride -novolog sliding scale per protocol Pharmacy glycemic control consulted as patient is on high-dose steroids HTN Stable -continue metoprolol HLD -Continue statin DVT Prophylaxis -Pt on therapeutic dose Lovenox for known LLE DVT Disposition Pending PT OT evaluation and progress Possible transition to inpatient rehab or penitentiary facility when cleared by pulmonary Continued [facility] stay due to: abnormal vital signs Current Inpatient Medications: Current Inpatient Medications Medications (Trade) Dose Ordered Sig/Mert Route Start Time Stop Time Status Last Admin Dose Admin Acetaminophen (Tylenol Tab) 650 mg Q4H PRN PO 02/06/18 14:15 03/08/18 14:14 Ondansetron HCl (Zofran Inj) 4 mg Q6H PRN IV 02/06/18 14:15 03/08/18 14:14 Nitroglycerin (Nitrostat Tab) 0.4 mg UD PRN SL 02/06/18 14:15 03/08/18 14:14 Polyethylene (Miralax Powder Packet) 17 gm DAILY PRN PO 02/06/18 14:15 03/08/18 14:14 Miscellaneous (Iv Fluids Completed) 1 ea PRN PRN N/A 4/16/18 14:30 02/06/19 14:29 Miscellaneous Information (Consult) 1 ea UD PRN N/A 02/06/18 14:45 03/08/18 14:44 Allopurinol (Zyloprim Tab) 300 mg DAILY PO 02/07/18 09:00 03/09/18 08:59 02/10/18 08:38 300 MG Aspirin (Ecotrin Tab) 81 mg DAILY PO 02/07/18 09:00 03/09/18 08:59 02/10/18 08:38 81 MG Atorvastatin Calcium (Lipitor Tab) 20 mg DAILY PO 02/07/18 09:00 03/09/18 08:59 02/10/18 08:38 20 MG Cholecalciferol (Vitamin D Tab) 1,000 inter.unit DAILY PO 02/07/18 09:00 03/09/18 08:59 02/10/18 08:38 1,000 INTER.UNIT Metoprolol Tartrate (Lopressor Tab) 25 mg BID PO 02/06/18 21:00 03/08/18 20:59 02/10/18 08:38 25 MG Mirtazapine (Remeron Tab) 15 mg HS PO 02/06/18 21:00 03/08/18 20:59 02/09/18 21:06 15 MG Multivitamins/ Minerals (Multivitamin W/ Minerals Tab) 1 tab DAILY PO 02/07/18 09:00 03/09/18 08:59 02/10/18 08:38 1 TAB Senna/Docusate Sodium (Senokot S Tab) 1 tab BID PRN PO 02/06/18 14:45 03/08/18 14:44 02/06/18 21:50 1 TAB Insulin Aspart (novoLOG ASPART) SLIDING SCALE If C... ACHS SC 02/06/18 16:00 03/08/18 15:59 02/10/18 17:32 3 UNITS Glucose (Glucose 40% Gel) 15-30 GRAMS 15 GRAMS... UD PRN PO 02/06/18 14:45 03/08/18 14:44 Glucose (Glucose Chew Tab) 4-8 Tablets 4 Tabl... UD PRN PO 02/06/18 14:45 03/08/18 14:44 Dextrose (Dextrose 50% 50ML Syringe) 25-50ML OF 50% DW IV FOR... UD PRN IV 02/06/18 14:45 03/08/18 14:44 Glucagon (Glucagon Inj) 1 mg UD PRN SQ 02/06/18 14:45 03/08/18 14:44 Piperacillin Sod/ Tazobactam Sod 3.375 gm/Dextrose 115 ml @ 28.75 mls/ hr Q8H IV 02/06/18 18:00 02/13/18 17:59 02/10/18 10:21 28.75 MLS/HR Miscellaneous Information (Consult Glycemic Management Pharmacy) 1 ea UD PRN N/A 02/07/18 08:28 03/09/18 08:27 Enteral Nutritional Formula (Boost Glucose Control) 1 can BIDM PO 02/07/18 16:45 03/09/18 16:44 02/07/18 17:34 1 CAN Insulin Glargine (Lantus Solostar Pen) 22 units BID SC 02/08/18 09:00 02/10/18 23:59 02/10/18 17:32 22 UNITS Enoxaparin Sodium (Lovenox Inj) 90 mg Q24H SQ 02/10/18 09:00 03/12/18 08:59 02/10/18 08:38 90 MG Prednisone (PredniSONE TAB) 60 mg DAILY PO 02/10/18 12:00 03/12/18 11:59 02/10/18 12:33 60 MG Insulin Glargine (Lantus Solostar Pen) 30 units QAM SC 02/11/18 09:00 03/13/18 08:59
--- NOTE | 2018-02-10 18:32 | Pulmonology Progress Note ---
Pulmonary Progress Note Date of Service Feb 10, 2018. Attending Dr. Donita Nolan The patient continued to improve clinically, he denies any increased shortness of breath, minimal cough and no sputum production, no hemoptysis was reported. He is ambulatory with minimal oxygen. Objective Physical exam of 02/07/2018 revealed vital signs stable, his O2 saturation 91% on 5 L via nasal cannula, no oral thrush, S1-S2 regular rate and rhythm, distant breath sounds with crackles and egophony on the left side. Abdomen is benign. No edema in the periphery. Most recent data revealed stable labs, no new imaging other than the previous CAT scan from yesterday which showed multiple areas of consolidation and left hilar mass. Small pleural effusion bilaterally at the bases. Physical exam on 02/08/2018 showed vital signs stable, saturation of 95% on 5 L, S1-S2 regular rate and rhythm, egophony on the left, otherwise minimal crackles on the right. His physical exam of 02/09/2018 revealed stable vital signs, his O2 sat is 100% on 4 L nasal cannula, he was ambulatory, heart examination S1-S2 regular rate and rhythm, he does have egophony in the left upper and crackles at the bases, abdomen is benign, trace edema in the periphery. Laboratory was reviewed which showed leukocytosis secondary to steroids, the rest of his labs appeared similar. Physical exam on 02/10/2018 revealed stable vital signs, O2 saturation 95% on 2 L , scattered rhonchi with minimal crackles at the bases, the egophony resolved, heart examination S1-S2 regular rate and rhythm, abdomen is benign, no edema. His chest x-ray also was reviewed which revealed improvement in infiltrates bilaterally. Persistent perihilar infiltrate on the left and basilar infiltrate as well. Assessment & Plan 1. Acute lung injury, drug-induced , most likely inflammatory, less likely to be infectious. 2. 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 3. 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 4. Chronic respiratory failure on home O2. 5. Chronic PE anticoagulated with Lovenox. 6. Dysphagia could be related to recent radiation therapy. Plan: 1. The patient completed 3 days of high-dose steroids, I will change him to prednisone 60 mg p.o. daily. He should taper by 20 mg every 2 weeks until he reached a dose of 20 mg daily. 2. Broad-spectrum antibiotic for at least 72 hours prior to De-escalate to oral antibiotics. Augmentin 875 mg p.o. twice daily should be adequate. 3. Modified barium swallow will be helpful in this patient. Speech pathology consult appreciated. Patient remains at risk for aspiration. Thickened fluid has been given. 4. Out of bed and ambulate the patient if possible with oxygen. 5. No significant positive cultures. The presence of gram-negative most likely contaminant on the microbiology. 6. If all cultures are negative after 72 hours, the patient can be changed to oral antibiotic as above. 7. Continue with Lovenox full dose for life. 8. Appreciate all consults input. 9. He will need home O2. Thank you, will follow. Data Medications: Current Inpatient Medications Medications (Trade) Dose Ordered Sig/Mert Route Start Time Stop Time Status Last Admin Dose Admin Acetaminophen (Tylenol Tab) 650 mg Q4H PRN PO 02/06/18 14:15 03/08/18 14:14 Ondansetron HCl (Zofran Inj) 4 mg Q6H PRN IV 02/06/18 14:15 03/08/18 14:14 Nitroglycerin (Nitrostat Tab) 0.4 mg UD PRN SL 02/06/18 14:15 03/08/18 14:14 Polyethylene (Miralax Powder Packet) 17 gm DAILY PRN PO 02/06/18 14:15 03/08/18 14:14 Miscellaneous (Iv Fluids Completed) 1 ea PRN PRN N/A 02/06/18 14:30 02/06/19 14:29 Miscellaneous Information (Consult) 1 ea UD PRN N/A 02/06/18 14:45 03/08/18 14:44 Allopurinol (Zyloprim Tab) 300 mg DAILY PO 02/07/18 09:00 03/09/18 08:59 02/10/18 08:38 300 MG Aspirin (Ecotrin Tab) 81 mg DAILY PO 02/07/18 09:00 03/09/18 08:59 02/10/18 08:38 81 MG Atorvastatin Calcium (Lipitor Tab) 20 mg DAILY PO 02/07/18 09:00 03/09/18 08:59 02/10/18 08:38 20 MG Cholecalciferol (Vitamin D Tab) 1,000 inter.unit DAILY PO 02/07/18 09:00 03/09/18 08:59 02/10/18 08:38 1,000 INTER.UNIT Metoprolol Tartrate (Lopressor Tab) 25 mg BID PO 02/06/18 21:00 03/08/18 20:59 02/10/18 08:38 25 MG Mirtazapine (Remeron Tab) 15 mg HS PO 02/06/18 21:00 03/08/18 20:59 02/09/18 21:06 15 MG Multivitamins/ Minerals (Multivitamin W/ Minerals Tab) 1 tab DAILY PO 02/07/18 09:00 03/09/18 08:59 02/10/18 08:38 1 TAB Senna/Docusate Sodium (Senokot S Tab) 1 tab BID PRN PO 02/06/18 14:45 03/08/18 14:44 02/06/18 21:50 1 TAB Insulin Aspart (novoLOG ASPART) SLIDING SCALE If C... ACHS SC 02/06/18 16:00 03/08/18 15:59 02/10/18 17:32 3 UNITS Glucose (Glucose 40% Gel) 15-30 GRAMS 15 GRAMS... UD PRN PO 02/06/18 14:45 03/08/18 14:44 Glucose (Glucose Chew Tab) 4-8 Tablets 4 Tabl... UD PRN PO 02/06/18 14:45 03/08/18 14:44 Dextrose (Dextrose 50% 50ML Syringe) 25-50ML OF 50% DW IV FOR... UD PRN IV 02/06/18 14:45 03/08/18 14:44 Glucagon (Glucagon Inj) 1 mg UD PRN SQ 02/06/18 14:45 03/08/18 14:44 Piperacillin Sod/ Tazobactam Sod 3.375 gm/Dextrose 115 ml @ 28.75 mls/ hr Q8H IV 02/06/18 18:00 02/13/18 17:59 02/10/18 10:21 28.75 MLS/HR Miscellaneous Information (Consult Glycemic Management Pharmacy) 1 ea UD PRN N/A 02/07/18 08:28 5/17/18 08:27 Enteral Nutritional Formula (Boost Glucose Control) 1 can BIDM PO 02/07/18 16:45 03/09/18 16:44 02/07/18 17:34 1 CAN Insulin Glargine (Lantus Solostar Pen) 22 units BID SC 02/08/18 09:00 02/10/18 23:59 02/10/18 17:32 22 UNITS Enoxaparin Sodium (Lovenox Inj) 90 mg Q24H SQ 02/10/18 09:00 03/12/18 08:59 02/10/18 08:38 90 MG Prednisone (PredniSONE TAB) 60 mg DAILY PO 02/10/18 12:00 03/12/18 11:59 02/10/18 12:33 60 MG Insulin Glargine (Lantus Solostar Pen) 30 units QAM SC 02/11/18 09:00 03/13/18 08:59 I & O: 24-Hour Column 02/11/18 08:00 Intake Total 838 ml Output Total 200 ml Balance 638 ml Vital Signs: Date Time Temp Pulse Resp B/P (MAP) Pulse Ox O2 Delivery O2 Flow Rate FiO2 02/10/18 16:00 95 Nasal Cannula 3.0 02/10/18 15:28 36.4 55 16 130/61 (84) 99 Nasal Cannula 3.5 100 02/10/18 12:00 95 Nasal Cannula 3.0 02/10/18 11:54 36.7 50 19 143/71 (95) 95 Nasal Cannula 4.0 02/10/18 08:00 98 Nasal Cannula 4.0 02/10/18 07:56 36.3 61 18 148/86 (106) 98 Nasal Cannula 4.0 02/10/18 04:41 36.4 50 16 136/67 (90) 98 Nasal Cannula 4.0 02/10/18 04:00 100 Nasal Cannula 4.0 02/10/18 00:05 36.3 48 18 137/72 (93) 100 Nasal Cannula 4.0 02/09/18 23:59 100 Nasal Cannula 4.0 02/09/18 20:00 96 Nasal Cannula 4.0 100 02/09/18 19:09 36.9 75 24 120/57 (78) 96 02/09/18 18:58 36.3 59 20 137/64 (88) 98 Nasal Cannula 4.0 100 Laboratory Results: Last 24 Hours Test 02/09/18 19:57 02/10/18 00:57 02/10/18 05:08 02/10/18 07:00 Bedside Glucose 221 mg/dl 149 mg/dl 120 mg/dl 107 mg/dl Test 02/10/18 10:36 02/10/18 11:18 02/10/18 16:08 White Blood Count 17.36 K/uL Red Blood Count 3.78 M/uL Hemoglobin 9.7 g/dL Hematocrit 32.2 % Mean Corpuscular Volume 85.2 fL Mean Corpuscular Hemoglobin 25.7 pg Mean Corpuscular Hemoglobin Concent 30.1 g/dl Platelet Count 559 K/uL Mean Platelet Volume 8.7 fL Neutrophils (%) (Auto) 92.6 % Lymphocytes (%) (Auto) 3.5 % Monocytes (%) (Auto) 1.7 % Eosinophils (%) (Auto) 0.1 % Basophils (%) (Auto) 0.1 % Neutrophils # (Auto) 16.11 K/uL Lymphocytes # (Auto) 0.60 K/uL Monocytes # (Auto) 0.29 K/uL Eosinophils # (Auto) 0.01 K/uL Basophils # (Auto) 0.01 K/uL RDW Standard Deviation 63.9 fL RDW Coefficient of Variation 20.5 % Immature Granulocyte % (Auto) 2.0 % Immature Granulocyte # (Auto) 0.34 K/uL Anisocytosis PRESENT Sodium Level 143 mmol/L Potassium Level 3.8 mmol/L Chloride Level 112 mmol/L Carbon Dioxide Level 30 mmol/L Anion Gap 1.0 mmol/L Blood Urea Nitrogen 33 mg/dl Creatinine 1.11 mg/dl Est Creatinine Clear Calc Drug Dose 56.3 ml/min Estimated GFR () 70.3 Estimated GFR (Non- 60.7 BUN/Creatinine Ratio 29.9 Random Glucose 139 mg/dl Calcium Level 9.1 mg/dl Bedside Glucose 123 mg/dl 117 mg/dl
--- NOTE | 2018-02-10 19:30 | Infectious Disease Progress Nt ---
Progress Note Date of Service Feb 10, 2018. Subjective Pt evaluation today including: conversation w/ patient, conversation w/ family , physical exam, chart review, lab review, review of studies, conversation w/ employee relations consultant, review of inpatient medication list Patient feeling better with less shortness of breath. Remains afebrile. Tolerating antibiotics without apparent difficulty. All Other Systems: Reviewed and Negative Medications Current Inpatient Medications Medications (Trade) Dose Ordered Sig/Mert Route Start Time Stop Time Status Last Admin Dose Admin Acetaminophen (Tylenol Tab) 650 mg Q4H PRN PO 02/06/18 14:15 03/08/18 14:14 Ondansetron HCl (Zofran Inj) 4 mg Q6H PRN IV 02/06/18 14:15 03/08/18 14:14 Nitroglycerin (Nitrostat Tab) 0.4 mg UD PRN SL 02/06/18 14:15 03/08/18 14:14 Polyethylene (Miralax Powder Packet) 17 gm DAILY PRN PO 02/06/18 14:15 03/08/18 14:14 Miscellaneous (Iv Fluids Completed) 1 ea PRN PRN N/A 02/06/18 14:30 02/06/19 14:29 Miscellaneous Information (Consult) 1 ea UD PRN N/A 02/06/18 14:45 03/08/18 14:44 Allopurinol (Zyloprim Tab) 300 mg DAILY PO 02/07/18 09:00 03/09/18 08:59 02/10/18 08:38 300 MG Aspirin (Ecotrin Tab) 81 mg DAILY PO 02/07/18 09:00 03/09/18 08:59 02/10/18 08:38 81 MG Atorvastatin Calcium (Lipitor Tab) 20 mg DAILY PO 02/07/18 09:00 03/09/18 08:59 02/10/18 08:38 20 MG Cholecalciferol (Vitamin D Tab) 1,000 inter.unit DAILY PO 02/07/18 09:00 03/09/18 08:59 02/10/18 08:38 1,000 INTER.UNIT Metoprolol Tartrate (Lopressor Tab) 25 mg BID PO 02/06/18 21:00 03/08/18 20:59 02/10/18 08:38 25 MG Mirtazapine (Remeron Tab) 15 mg HS PO 02/06/18 21:00 03/08/18 20:59 02/09/18 21:06 15 MG Multivitamins/ Minerals (Multivitamin W/ Minerals Tab) 1 tab DAILY PO 02/07/18 09:00 03/09/18 08:59 02/10/18 08:38 1 TAB Senna/Docusate Sodium (Senokot S Tab) 1 tab BID PRN PO 02/06/18 14:45 03/08/18 14:44 02/06/18 21:50 1 TAB Insulin Aspart (novoLOG ASPART) SLIDING SCALE If C... ACHS SC 02/06/18 16:00 03/08/18 15:59 02/10/18 17:32 3 UNITS Glucose (Glucose 40% Gel) 15-30 GRAMS 15 GRAMS... UD PRN PO 02/06/18 14:45 03/08/18 14:44 Glucose (Glucose Chew Tab) 4-8 Tablets 4 Tabl... UD PRN PO 02/06/18 14:45 03/08/18 14:44 Dextrose (Dextrose 50% 50ML Syringe) 25-50ML OF 50% DW IV FOR... UD PRN IV 02/06/18 14:45 03/08/18 14:44 Glucagon (Glucagon Inj) 1 mg UD PRN SQ 02/06/18 14:45 03/08/18 14:44 Piperacillin Sod/ Tazobactam Sod 3.375 gm/Dextrose 115 ml @ 28.75 mls/ hr Q8H IV 02/06/18 18:00 02/13/18 17:59 02/10/18 19:06 28.75 MLS/HR Miscellaneous Information (Consult Glycemic Management Pharmacy) 1 ea UD PRN N/A 02/07/18 08:28 03/09/18 08:27 Enteral Nutritional Formula (Boost Glucose Control) 1 can BIDM PO 02/07/18 16:45 03/09/18 16:44 02/07/18 17:34 1 CAN Insulin Glargine (Lantus Solostar Pen) 22 units BID SC 02/08/18 09:00 02/10/18 23:59 02/10/18 17:32 22 UNITS Enoxaparin Sodium (Lovenox Inj) 90 mg Q24H SQ 02/10/18 09:00 03/12/18 08:59 02/10/18 08:38 90 MG Prednisone (PredniSONE TAB) 60 mg DAILY PO 02/10/18 12:00 03/12/18 11:59 02/10/18 12:33 60 MG Insulin Glargine (Lantus Solostar Pen) 30 units QAM SC 02/11/18 09:00 03/13/18 08:59 Objective Vital Signs Date Time Temp Pulse Resp B/P (MAP) Pulse Ox O2 Delivery O2 Flow Rate FiO2 02/10/18 18:45 36.5 69 19 130/69 (89) 96 Room Air 02/10/18 16:00 95 Nasal Cannula 3.0 02/10/18 15:28 36.4 55 16 130/61 (84) 99 Nasal Cannula 3.5 100 02/10/18 12:00 95 Nasal Cannula 3.0 02/10/18 11:54 36.7 50 19 143/71 (95) 95 Nasal Cannula 4.0 02/10/18 08:00 98 Nasal Cannula 4.0 02/10/18 07:56 36.3 61 18 148/86 (106) 98 Nasal Cannula 4.0 02/10/18 04:41 36.4 50 16 136/67 (90) 98 Nasal Cannula 4.0 02/10/18 04:00 100 Nasal Cannula 4.0 02/10/18 00:05 36.3 48 18 137/72 (93) 100 Nasal Cannula 4.0 02/09/18 23:59 100 Nasal Cannula 4.0 02/09/18 20:00 96 Nasal Cannula 4.0 100 Physical Exam General Appearance: WD/WN, no apparent distress Eyes: normal inspection, EOMI, sclerae normal ENT: normal ENT inspection, hearing grossly normal, pharynx normal Neck: supple, no adenopathy, thyroid normal, trachea midline Respiratory/Chest: chest non-tender, no respiratory distress, no accessory muscle use, + rales Cardiovascular: regular rate, rhythm, no gallop, no murmur Abdomen: normal bowel sounds, non tender, soft, no organomegaly Extremities: non-tender, no calf tenderness, normal capillary refill Neurologic/Psychiatric: alert, normal mood/affect, oriented x 3 Skin: normal color, warm/dry, no rash Lymphatic: no adenopathy Laboratory Results Last 24 Hours Test 02/09/18 19:57 02/10/18 00:57 02/10/18 05:08 02/10/18 07:00 Bedside Glucose 221 mg/dl 149 mg/dl 120 mg/dl 107 mg/dl Test 02/10/18 10:36 02/10/18 11:18 02/10/18 16:08 White Blood Count 17.36 K/uL Red Blood Count 3.78 M/uL Hemoglobin 9.7 g/dL Hematocrit 32.2 % Mean Corpuscular Volume 85.2 fL Mean Corpuscular Hemoglobin 25.7 pg Mean Corpuscular Hemoglobin Concent 30.1 g/dl Platelet Count 559 K/uL Mean Platelet Volume 8.7 fL Neutrophils (%) (Auto) 92.6 % Lymphocytes (%) (Auto) 3.5 % Monocytes (%) (Auto) 1.7 % Eosinophils (%) (Auto) 0.1 % Basophils (%) (Auto) 0.1 % Neutrophils # (Auto) 16.11 K/uL Lymphocytes # (Auto) 0.60 K/uL Monocytes # (Auto) 0.29 K/uL Eosinophils # (Auto) 0.01 K/uL Basophils # (Auto) 0.01 K/uL RDW Standard Deviation 63.9 fL RDW Coefficient of Variation 20.5 % Immature Granulocyte % (Auto) 2.0 % Immature Granulocyte # (Auto) 0.34 K/uL Anisocytosis PRESENT Sodium Level 143 mmol/L Potassium Level 3.8 mmol/L Chloride Level 112 mmol/L Carbon Dioxide Level 30 mmol/L Anion Gap 1.0 mmol/L Blood Urea Nitrogen 33 mg/dl Creatinine 1.11 mg/dl Est Creatinine Clear Calc Drug Dose 56.3 ml/min Estimated GFR () 70.3 Estimated GFR (Non- 60.7 BUN/Creatinine Ratio 29.9 Random Glucose 139 mg/dl Calcium Level 9.1 mg/dl Bedside Glucose 123 mg/dl 117 mg/dl Assessment and Plan 82-year-old male with known lung cancer on chemotherapy status post radiation therapy last year admitted with progressively worsening shortness of breath, weakness and anorexia with weight loss, found to have evidence worsening infiltrations on chest x-ray with swallowing study consistent with possible aspiration. Patient appears to have improved clinically on current antibiotics and steroids, and think that can consider transition to oral Augmentin. Will follow.
[2018-02-10] MEDS: MIRTAZAPINE TAB 15 MG TAB PO SCH (20:32)
[2018-02-11] MEDS: PIPERACILL/TAZOBAC IV 3.375 GM in DEXTROSE 5% 100ML 100 ML IV SCH ×2 (01:53→10:02)
[2018-02-11 03:43] VITALS: BP 128/66; PULSE 49; TEMP 36.3; O2SAT 98
[2018-02-11] MEDS: INSULIN ASPART 100 UNITS/ML 3 ML PEN SC SCH ×4 (07:00→20:27)
[2018-02-11] MEDS: BOOST GLUCOSE CONTROL PO SCH ×2 (07:30→16:45)
[2018-02-11 08:09] VITALS: BP 154/74; PULSE 55; TEMP 36.7; O2SAT 97
[2018-02-11] MEDS ORDERED: INSULIN GLARGINE SOLOSTAR 100 UNITS/ML 3 ML PEN SC SCH (09:00)
[2018-02-11] MEDS: ASPIRIN 81 MG ECTAB PO SCH (09:25)
[2018-02-11] MEDS: ENOXAPARIN 100 MG/1ML SYR SQ SCH (09:26)
[2018-02-11] MEDS: METOPROLOL TARTRATE 25 MG TAB PO SCH ×2 (09:27→20:29)
[2018-02-11] MEDS: ATORVASTATIN 20 MG TAB PO SCH (09:27)
[2018-02-11] MEDS: ALLOPURINOL 300 MG TAB PO SCH (09:27)
[2018-02-11] MEDS: CEROVITE ADV FORMULA TAB PO SCH (09:27)
[2018-02-11] MEDS: CHOLECALCIFEROL 1000 INTER.UNIT TAB PO SCH (09:27)
[2018-02-11 11:44] VITALS: BP 126/79; PULSE 52; TEMP 36.7; O2SAT 98
--- NOTE | 2018-02-11 12:26 | Pulmonology Progress Note ---
Pulmonary Progress Note Date of Service Feb 11, 2018. Attending Dr. Duckworth Subjective The patient continued to do better however he feels more fatigued, no shortness of breath and no persistent cough. No escalation of his symptoms. He did not have any sputum production or hemoptysis. Objective Physical exam of 02/07/2018 revealed vital signs stable, his O2 saturation 91% on 5 L via nasal cannula, no oral thrush, S1-S2 regular rate and rhythm, distant breath sounds with crackles and egophony on the left side. Abdomen is benign. No edema in the periphery. Most recent data revealed stable labs, no new imaging other than the previous CAT scan from yesterday which showed multiple areas of consolidation and left hilar mass. Small pleural effusion bilaterally at the bases. Physical exam on 02/08/2018 showed vital signs stable, saturation of 95% on 5 L, S1-S2 regular rate and rhythm, egophony on the left, otherwise minimal crackles on the right. His physical exam of 02/09/2018 revealed stable vital signs, his O2 sat is 100% on 4 L nasal cannula, he was ambulatory, heart examination S1-S2 regular rate and rhythm, he does have egophony in the left upper and crackles at the bases, abdomen is benign, trace edema in the periphery. Laboratory was reviewed which showed leukocytosis secondary to steroids, the rest of his labs appeared similar. Physical exam on 02/10/2018 revealed stable vital signs, O2 saturation 95% on 2 L , scattered rhonchi with minimal crackles at the bases, the egophony resolved, heart examination S1-S2 regular rate and rhythm, abdomen is benign, no edema. His chest x-ray also was reviewed which revealed improvement in infiltrates bilaterally. Persistent perihilar infiltrate on the left and basilar infiltrate as well. Physical exam on 02/11/2018 revealed vital signs are stable, O2 saturation is still 96% on 2 L, he does have scattered rhonchi bilaterally, S1-S2 systolic ejection murmur, abdomen is benign, no edema. Sitting in a chair comfortably. Most recent labs and a chest x-ray also reviewed which showed improvement in bilateral infiltrates. Assessment & Plan 1. Acute lung injury, drug-induced , most likely inflammatory, less likely to be infectious. 2. 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 3. 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 4. Chronic respiratory failure on home O2. 5. Chronic PE anticoagulated with Lovenox. 6. Dysphagia could be related to recent radiation therapy. Plan: 1. Prednisone 60 mg p.o. daily for 2 weeks then drop it by 20 mg every 2 weeks until reaching the dose of 20 mg daily. 2. Change antibiotics to Augmentin p.o. 3. Appreciate speech pathology input, modified barium swallow consistent with microaspiration. 4. Out of bed and ambulate the patient if possible with oxygen. 5. Patient is interested in knowing the results of his PET scan, appreciate nursing staff obtaining the records, I will review it with him and his . 6. Glucose control. 7. Continue with Lovenox full dose for life. 8. Appreciate all consults input. 9. He will need home O2. 10. Discussed with his and himself and details. Thank you, will follow. Data Medications: Current Inpatient Medications Medications (Trade) Dose Ordered Sig/Mert Route Start Time Stop Time Status Last Admin Dose Admin Acetaminophen (Tylenol Tab) 650 mg Q4H PRN PO 02/06/18 14:15 03/08/18 14:14 Ondansetron HCl (Zofran Inj) 4 mg Q6H PRN IV 02/06/18 14:15 03/08/18 14:14 Nitroglycerin (Nitrostat Tab) 0.4 mg UD PRN SL 02/06/18 14:15 03/08/18 14:14 Polyethylene (Miralax Powder Packet) 17 gm DAILY PRN PO 02/06/18 14:15 03/08/18 14:14 Miscellaneous (Iv Fluids Completed) 1 ea PRN PRN N/A 02/06/18 14:30 02/06/19 14:29 Miscellaneous Information (Consult) 1 ea UD PRN N/A 02/06/18 14:45 03/08/18 14:44 Allopurinol (Zyloprim Tab) 300 mg DAILY PO 02/07/18 09:00 03/09/18 08:59 02/11/18 09:27 300 MG Aspirin (Ecotrin Tab) 81 mg DAILY PO 02/07/18 09:00 03/09/18 08:59 02/11/18 09:25 81 MG Atorvastatin Calcium (Lipitor Tab) 20 mg DAILY PO 02/07/18 09:00 03/09/18 08:59 02/11/18 09:27 20 MG Cholecalciferol (Vitamin D Tab) 1,000 inter.unit DAILY PO 02/07/18 09:00 03/09/18 08:59 02/11/18 09:27 1,000 INTER.UNIT Metoprolol Tartrate (Lopressor Tab) 25 mg BID PO 02/06/18 21:00 03/08/18 20:59 02/11/18 09:27 25 MG Mirtazapine (Remeron Tab) 15 mg HS PO 02/06/18 21:00 03/08/18 20:59 02/10/18 20:32 15 MG Multivitamins/ Minerals (Multivitamin W/ Minerals Tab) 1 tab DAILY PO 02/07/18 09:00 03/09/18 08:59 02/11/18 09:27 1 TAB Senna/Docusate Sodium (Senokot S Tab) 1 tab BID PRN PO 02/06/18 14:45 03/08/18 14:44 02/06/18 21:50 1 TAB Insulin Aspart (novoLOG ASPART) SLIDING SCALE If C... ACHS SC 02/06/18 16:00 03/08/18 15:59 02/10/18 20:33 7 UNITS Glucose (Glucose 40% Gel) 15-30 GRAMS 15 GRAMS... UD PRN PO 02/06/18 14:45 03/08/18 14:44 Glucose (Glucose Chew Tab) 4-8 Tablets 4 Tabl... UD PRN PO 02/06/18 14:45 03/08/18 14:44 Dextrose (Dextrose 50% 50ML Syringe) 25-50ML OF 50% DW IV FOR... UD PRN IV 02/06/18 14:45 03/08/18 14:44 Glucagon (Glucagon Inj) 1 mg UD PRN SQ 02/06/18 14:45 03/08/18 14:44 Piperacillin Sod/ Tazobactam Sod 3.375 gm/Dextrose 115 ml @ 28.75 mls/ hr Q8H IV 02/06/18 18:00 02/13/18 17:59 02/11/18 10:02 28.75 MLS/HR Miscellaneous Information (Consult Glycemic Management Pharmacy) 1 ea UD PRN N/A 02/07/18 08:28 03/09/18 08:27 Enteral Nutritional Formula (Boost Glucose Control) 1 can BIDM PO 02/07/18 16:45 03/09/18 16:44 02/07/18 17:34 1 CAN Enoxaparin Sodium (Lovenox Inj) 90 mg Q24H SQ 02/10/18 09:00 03/12/18 08:59 02/11/18 09:26 90 MG Prednisone (PredniSONE TAB) 60 mg DAILY PO 02/10/18 12:00 03/12/18 11:59 02/11/18 09:27 60 MG Insulin Glargine (Lantus Solostar Pen) 30 units QAM SC 02/11/18 09:00 03/13/18 08:59 Future Hold Vital Signs: Date Time Temp Pulse Resp B/P (MAP) Pulse Ox O2 Delivery O2 Flow Rate FiO2 02/11/18 11:44 36.7 52 19 126/79 (95) 98 Nasal Cannula 3.0 02/11/18 08:09 36.7 55 18 154/74 (100) 97 Nasal Cannula 3.0 02/11/18 08:00 Nasal Cannula 3.0 02/11/18 04:00 Nasal Cannula 3.0 02/11/18 03:43 36.3 49 20 128/66 (86) 98 Nasal Cannula 3.0 02/11/18 00:00 Nasal Cannula 3.0 02/10/18 23:40 36.3 46 16 123/64 (83) 99 Nasal Cannula 3.0 02/10/18 20:00 Nasal Cannula 3.0 02/10/18 18:45 36.5 69 19 130/69 (89) 96 Room Air 02/10/18 16:00 95 Nasal Cannula 3.0 02/10/18 15:28 36.4 55 16 130/61 (84) 99 Nasal Cannula 3.5 100 Laboratory Results: Last 24 Hours Test 02/10/18 16:08 02/10/18 20:19 02/11/18 07:06 02/11/18 07:42 Bedside Glucose 117 mg/dl 274 mg/dl 69 mg/dl 76 mg/dl Test 02/11/18 09:22 02/11/18 11:04 Bedside Glucose 86 mg/dl 72 mg/dl
--- NOTE | 2018-02-11 13:04 | Progress Note ---
Medicine Progress Note Date & Time of Visit: Feb 11, 2018 at 12:59. Subjective resting in bed, comfortable in good spirits states he has somewhat more dyspnea on exertion today has occasional dry cough with talking appetite good, alert/oriented x 3 no other symptoms Objective Last 8 Hrs Date Time Temp Pulse Resp B/P (MAP) Pulse Ox O2 Delivery O2 Flow Rate FiO2 02/11/18 11:44 36.7 52 19 126/79 (95) 98 Nasal Cannula 3.0 02/11/18 08:09 36.7 55 18 154/74 (100) 97 Nasal Cannula 3.0 02/11/18 08:00 Nasal Cannula 3.0 Physical Exam: General-oriented 3, not in distress, speaking sentences no accessory muscle use Eyes- anicteric Neck-no JVD Lungs- decreased breath sounds bilaterally, occasional rales no wheezing Heart- regular rhythm; grade 2 out of 6 murmur, normal rate Abdomen- normal bowel sounds, soft, nontender, nondistended Extremities- no pretibial edema, no calf tenderness Neuro- alert, oriented x 3; no gross neurologic deficits Skin- warm & dry Laboratory Results: Last 24 Hours Test 02/10/18 16:08 02/10/18 20:19 02/11/18 07:06 02/11/18 07:42 Bedside Glucose 117 mg/dl 274 mg/dl 69 mg/dl 76 mg/dl Test 02/11/18 09:22 02/11/18 11:04 Bedside Glucose 86 mg/dl 72 mg/dl Assessment & Plan Hemoglobin 9, monitor 82-year-old, male, with lung cancer on chemo and radiation , diabetes type 2, hypertension Presenting with low oxygen saturation. ACUTE LUNG INJURY, CHEMO VERSUS RADIATION RELATED COMPONENT OF ASPIRATION PNEUMONIA CXR: Bibasilar parenchymal infiltrates, Slight improvement in aeration left lung base, Slight increase in parenchymal infiltrative change right base. WBC: 11.6. 94% on 4 L NC, R: 22. POC lactic acid: 1.4. Patient given Levaquin, Zosyn, vancomycin, 250 mL bolus and 150 mL/h NSS in ER. - CT chest: 1. Significant interval worsening of consolidation in the right lung since the prior exam. The predominantly peripheral wedgelike regions of solid consolidation could suggest pulmonary infarcts though no acute pulmonary emboli are evident allowing for the significantly degraded evaluation due to respiratory motion artifact. Alternatively, increased opacities could represent worsened infection. 2. Chronic left lung consolidation with bronchiectatic change. Underlying infection is difficult to exclude. -Blood cultures: Positive for 1 out of 2 bottles-bacillus likely contaminant -Sputum culture: Pending collection Pulmonary consulted still has some dyspnea, now at 3 L via NC on Solu-Medrol IV 80 mg every 6 hours--> changed to Prednisone 60mg po daily Continue Zosyn day #6/7 Continue to monitor response Appreciate pulmonary service recommendations Speech therapy evaluation ordered, status post video swallow evaluation: Showing aspiration with thin liquids [place] thick liquid ordered ACUTE ON CHRONIC HYPOXIC RESPIRATORY FAILURE secondary to above Patient uses 2 L NC continuous and 4 L NC with ambulation. Patient is 94% on 4 L NC. Secondary to above Wean off oxygen accordingly back to usual baseline of 2 L nasal cannula A FLUTTER WITH RVR Patient found to be a flutter with rates in the 150s by EMS this morning, was given 10 mg Cardizem in route. Patient has since converted to sinus rhythm in ER. He remains in sinus rhythm so far Continue metoprolol 25 mg twice daily continue Lovenox Monitor WEAKNESS Worsening generalized weakness, Likely secondary to dehydration, deconditioning. No focal deficits noted on exam. Urine cultures negative -PT/OT eval MICROSCOPIC HEMATURIA - monitor HISTORY SPINDLE CELL LUNG CARCINOMA Follows with Dr. Estevez. Was treated with chemo and radiation. Currently on Keytruda Discussed with Dr. Estevez, plan to hold Keytruda for now Follow-up with Dr. Estevez next week as scheduled CHRONIC THROMBUS LEFT POPLITEAL VEIN Patient denies any increased lower extremity edema or lower extremity pain. Patient on Lovenox -- anti Xa level elevated thus, pharmacist recommending to reduce dose from 100mg BID to 90mg daily monitor CHRONIC ANEMIA Hgb: 10 (approximate baseline). No active bleeding -Monitor H&H DM II H A1c 6.3 on 11/2017. Glucose: 133 in ER -Hold glimepiride -novolog sliding scale per protocol Pharmacy glycemic control consulted as patient is on high-dose steroids HTN Stable -continue metoprolol HLD -Continue statin DVT Prophylaxis -Pt on therapeutic dose Lovenox for known LLE DVT Disposition Pending PT OT evaluation and progress Possible transition to inpatient rehab or half-way facility when cleared by pulmonary Continued [facility] stay due to: abnormal vital signs Current Inpatient Medications: Current Inpatient Medications Medications (Trade) Dose Ordered Sig/Mert Route Start Time Stop Time Status Last Admin Dose Admin Acetaminophen (Tylenol Tab) 650 mg Q4H PRN PO 02/06/18 14:15 03/08/18 14:14 Ondansetron HCl (Zofran Inj) 4 mg Q6H PRN IV 02/06/18 14:15 03/08/18 14:14 Nitroglycerin (Nitrostat Tab) 0.4 mg UD PRN SL 02/06/18 14:15 03/08/18 14:14 Polyethylene (Miralax Powder Packet) 17 gm DAILY PRN PO 02/06/18 14:15 03/08/18 14:14 Miscellaneous (Iv Fluids Completed) 1 ea PRN PRN N/A 02/06/18 14:30 02/06/19 14:29 Allopurinol (Zyloprim Tab) 300 mg DAILY PO 02/07/18 09:00 03/09/18 08:59 02/11/18 09:27 300 MG Aspirin (Ecotrin Tab) 81 mg DAILY PO 02/07/18 09:00 03/09/18 08:59 02/11/18 09:25 81 MG Atorvastatin Calcium (Lipitor Tab) 20 mg DAILY PO 02/07/18 09:00 03/09/18 08:59 02/11/18 09:27 20 MG Cholecalciferol (Vitamin D Tab) 1,000 inter.unit DAILY PO 02/07/18 09:00 03/09/18 08:59 02/11/18 09:27 1,000 INTER.UNIT Metoprolol Tartrate (Lopressor Tab) 25 mg BID PO 02/06/18 21:00 03/08/18 20:59 02/11/18 09:27 25 MG Mirtazapine (Remeron Tab) 15 mg HS PO 02/06/18 21:00 03/08/18 20:59 02/10/18 20:32 15 MG Multivitamins/ Minerals (Multivitamin W/ Minerals Tab) 1 tab DAILY PO 02/07/18 09:00 03/09/18 08:59 02/11/18 09:27 1 TAB Senna/Docusate Sodium (Senokot S Tab) 1 tab BID PRN PO 02/06/18 14:45 03/08/18 14:44 02/06/18 21:50 1 TAB Insulin Aspart (novoLOG ASPART) SLIDING SCALE If C... ACHS SC 02/06/18 16:00 03/08/18 15:59 02/10/18 20:33 7 UNITS Glucose (Glucose 40% Gel) 15-30 GRAMS 15 GRAMS... UD PRN PO 02/06/18 14:45 03/08/18 14:44 Glucose (Glucose Chew Tab) 4-8 Tablets 4 Tabl... UD PRN PO 02/06/18 14:45 03/08/18 14:44 Dextrose (Dextrose 50% 50ML Syringe) 25-50ML OF 50% DW IV FOR... UD PRN IV 02/06/18 14:45 03/08/18 14:44 Glucagon (Glucagon Inj) 1 mg UD PRN SQ 02/06/18 14:45 03/08/18 14:44 Miscellaneous Information (Consult Glycemic Management Pharmacy) 1 ea UD PRN N/A 02/07/18 08:28 03/09/18 08:27 Enteral Nutritional Formula (Boost Glucose Control) 1 can BIDM PO 02/07/18 16:45 03/09/18 16:44 02/07/18 17:34 1 CAN Enoxaparin Sodium (Lovenox Inj) 90 mg Q24H SQ 02/10/18 09:00 03/12/18 08:59 02/11/18 09:26 90 MG Prednisone (PredniSONE TAB) 60 mg DAILY PO 02/10/18 12:00 03/12/18 11:59 02/11/18 09:27 60 MG Insulin Glargine (Lantus Solostar Pen) 30 units QAM SC 02/11/18 09:00 03/13/18 08:59 Future Hold Amoxicillin/ Clavulanate Potassium (Augmentin Tab) 875 mg BIDM PO 02/11/18 16:45 02/18/18 16:44
--- NOTE | 2018-02-11 13:30 | Pharmacy Progress Note ---
Pharmacy Glycemic Short Note 2 Date of Service Feb 11, 2018. OUTPATIENT ANTIDIABETIC REGIMEN: * Metformin 500mg PO daily * Amaryl 2mg PO daily * HbA1c = 6.1% on 02/08/18 Item Value Date Time Bedside Glucose 107 mg/dl H 02/10/18 0700 Bedside Glucose 123 mg/dl H 02/10/18 1118 Bedside Glucose 117 mg/dl H 02/10/18 1608 Bedside Glucose 274 mg/dl H 02/10/18 2019 Bedside Glucose 69 mg/dl *L 02/11/18 0706 Bedside Glucose 76 mg/dl 02/11/18 0742 Bedside Glucose 86 mg/dl 02/11/18 0922 Bedside Glucose 72 mg/dl 02/11/18 1104 ASSESSMENT: * Steroids tapered from RTC solumedrol to prednisone 60mg PO daily. BSGs/ hyperglycemia improved with this step down in steroid dosing. * BSGs have been below goal range this morning & PO intake has been minimal per RN. * Last dose of Lantus was 22 units last evening. Pt received 44 units of basal insulin yesterday. Will hold basal insulin until BSG >140 mg/dl. Utilize NovoLog Q4hrs while basal insulin on hold. * Pt may not need basal insulin based on A1c PLAN FOR INPATIENT GLYCEMIC CONTROL: * Hold outpatient oral diabetes medications * Basal insulin * HOLD for below goal range BSGs * Resume in AM if BSG >140 mg/dl * Bolus insulin: loosen parameters * NovoLog per scale ACHS or Q6hrs while NPO * Goal Range: Low 110 mg/dL - High 140 mg/dL * Correction Factor: 25 mg/dL/unit * Nutritional / Prandial insulin per carb ratio of 1 unit per 8 grams CHO consumed * Reassess insulin doses with each step down in steroid dose PLAN FOR DISCHARGE: * A1c indicates good control with out-pt regimen; would recommend resuming home meds on discharge
[2018-02-11 15:52] VITALS: BP 135/70; PULSE 53; TEMP 36.3; O2SAT 100
[2018-02-11] MEDS: AMOXICILLIN/CLAVULANATE TAB 875 MG TAB PO SCH (17:54)
[2018-02-11 19:23] VITALS: BP 141/67; PULSE 57; TEMP 36.4; O2SAT 99
[2018-02-11] MEDS: MIRTAZAPINE TAB 15 MG TAB PO SCH (20:29)
[2018-02-11 22:55] VITALS: BP 143/67; PULSE 51; TEMP 36.3; O2SAT 99
[2018-02-12] VITALS: BP 140/68; PULSE 50; TEMP 36.2; O2SAT 100
[2018-02-12 03:17] VITALS: BP 136/104; PULSE 51; TEMP 36.3; O2SAT 97
[2018-02-12] MEDS: INSULIN ASPART 100 UNITS/ML 3 ML PEN SC SCH ×5 (04:00→16:15)
[2018-02-12 06:46] LABS: HEMATOCRIT 34.6 % (42-52); HEMOGLOBIN 10.2 g/dL (14.0-18.0); MEAN CELL VOLUME 85.6 fL (80-100); MEAN CORPUSCULAR HEMOGLOBIN 25.2 pg (25-34); MEAN CORPUSCULAR HGB CONC 29.5 g/dl (32-36); MEAN PLATELET VOLUME 8.8 fL (7.4-10.4); NUCLEATED RED BLOOD CELL ABS 0.18 K/uL (0-0); PLATELET COUNT 554 K/uL (130-400); RED CELL DISTRIBUTION WIDTH CV 20.9 % (11.5-14.5); WHITE BLOOD COUNT 18.46 K/uL (4.8-10.8)
[2018-02-12 07:13] LABS: CREATININE 0.89 mg/dl (0.60-1.40)
[2018-02-12] MEDS: BOOST GLUCOSE CONTROL PO SCH ×2 (07:30→16:45)
[2018-02-12 07:38] VITALS: BP 140/68; PULSE 54; TEMP 36.3; O2SAT 98
[2018-02-12] MEDS: ENOXAPARIN 100 MG/1ML SYR SQ SCH (08:43)
[2018-02-12] MEDS: AMOXICILLIN/CLAVULANATE TAB 875 MG TAB PO SCH ×2 (08:43→17:10)
[2018-02-12] MEDS: ATORVASTATIN 20 MG TAB PO SCH (08:43)
[2018-02-12] MEDS: ALLOPURINOL 300 MG TAB PO SCH (08:43)
[2018-02-12] MEDS: ASPIRIN 81 MG ECTAB PO SCH (08:43)
[2018-02-12] MEDS: CHOLECALCIFEROL 1000 INTER.UNIT TAB PO SCH (08:43)
[2018-02-12] MEDS: CEROVITE ADV FORMULA TAB PO SCH (08:43)
[2018-02-12] MEDS: METOPROLOL TARTRATE 25 MG TAB PO SCH ×2 (09:00→20:41)
[2018-02-12 11:49] VITALS: BP 145/65; PULSE 62; TEMP 36.3; O2SAT 95
--- NOTE | 2018-02-12 12:09 | Pharmacy Progress Note ---
Pharmacy Glycemic Short Note 2 Date of Service Feb 12, 2018. OUTPATIENT ANTIDIABETIC REGIMEN: * Metformin 500mg PO daily * Amaryl 2mg PO daily * HbA1c = 6.1% on 02/08/18 Item Value Date Time Bedside Glucose 107 mg/dl H 02/10/18 0700 Bedside Glucose 123 mg/dl H 02/10/18 1118 Bedside Glucose 117 mg/dl H 02/10/18 1608 Bedside Glucose 274 mg/dl H 02/10/18 2019 Bedside Glucose 69 mg/dl *L 02/11/18 0706 Bedside Glucose 76 mg/dl 02/11/18 0742 Bedside Glucose 86 mg/dl 02/11/18 0922 Bedside Glucose 72 mg/dl 02/11/18 1104 Bedside Glucose 79 mg/dl 02/11/18 1621 Bedside Glucose 109 mg/dl H 02/11/182015 Bedside Glucose 78 mg/dl 02/12/18 0014 Bedside Glucose 55 mg/dl *L 02/12/18 0406 This could just be a "normal BSG" since A1c = 6.1% Bedside Glucose 65 mg/dl *L 02/12/18 0428 This could just be a "normal BSG" since A1c = 6.1% Bedside Glucose 108 mg/dl H 02/12/18 0515 Bedside Glucose 177 mg/dl H 02/12/18 0622 Bedside Glucose 167 mg/dl H 02/12/18 1025 Bedside Glucose 149 mg/dl H 02/12/18 1115 ASSESSMENT: * Steroids tapered from RTC solumedrol to prednisone 60mg PO daily. BSGs/ hyperglycemia improved with this step down in steroid dosing. Zero units of insulin given over the past 24hrs * Pt with "low" BSG overnight at 0400. This could have just been a "normal" overnight BSG since A1c is low. No insulin given the in previous 24hrs from this hypo. * BSGs have been running "lower" despite prednisone administration. Glucocorticoids have their most profound effect on post-prandial hyperglycemia, therefore, we may not be seeing the BSG effects of prednisone since PO intake is so minimal. * Will continue to hold basal insulin --> likely not needed based on A1c and once daily prednisone given in the morning only * Increase goal range for correctional insulin to prevent hypo and loosen CF/ CR parameters * STOP HS check/coverage of NovoLog, not needed and we may be correcting a "normal" BSG PLAN FOR INPATIENT GLYCEMIC CONTROL: * Hold outpatient oral diabetes medications * Basal insulin * D/C basal insulin * May consider resuming if BSG >180 mg/dl * Bolus insulin: loosen parameters * NovoLog per scale ACHS or Q6hrs while NPO * Goal Range: Low 110 mg/dL - High 180 mg/dL * Correction Factor: 30 mg/dL/unit * Nutritional / Prandial insulin per carb ratio of 1 unit per 10 grams CHO consumed * Reassess insulin doses with each step down in steroid dose PLAN FOR DISCHARGE: * A1c indicates good control with out-pt regimen; would recommend resuming home meds on discharge
--- NOTE | 2018-02-12 13:03 | Critical Care Progress Note ---
Critical Care Progress Note Date of Service Feb 12, 2018. Attending Dr. Duckworth Subjective The patient is feeling better, his respiratory status is extremely improved, the patient is off and on oxygen, he is ambulatory to the bathroom. The patient did not have any cough with sputum production no hemoptysis. No chest pain no nausea or vomiting. The rest of his review of system was unremarkable. No dysplasia and tolerating oral intake. Appetite has improved significantly. Objective Physical exam on 02/12/2018 revealed stable vital signs, no fever, heart examination S1-S2 regular rate and rhythm, distant breath sounds with scattered crackles. Bilaterally, abdomen is benign, trace edema in the periphery. His laboratory showed mild hyperglycemia and leukocytosis secondary to steroids. Assessment & Plan 1. Acute lung injury secondary to chemotherapy versus Keytruda, less likely to be radiation pneumonitis. 2. 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 3. History of PE and now on Lovenox full dose 90 mg every 12 hours. 4. COPD, in remission. 5. Right upper lobe infiltrate, pneumonia treated with broad-spectrum antibiotics and changed to Augmentin p.o. twice daily. 6. Systolic ejection murmur. Etiology could be related to his history of aortic stenosis with valve replacement. 7. Chronic respiratory failure. On home O2. Plan: 1. Continue with Augmentin twice daily for total of 7 days. 2. Continue with Lovenox for treatment of PE. 3. The patient will continue on prednisone 60 mg p.o. daily for total of 2 weeks then 40 mg for 2 weeks then 20 mg ongoing until seen by pulmonary. 4. The patient was treated with immunotherapy, I will defer further treatment to Dr. Estevez, no contraindication from pulmonary standpoint to start Keytruda as long as the patient continued to be on prednisone. 5. Physical therapy. Patient is planned to go to rehab in the morning. Agree with the decision. Patient is deconditioned. 6. Discussed with the patient and his and details, all their questions been answered. 7. I reviewed with them the results of the PET scan. 8. Follow-up appointment with Dr. Estevez, would be glad to follow also in the pulmonary clinic. Thank you for your kind referral, we will sign off the case at this point. Please call us with any questions. Data Medications: Current Inpatient Medications Medications (Trade) Dose Ordered Sig/Mert Route Start Time Stop Time Status Last Admin Dose Admin Acetaminophen (Tylenol Tab) 650 mg Q4H PRN PO 02/06/18 14:15 03/08/18 14:14 Ondansetron HCl (Zofran Inj) 4 mg Q6H PRN IV 02/06/18 14:15 03/08/18 14:14 Nitroglycerin (Nitrostat Tab) 0.4 mg UD PRN SL 02/06/18 14:15 03/08/18 14:14 Polyethylene (Miralax Powder Packet) 17 gm DAILY PRN PO 02/06/18 14:15 03/08/18 14:14 Miscellaneous (Iv Fluids Completed) 1 ea PRN PRN N/A 02/06/18 14:30 02/06/19 14:29 Allopurinol (Zyloprim Tab) 300 mg DAILY PO 02/07/18 09:00 03/09/18 08:59 02/12/18 08:43 300 MG Aspirin (Ecotrin Tab) 81 mg DAILY PO 02/07/18 09:00 03/09/18 08:59 02/12/18 08:43 81 MG Atorvastatin Calcium (Lipitor Tab) 20 mg DAILY PO 02/07/18 09:00 03/09/18 08:59 02/12/18 08:43 20 MG Cholecalciferol (Vitamin D Tab) 1,000 inter.unit DAILY PO 02/07/18 09:00 03/09/18 08:59 02/12/18 08:43 1,000 INTER.UNIT Metoprolol Tartrate (Lopressor Tab) 25 mg BID PO 02/06/18 21:00 03/08/18 20:59 02/11/18 20:29 25 MG Mirtazapine (Remeron Tab) 15 mg HS PO 02/06/18 21:00 03/08/18 20:59 02/11/18 20:29 15 MG Multivitamins/ Minerals (Multivitamin W/ Minerals Tab) 1 tab DAILY PO 02/07/18 09:00 03/09/18 08:59 02/12/18 08:43 1 TAB Senna/Docusate Sodium (Senokot S Tab) 1 tab BID PRN PO 02/06/18 14:45 03/08/18 14:44 02/06/18 21:50 1 TAB Glucose (Glucose 40% Gel) 15-30 GRAMS 15 GRAMS... UD PRN PO 02/06/18 14:45 03/08/18 14:44 Glucose (Glucose Chew Tab) 4-8 Tablets 4 Tabl... UD PRN PO 02/06/18 14:45 03/08/18 14:44 02/12/18 04:58 4 TABS Dextrose (Dextrose 50% 50ML Syringe) 25-50ML OF 50% DW IV FOR... UD PRN IV 02/06/18 14:45 03/08/18 14:44 Glucagon (Glucagon Inj) 1 mg UD PRN SQ 02/06/18 14:45 03/08/18 14:44 Miscellaneous Information (Consult Glycemic Management Pharmacy) 1 ea UD PRN N/A 02/07/18 08:28 03/09/18 08:27 Enteral Nutritional Formula (Boost Glucose Control) 1 can BIDM PO 02/07/18 16:45 03/09/18 16:44 02/07/18 17:34 1 CAN Enoxaparin Sodium (Lovenox Inj) 90 mg Q24H SQ 02/10/18 09:00 03/12/18 08:59 02/12/18 08:43 90 MG Amoxicillin/ Clavulanate Potassium (Augmentin Tab) 875 mg BIDM PO 02/11/18 16:45 02/18/18 16:44 02/12/18 08:43 875 MG Prednisone (PredniSONE TAB) 60 mg DAILY PO 02/13/18 09:00 03/12/18 11:59 Insulin Aspart (novoLOG ASPART) SLIDING SCALE If C... AC SC 02/12/18 11:00 03/14/18 10:59 Vital Signs: Date Time Temp Pulse Resp B/P (MAP) Pulse Ox O2 Delivery O2 Flow Rate FiO2 02/12/18 12:00 Nasal Cannula 3.0 02/12/18 11:49 36.3 62 19 145/65 (91) 95 Nasal Cannula 3.0 02/12/18 08:00 Nasal Cannula 3.0 02/12/18 07:38 36.3 54 18 140/68 (92) 98 Nasal Cannula 3.0 02/12/18 04:00 Nasal Cannula 3.0 02/12/18 03:17 36.3 51 20 136/104 (115) 97 Nasal Cannula 4.0 02/12/18 00:00 Nasal Cannula 3.0 02/11/18 22:55 36.3 51 18 143/67 (92) 99 Nasal Cannula 3.0 02/11/18 20:00 Nasal Cannula 3.0 02/11/18 19:23 36.4 57 18 141/67 (91) 99 Nasal Cannula 3.0 02/11/18 15:54 Nasal Cannula 3.0 02/11/18 15:52 36.3 53 18 135/70 (91) 100 Nasal Cannula 3.0 Laboratory Results: Last 24 Hours Test 02/11/18 16:21 02/11/18 20:16 02/12/18 00:14 02/12/18 04:06 Bedside Glucose 79 mg/dl 109 mg/dl 78 mg/dl 55 mg/dl Test 02/12/18 04:28 02/12/18 05:15 02/12/18 05:46 02/12/18 06:22 Bedside Glucose 65 mg/dl 108 mg/dl 177 mg/dl White Blood Count 18.46 K/uL Red Blood Count 4.04 M/uL Hemoglobin 10.2 g/dL Hematocrit 34.6 % Mean Corpuscular Volume 85.6 fL Mean Corpuscular Hemoglobin 25.2 pg Mean Corpuscular Hemoglobin Concent 29.5 g/dl RDW Standard Deviation 64.0 fL RDW Coefficient of Variation 20.9 % Platelet Count 554 K/uL Mean Platelet Volume 8.8 fL Nucleated RBC Absolute Count (auto) 0.18 K/uL Nucleated Red Blood Cells % 1.0 % Creatinine 0.89 mg/dl Est Creatinine Clear Calc Drug Dose 70.5 ml/min Estimated GFR () 91.0 Estimated GFR (Non- 78.5 Test 02/12/18 10:25 02/12/18 11:15 02/12/18 12:40 Bedside Glucose 167 mg/dl 149 mg/dl
[2018-02-12 15:51] VITALS: BP 140/69; PULSE 65; TEMP 36.4; O2SAT 98
--- NOTE | 2018-02-12 15:56 | Progress Note ---
Medicine Progress Note Date & Time of Visit: Feb 12, 2018 at 15:54. Subjective seen resting in bedside chair and granddaughter visiting states he feels about the same as yesterday, breathing about the same has dry cough with talking, improving no other symptoms Objective Last 8 Hrs Date Time Temp Pulse Resp B/P (MAP) Pulse Ox O2 Delivery O2 Flow Rate FiO2 02/12/18 15:51 36.4 65 18 140/69 (92) 98 Nasal Cannula 3.0 02/12/18 12:00 Nasal Cannula 3.0 02/12/18 11:49 36.3 62 19 145/65 (91) 95 Nasal Cannula 3.0 02/12/18 08:00 Nasal Cannula 3.0 Physical Exam: General-oriented 3, not in distress, speaking sentences no accessory muscle use Eyes- anicteric Neck-no JVD Lungs- decreased breath sounds bilaterally, no rales/wheezes Heart- regular rhythm; grade 2 out of 6 murmur, normal rate Abdomen- normal bowel sounds, soft, nontender, nondistended Extremities- no pretibial edema, no calf tenderness Neuro- alert, oriented x 3; no gross neurologic deficits Skin- warm & dry Laboratory Results: Last 24 Hours Test 02/11/18 16:21 02/11/18 20:16 02/12/18 00:14 02/12/18 04:06 Bedside Glucose 79 mg/dl 109 mg/dl 78 mg/dl 55 mg/dl Test 02/12/18 04:28 02/12/18 05:15 02/12/18 05:46 02/12/18 06:22 Bedside Glucose 65 mg/dl 108 mg/dl 177 mg/dl White Blood Count 18.46 K/uL Red Blood Count 4.04 M/uL Hemoglobin 10.2 g/dL Hematocrit 34.6 % Mean Corpuscular Volume 85.6 fL Mean Corpuscular Hemoglobin 25.2 pg Mean Corpuscular Hemoglobin Concent 29.5 g/dl RDW Standard Deviation 64.0 fL RDW Coefficient of Variation 20.9 % Platelet Count 554 K/uL Mean Platelet Volume 8.8 fL Nucleated RBC Absolute Count (auto) 0.18 K/uL Nucleated Red Blood Cells % 1.0 % Creatinine 0.89 mg/dl Est Creatinine Clear Calc Drug Dose 70.5 ml/min Estimated GFR () 91.0 Estimated GFR (Non- 78.5 Test 02/12/18 10:25 02/12/18 11:15 02/12/18 12:40 Bedside Glucose 167 mg/dl 149 mg/dl Heparin Anti-Xa Act, Low Molec Wt 0.80 IU/ML Assessment & Plan Hemoglobin 9, monitor 82-year-old, male, with lung cancer on chemo and radiation , diabetes type 2, hypertension Presenting with low oxygen saturation. ACUTE LUNG INJURY, CHEMO VERSUS RADIATION RELATED COMPONENT OF ASPIRATION PNEUMONIA CXR: Bibasilar parenchymal infiltrates, Slight improvement in aeration left lung base, Slight increase in parenchymal infiltrative change right base. WBC: 11.6. 94% on 4 L NC, R: 22. POC lactic acid: 1.4. Patient given Levaquin, Zosyn, vancomycin, 250 mL bolus and 150 mL/h NSS in ER. - CT chest: 1. Significant interval worsening of consolidation in the right lung since the prior exam. The predominantly peripheral wedgelike regions of solid consolidation could suggest pulmonary infarcts though no acute pulmonary emboli are evident allowing for the significantly degraded evaluation due to respiratory motion artifact. Alternatively, increased opacities could represent worsened infection. 2. Chronic left lung consolidation with bronchiectatic change. Underlying infection is difficult to exclude. -Blood cultures: Positive for 1 out of 2 bottles-bacillus likely contaminant -Sputum culture: Pending collection Pulmonary consulted still has some dyspnea, now at 3 L via NC on Solu-Medrol IV 80 mg every 6 hours--> changed to Prednisone 60mg po daily received 6 days of Zosyn, now on Augmentin Day 2 Appreciate pulmonary service recommendations Speech therapy evaluation ordered, status post video swallow evaluation: Showing aspiration with thin liquids Donna thick liquid ordered ACUTE ON CHRONIC HYPOXIC RESPIRATORY FAILURE secondary to above Patient uses 2 L NC continuous and 4 L NC with ambulation. Patient is 94% on 4 L NC. Secondary to above Wean off oxygen accordingly back to usual baseline of 2 L nasal cannula A FLUTTER WITH RVR Patient found to be a flutter with rates in the 150s by EMS this morning, was given 10 mg Cardizem in route. Patient has since converted to sinus rhythm in ER. He remains in sinus rhythm so far Continue metoprolol 25 mg twice daily continue Lovenox Monitor WEAKNESS Worsening generalized weakness, Likely secondary to dehydration, deconditioning. No focal deficits noted on exam. Urine cultures negative -PT/OT eval MICROSCOPIC HEMATURIA - monitor HISTORY SPINDLE CELL LUNG CARCINOMA Follows with Dr. Estevez. Was treated with chemo and radiation. Currently on Keytruda Discussed with Dr. Estevez, plan to hold Keytruda for now Follow-up with Dr. Estevez next week as scheduled CHRONIC THROMBUS LEFT POPLITEAL VEIN Patient denies any increased lower extremity edema or lower extremity pain. Patient on Lovenox -- anti Xa level elevated thus, pharmacist recommending to reduce dose from 100mg BID to 90mg daily monitor CHRONIC ANEMIA Hgb: 10 (approximate baseline). No active bleeding -Monitor H&H DM II H A1c 6.3 on 11/2017. Glucose: 133 in ER -Hold glimepiride -novolog sliding scale per protocol Pharmacy glycemic control consulted as patient is on high-dose steroids -- Lantus discontinued to avoid hypoglycemia HTN Stable -continue metoprolol HLD -Continue statin DVT Prophylaxis -Pt on therapeutic dose Lovenox for known LLE DVT Disposition Pending PT OT evaluation and progress Possible transition to inpatient rehab or snf facility when cleared by pulmonary Continued [facility] stay due to: abnormal vital signs Current Inpatient Medications: Current Inpatient Medications Medications (Trade) Dose Ordered Sig/Mert Route Start Time Stop Time Status Last Admin Dose Admin Acetaminophen (Tylenol Tab) 650 mg Q4H PRN PO 02/06/18 14:15 03/08/18 14:14 Ondansetron HCl (Zofran Inj) 4 mg Q6H PRN IV 02/06/18 14:15 03/08/18 14:14 Nitroglycerin (Nitrostat Tab) 0.4 mg UD PRN SL 02/06/18 14:15 03/08/18 14:14 Polyethylene (Miralax Powder Packet) 17 gm DAILY PRN PO 02/06/18 14:15 03/08/18 14:14 Miscellaneous (Iv Fluids Completed) 1 ea PRN PRN N/A 02/06/18 14:30 02/06/19 14:29 Allopurinol (Zyloprim Tab) 300 mg DAILY PO 02/07/18 09:00 03/09/18 08:59 02/12/18 08:43 300 MG Aspirin (Ecotrin Tab) 81 mg DAILY PO 02/07/18 09:00 03/09/18 08:59 02/12/18 08:43 81 MG Atorvastatin Calcium (Lipitor Tab) 20 mg DAILY PO 02/07/18 09:00 03/09/18 08:59 02/12/18 08:43 20 MG Cholecalciferol (Vitamin D Tab) 1,000 inter.unit DAILY PO 02/07/18 09:00 03/09/18 08:59 02/12/18 08:43 1,000 INTER.UNIT Metoprolol Tartrate (Lopressor Tab) 25 mg BID PO 02/06/18 21:00 03/08/18 20:59 02/11/18 20:29 25 MG Mirtazapine (Remeron Tab) 15 mg HS PO 02/06/18 21:00 03/08/18 20:59 02/11/18 20:29 15 MG Multivitamins/ Minerals (Multivitamin W/ Minerals Tab) 1 tab DAILY PO 02/07/18 09:00 03/09/18 08:59 02/12/18 08:43 1 TAB Senna/Docusate Sodium (Senokot S Tab) 1 tab BID PRN PO 02/06/18 14:45 03/08/18 14:44 02/06/18 21:50 1 TAB Glucose (Glucose 40% Gel) 15-30 GRAMS 15 GRAMS... UD PRN PO 02/06/18 14:45 03/08/18 14:44 Glucose (Glucose Chew Tab) 4-8 Tablets 4 Tabl... UD PRN PO 02/06/18 14:45 03/08/18 14:44 02/12/18 04:58 4 TABS Dextrose (Dextrose 50% 50ML Syringe) 25-50ML OF 50% DW IV FOR... UD PRN IV 02/06/18 14:45 03/08/18 14:44 Glucagon (Glucagon Inj) 1 mg UD PRN SQ 02/06/18 14:45 03/08/18 14:44 Miscellaneous Information (Consult Glycemic Management Pharmacy) 1 ea UD PRN N/A 02/07/18 08:28 03/09/18 08:27 Enteral Nutritional Formula (Boost Glucose Control) 1 can BIDM PO 02/07/18 16:45 03/09/18 16:44 02/07/18 17:34 1 CAN Enoxaparin Sodium (Lovenox Inj) 90 mg Q24H SQ 02/10/18 09:00 03/12/18 08:59 02/12/18 08:43 90 MG Amoxicillin/ Clavulanate Potassium (Augmentin Tab) 875 mg BIDM PO 02/11/18 16:45 02/18/18 16:44 02/12/18 08:43 875 MG Prednisone (PredniSONE TAB) 60 mg DAILY PO 02/13/18 09:00 03/12/18 11:59 Insulin Aspart (novoLOG ASPART) SLIDING SCALE If C... AC SC 02/12/18 11:00 03/14/18 10:59
[2018-02-12 19:24] VITALS: BP 143/77; PULSE 62; TEMP 36.4; O2SAT 100
[2018-02-12] MEDS: MIRTAZAPINE TAB 15 MG TAB PO SCH (20:41)
[2018-02-13 03:52] VITALS: BP 142/68; PULSE 52; TEMP 36.6; O2SAT 98
[2018-02-13] MEDS: INSULIN ASPART 100 UNITS/ML 3 ML PEN SC SCH ×3 (07:00→18:06)
[2018-02-13 08:00] VITALS: BP 118/73; PULSE 74; TEMP 36.2; O2SAT 96
[2018-02-13] MEDS: CEROVITE ADV FORMULA TAB PO SCH (09:36)
[2018-02-13] MEDS: ASPIRIN 81 MG ECTAB PO SCH (09:36)
[2018-02-13] MEDS: CHOLECALCIFEROL 1000 INTER.UNIT TAB PO SCH (09:36)
[2018-02-13] MEDS: ALLOPURINOL 300 MG TAB PO SCH (09:36)
[2018-02-13] MEDS: AMOXICILLIN/CLAVULANATE TAB 875 MG TAB PO SCH ×2 (09:36→18:05)
[2018-02-13] MEDS: ATORVASTATIN 20 MG TAB PO SCH (09:36)
[2018-02-13] MEDS: METOPROLOL TARTRATE 25 MG TAB PO SCH ×2 (09:37→20:54)
[2018-02-13] MEDS: ENOXAPARIN 120 MG/0.8 ML SYR SQ SCH (09:37)
[2018-02-13] MEDS: BOOST GLUCOSE CONTROL PO SCH ×2 (09:37→16:45)
[2018-02-13 12:15] VITALS: BP 121/59; PULSE 64; TEMP 36.5; O2SAT 94
[2018-02-13 15:16] VITALS: BP_SYST 121; PULSE 69; TEMP 36.2; O2SAT 98
[2018-02-13] MEDS ORDERED: OXYMETAZOLINE HCL 0.05% NA SPR 15 ML BTL PRN (16:45)
--- NOTE | 2018-02-13 18:29 | Progress Note ---
Medicine Progress Note Date & Time of Visit: Feb 13, 2018 at 18:18. Subjective seen resting in bedside chair, comfortable states breathing is ok, about the same as yesterday no chest pain, palpitations, dizziness no other symptoms Objective Last 8 Hrs Date Time Temp Pulse Resp B/P (MAP) Pulse Ox O2 Delivery O2 Flow Rate FiO2 02/13/18 16:00 Nasal Cannula 3.0 02/13/18 15:16 36.2 69 20 121/ (40) 98 Nasal Cannula 4.0 100 02/13/18 12:15 36.5 64 19 121/59 (79) 94 02/13/18 12:00 Nasal Cannula 3.0 Physical Exam: General-oriented 3, not in distress, speaking sentences no accessory muscle use Eyes- anicteric Neck-no JVD Lungs- decreased breath sounds bilaterally, no wheezing, no rales Heart- regular rhythm; grade 2 out of 6 murmur, normal rate Abdomen- normal bowel sounds, soft, nontender, nondistended Extremities- no pretibial edema, no calf tenderness Neuro- alert, oriented x 3; no gross neurologic deficits Skin- warm & dry Laboratory Results: Last 24 Hours Test 02/12/18 23:57 02/13/18 03:54 02/13/18 06:33 02/13/18 11:25 Bedside Glucose 104 mg/dl 74 mg/dl 70 mg/dl 120 mg/dl Test 02/13/18 16:16 Bedside Glucose 172 mg/dl Assessment & Plan Hemoglobin 9, monitor 82-year-old, male, with lung cancer on chemo and radiation , diabetes type 2, hypertension Presenting with low oxygen saturation. ACUTE LUNG INJURY, CHEMO VERSUS RADIATION RELATED COMPONENT OF ASPIRATION PNEUMONIA CXR: Bibasilar parenchymal infiltrates, Slight improvement in aeration left lung base, Slight increase in parenchymal infiltrative change right base. WBC: 11.6. 94% on 4 L NC, R: 22. POC lactic acid: 1.4. Patient given Levaquin, Zosyn, vancomycin, 250 mL bolus and 150 mL/h NSS in ER. - CT chest: 1. Significant interval worsening of consolidation in the right lung since the prior exam. The predominantly peripheral wedgelike regions of solid consolidation could suggest pulmonary infarcts though no acute pulmonary emboli are evident allowing for the significantly degraded evaluation due to respiratory motion artifact. Alternatively, increased opacities could represent worsened infection. 2. Chronic left lung consolidation with bronchiectatic change. Underlying infection is difficult to exclude. -Blood cultures: Positive for 1 out of 2 bottles-bacillus likely contaminant -Sputum culture: Pending collection Pulmonary consulted still has some dyspnea, now at 3-4 L via NC on Solu-Medrol IV 80 mg every 6 hours--> changed to Prednisone 60mg po daily received 6 days of Zosyn, now on Augmentin Day 3 Appreciate pulmonary service recommendations Speech therapy evaluation ordered, status post video swallow evaluation: Showing aspiration with thin liquids Bonney thick liquid ordered ACUTE ON CHRONIC HYPOXIC RESPIRATORY FAILURE secondary to above Patient uses 2 L NC continuous and 4 L NC with ambulation. Patient is 94% on 4 L NC. Secondary to above Wean off oxygen accordingly back to usual baseline of 2 L nasal cannula A FLUTTER WITH RVR Patient found to be a flutter with rates in the 150s by EMS this morning, was given 10 mg Cardizem in route. Patient has since converted to sinus rhythm in ER. He remains in sinus rhythm so far Continue metoprolol 25 mg twice daily continue Lovenox Monitor WEAKNESS Worsening generalized weakness, Likely secondary to dehydration, deconditioning. No focal deficits noted on exam. Urine cultures negative -PT/OT - transition to Rehab/SNF MICROSCOPIC HEMATURIA - monitor HISTORY SPINDLE CELL LUNG CARCINOMA Follows with Dr. Estevez. Was treated with chemo and radiation. Currently on Keytruda Discussed with Dr. Estevez, plan to hold Keytruda for now Follow-up with Dr. Estevez next week as scheduled CHRONIC THROMBUS LEFT POPLITEAL VEIN Patient denies any increased lower extremity edema or lower extremity pain. Patient on Lovenox -- anti Xa level elevated thus, pharmacist recommending to reduce dose from 100mg BID to 90mg daily anti level low, Lovenox increased to 111mg daily CHRONIC ANEMIA Hgb: 10 (approximate baseline). No active bleeding -Monitor H&H DM II H A1c 6.3 on 11/2017. Glucose: 133 in ER -Hold glimepiride -novolog sliding scale per protocol Pharmacy glycemic control consulted as patient is on high-dose steroids -- Lantus discontinued to avoid hypoglycemia HTN - Stable - continue metoprolol HLD -Continue statin DVT Prophylaxis -Pt on therapeutic dose Lovenox for known LLE DVT Disposition transition to inpatient rehab or [place] [facility] when accepted Continued [facility] stay due to: abnormal vital signs Current Inpatient Medications: Current Inpatient Medications Medications (Trade) Dose Ordered Sig/Mert Route Start Time Stop Time Status Last Admin Dose Admin Acetaminophen (Tylenol Tab) 650 mg Q4H PRN PO 02/06/18 14:15 03/08/18 14:14 Ondansetron HCl (Zofran Inj) 4 mg Q6H PRN IV 02/06/18 14:15 03/08/18 14:14 Nitroglycerin (Nitrostat Tab) 0.4 mg UD PRN SL 02/06/18 14:15 03/08/18 14:14 Polyethylene (Miralax Powder Packet) 17 gm DAILY PRN PO 02/06/18 14:15 03/08/18 14:14 Miscellaneous (Iv Fluids Completed) 1 ea PRN PRN N/A 02/06/18 14:30 02/06/19 14:29 Allopurinol (Zyloprim Tab) 300 mg DAILY PO 02/07/18 09:00 03/09/18 08:59 02/13/18 09:36 300 MG Aspirin (Ecotrin Tab) 81 mg DAILY PO 02/07/18 09:00 03/09/18 08:59 02/13/18 09:36 81 MG Atorvastatin Calcium (Lipitor Tab) 20 mg DAILY PO 02/07/18 09:00 03/09/18 08:59 02/13/18 09:36 20 MG Cholecalciferol (Vitamin D Tab) 1,000 inter.unit DAILY PO 02/07/18 09:00 03/09/18 08:59 02/13/18 09:36 1,000 INTER.UNIT Metoprolol Tartrate (Lopressor Tab) 25 mg BID PO 02/06/18 21:00 03/08/18 20:59 02/13/18 09:37 25 MG Mirtazapine (Remeron Tab) 15 mg HS PO 02/06/18 21:00 03/08/18 20:59 02/12/18 20:41 15 MG Multivitamins/ Minerals (Multivitamin W/ Minerals Tab) 1 tab DAILY PO 02/07/18 09:00 03/09/18 08:59 02/13/18 09:36 1 TAB Senna/Docusate Sodium (Senokot S Tab) 1 tab BID PRN PO 02/06/18 14:45 03/08/18 14:44 02/06/18 21:50 1 TAB Glucose (Glucose 40% Gel) 15-30 GRAMS 15 GRAMS... UD PRN PO 02/06/18 14:45 03/08/18 14:44 Glucose (Glucose Chew Tab) 4-8 Tablets 4 Tabl... UD PRN PO 02/06/18 14:45 03/08/18 14:44 02/12/18 04:58 4 TABS Dextrose (Dextrose 50% 50ML Syringe) 25-50ML OF 50% DW IV FOR... UD PRN IV 02/06/18 14:45 03/08/18 14:44 Glucagon (Glucagon Inj) 1 mg UD PRN SQ 02/06/18 14:45 03/08/18 14:44 Miscellaneous Information (Consult Glycemic Management Pharmacy) 1 ea UD PRN N/A 02/07/18 08:28 03/09/18 08:27 Enteral Nutritional Formula (Boost Glucose Control) 1 can BIDM PO 02/07/18 16:45 03/09/18 16:44 02/13/18 09:37 1 CAN Amoxicillin/ Clavulanate Potassium (Augmentin Tab) 875 mg BIDM PO 02/11/18 16:45 02/18/18 16:44 02/13/18 18:05 875 MG Prednisone (PredniSONE TAB) 60 mg DAILY PO 02/13/18 09:00 03/12/18 11:59 02/13/18 09:37 60 MG Insulin Aspart (novoLOG ASPART) SLIDING SCALE If C... AC SC 02/12/18 11:00 03/14/18 10:59 02/13/18 18:06 5 UNITS Enoxaparin Sodium (Lovenox Inj) 111 mg Q24H SQ 02/13/18 09:00 03/15/18 08:59 02/13/18 09:37 111 MG Oxymetazoline HCl (Afrin 0.05% Nasal [employer]) 1 sprays BID PRN NA 02/13/18 16:45 02/17/18 16:44
[2018-02-13 19:06] VITALS: BP 125/64; PULSE 72; TEMP 36.4; O2SAT 98
[2018-02-13] MEDS: MIRTAZAPINE TAB 15 MG TAB PO SCH (20:54)
[2018-02-13 23:48] VITALS: BP 144/70; PULSE 52; TEMP 36.5; O2SAT 98
[2018-02-14 03:44] VITALS: BP 137/68; PULSE 59; TEMP 36.3; O2SAT 98
[2018-02-14] MEDS: INSULIN ASPART 100 UNITS/ML 3 ML PEN SC SCH ×2 (07:00→12:15)
[2018-02-14] MEDS: BOOST GLUCOSE CONTROL PO SCH (07:30)
[2018-02-14 07:43] VITALS: BP 135/68; PULSE 58; TEMP 36.3; O2SAT 98
[2018-02-14] MEDS: CHOLECALCIFEROL 1000 INTER.UNIT TAB PO SCH (09:47)
[2018-02-14] MEDS: AMOXICILLIN/CLAVULANATE TAB 875 MG TAB PO SCH (09:47)
[2018-02-14] MEDS: CEROVITE ADV FORMULA TAB PO SCH (09:48)
[2018-02-14] MEDS: ASPIRIN 81 MG ECTAB PO SCH (09:48)
[2018-02-14] MEDS: METOPROLOL TARTRATE 25 MG TAB PO SCH (09:48)
[2018-02-14] MEDS: ATORVASTATIN 20 MG TAB PO SCH (09:49)
[2018-02-14] MEDS: ENOXAPARIN 120 MG/0.8 ML SYR SQ SCH (09:49)
[2018-02-14] MEDS: ALLOPURINOL 300 MG TAB PO SCH (09:49)
--- NOTE | 2018-02-14 10:05 | Progress Note ---
Medicine Progress Note Date & Time of Visit: Feb 14, 2018 at 09:41. Subjective seen resting in bedside chair just had PT in good spirits, comfortable states he feels fine overall less dypnea with ambulation less cough no other symptoms states he is ready and would like to be discharged Objective Last 8 Hrs Date Time Temp Pulse Resp B/P (MAP) Pulse Ox O2 Delivery O2 Flow Rate FiO2 02/14/18 07:43 36.3 58 20 135/68 (90) 98 Nasal Cannula 4.0 02/14/18 04:00 Nasal Cannula 2.0 02/14/18 03:44 36.3 59 18 137/68 (91) 98 Nasal Cannula 2.0 Physical Exam: General-oriented 3, not in distress, speaking sentences no accessory muscle use Eyes- anicteric Neck-no JVD Lungs- decreased breath sounds bilaterally no crackles, wheezing Heart- regular rhythm; grade 2 out of 6 murmur, normal rate Abdomen- normal bowel sounds, soft, nontender, nondistended Extremities- mild pretibial edema, no calf tenderness Neuro- alert, oriented x 3; no gross neurologic deficits Skin- warm & dry Laboratory Results: Last 24 Hours Test 02/13/18 11:25 02/13/18 16:16 02/14/18 00:07 02/14/18 03:35 Bedside Glucose 120 mg/dl 172 mg/dl 147 mg/dl 129 mg/dl Test 02/14/18 06:53 Bedside Glucose 115 mg/dl Assessment & Plan Hemoglobin 9, monitor 82-year-old, male, with lung cancer on chemo and radiation , diabetes type 2, hypertension Presenting with low oxygen saturation. ACUTE LUNG INJURY, CHEMO VERSUS RADIATION RELATED COMPONENT OF ASPIRATION PNEUMONIA Imaging: CXR: Bibasilar parenchymal infiltrates, Slight improvement in aeration left lung base, Slight increase in parenchymal infiltrative change right base. WBC: 11.6. 94% on 4 L NC, R: 22. POC lactic acid: 1.4. Patient given Levaquin, Zosyn, vancomycin, 250 mL bolus and 150 mL/h NSS in ER. - CT chest: 1. Significant interval worsening of consolidation in the right lung since the prior exam. The predominantly peripheral wedgelike regions of solid consolidation could suggest pulmonary infarcts though no acute pulmonary emboli are evident allowing for the significantly degraded evaluation due to respiratory motion artifact. Alternatively, increased opacities could represent worsened infection. 2. Chronic left lung consolidation with bronchiectatic change. Underlying infection is difficult to exclude. -Blood cultures: Positive for 1 out of 2 bottles-bacillus likely contaminant patient required increased O2 supplement up to 5-6L (baseline 2L) Pulmonary consulted- Dr. Duckworth started on Solu-Medrol IV 80 mg every 6 hours oxygenation improved,. O2 titrated down to ~3 L VIA Nasal cannula Solumedrol subsequently changed to Prednisone 60mg po daily received 6 days of Zosyn, changed to Augmentin PO discharge plan: Augmentin PO x 3 more days to complete 7 days Prednisone 60 mg p.o. daily for total of 2 weeks then 40 mg for 2 weeks then 20 mg ongoing until seen by pulmonary. Speech therapy evaluation ordered, status post video swallow evaluation: Showing aspiration with thin liquids Speech therapy recommendations: 1. Mechanical soft "slippery" diet and NECTAR thick liquids. Modify back to full liquids with any increased difficulty tolerating mech soft. Avoid food that are dry, thick, pasty, and doughy. Add condiments to foods to keep it moist. 2. Aspiration and GERD precautions, NO straws. Fully upright for meals and for 30 minutes after meals. Head of the bed should be elevated to at least 30 degrees at all time, to include while sleeping. 3.Stringent oral care- brushing all surfaces of the mouth and tongue prior to and after meals, and before bed, to reduce bacteria that can be aspirated in saliva. 4. Safe swallow strategies: Small bites, small sips, double effortful swallow with each bite/sip. Alternate solids and liquids. 5. Will benefit from continued speech therapy services at discharge with focus on cognition and dysphagia therapy. Swallowing therapy to focus on generalized pharyngeal strengthening to include (but not limited to), Effortful swallowing, Shikha Maneuver, Nan Maneuver. ACUTE ON CHRONIC HYPOXIC RESPIRATORY FAILURE secondary to above Patient uses 2 L NC continuous and 4 L NC with ambulation. Secondary to above Wean off oxygen accordingly back to usual baseline of 2 L nasal cannula A FLUTTER WITH RVR Patient found to be a flutter with rates in the 150s by EMS was given 10 mg Cardizem in route. Patient has since converted to sinus rhythm. Continue metoprolol 25 mg twice daily continue Lovenox Monitor WEAKNESS Worsening generalized weakness, Likely secondary to dehydration, deconditioning. -PT/OT - transition to Rehab/SNF HISTORY SPINDLE CELL LUNG CARCINOMA Follows with Dr. Ray Estevez for Oncology Was treated with chemo and radiation. Currently on Keytruda Discussed with Dr. Estevez, plan to hold Keytruda for now Follow-up with Dr. Estevez in 1-2 weeks CHRONIC THROMBUS LEFT POPLITEAL VEIN Patient denies any increased lower extremity edema or lower extremity pain. Patient on Lovenox -- anti Xa level elevated thus, pharmacist recommended to reduce dose from 100mg BID to 90mg daily repeat anti Xa level 02/12 0.8 (low), Lovenox increased to 111mg daily repeat anti Xa level 02/15 at 1230pm, based on level, titrate Lovenox SC accordingly -- patient will continue Lovenox indefinitely CHRONIC ANEMIA Hgb: 10 (approximate baseline). No active bleeding Hg stable DM II H A1c 6.3 on 11/2017 - patient placed on Insulin Lantus and Sliding scale as inpatient noted to have hypoglycemia episodes, Lantus discontinued -continue Insulin Sliding Scale for now as patient will be on a slow Prednisone taper starting at 60mg daily monitor BSGs closely, watch out for hypoglycemia HTN - Stable - continue metoprolol HLD -Continue statin MICROSCOPIC HEMATURIA - monitor repeat as outpatient DVT Prophylaxis -Pt on therapeutic dose Lovenox for known LLE DVT Disposition transition to inpatient rehab or [place] [facility] facility when accepted follow up with Associate Sales Manager [facility] in 2 weeks follow up with Oncologist Dr. Ray Estevez in 1-2 weeks Continued [facility] stay due to: abnormal vital signs Current Inpatient Medications: Current Inpatient Medications Medications (Trade) Dose Ordered Sig/Mert Route Start Time Stop Time Status Last Admin Dose Admin Acetaminophen (Tylenol Tab) 650 mg Q4H PRN PO 02/06/18 14:15 03/08/18 14:14 Ondansetron HCl (Zofran Inj) 4 mg Q6H PRN IV 02/06/18 14:15 03/08/18 14:14 Nitroglycerin (Nitrostat Tab) 0.4 mg UD PRN SL 02/06/18 14:15 03/08/18 14:14 Polyethylene (Miralax Powder Packet) 17 gm DAILY PRN PO 02/06/18 14:15 03/08/18 14:14 Miscellaneous (Iv Fluids Completed) 1 ea PRN PRN N/A 02/06/18 14:30 02/06/19 14:29 Allopurinol (Zyloprim Tab) 300 mg DAILY PO 02/07/18 09:00 03/09/18 08:59 02/13/18 09:36 300 MG Aspirin (Ecotrin Tab) 81 mg DAILY PO 02/07/18 09:00 03/09/18 08:59 02/13/18 09:36 81 MG Atorvastatin Calcium (Lipitor Tab) 20 mg DAILY PO 02/07/18 09:00 03/09/18 08:59 02/13/18 09:36 20 MG Cholecalciferol (Vitamin D Tab) 1,000 inter.unit DAILY PO 02/07/18 09:00 03/09/18 08:59 02/13/18 09:36 1,000 INTER.UNIT Metoprolol Tartrate (Lopressor Tab) 25 mg BID PO 02/06/18 21:00 03/08/18 20:59 02/13/18 20:54 25 MG Mirtazapine (Remeron Tab) 15 mg HS PO 02/06/18 21:00 03/08/18 20:59 02/13/18 20:54 15 MG Multivitamins/ Minerals (Multivitamin W/ Minerals Tab) 1 tab DAILY PO 02/07/18 09:00 03/09/18 08:59 02/13/18 09:36 1 TAB Senna/Docusate Sodium (Senokot S Tab) 1 tab BID PRN PO 02/06/18 14:45 03/08/18 14:44 02/06/18 21:50 1 TAB Glucose (Glucose 40% Gel) 15-30 GRAMS 15 GRAMS... UD PRN PO 02/06/18 14:45 03/08/18 14:44 Glucose (Glucose Chew Tab) 4-8 Tablets 4 Tabl... UD PRN PO 02/06/18 14:45 03/08/18 14:44 02/12/18 04:58 4 TABS Dextrose (Dextrose 50% 50ML Syringe) 25-50ML OF 50% DW IV FOR... UD PRN IV 02/06/18 14:45 03/08/18 14:44 Glucagon (Glucagon Inj) 1 mg UD PRN SQ 02/06/18 14:45 03/08/18 14:44 Miscellaneous Information (Consult Glycemic Management Pharmacy) 1 ea UD PRN N/A 02/07/18 08:28 03/09/18 08:27 Enteral Nutritional Formula (Boost Glucose Control) 1 can BIDM PO 02/07/18 16:45 03/09/18 16:44 02/13/18 09:37 1 CAN Amoxicillin/ Clavulanate Potassium (Augmentin Tab) 875 mg BIDM PO 02/11/18 16:45 02/18/18 16:44 02/13/18 18:05 875 MG Prednisone (PredniSONE TAB) 60 mg DAILY PO 02/13/18 09:00 03/12/18 11:59 02/13/18 09:37 60 MG Insulin Aspart (novoLOG ASPART) SLIDING SCALE If C... AC SC 02/12/18 11:00 03/14/18 10:59 02/13/18 18:06 5 UNITS Enoxaparin Sodium (Lovenox Inj) 111 mg Q24H SQ 02/13/18 09:00 03/15/18 08:59 02/13/18 09:37 111 MG Oxymetazoline HCl (Afrin 0.05% Nasal [place]) 1 sprays BID PRN NA 02/13/18 16:45 02/17/18 16:44
--- NOTE | 2018-02-14 10:36 | Consultant Recommendations ---
Mechanical Maintenance Technician Recommendations Date of Service Feb 14, 2018. Mechanical Maintenance Technician Recommendations Pulmonary Follow Up Tuesday02/22/2018 at 2:[address] Nehemiah MD [facility] [address] [place] [address]. Please call [phone] if you need to change your appointment time.
[2018-02-14 11:26] VITALS: BP 136/85; PULSE 57; TEMP 36.1; O2SAT 97
[2018-02-14] MEDS ORDERED: AMOX1TAB43 PO (13:10)
[2018-02-14] MEDS ORDERED: LVNIS120 SQ (13:10)
[2018-02-14] MEDS ORDERED: PRD20 PO (13:10)
--- NOTE | 2018-02-14 13:29 | Discharge Instructions ---
Discharge Instructions Date of Service Feb 14, 2018. Admission Reason for Admission: Atrial Flutter With Rapid Ventricular Response Discharge Discharge Diagnosis / Problem: ACUTE LUNG INJURY SECONDARY TO CHEMO/RADIATION THERAPY Discharge Goals Goal(s): Diagnostic testing, Therapeutic intervention Activity Recommendations Activity Level: Assistance Required Therapies: Physical Therapy, Occupational Therapy, Speech Therapy . Additional Information Patient informed of condition: Yes Advance Directives: No (UNKNOWN) DNR: No (PATIENT IS FULL CODE) Level of Care: Acute Rehab Communicable Disease: No Prognosis: Improving Oxygen at (LPM): 3-4 L VIA NASAL CANNULA, CONTINUOUS Chau Catheter: No Instructions / Follow-Up Instructions / Follow-Up MONITOR RESPIRATORY STATUS. TITRATE OXYGEN ACCORDINGLY. LOVENOX DOSE NEEDS TO BE MONITORED: REPEAT ANTI FACTOR XA LEVEL TOMORROW (FEBRUARY 15, 2018) 4 HOURS AFTER ADMINISTERING LOVENOX IN THE MORNING. MONITOR RESPIRATORY STATUS. TITRATE OXYGEN ACCORDINGLY. LOVENOX DOSE NEEDS TO BE MONITORED: REPEAT ANTI FACTOR XA LEVEL TOMORROW (FEBRUARY 15, 2018) 4 HOURS AFTER ADMINISTERING LOVENOX IN THE MORNING. ADJUST LOVENOX DOSE NEEDED ACCORDINGLY. MONITOR BLOOD GLUCOSE AC AND HS. (RE: TENDENCY FOR HYPOGLYCEMIA). FALL, ASPIRATION PRECAUTIONS. CONTINUE PT, OT, SPEECH THERAPY. FOLLOW SPEECH THERAPY RECOMMENDATIONS. 1. Mechanical soft "slippery" diet and NECTAR thick liquids. Modify back to full liquids with any increased difficulty tolerating mech soft. Avoid food that are dry, thick, pasty, and doughy. Add condiments to foods to keep it moist. 2. Aspiration and GERD precautions, NO straws. Fully upright for meals and for 30 minutes after meals. Head of the bed should be elevated to at least 30 degrees at all time, to include while sleeping. 3.Stringent oral care- brushing all surfaces of the mouth and tongue prior to and after meals, and before bed, to reduce bacteria that can be aspirated in saliva. 4. Safe swallow strategies: Small bites, small sips, double effortful swallow with each bite/sip. ALternate solids and liquids. 5. Will benefit from continued speech therapy services at discharge with focus on cognition and dysphagia therapy. Swallowing therapy to focus on generalized pharyngeal strengthening to include (but not limited to), Effortful swallowing, Shikha Maneuver, Nan Maneuver. FOLLOW UP WITH [facility] ONCOLOGIST DR. DEREK HERNANDEZ IN 1-2 WEEKS. FOLLOW UP WITH [facility] [employer] DR. JUDI MONGE ON FEBRUARY 22, 2018 AT 2: 30 PM. FOLLOW UP WITH PRIMARY CARE PHYSICIAN IN 1-2 WEEKS AFTER DISCHARGE FROM [facility]. PLEASE REFER TO ACCOMPANYING HOSPITAL DISCHARGE SUMMARY FOR FURTHER RECOMMENDATIONS. Current Hospital Diet Patient's current hospital diet: Diabetes Type 2 Diet Discharge Diet Recommended Diet: AHA Diet (Heart Healthy), Diabetes Type 2 Diet Diet Texture: Mechanical Soft (ground) (SLIPPERY) Liquid Consistency: [place] Thick Procedures Procedures Performed: CT CHEST, VIDEO SWALLOW EVAL Pending Studies Studies pending at discharge: yes List of pending studies: REPEAT ANTIFACTOR XA LEVEL TOMORROW 02/15/18, FOUR HOURS AFTER LOVENOX DOSE. PLEASE REFER TO DISCHARGE SUMMARY. Physician Orders On Transfer Special Precautions: MONITOR RESPIRATORY STATUS. TITRATE OXYGEN ACCORDINGLY. LOVENOX DOSE NEEDS TO BE MONITORED: REPEAT ANTI FACTOR XA LEVEL TOMORROW (FEBRUARY 15, 2018) 4 HOURS AFTER ADMINISTERING LOVENOX IN THE MORNING. MONITOR RESPIRATORY STATUS. TITRATE OXYGEN ACCORDINGLY. LOVENOX DOSE NEEDS TO BE MONITORED: REPEAT ANTI FACTOR XA LEVEL TOMORROW (FEBRUARY 15, 2018) 4 HOURS AFTER ADMINISTERING LOVENOX IN THE MORNING. ADJUST LOVENOX DOSE NEEDED ACCORDINGLY. MONITOR BLOOD GLUCOSE AC AND HS. (RE: TENDENCY FOR HYPOGLYCEMIA). FALL, ASPIRATION PRECAUTIONS. CONTINUE PT, OT, SPEECH THERAPY. FOLLOW SPEECH THERAPY RECOMMENDATIONS. 1. Mechanical soft "slippery" diet and NECTAR thick liquids. Modify back to full liquids with any increased difficulty tolerating mech soft. Avoid food that are dry, thick, pasty, and doughy. Add condiments to foods to keep it moist. 2. Aspiration and GERD precautions, NO straws. Fully upright for meals and for 30 minutes after meals. Head of the bed should be elevated to at least 30 degrees at all time, to include while sleeping. 3.Stringent oral care- brushing all surfaces of the mouth and tongue prior to and after meals, and before bed, to reduce bacteria that can be aspirated in saliva. 4. Safe swallow strategies: Small bites, small sips, double effortful swallow with each bite/sip. ALternate solids and liquids. 5. Will benefit from continued speech therapy services at discharge with focus on cognition and dysphagia therapy. Swallowing therapy to focus on generalized pharyngeal strengthening to include (but not limited to), Effortful swallowing, Shikha Maneuver, Nan Maneuver. FOLLOW UP WITH [facility] ONCOLOGIST DR. DEREK HERNANDEZ IN 1-2 WEEKS. FOLLOW UP WITH [facility] [employer] DR. JUDI MONGE ON FEBRUARY 22, 2018 AT 2: 30 PM. FOLLOW UP WITH PRIMARY CARE PHYSICIAN IN 1-2 WEEKS AFTER DISCHARGE FROM [facility]. PLEASE REFER TO ACCOMPANYING HOSPITAL DISCHARGE SUMMARY FOR FURTHER RECOMMENDATIONS. Laboratory Results Hemoglobin A1c Test 02/08/18 06:03 Range/Units Estimated Average Glucose 128 mg/dl Hemoglobin A1c 6.1 H 4.5-5.6 % Medical Emergencies . Who to Call and When: Medical Emergencies: If at any time you feel your situation is an emergency, please call 911 immediately. . Non-Emergent Contact Non-Emergency issues call your: Primary Care Provider, Oncologist, Human Resource Advisor Call Non-Emergent contact if: you have a fever, you have any medication questions . Past History Medical & Surgical History: (1) Malnutrition (2) Fall (3) Cancer of lower lobe of left lung (4) DM type 2 (diabetes mellitus, type 2) (5) Dyslipidemia (6) HTN (hypertension) (7) Mild aortic valve stenosis (8) Diastolic dysfunction (9) Dehydration (10) Lung cancer (11) Bilateral pneumonia (12) Atrial flutter with rapid ventricular response (13) History of cataract surgery (14) S/P tonsillectomy . "Provider Documentation" section prepared by Kishan Byrd. . Design Center Consultant Recommendations Design Center Consultant Recommendations: Pulmonary Follow Up Tuesday02/22/2018 at 2:[address] Nehemiah MD [facility]. Please call [phone] if you need to change your appointment time. Core Measure Problem Core Measures: None
--- NOTE | 2018-02-14 13:38 | Discharge Summary ---
Discharge Summary Date of Service Feb 14, 2018. Discharge Summary Admission Date: Feb 07, 2018 at 16:15 Discharge Date: Feb 14, 2018 Discharge Disposition: Rehab Principal Diagnosis: ACUTE LUNG INJURY, CHEMO VERSUS RADIATION RELATED; COMPONENT OF ASPIRATION PNEUMONIA Secondary Diagnoses/Problems: PLEASE REFER TO HOSPITAL COURSE BELOW. Procedures: (CHEST FOR PE) ANGIO WITH CLINICAL HISTORY: 82 years-old Male presenting with ^SOB. TECHNIQUE: Multidetector CT angiography of the chest was performed after administration of intravenous contrast. 3-D volumetric and/or maximum intensity projection (MIP) images were subsequently reconstructed for review. IV contrast: 88 mL of Optiray 320. A dose lowering technique was used consistent with the principles of ALARA (as low as reasonably achievable). COMPARISON: 01/03/2018, PET/CT from 06/08/[address] from 04/27/2017. CT DOSE (mGy.cm): The estimated cumulative dose is 564.57 mGy.cm. FINDINGS: Facilities Manager topogram: Bibasilar predominant opacities. Pulmonary vasculature: The study is extremely limited for the assessment of the pulmonary vascular tree secondary to respiratory motion artifact. Allowing for limited image quality, no gross central filling defect to suggest pulmonary embolus. The left lower lobe pulmonary artery is occluded on a chronic basis (series 4 image 161). Main pulmonary artery top normal in size. No flattening of the interventricular septum. No intracardiac filling defect. No reflux of contrast into the hepatic veins. Remaining chest: On soft tissue windows, normal thyroid and thoracic inlet. Conglomerate left hilar lymphadenopathy suspected. Less extensive right hilar lymphadenopathy. Subcentimeter scattered mediastinal lymph nodes. Atherosclerosis of the aorta. Multichamber enlargement of the heart. Coronary artery calcification. No pericardial or pleural effusion. Upper abdomen normal. On lung windows, interval worsened consolidation in the right lung with dense multifocal solid peripheral wedgelike consolidation. This largely spares the right apex. Trace emphysematous changes evident. Chronic opacities in the left lung most severely affecting the left lower lobe. Bronchiectasis evident. Central airways patent. On bone windows, degenerative changes of the spine. IMPRESSION: 1. Significant interval worsening of consolidation in the right lung since the prior exam. The predominantly peripheral wedgelike regions of solid consolidation could suggest pulmonary infarcts though no acute pulmonary emboli are evident allowing for the significantly degraded evaluation due to respiratory motion artifact. Alternatively, increased opacities could represent worsened infection. 2. Chronic left lung consolidation with bronchiectatic change. Underlying infection is difficult to exclude. 3. 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 A discrete mass was visualized on prior chest CT from April 2017 though margins of a discrete mass are now not apparent. 4. Emphysema. Electronically signed by: Shlomo Hurtado M.D. 02/06/2018 3:40 PM VIDEO SWALLOW HISTORY: Dysphagia pharyngeal dysphagia; please schedule per order TECHNIQUE: Video fluoroscopic evaluation of swallowing was performed in the AP and lateral projections by the speech pathology staff. The patient is fed nectar-thick and thin liquid barium, a barium coated wafer, and barium pudding. FLUOROSCOPY TIME: 3.2 minutes. COMPARISON STUDY: None. FINDINGS: There is normal hyoid excursion and epiglottic deflection. Trace amount of aspiration with thin liquids. No significant cough reflex. The remainder the study is unremarkable. IMPRESSION: 1. Trace amount of silent aspiration with thin liquids. 2. Please see the speech pathologist report for detailed findings and recommendations. Consultations: PULMONARY DR. DUCKWORTH, INFECTIOUS DISEASE DR. VALVERDE Pending Studies/Follow-Up: MONITOR RESPIRATORY STATUS. TITRATE OXYGEN ACCORDINGLY. LOVENOX DOSE NEEDS TO BE MONITORED: REPEAT ANTI FACTOR XA LEVEL TOMORROW (FEBRUARY 15, 2018) 4 HOURS AFTER ADMINISTERING LOVENOX IN THE MORNING. MONITOR RESPIRATORY STATUS. TITRATE OXYGEN ACCORDINGLY. LOVENOX DOSE NEEDS TO BE MONITORED: REPEAT ANTI FACTOR XA LEVEL TOMORROW (FEBRUARY 15, 2018) 4 HOURS AFTER ADMINISTERING LOVENOX IN THE MORNING. ADJUST LOVENOX DOSE NEEDED ACCORDINGLY. MONITOR BLOOD GLUCOSE AC AND HS. (RE: TENDENCY FOR HYPOGLYCEMIA). FALL, ASPIRATION PRECAUTIONS. CONTINUE PT, OT, SPEECH THERAPY. FOLLOW SPEECH THERAPY RECOMMENDATIONS. 1. Mechanical soft "slippery" diet and NECTAR thick liquids. Modify back to full liquids with any increased difficulty tolerating mech soft. Avoid food that are dry, thick, pasty, and doughy. Add condiments to foods to keep it moist. 2. Aspiration and GERD precautions, NO straws. Fully upright for meals and for 30 minutes after meals. Head of the bed should be elevated to at least 30 degrees at all time, to include while sleeping. 3.Stringent oral care- brushing all surfaces of the mouth and tongue prior to and after meals, and before bed, to reduce bacteria that can be aspirated in saliva. 4. Safe swallow strategies: Small bites, small sips, double effortful swallow with each bite/sip. ALternate solids and liquids. 5. Will benefit from continued speech therapy services at discharge with focus on cognition and dysphagia therapy. Swallowing therapy to focus on generalized pharyngeal strengthening to include (but not limited to), Effortful swallowing, Shikha Maneuver, Nan Maneuver. FOLLOW UP WITH [facility] ONCOLOGIST DR. DEREK ESTEVEZ IN 1-2 WEEKS. [facility] KETAN MONGE ON FEBRUARY 22, 2018 AT 2: 30 PM. FOLLOW UP WITH PRIMARY CARE PHYSICIAN IN 1-2 WEEKS AFTER DISCHARGE FROM [facility]. PLEASE REFER TO HOSPITAL COURSE BELOW FOR FURTHER RECOMMENDATIONS. Medication Reconciliation New Medications: Amoxicillin & Pot Clavulanate (Amoxicillin/Clavulanate P) 1 Tab Tab 875 MG PO BIDM for 3 Days, #6 TAB 0 Refills Enoxaparin (Lovenox) 120 Mg/0.8 Ml Inj 111 MG SQ Q24H for 30 Days, #30 SYR 2 Refills Prednisone (Prednisone) 20 Mg Tab 60 MG PO DAILY for 30 Days, #90 TAB 1 Refill take 60mg po daily x 2 weeks, then 40mg po daily x 2 weeks, then 20mg po daily Continued Medications: Allopurinol (Zyloprim) 300 Mg Tab 300 MG PO DAILY, TAB Aspirin (Aspirin Ec) 81 Mg Tab 81 MG PO DAILY Atorvastatin (Lipitor) 20 Mg Tab 20 MG PO DAILY, TAB Cholecalciferol (Vitamin D) 1,000 Unit Tab 1000 INTER.UNIT PO DAILY Glimepiride (Glimepiride) 2 Mg Tab 2 MG PO DAILY, TAB Guaifenesin/Codeine (Robitussin-Ac Syrup) Syrp 10 ML PO Q4H PRN for Cough for 4 Days, #240 ML Home O2 Therapy (Oxygen) Gas 2 LITERS NA UD, BTL Metformin Hcl (Metformin Hcl Er) 500 Mg Tab 500 MG PO DAILY, TAB Metoprolol Tartrate (Lopressor) (Lopressor) 25 Mg Tab 25 MG PO BID, TAB Mirtazapine (Remeron) 15 Mg Tab 15 MG PO HS, TAB Multivitamins/Minerals (Mvi With Minerals) Tab 1 TAB PO DAILY, TAB Nutritional Supplements (Boost) 1 Liq Liq 1 CAN PO BIDM Sennosides-Docusate Sodium (Stool Softener) 1 Tab Tab 1 TAB PO BID PRN for Constipation Discontinued Medications: Enoxaparin (Enoxaparin Sodium) 100 Mg/Ml Inj 100 MG SQ Q12H for 30 Days, #60 ML 2 Refills [keytruda] () 1 DOSE IV Q3 WEEKS Admission Information HPI (per Admitting provider): Pt is 82 y/o M with PMH HTN, HLD, DM II, gout, spindle cell lung CA presented to ER with complaint of weakness. Patient following with Dr. Estevez for lung CA , finished chemo and radiation, on chemo due to last dose on 01/24/18. Patient reports chronic weakness however has had increased weakness over the past several days. States yesterday increased difficulty getting out of bed. And today was unable to get out of bed secondary to increased generalized weakness and increased weakness to legs. Patient reports home health was in to see patient and sent patient to ER secondary to increased weakness. EMS found patient to be in rapid atrial flutter rate in the 150s, was given 10 mg Cardizem in route. In ER patient converted to sinus rhythm rate in 90s. Patient reports chronic decreased appetite. Past 3 days has not been eating and very little water intake. Patient reports has been having dry mouth and this morning noticed increased dry mouth and was having trouble talking with the dryness in his mouth. Patient reports past couple of weeks has been having trouble swallowing and feels like solid food "sticks". Patient is unsure if feels like sticking in his mouth or throat. Reports choked a couple of days ago. Denies any pain with swallowing. patient states can swallow fluids without any difficulty. He reports chronic cough and sometimes productive of clear to pale yellow sputum. Patient denies any increased cough or increased sputum production. Reports chronic shortness of breath, does not feel increased shortness of breath. Patient is on oxygen 2 L NC and 4 L NC with ambulation. Patient reports uses walker to ambulate. History of hospitalization 01/03/18-01/08/18 for hypoxia, pneumonia and developed A. fib in hospital and chronic left lower extremity DVT noted. Patient was treated with IV Levaquin, sent home on oxygen, Lovenox, metoprolol, Levaquin p.o. 5 days. Patient states since discharge has been receiving home health nursing and physical therapist. Last BM 2 days ago. Denies nausea or vomiting.Denies fever/chills, diaphoresis, melena, hematochezia, CORDOBA, dizziness, syncope, vision changes, neck pain, CP, hemoptysis, orthopnea, palpitations, otalgia, rhinorrhea, abdominal pain, paresthesias, extremity edema, rashes, dysuria, hematuria, urinary frequency, urinary retention. Physical Exam (per Admitting): General Appearance: WD/WN, no apparent distress Head: normocephalic, atraumatic Eyes: normal inspection, PERRL, EOMI, sclerae normal ENT: hearing grossly normal, pharynx normal, + pertinent finding (Mucous membranes dry) Neck: supple, no JVD, trachea midline Respiratory/Chest: + decreased breath sounds (Throughout), + rales ( Bilateral bases), + pertinent finding (Respiration rate 22, tenderness to palpation left lateral chest, no rashes noted) Cardiovascular: regular rate, rhythm (Rate 94), normal peripheral pulses Abdomen/GI: normal bowel sounds, non tender, soft Back: no CVA tenderness Neurologic/Psych: alert, normal mood/affect, oriented x 3 (Slurred speech, no facial drooping, tongue midline, bilateral arms with range of motion intact and equal strength, decreased range of motion and decreased strength strength bilateral lower extremities noted equally, pedal pushes and pulls intact bilaterally) Skin: warm/dry, + pertinent finding (Positive excoriations noted to bilateral arms, neck, face, legs. Right lower anterior leg with abrasions without surrounding erythema or red streaking) Hospital Course Hemoglobin 9, monitor 82-year-old, male, with lung cancer on chemo and radiation , diabetes type 2, hypertension Presenting with low oxygen saturation. ACUTE LUNG INJURY, CHEMO VERSUS RADIATION RELATED COMPONENT OF ASPIRATION PNEUMONIA Imaging: CXR: Bibasilar parenchymal infiltrates, Slight improvement in aeration left lung base, Slight increase in parenchymal infiltrative change right base. WBC: 11.6. 94% on 4 L NC, R: 22. POC lactic acid: 1.4. Patient given Levaquin, Zosyn, vancomycin, 250 mL bolus and 150 mL/h NSS in ER. - CT chest: 1. Significant interval worsening of consolidation in the right lung since the prior exam. The predominantly peripheral wedgelike regions of solid consolidation could suggest pulmonary infarcts though no acute pulmonary emboli are evident allowing for the significantly degraded evaluation due to respiratory motion artifact. Alternatively, increased opacities could represent worsened infection. 2. Chronic left lung consolidation with bronchiectatic change. Underlying infection is difficult to exclude. -Blood cultures: Positive for 1 out of 2 bottles-bacillus likely contaminant patient required increased O2 supplement up to 5-6L (baseline 2L) Pulmonary consulted- Dr. Duckworth started on Solu-Medrol IV 80 mg every 6 hours oxygenation improved,. O2 titrated down to ~3 L VIA Nasal cannula Solumedrol subsequently changed to Prednisone 60mg po daily received 6 days of Zosyn, changed to Augmentin PO discharge plan: Augmentin PO x 3 more days to complete 7 days Prednisone 60 mg p.o. daily for total of 2 weeks then 40 mg for 2 weeks then 20 mg ongoing until seen by pulmonary. Follow up with [facility] Pulmonary Dr. Ketan Monge on February at 2:30 pm. Speech therapy evaluation ordered, status post video swallow evaluation: Showing aspiration with thin liquids Speech therapy recommendations: 1. Mechanical soft "slippery" diet and NECTAR thick liquids. Modify back to full liquids with any increased difficulty tolerating mech soft. Avoid food that are dry, thick, pasty, and doughy. Add condiments to foods to keep it moist. 2. Aspiration and GERD precautions, NO straws. Fully upright for meals and for 30 minutes after meals. Head of the bed should be elevated to at least 30 degrees at all time, to include while sleeping. 3.Stringent oral care- brushing all surfaces of the mouth and tongue prior to and after meals, and before bed, to reduce bacteria that can be aspirated in saliva. 4. Safe swallow strategies: Small bites, small sips, double effortful swallow with each bite/sip. Alternate solids and liquids. 5. Will benefit from continued speech therapy services at discharge with focus on cognition and dysphagia therapy. Swallowing therapy to focus on generalized pharyngeal strengthening to include (but not limited to), Effortful swallowing, Shikha Maneuver, Nan Maneuver. ACUTE ON CHRONIC HYPOXIC RESPIRATORY FAILURE secondary to above Patient uses 2 L NC continuous and 4 L NC with ambulation. Secondary to above Wean off oxygen accordingly back to usual baseline of 2 L nasal cannula A FLUTTER WITH RVR Patient found to be a flutter with rates in the 150s by EMS was given 10 mg Cardizem in route. Patient has since converted to sinus rhythm. Continue metoprolol 25 mg twice daily continue Lovenox WEAKNESS Worsening generalized weakness, Likely secondary to dehydration, deconditioning. -PT/OT - transition to Rehab/SNF HISTORY SPINDLE CELL LUNG CARCINOMA Follows with Dr. Derek Estevez for Oncology Was treated with chemo and radiation. Currently on Keytruda Discussed with Dr. Estevez, plan to hold Keytruda for now Follow-up with Dr. Estevez in 1-2 weeks CHRONIC THROMBUS LEFT POPLITEAL VEIN Patient denies any increased lower extremity edema or lower extremity pain. Patient on Lovenox -- anti Xa level elevated thus, pharmacist recommended to reduce dose from 100mg BID to 90mg daily repeat anti Xa level 02/12 0.8 (low), Lovenox increased to 111mg daily repeat anti Xa level 02/15 at 1230pm, based on level, titrate Lovenox SC accordingly please refer to information sheet attached re: instructions on Lovenox dose titration -- patient will continue Lovenox indefinitely CHRONIC ANEMIA Hgb: 10 (approximate baseline). No active bleeding Hg stable DM II H A1c 6.3 on 11/2017 - patient placed on Insulin Lantus and Sliding scale as inpatient noted to have hypoglycemia episodes, Lantus discontinued -continue usual Metformin and Glimepiride monitor BSGs closely, watch out for hypoglycemia HTN - Stable - continue metoprolol HLD -Continue statin MICROSCOPIC HEMATURIA - monitor repeat as outpatient DVT Prophylaxis -Pt on therapeutic dose Lovenox for known LLE DVT Disposition transition to inpatient rehab facility follow up with Manager New Product [facility] in 2 weeks follow up with Oncologist Dr. Derek Estevez in 1-2 weeks Total time spent on discharge = 60 minutes This includes examination of the patient, discharge planning, medication reconciliation, and communication with other providers. Discharge Instructions Discharge Instructions Date of Service Feb 14, 2018. Admission Reason for Admission: Atrial Flutter With Rapid Ventricular Response Discharge Discharge Diagnosis / Problem: ACUTE LUNG INJURY SECONDARY TO CHEMO/RADIATION THERAPY Discharge Goals Goal(s): Diagnostic testing, Therapeutic intervention Activity Recommendations Activity Level: Assistance Required Therapies: Physical Therapy, Occupational Therapy, Speech Therapy . Additional Information Patient informed of condition: Yes Advance Directives: No (UNKNOWN) DNR: No (PATIENT IS FULL CODE) Level of Care: Acute Rehab Communicable Disease: No Prognosis: Improving Oxygen at (LPM): 3-4 L VIA NASAL CANNULA, CONTINUOUS Chau Catheter: No Instructions / Follow-Up Instructions / Follow-Up MONITOR RESPIRATORY STATUS. TITRATE OXYGEN ACCORDINGLY. LOVENOX DOSE NEEDS TO BE MONITORED: REPEAT ANTI FACTOR XA LEVEL TOMORROW (FEBRUARY 15, 2018) 4 HOURS AFTER ADMINISTERING LOVENOX IN THE MORNING. MONITOR RESPIRATORY STATUS. TITRATE OXYGEN ACCORDINGLY. LOVENOX DOSE NEEDS TO BE MONITORED: REPEAT ANTI FACTOR XA LEVEL TOMORROW (FEBRUARY 15, 2018) 4 HOURS AFTER ADMINISTERING LOVENOX IN THE MORNING. ADJUST LOVENOX DOSE NEEDED ACCORDINGLY. MONITOR BLOOD GLUCOSE AC AND HS. (RE: TENDENCY FOR HYPOGLYCEMIA). FALL, ASPIRATION PRECAUTIONS. CONTINUE PT, OT, SPEECH THERAPY. FOLLOW SPEECH THERAPY RECOMMENDATIONS. 1. Mechanical soft "slippery" diet and NECTAR thick liquids. Modify back to full liquids with any increased difficulty tolerating mech soft. Avoid food that are dry, thick, pasty, and doughy. Add condiments to foods to keep it moist. 2. Aspiration and GERD precautions, NO straws. Fully upright for meals and for 30 minutes after meals. Head of the bed should be elevated to at least 30 degrees at all time, to include while sleeping. 3.Stringent oral care- brushing all surfaces of the mouth and tongue prior to and after meals, and before bed, to reduce bacteria that can be aspirated in saliva. 4. Safe swallow strategies: Small bites, small sips, double effortful swallow with each bite/sip. ALternate solids and liquids. 5. Will benefit from continued speech therapy services at discharge with focus on cognition and dysphagia therapy. Swallowing therapy to focus on generalized pharyngeal strengthening to include (but not limited to), Effortful swallowing, Shikha Maneuver, Nan Maneuver. FOLLOW UP WITH [facility] ONCOLOGIST DR. DEREK ESTEVEZ IN 1-2 WEEKS. FOLLOW UP WITH [facility] DR. KETAN MONGE ON FEBRUARY 22, 2018 AT 2: 30 PM. FOLLOW UP WITH PRIMARY CARE PHYSICIAN IN 1-2 WEEKS AFTER DISCHARGE FROM [facility]. PLEASE REFER TO ACCOMPANYING HOSPITAL DISCHARGE SUMMARY FOR FURTHER RECOMMENDATIONS. Current Hospital Diet Patient's current hospital diet: Diabetes Type 2 Diet Discharge Diet Recommended Diet: AHA Diet (Heart Healthy), Diabetes Type 2 Diet Diet Texture: Mechanical Soft (ground) (SLIPPERY) Liquid Consistency: [place] Thick Procedures Procedures Performed: CT CHEST, VIDEO SWALLOW EVAL Pending Studies Studies pending at discharge: yes List of pending studies: REPEAT ANTIFACTOR XA LEVEL TOMORROW 02/15/18, FOUR HOURS AFTER LOVENOX DOSE. PLEASE REFER TO DISCHARGE SUMMARY. Physician Orders On Transfer Special Precautions: MONITOR RESPIRATORY STATUS. TITRATE OXYGEN ACCORDINGLY. LOVENOX DOSE NEEDS TO BE MONITORED: REPEAT ANTI FACTOR XA LEVEL TOMORROW (FEBRUARY 15, 2018) 4 HOURS AFTER ADMINISTERING LOVENOX IN THE MORNING. MONITOR RESPIRATORY STATUS. TITRATE OXYGEN ACCORDINGLY. LOVENOX DOSE NEEDS TO BE MONITORED: REPEAT ANTI FACTOR XA LEVEL TOMORROW (FEBRUARY 15, 2018) 4 HOURS AFTER ADMINISTERING LOVENOX IN THE MORNING. ADJUST LOVENOX DOSE NEEDED ACCORDINGLY. MONITOR BLOOD GLUCOSE AC AND HS. (RE: TENDENCY FOR HYPOGLYCEMIA). FALL, ASPIRATION PRECAUTIONS. CONTINUE PT, OT, SPEECH THERAPY. FOLLOW SPEECH THERAPY RECOMMENDATIONS. 1. Mechanical soft "slippery" diet and NECTAR thick liquids. Modify back to full liquids with any increased difficulty tolerating mech soft. Avoid food that are dry, thick, pasty, and doughy. Add condiments to foods to keep it moist. 2. Aspiration and GERD precautions, NO straws. Fully upright for meals and for 30 minutes after meals. Head of the bed should be elevated to at least 30 degrees at all time, to include while sleeping. 3.Stringent oral care- brushing all surfaces of the mouth and tongue prior to and after meals, and before bed, to reduce bacteria that can be aspirated in saliva. 4. Safe swallow strategies: Small bites, small sips, double effortful swallow with each bite/sip. ALternate solids and liquids. 5. Will benefit from continued speech therapy services at discharge with focus on cognition and dysphagia therapy. Swallowing therapy to focus on generalized pharyngeal strengthening to include (but not limited to), Effortful swallowing, Shikha Maneuver, Nan Maneuver. [facility]EV[facility] 1-2 WEEKS. FOLLOW UP WITH [facility] DR. KETAN MONGE ON FEBRUARY 22, 2018 AT 2: 30 PM. FOLLOW UP WITH PRIMARY CARE PHYSICIAN IN 1-2 WEEKS AFTER DISCHARGE FROM [facility]. PLEASE REFER TO ACCOMPANYING HOSPITAL DISCHARGE SUMMARY FOR FURTHER RECOMMENDATIONS. Laboratory Results Hemoglobin A1c Test 02/08/18 06:03 Range/Units Estimated Average Glucose 128 mg/dl Hemoglobin A1c 6.1 H 4.5-5.6 % Medical Emergencies . Who to Call and When: Medical Emergencies: If at any time you feel your situation is an emergency, please call 911 immediately. . Non-Emergent Contact Non-Emergency issues call your: Primary Care Provider, Oncologist, Manager New Product Call Non-Emergent contact if: you have a fever, you have any medication questions . Past History Medical & Surgical History: (1) Malnutrition (2) Fall (3) Cancer of lower lobe of left lung (4) DM type 2 (diabetes mellitus, type 2) (5) Dyslipidemia (6) HTN (hypertension) (7) Mild aortic valve stenosis (8) Diastolic dysfunction (9) Dehydration (10) Lung cancer (11) Bilateral pneumonia (12) Atrial flutter with rapid ventricular response (13) History of cataract surgery (14) S/P tonsillectomy . "Provider Documentation" section prepared by Kishan Byrd. . Glass Embosser Recommendations Glass Embosser Recommendations: Pulmonary Follow Up Tuesday02/22/2018 at 2:[address] Nehemiah MD [facility] [address] [place] [address]. Please call [phone] if you need to change your appointment time. Core Measure Problem Core Measures: None
[2018-02-14 15:09] VITALS: BP 120/63; PULSE 70; TEMP 36.3; O2SAT 97
[2018-02-14 15:54] VITALS: BP 122/64; PULSE 74; TEMP 36.9; O2SAT 98
--- NOTE | 2018-02-14 16:26 | Infectious Disease Progress Nt ---
Progress Note Date of Service Feb 14, 2018. Subjective Pt evaluation today including: conversation w/ patient, conversation w/ family , physical exam, chart review, lab review, review of studies, conversation w/ outreach consultant, review of inpatient medication list Patient continues to improve steadily, tolerating Augmentin without apparent difficulty. Cough and shortness of breath less. No fever. No other new complaints. All Other Systems: Reviewed and Negative Medications Current Inpatient Medications Medications (Trade) Dose Ordered Sig/Mert Route Start Time Stop Time Status Last Admin Dose Admin Acetaminophen (Tylenol Tab) 650 mg Q4H PRN PO 02/06/18 14:15 03/08/18 14:14 Ondansetron HCl (Zofran Inj) 4 mg Q6H PRN IV 02/06/18 14:15 03/08/18 14:14 Nitroglycerin (Nitrostat Tab) 0.4 mg UD PRN SL 02/06/18 14:15 03/08/18 14:14 Polyethylene (Miralax Powder Packet) 17 gm DAILY PRN PO 02/06/18 14:15 03/08/18 14:14 Miscellaneous (Iv Fluids Completed) 1 ea PRN PRN N/A 02/06/18 14:30 02/06/19 14:29 Allopurinol (Zyloprim Tab) 300 mg DAILY PO 02/07/18 09:00 03/09/18 08:59 02/14/18 09:49 300 MG Aspirin (Ecotrin Tab) 81 mg DAILY PO 02/07/18 09:00 03/09/18 08:59 02/14/18 09:48 81 MG Atorvastatin Calcium (Lipitor Tab) 20 mg DAILY PO 02/07/18 09:00 03/09/18 08:59 02/14/18 09:49 20 MG Cholecalciferol (Vitamin D Tab) 1,000 inter.unit DAILY PO 02/07/18 09:00 03/09/18 08:59 02/14/18 09:47 1,000 INTER.UNIT Metoprolol Tartrate (Lopressor Tab) 25 mg BID PO 02/06/18 21:00 03/08/18 20:59 02/14/18 09:48 25 MG Mirtazapine (Remeron Tab) 15 mg HS PO 02/06/18 21:00 03/08/18 20:59 02/13/18 20:54 15 MG Multivitamins/ Minerals (Multivitamin W/ Minerals Tab) 1 tab DAILY PO 02/07/18 09:00 03/09/18 08:59 02/14/18 09:48 1 TAB Senna/Docusate Sodium (Senokot S Tab) 1 tab BID PRN PO 02/06/18 14:45 03/08/18 14:44 02/06/18 21:50 1 TAB Glucose (Glucose 40% Gel) 15-30 GRAMS 15 GRAMS... UD PRN PO 02/06/18 14:45 03/08/18 14:44 Glucose (Glucose Chew Tab) 4-8 Tablets 4 Tabl... UD PRN PO 02/06/18 14:45 03/08/18 14:44 02/12/18 04:58 4 TABS Dextrose (Dextrose 50% 50ML Syringe) 25-50ML OF 50% DW IV FOR... UD PRN IV 02/06/18 14:45 03/08/18 14:44 Glucagon (Glucagon Inj) 1 mg UD PRN SQ 02/06/18 14:45 03/08/18 14:44 Miscellaneous Information (Consult Glycemic Management Pharmacy) 1 ea UD PRN N/A 02/07/18 08:28 03/09/18 08:27 Enteral Nutritional Formula (Boost Glucose Control) 1 can BIDM PO 02/07/18 16:45 03/09/18 16:44 02/13/18 09:37 1 CAN Amoxicillin/ Clavulanate Potassium (Augmentin Tab) 875 mg BIDM PO 02/11/18 16:45 02/18/18 16:44 02/14/18 09:47 875 MG Prednisone (PredniSONE TAB) 60 mg DAILY PO 02/13/18 09:00 03/12/18 11:59 02/14/18 09:48 60 MG Insulin Aspart (novoLOG ASPART) SLIDING SCALE If C... AC SC 02/12/18 11:00 03/14/18 10:59 02/14/18 12:15 5 UNITS Enoxaparin Sodium (Lovenox Inj) 111 mg Q24H SQ 02/13/18 09:00 03/15/18 08:59 02/14/18 09:49 111 MG Oxymetazoline HCl (Afrin 0.05% Nasal [place]) 1 sprays BID PRN NA 02/13/18 16:45 02/17/18 16:44 Objective Vital Signs Date Time Temp Pulse Resp B/P (MAP) Pulse Ox O2 Delivery O2 Flow Rate FiO2 02/14/18 15:54 36.9 74 20 98 Nasal Cannula 02/14/18 15:09 36.3 70 20 120/63 (82) 97 Nasal Cannula 4.0 02/14/18 12:00 Nasal Cannula 2.0 02/14/18 11:26 36.1 57 20 136/85 (102) 97 Nasal Cannula 4.0 02/14/18 08:00 Nasal Cannula 2.0 02/14/18 07:43 36.3 58 20 135/68 (90) 98 Nasal Cannula 4.0 02/14/18 04:00 Nasal Cannula 2.0 02/14/18 03:44 36.3 59 18 137/68 (91) 98 Nasal Cannula 2.0 02/14/18 00:00 Nasal Cannula 2.0 02/13/18 23:48 36.5 52 22 144/70 (94) 98 Nasal Cannula 3.0 02/13/18 20:00 Nasal Cannula 2.0 02/13/18 19:06 36.4 72 22 125/64 (84) 98 Nasal Cannula 4.0 100 Physical Exam General Appearance: WD/WN, no apparent distress Eyes: normal inspection, EOMI, sclerae normal ENT: normal ENT inspection, pharynx normal Neck: supple, no adenopathy, thyroid normal, trachea midline Respiratory/Chest: chest non-tender, lungs clear, normal breath sounds, no respiratory distress Cardiovascular: regular rate, rhythm, no gallop, no murmur Abdomen: normal bowel sounds, non tender, soft, no organomegaly Extremities: non-tender, no calf tenderness Neurologic/Psychiatric: alert, normal mood/affect, oriented x 3 Skin: normal color, warm/dry, no rash Lymphatic: no adenopathy Laboratory Results Last 24 Hours Test 02/14/18 00:07 02/14/18 03:35 02/14/18 06:53 02/14/18 11:25 Bedside Glucose 147 mg/dl 129 mg/dl 115 mg/dl 138 mg/dl Assessment and Plan 82-year-old male with known lung cancer on chemotherapy status post radiation therapy last year admitted with progressively worsening shortness of breath, weakness and anorexia with weight loss, found to have evidence worsening infiltrations on chest x-ray with swallowing study consistent with possible aspiration. Patient appears to have improved clinically on current antibiotics and steroids, and for discharge today to complete planned course of Augmentin therapy.
== END 2018-02-14 16:25 | DRG 177 ==
LOC: C.EDC 11:24 → EDBD 11:24 → C.2E 14:20 → EDBEDREQ 14:28 → ENRESERV 14:57 → CANRESERV 14:57 → ENRESERV 15:12 → OBSVTOIN 02-07 16:15
PROVIDERS: ADMIT Hospitalist; ATTEND Internal Medicine
DX: J69.0 Pneumonitis due to inhalation of food and vomit (principal); J96.21 Acute and chronic respiratory failure with hypoxia; C34.32 Malignant neoplasm of lower lobe, left bronchus or lung; I48.92 Unspecified atrial flutter; I82.532 Chronic embolism and thrombosis of left popliteal vein; J96.11 Chronic respiratory failure with hypoxia; E11.9 Type 2 diabetes mellitus without complications; E78.5 Hyperlipidemia, unspecified; M10.9 Gout, unspecified; J44.9 Chronic obstructive pulmonary disease, unspecified; R31.29 Other microscopic hematuria; R13.10 Dysphagia, unspecified; E86.0 Dehydration; D64.9 Anemia, unspecified; I10 Essential (primary) hypertension; Z87.891 Personal history of nicotine dependence; Z79.82 Long term (current) use of aspirin; Z86.711 Personal history of pulmonary embolism; Z99.81 Dependence on supplemental oxygen; Z98.49 Cataract extraction status, unspecified eye; Z92.21 Personal history of antineoplastic chemotherapy; Z82.49 Family history of ischemic heart disease and other diseases of the circulatory system; Z80.9 Family history of malignant neoplasm, unspecified; Z83.3 Family history of diabetes mellitus

== ENCOUNTER 2018-02-20 07:11 | Emergency (ER) | payer MEDICARE, OTHER ==
[~2018-02-20] VITALS: Ht 177.8 cm; Wt 88.6 kg
[~2018-02-20 07:11] MED LIST changes: +AMOX1TAB43 PO; +GUAISYP4 PO; -LVNIS100 SQ; +LVNIS120 SQ; +PRD20 PO; +SENNTAB23 PO; -VANCOMYCIN IV 2,000 MG in SODIUM CHLORIDE 0.9% 500ML 500 ML IV ONE
[2018-02-20 07:15] VITALS: TEMP 36.6; O2SAT 97; Ht 177.8 cm; Wt 88.6 kg
--- NOTE | 2018-02-20 07:52 | EMERGENCY ROOM VISIT NOTE ---
History Report prepared by Nani: eKlvin Ruff Under the Supervision of: Dr. Harish Elias M.D. First contact with patient: 07:25 Chief Complaint: LEG PAIN,LEG INJURY Stated Complaint: LEG WEAKNESS History of Present Illness The patient is a 82 year old male who presents to the Emergency Room with complaints of constant right leg weakness and swelling beginning yesterday. He is currently at [facility]. The patient was reported to have a noticeably colder right leg than left at [facility]. He has a history of lung cancer, and recent aspiration pneumonia. He is on chronic supplemental oxygen (x2 months). He was found to have a blood clot behind his left knee last month. The patient denies chest pain, SOB, fevers, back pain, urinary symptoms, diarrhea, difficulty with speech, or headaches. He denies any pain to his right leg. He had a PET scan last week which showed probable reduction in tumor growth. Source of History: patient Onset: Yesterday Position: leg (right) Quality: other (swelling and weakness) Timing: constant Associated Symptoms: No fevers, No headache, No chest pain, No SOB, No back pain, No diarrhea, No urinary symptoms Note: Negative: difficulty with speech, or right leg pain. Review of Systems See HPI for pertinent positives & negatives. A total of 10 systems reviewed and were otherwise negative. Past Medical & Surgical Medical Problems: (1) Cancer of lower lobe of left lung (2) Diastolic dysfunction (3) DM type 2 (diabetes mellitus, type 2) (4) Dyslipidemia (5) Fall (6) HTN (hypertension) (7) Malnutrition (8) Mild aortic valve stenosis Surgical Problems: (1) History of cataract surgery (2) S/P tonsillectomy Old medical records were reviewed. Nurse's notes were reviewed and I agree with. Family History Cancer Diabetes mellitus Heart disease Hypertension Social History Smoking Status: Former Smoker Alcohol Use: none Drug Use: cocaine Marital Status: Housing Status: lives with significant other Occupation Status: retired Current/Historical Medications Scheduled Allopurinol (Zyloprim), 300 MG PO DAILY Aspirin (Aspirin Ec), 81 MG PO DAILY Atorvastatin (Lipitor), 20 MG PO DAILY Cholecalciferol (Vitamin D), 1,000 INTER.UNIT PO DAILY Enoxaparin (Lovenox), 100 MG PO DAILY Glimepiride (Glimepiride), 2 MG PO DAILY Home O2 Therapy (Oxygen), 2 LITERS NA UD Insulin Aspart (Novolog Flexpen), 1 DOSE SC ACHS Metformin Hcl (Metformin Hcl Er), 500 MG PO DAILY Metoprolol Tartrate (Lopressor) (Lopressor), 25 MG PO BID Mirtazapine (Remeron), 15 MG PO HS Multivitamins/Minerals (Mvi With Minerals), 1 TAB PO DAILY Prednisone (Prednisone), 60 MG PO DAILY Scheduled PRN Guaifenesin/Codeine (Robitussin-Ac Syrup), 10 ML PO Q4H PRN for Cough Tramadol (Ultram), 50 MG PO Q4H PRN for Pain Allergies Coded Allergies: No Known Allergies (Unverified , 02/20/18) Physical Exam Vital Signs Date Time Temp Pulse Resp B/P (MAP) Pulse Ox O2 Delivery O2 Flow Rate FiO2 02/20/18 11:58 72 19 152/79 95 02/20/18 11:20 83 20 122/76 98 Nasal Cannula 2.5 02/20/18 11:07 67 02/20/18 09:30 64 20 132/70 99 Nasal Cannula 2.0 02/20/18 07:23 78 02/20/18 07:15 36.6 77 20 121/58 97 Nasal Cannula 2.0 02/20/18 07:15 97 Nasal Cannula 2.0 Physical Exam General: Chronically-ill appearing older male in no acute distress. HEENT: Normal cephalic atraumatic. Pupils are equal round and reactive to light. Extraocular movements are intact. Oropharynx is pink with moist mucous membranes. No swelling of the mouth lips or tongue. Neck: Supple with a midline trachea. No meningeal signs or stiffness, no JVD or bruits. No Stridor. Chest: Crackles at the bases bilaterally. Baseline supplemental oxygen. No respiratory distress. Heart: regular rate and rhythm. Abdomen: Soft nontender, nondistended without rebound guarding or rigidity. Extremities: No cyanosis or clubbing. Right leg has pulses by Doppler. Right leg is slightly cooler than right left. Difficulty flexing the hip, otherwise normal motor and sensation. Left leg has 1+ edema. Spine/Back. Non tender to palpation. No CVA tenderness Skin: Good turgor without rashes. Neurologic exam: Cranial nerves two through 12 are intact. Motor and sensation are intact and symmetrical throughout. Medical Decision & Procedures ER Provider Diagnostic Interpretation: Radiology results as stated below per my review and radiologist interpretation: CHEST ONE VIEW PORTABLE FINDINGS: Lung volumes remain diminished. This is unchanged. There is no pneumothorax or pleural effusion. Bibasilar and left midlung opacity persists. Right lung airspace opacity has slightly improved. There is no evidence for pulmonary edema. Cardiomediastinal silhouette is stable. IMPRESSION: Persistent bibasilar and left midlung opacities. Slight interval improvement in right lung airspace opacity. Findings remain nonspecific and differential considerations including multifocal pneumonia and post treatment change. Electronically signed by: Lg Saldana M.D. 02/20/2018 8:26 AM HEAD WITHOUT CONTRAST (CT) FINDINGS: No acute intracranial hemorrhage, midline shift, intracranial mass, hydrocephalus, territorial ischemia or abnormal extra-axial collection. Moderate atrophy. The calvarium is intact. The paranasal sinuses, mastoid air cells, and middle ear cavities are clear. IMPRESSION: No acute intracranial abnormality. The above report was generated using voice recognition software. It may contain grammatical, syntax or spelling errors. Electronically signed by: Richard Doyle M.D. 02/20/2018 8:31 AM RIGHT LOWER EXTREMITY VENOUS DOPPLER FINDINGS: The right common femoral, superficial femoral and popliteal veins were compressible. Augmentation was normal. Flow was shown within the deep calf vessels. IMPRESSION: No evidence of deep venous thrombus within the right lower extremity. Electronically signed by: Lg Saldana M.D. 02/20/2018 9:29 AM R ART DOP DUPLEX LWR EXT UNI FINDINGS: No increased velocities identified to suggest high-grade stenosis. No arterial occlusion identified. Triphasic waveforms are noted in the common femoral, profunda femoris, and superficial femoral arteries. Mildly blunted biphasic waveforms are noted within the popliteal artery. Triphasic waveforms are seen within the anterior tibial and dorsalis petrous arteries. Biphasic waveforms are noted within the posterior tibial and peroneal arteries. Right: Brachial-144; posterior tibial and dorsalis pedis arteries are noncompressible; digit-124 with index of 0.86. Left: Brachial-126; posterior tibial and dorsalis pedis arteries are noncompressible; digit is also noncompressible. IMPRESSION: 1. No increased peak systolic velocities are identified to suggest high-grade stenosis. No evidence of arterial occlusion. 2. Mildly blunted biphasic waveforms in the popliteal artery and lower leg suggest peripheral arterial disease. 3. Bilateral noncompressible vessels limits evaluation for segmental pressures of the lower extremities. The above report was generated using voice recognition software. It may contain grammatical, syntax or spelling errors. Electronically signed by: Richard Doyle M.D. 02/20/2018 9:37 AM Laboratory Results 02/20/18 08:05 Red Blood Count 4.34, Mean Corpuscular Volume 85.7, Mean Corpuscular Hemoglobin 26.5, Mean Corpuscular Hemoglobin Concent 30.9, Mean Platelet Volume 9.2, Neutrophils (%) (Auto) 87.3, Lymphocytes (%) (Auto) 3.9, Monocytes (%) (Auto) 6.6, Eosinophils (%) (Auto) 1.1, Basophils (%) (Auto) 0.1, Neutrophils # (Auto) 15.92, Lymphocytes # (Auto) 0.71, Monocytes # (Auto) 1.21, Eosinophils # (Auto) 0.20, Basophils # (Auto) 0.02 02/20/18 08:05 Test 02/20/18 08:05 White Blood Count 18.24 K/uL (4.8-10.8) Red Blood Count 4.34 M/uL (4.7-6.1) Hemoglobin 11.5 g/dL (14.0-18.0) Hematocrit 37.2 % (42-52) Mean Corpuscular Volume 85.7 fL (80-100) Mean Corpuscular Hemoglobin 26.5 pg (25-34) Mean Corpuscular Hemoglobin Concent 30.9 g/dl (32-36) Platelet Count 323 K/uL (130-400) Mean Platelet Volume 9.2 fL (7.4-10.4) Neutrophils (%) (Auto) 87.3 % Lymphocytes (%) (Auto) 3.9 % Monocytes (%) (Auto) 6.6 % Eosinophils (%) (Auto) 1.1 % Basophils (%) (Auto) 0.1 % Neutrophils # (Auto) 15.92 K/uL (1.4-6.5) Lymphocytes # (Auto) 0.71 K/uL (1.2-3.4) Monocytes # (Auto) 1.21 K/uL (0.11-0.59) Eosinophils # (Auto) 0.20 K/uL (0-0.5) Basophils # (Auto) 0.02 K/uL (0-0.2) RDW Standard Deviation 71.5 fL (36.4-46.3) RDW Coefficient of Variation 23.0 % (11.5-14.5) Immature Granulocyte % (Auto) 1.0 % Immature Granulocyte # (Auto) 0.18 K/uL (0.00-0.02) Anisocytosis PRESENT Prothrombin Time 10.5 SECONDS (9.0-12.0) Prothromb Time International Ratio 1.0 (0.9-1.1) Activated Partial Thromboplast Time 22.6 SECONDS (21.0-31.0) Partial Thromboplastin Ratio 0.9 Anion Gap 3.0 mmol/L (3-11) Est Creatinine Clear Calc Drug Dose 64.2 ml/min Estimated GFR () 83.8 Estimated GFR (Non- 72.3 BUN/Creatinine Ratio 28.1 (10-20) Calcium Level 9.0 mg/dl (8.5-10.1) Total Bilirubin 0.3 mg/dl (0.2-1) Direct Bilirubin mg/dl (0-0.2) Aspartate Amino Transf (AST/SGOT) 22 U/L (15-37) Alanine Aminotransferase (ALT/SGPT) 28 U/L (12-78) Alkaline Phosphatase 70 U/L (45-117) Total Protein 6.4 gm/dl (6.4-8.2) Albumin 2.3 gm/dl (3.4-5.0) Lipase 151 U/L (73-393) Chemistry Specimen Hemolysis Laboratory studies as stated above per my review. ECG Per My Interpretation Indication: weakness Rate (beats per minute): 68 Rhythm: normal sinus Findings: left axis deviation, other (No ST elevation. No PVC. Poor baseline. ) Comparison ECG Date: February 08, 2018 Change: no significant change ED Course 0726: Past medical records reviewed. The patient was evaluated in room B6, and a complete history and physical examination were performed. 1022: Upon reevaluation, the patient is resting comfortably. I discussed the results and treatment plan with him. He verbalized agreement of the treatment plan. The patient was discharged home. Medical Decision Differentials include, but are not limited to; arterial insufficiency, DVT, infection, CVA, and electrolyte or metabolic abnormality. This patient comes in as described above. He was placed in room B6. He is asymptomatic at present he has no leg pain or numbness or weakness or foot pain. They are concerned they thought his right leg seem colder than the left. He does have 1+ edema on the left lower extremity and tells me he has been treated for a known DVT in this leg. 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 He felt like his leg was giving out therapy yesterday and he may be weak with some extension of the hip but otherwise has no numbness or weakness. His lungs do sound crackly however he denies any respiratory symptoms and tells me this is been chronic and is being treated for lung cancer with aspiration. He is presently [facility]. He does have dopplerable pulses. There is no cyanosis of his foot. There is no calf tenderness or edema of the right leg. Ultrasounds were obtained in both the venous and arterial system. Also did a CAT scan of his head as he is on a blood thinner and blood work was obtained as well as chest x-ray and EKG. He was reassessed frequently. Ultrasounds did not show any evidence of DVT or acute arterial occlusion. His white count was elevated however it has been elevated likely due to steroids. he has nothing to suggest infection at this point. he has some chronic changes on his lungs which actually looks slightly better. From a respiratory standpoint, he has been doing significantly better and he has nothing to suggest recurrence of infection. He has nothing she has cardiac disease or acute electrolyte or metabolic abnormalities. He feels good and would like to go back to [facility]. His son arrived, who is a nurse, and he agrees with the plan as well as the . The patient will be discharged back to [facility] and return if: Worsening of symptoms, increasing pain or swelling, numbness or weakness, any new problems or concerns. Medication Reconcilliation Current Medication List: was personally reviewed by me Blood Pressure Screening Patient's blood pressure: Normal blood pressure Blood pressure disposition: Did not require urgent referral Impression Primary Impression: Right leg weakness Scribe Attestation The scribe's documentation has been prepared under my direction and personally reviewed by me in its entirety. I confirm that the note above accurately reflects all work, treatment, procedures, and medical decision making performed by me. Departure Information Dispostion Home / Self-Care Referrals Ady Mayo MD (PCP) Forms HOME CARE DOCUMENTATION FORM, IMPORTANT VISIT INFORMATION Patient Instructions My [facility] Additional Instructions Rest. Be careful when getting up and down Return to the ER if: Increasing pain or discoloration, numbness or weakness, any new problems or concerns, fever chills, shortness of breath Follow up with your doctor in the next 1-2 days for recheck
[2018-02-20] MEDS ORDERED: ENOX100I PO (08:00)
[2018-02-20] MEDS ORDERED: TRAM-10 PO (08:00)
[2018-02-20] MEDS ORDERED: NVLGI/PEN SC (08:00)
[2018-02-20 08:16] LABS: BASO % 0.1 %; BASO ABS # 0.02 K/uL (0-0.2); EOS % 1.1 %; HEMATOCRIT 37.2 % (42-52); HEMOGLOBIN 11.5 g/dL (14.0-18.0); IG# 0.18 K/uL (0.00-0.02); LYMPH % 3.9 %; LYMPH ABS # 0.71 K/uL (1.2-3.4); MEAN CELL VOLUME 85.7 fL (80-100); MEAN CORPUSCULAR HEMOGLOBIN 26.5 pg (25-34); MEAN CORPUSCULAR HGB CONC 30.9 g/dl (32-36); MEAN PLATELET VOLUME 9.2 fL (7.4-10.4); MONO % 6.6 %; MONO ABS # 1.21 K/uL (0.11-0.59); NEUT % 87.3 %; NEUT ABS # 15.92 K/uL (1.4-6.5); PLATELET COUNT 323 K/uL (130-400); RED CELL DISTRIBUTION WIDTH SD 71.5 fL (36.4-46.3); WHITE BLOOD COUNT 18.24 K/uL (4.8-10.8)
[2018-02-20 08:24] LABS: PTT PATIENT 22.6 SECONDS (21.0-31.0)
--- NOTE | 2018-02-20 08:27 | DIAGNOSTIC IMAGING REPORT ---
CHEST ONE VIEW PORTABLE CLINICAL HISTORY: Chest pain. Leg weakness. History of malignancy. COMPARISON STUDY: Chest CT February 06, 2018 and chest radiograph February 10, 2018. FINDINGS: Lung volumes remain diminished. This is unchanged. There is no pneumothorax or pleural effusion. Bibasilar and left midlung opacity persists. Right lung airspace opacity has slightly improved. There is no evidence for pulmonary edema. Cardiomediastinal silhouette is stable. IMPRESSION: Persistent bibasilar and left midlung opacities. Slight interval improvement in right lung airspace opacity. Findings remain nonspecific and differential considerations including multifocal pneumonia and post treatment change. Electronically signed by: Lg Saldana M.D. 02/20/2018 8:26 AM Dictated Date/Time: 02/20/2018 8:22 AM
--- NOTE | 2018-02-20 08:33 | DIAGNOSTIC IMAGING REPORT ---
HEAD WITHOUT CONTRAST (CT) CLINICAL HISTORY: 82 years-old Male with eval for rt leg weakness. Acute right leg weakness with history of bronchogenic carcinoma. TECHNIQUE: Multiple axial CT images of the head were obtained without contrast. A dose lowering technique was utilized adhering to the principles of ALARA. CT DOSE: 537.48 mGy.cm COMPARISON: PET CT 02/01/2018. FINDINGS: No acute intracranial hemorrhage, midline shift, intracranial mass, hydrocephalus, territorial ischemia or abnormal extra-axial collection. Moderate atrophy. The calvarium is intact. The paranasal sinuses, mastoid air cells, and middle ear cavities are clear. IMPRESSION: No acute intracranial abnormality. The above report was generated using voice recognition software. It may contain grammatical, syntax or spelling errors. Electronically signed by: Richard Doyle M.D. 02/20/2018 8:31 AM Dictated Date/Time: 02/20/2018 8:27 AM
[2018-02-20 08:42] LABS: ALBUMIN 2.3 gm/dl (3.4-5.0); POTASSIUM 4.5 mmol/L (3.5-5.1); TOTAL PROTEIN 6.4 gm/dl (6.4-8.2)
[2018-02-20 08:46] LABS: CREATININE 0.96 mg/dl (0.60-1.40)
--- NOTE | 2018-02-20 09:31 | DIAGNOSTIC IMAGING REPORT ---
RIGHT LOWER EXTREMITY VENOUS DOPPLER CLINICAL HISTORY: Right leg pain and swelling. COMPARISON STUDY: Bilateral lower extremity venous Doppler January 03, 2018. TECHNIQUE: Sonography of the deep venous system of the right lower extremity was performed. Compression and augmentation were evaluated. FINDINGS: The right common femoral, superficial femoral and popliteal veins were compressible. Augmentation was normal. Flow was shown within the deep calf vessels. IMPRESSION: No evidence of deep venous thrombus within the right lower extremity. Electronically signed by: Lg Saldana M.D. 02/20/2018 9:29 AM Dictated Date/Time: 02/20/2018 9:29 AM
--- NOTE | 2018-02-20 09:38 | DIAGNOSTIC IMAGING REPORT ---
R ART DOP DUPLEX LWR EXT UNI HISTORY: 82 years-old Male eval for art insuf peripheral arterial disease. Acute right leg pain COMPARISON: Duplex venous Doppler study of same day TECHNIQUE: Multiple real-time sonographic images of the right lower extremity arterial structures were obtained assessing grayscale appearance, color and spectral flow. Ankle-brachial indices are also obtained. FINDINGS: No increased velocities identified to suggest high-grade stenosis. No arterial occlusion identified. Triphasic waveforms are noted in the common femoral, profunda femoris, and superficial femoral arteries. Mildly blunted biphasic waveforms are noted within the popliteal artery. Triphasic waveforms are seen within the anterior tibial and dorsalis petrous arteries. Biphasic waveforms are noted within the posterior tibial and peroneal arteries. Right: Brachial-144; posterior tibial and dorsalis pedis arteries are noncompressible; digit-124 with index of 0.86. Left: Brachial-126; posterior tibial and dorsalis pedis arteries are noncompressible; digit is also noncompressible. IMPRESSION: 1. No increased peak systolic velocities are identified to suggest high-grade stenosis. No evidence of arterial occlusion. 2. Mildly blunted biphasic waveforms in the popliteal artery and lower leg suggest peripheral arterial disease. 3. Bilateral noncompressible vessels limits evaluation for segmental pressures of the lower extremities. The above report was generated using voice recognition software. It may contain grammatical, syntax or spelling errors. Electronically signed by: Richard Doyle M.D. 02/20/2018 9:37 AM Dictated Date/Time: 02/20/2018 9:33 AM
[2018-02-20 11:58] VITALS: BP 152/79; PULSE 72; O2SAT 95
== END 2018-02-20 11:50 | disposition home or self-care (01) ==
LOC: EDBD 07:11 → C.EDB 07:12
DX: R53.1 Weakness (principal); R60.0 Localized edema; Z86.718 Personal history of other venous thrombosis and embolism; C34.32 Malignant neoplasm of lower lobe, left bronchus or lung; E78.5 Hyperlipidemia, unspecified; I11.9 Hypertensive heart disease without heart failure; I35.0 Nonrheumatic aortic (valve) stenosis; E11.9 Type 2 diabetes mellitus without complications; Z79.4 Long term (current) use of insulin; Z79.82 Long term (current) use of aspirin; Z99.81 Dependence on supplemental oxygen; Z87.891 Personal history of nicotine dependence; Z82.49 Family history of ischemic heart disease and other diseases of the circulatory system; Z79.01 Long term (current) use of anticoagulants

== ENCOUNTER 2018-03-07 14:07 | Inpatient (IN) | payer MEDICARE, OTHER ==
[~2018-03-07] VITALS: Ht 177.8 cm; Wt 88.4 kg
[2018-03-07] VITALS (7 sets, daily range): BP systolic 82–103; BP diastolic 64–71; PULSE 99–147; TEMP 36.5; O2SAT 97–100; BMI 28.5
[~2018-03-07 14:07] MED LIST changes: -AMOX1TAB43 PO; +ENOX100I SC; -LVNIS120 SQ; -NUTR-7 PO; +NVLGI/PEN SC; -SENNTAB23 PO; +TRAM-10 PO
[2018-03-07] MEDS ORDERED: SODIUM CHLORIDE 0.9% 500ML 500 ML IV STA ×2 (14:37→16:16)
[2018-03-07] MEDS ORDERED: DILTIAZEM HCL 5 MG/ML 5 ML VIAL IV STA (14:49)
[2018-03-07] MEDS ORDERED: OPTIRAY 320 IV PRN (15:00)
[2018-03-07 15:17] LABS: BASO % 0.1 %; BASO ABS # 0.02 K/uL (0-0.2); EOS % 0.1 %; EOS ABS # 0.02 K/uL (0-0.5); HEMATOCRIT 34.9 % (42-52); IG# 0.12 K/uL (0.00-0.02); LYMPH % 1.1 %; LYMPH ABS # 0.19 K/uL (1.2-3.4); MEAN CELL VOLUME 86.2 fL (80-100); MEAN CORPUSCULAR HEMOGLOBIN 27.2 pg (25-34); MEAN CORPUSCULAR HGB CONC 31.5 g/dl (32-36); MEAN PLATELET VOLUME 8.7 fL (7.4-10.4); MONO % 3.2 %; MONO ABS # 0.54 K/uL (0.11-0.59); NEUT % 94.8 %; NEUT ABS # 16.08 K/uL (1.4-6.5); PLATELET COUNT 317 K/uL (130-400); RED CELL DISTRIBUTION WIDTH SD 70.4 fL (36.4-46.3); WHITE BLOOD COUNT 16.97 K/uL (4.8-10.8)
[2018-03-07 15:37] LABS: ALBUMIN 2.1 gm/dl (3.4-5.0); CREATININE 1.04 mg/dl (0.60-1.40); POTASSIUM 5.3 mmol/L (3.5-5.1)
[2018-03-07 15:48] LABS: TOTAL PROTEIN 6.6 gm/dl (6.4-8.2)
--- NOTE | 2018-03-07 16:25 | DIAGNOSTIC IMAGING REPORT ---
(CHEST FOR PE) ANGIO WITH CLINICAL HISTORY: 82 years-old Male presenting with ^sob,hx asp pna and pe, hx lung ca. TECHNIQUE: Multidetector CT angiography of the chest was performed after administration of intravenous contrast. 3-D volumetric and/or maximum intensity projection (MIP) images were subsequently reconstructed for review. IV contrast: 94 mL of Optiray 320. A dose lowering technique was used consistent with the principles of ALARA (as low as reasonably achievable). COMPARISON: 02/06/2018. CT DOSE (mGy.cm): The estimated cumulative dose is 303.43 mGy.cm. 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 Pulmonary vasculature: The study is suboptimal for the assessment of the pulmonary vascular tree secondary to timing of the contrast bolus and respiratory motion artifact. Allowing for limited image quality, no central filling defect to suggest pulmonary embolus. 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 Main pulmonary artery is not enlarged. No flattening of the interventricular septum. No intracardiac filling defect. Reflux of contrast into the IVC and hepatic veins indicating elevated right heart pressure. Remaining chest: On soft tissue windows, normal thyroid and thoracic inlet. No axillary, supraclavicular, hilar, or mediastinal lymphadenopathy. Atherosclerosis of the aorta. Multichamber enlargement of the heart. Coronary artery and aortic valve calcification. No pericardial or pleural effusion. Upper abdomen normal. On lung windows, interval development of significant reticulonodular consolidation throughout the left apex, which is new from prior and is in extension of more central posterior left upper lung consolidation. Redemonstration of extensive consolidation in the left lower lobe, which is also progressed in the posterior basal segment. Significant bronchiectasis and and bronchial wall thickening evident in the left lower lobe. Interval decrease in right lung consolidation, which had a basilar predominance. Persistent peribronchovascular and dependent reticular consolidation primarily in the right lower lobe and posterior right upper lobe. Layering debris in the right mainstem bronchus. On bone windows, degenerative changes of the spine. IMPRESSION: 1. Allowing for suboptimal image quality, no evidence of pulmonary embolus. 2. 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 3. Interval worsening of left upper lobe consolidation, which could represent spread of malignancy or postobstructive pneumonia. 4. Interval improvement of basilar and peripheral predominant diffuse right lung consolidation. 5. Layering debris in the right mainstem bronchus suggest aspiration. 6. Findings consistent with elevated right heart pressure. 7. Cardiomegaly. Electronically signed by: Shlomo Hurtado M.D. 03/07/2018 4:24 PM Dictated Date/Time: 03/07/2018 4:15 PM
[2018-03-07] MEDS ORDERED: METF-384 PO (16:40)
[2018-03-07] MEDS ORDERED: DILTIAZEM BOLUS / DRIP IV STA (16:49)
[2018-03-07] MEDS ORDERED: DILTIAZEM HCL 5 MG/ML 5 ML VIAL BOLUS/OMNI IV ONE (17:00)
[2018-03-07] MEDS ORDERED: DILTIAZEM HCL INJ 125 MG in DEXTROSE 5% 100ML IV PRN (17:00)
[2018-03-07] MEDS ORDERED: VANCOMYCIN 1GM ED/ASU OMNICELL IV STA (17:17)
[2018-03-07] MEDS ORDERED: PIPERACILLIN/TAZOBACTAM 4.5 GM/100ML D5W IV STA (17:17)
[2018-03-07] MEDS ORDERED: DILTIAZEM BOLUS FROM BAG IV ONE (17:30)
--- NOTE | 2018-03-07 17:34 | History and Physical ---
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 [id number] Presented to ER with complaint of worsening worsening shortness of breath palpitation, weakness poor p.o. intake Diminished breath soundIn ER patient was found to be in a flutter wave with heart rate of 150 The chest with angiogram showed chronic occlusion of left lower lobe pulmonary artery likely due to poorly defined central left perihilar mass Interval worsening of left upper lobe consolidation could represent spread of malignancy or postobstructive pneumonia Layering debris is in the right mainstem bronchus suggestive of aspiration Past Medical/Surgical History Medical Problems: (1) Atrial flutter with rapid ventricular response (2) Bilateral pneumonia (3) Cancer of lower lobe of left lung (4) Dehydration (5) Dehydration (6) Diastolic dysfunction (7) DM type 2 (diabetes mellitus, type 2) (8) Dyslipidemia (9) Fall (10) Fall (11) HTN (hypertension) (12) Lung cancer (13) Malnutrition (14) Malnutrition (15) Mild aortic valve stenosis (16) Right leg weakness (17) SOB (shortness of breath) on exertion Surgical Problems: (1) History of cataract surgery (2) S/P tonsillectomy Family History Cancer Diabetes mellitus Heart disease Hypertension Social History Smoking Status: Former Smoker Drug Use: cocaine Marital Status: Housing status: lives with significant other Occupational Status: retired Immunizations History of Influenza Vaccine: Yes Influenza Vaccine Date: Aug 10, 2017 History of Tetanus Vaccine?: Yes Tetanus Immunization Date: Sep 09, 2010 History of Pneumococcal: Yes Pneumococcal Date: Jun 23, 2015 Multi-Drug Resistant Organisms History of MDRO: No Allergies Coded Allergies: No Known Allergies (Unverified , 02/20/18) Home Medications Scheduled Allopurinol (Zyloprim), 300 MG PO DAILY Aspirin (Aspirin Ec), 81 MG PO DAILY Atorvastatin (Lipitor), 20 MG PO DAILY Cholecalciferol (Vitamin D), 1,000 INTER.UNIT PO DAILY Enoxaparin (Lovenox), 100 MG SC DAILY Glimepiride (Glimepiride), 2 MG PO DAILY Home O2 Therapy (Oxygen), 2 LITERS NA UD Insulin Aspart (Novolog Flexpen), 1 DOSE SC ACHS Metformin Hcl (Glucophage), 1,000 MG PO DAILY Metoprolol Tartrate (Lopressor) (Lopressor), 25 MG PO BID Mirtazapine (Remeron), 15 MG PO HS Multivitamins/Minerals (Mvi With Minerals), 1 TAB PO DAILY Prednisone (Prednisone), 60 MG PO DAILY Scheduled PRN Guaifenesin/Codeine (Robitussin-Ac Syrup), 10 ML PO Q4H PRN for Cough Review of Systems Constitutional: + fever, + chills, + sweats, + weight loss, + weakness, + fatigue, + problem reported (Shortness of breath/dyspnea on exertion/dizzy spell ) Respiratory: + cough, + sputum, + wheezing, + shortness of breath, + dyspnea on exertion, + dyspnea at rest Cardiovascular: + chest pain (Chest heaviness), + palpitations Neurologic: + weakness, + numbness/tingling, + vertigo, + balance problems Psychiatric: + depression symptoms Endocrine: + fatigue Physical Exam Vital Signs Date Time Temp Pulse Resp B/P (MAP) Pulse Ox O2 Delivery O2 Flow Rate FiO2 03/07/18 17:18 115 92/64 100 Nasal Cannula 2.0 03/07/18 16:18 124 82/54 99 Nasal Cannula 3.0 03/07/18 16:14 133 81/59 99 Nasal Cannula 3.0 03/07/18 15:11 150 100/45 100 Nasal Cannula 5.0 03/07/18 14:20 152 18 14:17 98 Nasal Cannula 5.0 03/07/18 14:17 100 Nasal Cannula 5.0 03/07/18 14:17 36.6 152 103/85 98 Nasal Cannula 5.0 General Appearance: + pertinent finding (Chronically ill-appearing, at present no apparent distress noted) Head: normocephalic, atraumatic Eyes: PERRL, EOMI, sclerae normal Neck: trachea midline Respiratory/Chest: + decreased breath sounds, + crackles, + rales Cardiovascular: + tachycardia, + irregularly irregular Abdomen/GI: non tender, soft Neurologic/Psych: no motor/sensory deficits, alert, oriented x 3 Diagnostics Laboratory Results Results Past 24 Hours Test 03/07/18 14:59 Range/Units White Blood Count 16.97 4.8-10.8 K/uL Red Blood Count 4.05 4.7-6.1 M/uL Hemoglobin 11.0 14.0-18.0 g/dL Hematocrit 34.9 42-52 % Mean Corpuscular Volume 86.2 80-100 fL Mean Corpuscular Hemoglobin 27.2 25-34 pg Mean Corpuscular Hemoglobin Concent 31.5 32-36 g/dl Platelet Count 317 130-400 K/uL Mean Platelet Volume 8.7 7.4-10.4 fL Neutrophils (%) (Auto) 94.8 % Lymphocytes (%) (Auto) 1.1 % Monocytes (%) (Auto) 3.2 % Eosinophils (%) (Auto) 0.1 % Basophils (%) (Auto) 0.1 % Neutrophils # (Auto) 16.08 1.4-6.5 K/uL Lymphocytes # (Auto) 0.19 1.2-3.4 K/uL Monocytes # (Auto) 0.54 0.11-0.59 K/uL Eosinophils # (Auto) 0.02 0-0.5 K/uL Basophils # (Auto) 0.02 0-0.2 K/uL RDW Standard Deviation 70.4 36.4-46.3 fL RDW Coefficient of Variation 22.0 11.5-14.5 % Immature Granulocyte % (Auto) 0.7 % Immature Granulocyte # (Auto) 0.12 0.00-0.02 K/uL Anisocytosis PRESENT Prothrombin Time 10.3 9.0-12.0 SECONDS Prothromb Time International Ratio 1.0 0.9-1.1 Sodium Level 139 136-145 mmol/L Potassium Level 5.3 3.5-5.1 mmol/L Chloride Level 102 98-107 mmol/L Carbon Dioxide Level 31 21-32 mmol/L Anion Gap 6.0 3-11 mmol/L Blood Urea Nitrogen 23 7-18 mg/dl Creatinine 1.04 0.60-1.40 mg/dl Est Creatinine Clear Calc Drug Dose 59.7 ml/min Estimated GFR () 76.1 Estimated GFR (Non- 65.6 BUN/Creatinine Ratio 22.1 10-20 Random Glucose 245 70-99 mg/dl Calcium Level 9.0 8.5-10.1 mg/dl Magnesium Level 1.8 1.8-2.4 mg/dl Total Bilirubin 0.5 0.2-1 mg/dl Aspartate Amino Transf (AST/SGOT) 11 15-37 U/L Alanine Aminotransferase (ALT/SGPT) 23 12-78 U/L Alkaline Phosphatase 69 45-117 U/L Troponin I 0.038 0-0.045 ng/ml Pro-B-Type Natriuretic Peptide 9763 0-1800 pg/ml Total Protein 6.6 6.4-8.2 gm/dl Albumin 2.1 3.4-5.0 gm/dl Globulin 4.5 2.5-4.0 gm/dl Albumin/Globulin Ratio 0.5 0.9-2 Thyroid Stimulating Hormone (TSH) 0.773 0.300-4.500 uIu/ml Microbiology Results 03/07/18 Blood Culture, Ordered Pending 03/07/18 Blood Culture, Ordered Pending Diagnostic Radiology CT CHEST WITH CONTRAST : IMPRESSION: 1. Allowing for suboptimal image quality, no evidence of pulmonary embolus. 2. 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 3. Interval worsening of left upper lobe consolidation, which could represent spread of malignancy or postobstructive pneumonia. 4. Interval improvement of basilar and peripheral predominant diffuse right lung consolidation. 5. Layering debris in the right mainstem bronchus suggest aspiration. 6. Findings consistent with elevated right heart pressure. 7. Cardiomegaly. Impression Assessment and Plan A FLUTTER/RAPID A. FIB Presents with shortness of breath/dyspnea on exertion/dizzy spell lightheadedness Possible secondary to tachyarrhythmia Reports of taking his beta-anatoly as directed was given IV Cardizem bolus followed by Cardizem drip in ER With no improvement of rate or rhythm Developed hypotension IV Cardizem drip discontinued Started with IV amiodarone bolus followed by drip Heart rate remains between 100-110 Blood pressure improved to systolic 100 after slowing of heart rate Patient will be continued with amiodarone drip Therapeutic anticoagulation with subcu Lovenox Cardiology consult requested case discussed with on-call cardiology Recent echo on 02/07/2018: Mild concentric left ventricular hypertrophy Left ventricular wall motion normal LV ejection fraction 55-60% Grade 1 diastolic dysfunction Continue to monitor in telemetry, serial cardiac marker Present patient denies of any chest discomfort or shortness of breath RECURRENT ASPIRATION/POST OBSTRUCTIVE PNEUMONIA Patient was evaluated by speech therapy on last admission Video swallow study which showed silent aspiration Patient was recommended mechanical soft "slippery" diet/nectar thick liquids Meds modified diet to full liquid with any increased difficulty tolerating mechanical soft Aspiration and GERD precaution Patient will need continued speech therapy/speech consulted Diet continued with mechanical soft with nectar thick diet Empiric antibiotic with IV Zosyn ACUTE ON CHRONIC HYPOXEMIC RESPIRATORY FAILURE Due to above On 2 L home O2 at baseline In the ER became hypoxic required [address] chest with contrast shows no evidence of PE Worsening of consolidation/obstruction of airway secondary to lung mass Continue supplemental oxygen Pulmonology consult requested Follows with [facility] physician group Dr. Cerna ELEVATED LACTIC ACID LEVEL Possible secondary to hypoxia/aspiration pneumonia Lactic acid level elevated more than 3 Ordered for IV fluids Empiric antibiotic with IV Zosyn Follow blood culture/sputum culture Repeat lactic acid level in a.m. 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 Estevez Finished chemo and radiation treatment Last dose chemo was on 01/24/2018 Not a candidate for further chemo treatment because of poor functional status/ deconditioning HISTORY OF DVT /PE Thromboembolic phenomenon in a setting of malignancy On chronic anticoagulation with subcu Lovenox-continued TYPE 2 DIABETES Order for insulin sliding scale Pharmacy consulted for glycemic management SEVERE DYSPHAGIA CHRONIC ASPIRATION Possible secondary to prior radiation treatment Had speech evaluation and videofluoroscopic swallow eval in last admission Advanced disease dysphagia with silent aspiration Mechanical soft diet with nectar thick liquids Aspiration precaution CODE STATUS: Discussed with patient full code DVT PROPHYLAXIS, Moderate to high risk, patient already on therapeutic Lovenox treatment DISPOSITION: Patient presents with significant deconditioning PT OT evaluation prior to discharge home social service consulted for discharge planning Level of Care Telemetry Resuscitation Status FULL RESUSCITATION VTE Prophylaxis Risk Level: High Given or contraindicated: Enoxaparin (Lovenox)SQ
[2018-03-07] MEDS ORDERED: NITROGLYCERIN 0.4 MG SL PER TAB CHARGE SL PRN (17:45)
[2018-03-07] MEDS ORDERED: ACETAMINOPHEN 325 MG TAB PO PRN (17:45)
--- NOTE | 2018-03-07 17:56 | EMERGENCY ROOM VISIT NOTE ---
History Report prepared by Nani: Aure Jose Under the Supervision of: Dr. Kiera Muñoz D.O. First contact with patient: 14:16 Chief Complaint: SHORTNESS OF BREATH Stated Complaint: RESPIRATORY Nursing Triage Summary: Patient arrives to ED via ALS from [facility] PCP office. Patient was there for a follow up appointment. At the appointment he had worsening shortness of breath. Normally wears 2L 02 at all times at home. at PCP SP02 was 87% on 2L. Patient also c/o dry cough for several weeks. Patient was recently admitted to [facility] for a-fib. Denies fever/chills. History of Present Illness The patient is an 82 year old male who presents to the Emergency Room with complaints of worsening SOB starting today. The patient presents to the ED by EMS from his PCP's office. The patient was complaining of increased SOB during his appointment and his oxygen needed to be increased. His heart has also been beating faster than normal since this morning. The patient reports that he has had a dry cough and SOB for months. He has a history of lung cancer for 1 year. He is currently not on chemo or radiation. He was recently admitted to the hospital for atrial fibrillation. His appointment today was a follow up. He is currently on Lovenox and metoprolol. He denies any missed doses. He notes that he cannot tell when his urination begins or ends. He denies any fever, chills, dizziness, black stool, bloody stool, or chest pain. The swelling in his legs is normal. His appetite has been good recently. He denies any history of asthma or COPD. He has a history of aspiration pneumonia, atrial flutter, and chronic DVT. He is a former smoker. He had an echo in January this year after presenting with atrial flutter which showed LVEF 55-60, mild LVH, and no other significant abnormality. Source of History: patient, spouse/significant other Onset: today Position: chest Quality: other (SOB) Timing: worsening Associated Symptoms: + cough, No fevers, No chills, No chest pain, No melena , No hematochezia Note: Pt reports fast heart rate. Review of Systems See HPI for pertinent positives & negatives. A total of 10 systems reviewed and were otherwise negative. Past Medical & Surgical Medical Problems: (1) Cancer of lower lobe of left lung (2) Diastolic dysfunction (3) DM type 2 (diabetes mellitus, type 2) (4) Dyslipidemia (5) Fall (6) HTN (hypertension) (7) Malnutrition (8) Mild aortic valve stenosis (9) SOB (shortness of breath) on exertion Surgical Problems: (1) History of cataract surgery (2) S/P tonsillectomy Family History Cancer Diabetes mellitus Heart disease Hypertension Social History Smoking Status: Former Smoker Alcohol Use: none Drug Use: cocaine Marital Status: Housing Status: lives with significant other Occupation Status: retired Current/Historical Medications Scheduled Allopurinol (Zyloprim), 300 MG PO DAILY Aspirin (Aspirin Ec), 81 MG PO DAILY Atorvastatin (Lipitor), 20 MG PO DAILY Cholecalciferol (Vitamin D), 1,000 INTER.UNIT PO DAILY Enoxaparin (Lovenox), 100 MG SC DAILY Glimepiride (Glimepiride), 2 MG PO DAILY Home O2 Therapy (Oxygen), 2 LITERS NA UD Insulin Aspart (Novolog Flexpen), 1 DOSE SC ACHS Metformin Hcl (Glucophage), 1,000 MG PO DAILY Metoprolol Tartrate (Lopressor) (Lopressor), 25 MG PO BID Mirtazapine (Remeron), 15 MG PO HS Multivitamins/Minerals (Mvi With Minerals), 1 TAB PO DAILY Prednisone (Prednisone), 60 MG PO DAILY Scheduled PRN Guaifenesin/Codeine (Robitussin-Ac Syrup), 10 ML PO Q4H PRN for Cough Allergies Coded Allergies: No Known Allergies (Unverified , 02/20/18) Physical Exam Vital Signs Date Time Temp Pulse Resp B/P (MAP) Pulse Ox O2 Delivery O2 Flow Rate FiO2 03/07/18 17:18 115 92/64 100 Nasal Cannula 2.0 03/07/18 16:18 124 82/54 99 Nasal Cannula 3.0 03/07/18 16:14 133 81/59 99 Nasal Cannula 3.0 03/07/18 15:11 150 100/45 100 Nasal Cannula 5.0 03/07/18 14:20 152 03/07/18 14:17 98 Nasal Cannula 5.0 03/07/18 14:17 100 Nasal Cannula 5.0 03/07/18 14:17 36.6 152 103/85 98 Nasal Cannula 5.0 Physical Exam GENERAL: alert, well appearing, well nourished, no distress, non-toxic. Patient on NC 4-5 L/min. EYE EXAM: normal conjunctiva, PERRL and EOM's grossly intact OROPHARYNX: no exudate, no erythema, lips, buccal mucosa, and tongue normal and mucous membranes are moist NECK: supple, no nuchal rigidity, no adenopathy, non-tender LUNGS: Lung sounds diminished, no wheezes rhonchi rales. Normal chest wall mechanics HEART: fast and irregular, appears to be A fib on tele. No murmurs, S1 normal and S2 normal ABDOMEN: abdomen soft, non-tender, normo-active bowel sounds, no masses, no rebound or guarding. BACK: Back is symmetrical on inspection and there is no deformity, no midline tenderness, no CVA tenderness. SKIN: no rashes and no bruising UPPER EXTREMITIES: upper extremities are grossly normal. LOWER EXTREMITIES: 1+ pedal edema bilaterally. NEURO EXAM: Normal sensorium, cranial nerves II-XII grossly intact, normal speech, no gross weakness of arms, no gross weakness of legs. Medical Decision & Procedures ER Provider Diagnostic Interpretation: Radiology results have been interpreted by the radiologist and reviewed by me. (CHEST FOR PE) ANGIO WITH CLINICAL HISTORY: 82 years-old Male presenting with ^sob,hx asp pna and pe, hx lung ca. TECHNIQUE: Multidetector CT angiography of the chest was performed after administration of intravenous contrast. 3-D volumetric and/or maximum intensity projection (MIP) images were subsequently reconstructed for review. IV contrast: 94 mL of Optiray 320. A dose lowering technique was used consistent with the principles of ALARA (as low as reasonably achievable). COMPARISON: 02/06/2018. CT DOSE (mGy.cm): The estimated cumulative dose is 303.43 mGy.cm. FINDINGS: Human Resource Intern topogram: Extensive left lung abnormality. Pulmonary vasculature: The study is suboptimal for the assessment of the pulmonary vascular tree secondary to timing of the contrast bolus and respiratory motion artifact. Allowing for limited image quality, no central filling defect to suggest pulmonary embolus. 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 Main pulmonary artery is not enlarged. No flattening of the interventricular septum. No intracardiac filling defect. Reflux of contrast into the IVC and hepatic veins indicating elevated right heart pressure. Remaining chest: On soft tissue windows, normal thyroid and thoracic inlet. No axillary, supraclavicular, hilar, or mediastinal lymphadenopathy. Atherosclerosis of the aorta. Multichamber enlargement of the heart. Coronary artery and aortic valve calcification. No pericardial or pleural effusion. Upper abdomen normal. On lung windows, interval development of significant reticulonodular consolidation throughout the left apex, which is new from prior and is in extension of more central posterior left upper lung consolidation. Redemonstration of extensive consolidation in the left lower lobe, which is also progressed in the posterior basal segment. Significant bronchiectasis and and bronchial wall thickening evident in the left lower lobe. Interval decrease in right lung consolidation, which had a basilar predominance. Persistent peribronchovascular and dependent reticular consolidation primarily in the right lower lobe and posterior right upper lobe. Layering debris in the right mainstem bronchus. On bone windows, degenerative changes of the spine. IMPRESSION: 1. Allowing for suboptimal image quality, no evidence of pulmonary embolus. 2. 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 3. Interval worsening of left upper lobe consolidation, which could represent spread of malignancy or postobstructive pneumonia. 4. Interval improvement of basilar and peripheral predominant diffuse right lung consolidation. 5. Layering debris in the right mainstem bronchus suggest aspiration. 6. Findings consistent with elevated right heart pressure. 7. Cardiomegaly. Electronically signed by: Shlomo Hurtado M.D. 03/07/2018 4:24 PM Dictated Date/Time: 03/07/2018 4:15 PM Laboratory Results 03/07/18 14:59 Red Blood Count 4.05, Mean Corpuscular Volume 86.2, Mean Corpuscular Hemoglobin 27.2, Mean Corpuscular Hemoglobin Concent 31.5, Mean Platelet Volume 8.7, Neutrophils (%) (Auto) 94.8, Lymphocytes (%) (Auto) 1.1, Monocytes (%) (Auto) 3.2, Eosinophils (%) (Auto) 0.1, Basophils (%) (Auto) 0.1, Neutrophils # (Auto) 16.08, Lymphocytes # (Auto) 0.19, Monocytes # (Auto) 0.54, Eosinophils # (Auto) 0.02, Basophils # (Auto) 0.02 03/07/18 14:59 Test 03/07/18 14:59 White Blood Count 16.97 K/uL (4.8-10.8) Red Blood Count 4.05 M/uL (4.7-6.1) Hemoglobin 11.0 g/dL (14.0-18.0) Hematocrit 34.9 % (42-52) Mean Corpuscular Volume 86.2 fL (80-100) Mean Corpuscular Hemoglobin 27.2 pg (25-34) Mean Corpuscular Hemoglobin Concent 31.5 g/dl (32-36) Platelet Count 317 K/uL (130-400) Mean Platelet Volume 8.7 fL (7.4-10.4) Neutrophils (%) (Auto) 94.8 % Lymphocytes (%) (Auto) 1.1 % Monocytes (%) (Auto) 3.2 % Eosinophils (%) (Auto) 0.1 % Basophils (%) (Auto) 0.1 % Neutrophils # (Auto) 16.08 K/uL (1.4-6.5) Lymphocytes # (Auto) 0.19 K/uL (1.2-3.4) Monocytes # (Auto) 0.54 K/uL (0.11-0.59) Eosinophils # (Auto) 0.02 K/uL (0-0.5) Basophils # (Auto) 0.02 K/uL (0-0.2) RDW Standard Deviation 70.4 fL (36.4-46.3) RDW Coefficient of Variation 22.0 % (11.5-14.5) Immature Granulocyte % (Auto) 0.7 % Immature Granulocyte # (Auto) 0.12 K/uL (0.00-0.02) Anisocytosis PRESENT Prothrombin Time 10.3 SECONDS (9.0-12.0) Prothromb Time International Ratio 1.0 (0.9-1.1) Anion Gap 6.0 mmol/L (3-11) Est Creatinine Clear Calc Drug Dose 59.7 ml/min Estimated GFR () 76.1 Estimated GFR (Non- 65.6 BUN/Creatinine Ratio 22.1 (10-20) Calcium Level 9.0 mg/dl (8.5-10.1) Magnesium Level 1.8 mg/dl (1.8-2.4) Total Bilirubin 0.5 mg/dl (0.2-1) Aspartate Amino Transf (AST/SGOT) 11 U/L (15-37) Alanine Aminotransferase (ALT/SGPT) 23 U/L (12-78) Alkaline Phosphatase 69 U/L (45-117) Troponin I 0.038 ng/ml (0-0.045) Pro-B-Type Natriuretic Peptide 9763 pg/ml (0-1800) Total Protein 6.6 gm/dl (6.4-8.2) Albumin 2.1 gm/dl (3.4-5.0) Globulin 4.5 gm/dl (2.5-4.0) Albumin/Globulin Ratio 0.5 (0.9-2) Thyroid Stimulating Hormone (TSH) 0.773 uIu/ml (0.300-4.500) Laboratory results per my review. Medications Administered Medications (Trade) Dose Ordered Sig/Mert Route Start Time Stop Time Status Last Admin Dose Admin Sodium Chloride 500 ml @ 999 mls/hr Q31M STAT IV 03/07/18 14:37 03/07/18 15:07 DC 03/07/18 15:10 999 MLS/HR Diltiazem HCl (Cardizem Inj) 10 mg NOW STAT IV 03/07/18 14:49 03/07/18 14:50 DC 03/07/18 15:11 10 MG Sodium Chloride 500 ml @ 999 mls/hr Q31M STAT IV 03/07/18 16:16 03/07/18 16:46 DC 03/07/18 16:20 999 MLS/HR Diltiazem HCl 125 mg/Dextrose 125 ml @ 0 mls/hr Q0M PRN IV 03/07/18 17:00 03/07/18 19:01 DC 03/07/18 17:25 2.5 MLS/HR Vancomycin HCl (Vancomycin 1gm Ed/Asu Omnicell) 1 gm NOW STAT IV 03/07/18 17:17 03/07/18 17:18 DC 03/07/18 18:16 1 GM Piperacillin Sod/ Tazobactam Sod (Zosyn Iv) 4.5 gm NOW STAT IV 03/07/18 17:17 03/07/18 17:18 DC 03/07/18 17:27 4.5 GM ECG Per My Interpretation Indication: tachycardia Rate (beats per minute): 151 Rhythm: atrial fibrillation Findings: no acute ischemic change, left axis deviation, prolonged QT, other ( normal QRS) ED Course 1418: The patient was evaluated in room A10. A complete history and physical exam was performed. 1437: Sodium Chloride 500 ml @ 999 mls/hr IV. 1449: Cardizem Inj 10 mg IV. 1503: I reevaluated the patient. I updated him on the results. Patient denies any changes. No shortness of breath or chest pain at this time. 1553: I reevaluated the patient. He feels no different from before. His heart rate is 106. Systolic blood pressure 103. 1616: Sodium Chloride 500 ml @ 999 mls/hr IV. 1636: I reevaluated the patient. His heart rate is increasing again. States feeling the same. 1710: Upon reevaluation, the patient is stable. I discussed the findings and the treatment plan with the patient. He expresses agreement and understanding. He will be evaluated for further management. BP 110/77. 1717: Zosyn Iv 4.5 gm IV, Vancomycin HCl 1 gm IV. 1722: I reviewed the patient's case with Dr. Simmons, [facility] hospitalist. She will evaluate the patient for further management. Medical Decision Differential diagnoses includes but is not limited to pneumonia, bronchitis, COPD/Asthma exacerbation, pneumothorax, pulmonary embolism, congestive heart failure, acute coronary syndrome Patient well-appearing here despite complaints and complicated past medical history. No overt increased work of breathing. Patient's oxygen levels were in the mid upper 90s on 4 L/min. Patient chronically wears 2 L/min at home. No change in the patient's chronic cough and no fevers. Unclear if leukocytosis secondary to use of steroids versus evolving infection. Patient not currently immunocompromised on chemo, although question slight level of immunocompromise due to chronic steroid use as well as recent hospitalizations. Patient at risk for healthcare acquired pneumonia. Patient previously found to convert to normal sinus rhythm with 10 mg of Cardizem. Patient had improved rate control here, he did not spontaneously convert. Patient started on low- dose Cardizem drip. Patient's states that his systolic blood pressure is usually around 100 with a low 100s. Patient was given small boluses of fluids here when Cardizem was given as a precaution. Patient's BNP was also found to be elevated although patient has not had any increased weight or lower extremity edema, does not appear to be acutely volume overloaded or in acute congestive heart failure. Again this is why patient was given small boluses of fluid carefully. Patient's LVEF was reassuring on his most recent echo. CT concerning for evolving pneumonia. Patient with prior history of aspiration pneumonia and continued evidence of right-sided debris/fluid. Patient also with possible postobstructive pneumonia noted on the left. Discussed antibiotic coverage with the pharmacist. Given prolonged QTC noted on initial EKG, Levaquin not added to her regimen. Possible QTc appeared falsely prolonged and EKG due to rapid A. fib. No evidence of worsening anemia. Discussed with patient possible that acutely worse shortness of breath today that required him to increase his usual home O2 amount related to poorly controlled A. fib versus worsening pneumonia. I do not suspect PE or other vascular etiology. No evidence of worsening pleural effusion requiring thoracentesis. I do not suspect bacteremia/sepsis. Blood cultures drawn as a precaution. I do not feel blood pressures recorded by nursing staff were accurate throughout his stay. When I would recheck the patient visited multiple times, patient's blood pressures were improved or return to his normal range which were systolics of 103 and 106. Some blood pressure readings appear to be positional. Medication Reconcilliation Current Medication List: was personally reviewed by me Blood Pressure Screening Referred to hospitalist. Consults Time Called: 1711 Consulting Physician: Dr. Simmons [facility] hospitalist Returned Call: 1722 I reviewed the patient's case with her. She will evaluate the patient for further management. Impression Primary Impression: Dyspnea Additional Impressions: Atrial fibrillation with RVR Lung cancer Pneumonia Hyperkalemia Elevated brain natriuretic peptide (BNP) level Anemia Critical Care I have personally spent greater than 45 minutes of critical care time in the direct management of this patient. This includes bedside care, interpretation of diagnostic studies, and testing, discussion with consultants, patient, and family members, and other required patient management activities. This 45 minutes is in excess of all separately billable procedures. Scribe Attestation The scribe's documentation has been prepared under my direction and personally reviewed by me in its entirety. I confirm that the note above accurately reflects all work, treatment, procedures, and medical decision making performed by me. Departure Information Dispostion Being Evaluated By Hospitalist Referrals Ady Mayo MD (PCP) Patient Instructions My [facility] Problem Qualifiers Primary Impression: Dyspnea Dyspnea type: shortness of breath Qualified Codes: R06.02 - Shortness of breath Additional Impressions: Lung cancer Laterality: unspecified laterality Lung location: unspecified part of lung Qualified Codes: C34.90 - Malignant neoplasm of unspecified part of unspecified bronchus or lung Pneumonia Pneumonia type: aspiration pneumonia Aspiration pneumonia type: unspecified Laterality: unspecified laterality Lung location: unspecified part of lung Qualified Codes: J69.0 - Pneumonitis due to inhalation of food and vomit Anemia Anemia type: unspecified type Qualified Codes: D64.9 - Anemia, unspecified
[2018-03-07] MEDS ORDERED: BENZONATATE 100MG CAP PO ONE (18:00)
[2018-03-07] MEDS ORDERED: AMIODARONE IV BOLUS / DRIP IV STA (19:00)
[2018-03-07] MEDS ORDERED: 0.2 MICRON FILTER SET 1 EA IV SCH (19:15)
[2018-03-07] MEDS ORDERED: AMIODARONE / D5W 100 ML PHARMACY PREPARED IV ONE ×2 (19:15)
[2018-03-07] MEDS ORDERED: GUAIFENESIN/CODEINE 200MG/20MG 10ML UDC PO PRN (19:15)
[2018-03-07] MEDS ORDERED: AMIODARONE / D5W 200 ML IV SCH (19:25)
[2018-03-07] MEDS ORDERED: PIPERACILL/TAZOBAC CONSULT ACTIVE PRN (20:45)
[2018-03-07] MEDS ORDERED: SODIUM CHLORIDE 0.9% 1000ML 1,000 ML IV SCH (20:45)
[2018-03-07] MEDS: METOPROLOL TARTRATE 25 MG TAB PO SCH ×2 (21:00→21:38)
[2018-03-07] MEDS: MIRTAZAPINE TAB 15 MG TAB PO SCH (21:18)
[2018-03-07] MEDS: ENOXAPARIN 100 MG/1ML SYR SQ SCH (21:19)
[2018-03-07] MEDS ORDERED: PHARMACY GLYCEMIC MGMT CONSULT PRN (21:35)
[2018-03-07] MEDS ORDERED: CARBOHYDRATES FOR HYPOGLYCEMIA PO PRN (21:45)
[2018-03-07] MEDS ORDERED: GLUCOSE 10 TABS/TUBE PO PRN (21:45)
[2018-03-07] MEDS ORDERED: GLUCOSE 40% GEL 15 GM TUBE PO PRN (21:45)
[2018-03-07] MEDS ORDERED: GLUCAGON FOR INJ 1 MG VIAL SQ PRN (21:45)
[2018-03-07] MEDS ORDERED: DEXTROSE 50% 50 ML SYR IV PRN (21:45)
[2018-03-07] MEDS: PIPERACILL/TAZOBAC IV 3.375 GM in DEXTROSE 5% 100ML 100 ML IV SCH (21:49)
[2018-03-07] MEDS ORDERED: INSULIN HUMAN REGULAR PER UNIT 7 UNITS in SYRINGE 6.93 ML IV SCH (22:00)
[2018-03-07] MEDS ORDERED: INSULIN GLARGINE SOLOSTAR 100 UNITS/ML 3 ML PEN SC SCH (22:00)
[2018-03-08] MEDS: INSULIN ASPART 100 UNITS/ML 3 ML PEN SC SCH ×6 (00:01→20:46)
[2018-03-08 00:10] VITALS: BP 110/68; PULSE 91; TEMP 36.4; O2SAT 98
[2018-03-08] MEDS ORDERED: LEVALBUTEROL/IPRATROPIUM NEB INH PRN (00:30)
[2018-03-08] MEDS ORDERED: LEVALBUTEROL 1.25MG/0.5ML NEB INH PRN (00:45)
[2018-03-08] MEDS ORDERED: IPRATROPIUM BROMIDE NEB SOLN 0.02% 2.5 ML VIAL INH PRN (00:45)
[2018-03-08] MEDS ORDERED: AMIODARONE / D5W 200 ML IV SCH (01:26)
[2018-03-08 03:54] VITALS: BP 121/88; PULSE 82; TEMP 36.3; O2SAT 98
[2018-03-08 05:45] LABS: HEMATOCRIT 31.1 % (42-52); HEMOGLOBIN 9.5 g/dL (14.0-18.0); MEAN CELL VOLUME 86.4 fL (80-100); MEAN CORPUSCULAR HEMOGLOBIN 26.4 pg (25-34); MEAN CORPUSCULAR HGB CONC 30.5 g/dl (32-36); MEAN PLATELET VOLUME 8.2 fL (7.4-10.4); PLATELET COUNT 240 K/uL (130-400); RED CELL DISTRIBUTION WIDTH CV 21.9 % (11.5-14.5); RED CELL DISTRIBUTION WIDTH SD 69.7 fL (36.4-46.3); WHITE BLOOD COUNT 9.79 K/uL (4.8-10.8)
[2018-03-08 06:14] LABS: HEMOGLOBIN A1C 6.2 % (4.5-5.6)
[2018-03-08 06:22] LABS: CALCIUM 8.1 mg/dl (8.5-10.1); CREATININE 0.76 mg/dl (0.60-1.40); POTASSIUM 3.9 mmol/L (3.5-5.1)
[2018-03-08] MEDS: PIPERACILL/TAZOBAC IV 3.375 GM in DEXTROSE 5% 100ML 100 ML IV SCH ×3 (06:31→23:32)
[2018-03-08 06:53] VITALS: BP 116/72; PULSE 89; TEMP 36.6; O2SAT 95
[2018-03-08] MEDS: METOPROLOL TARTRATE 25 MG TAB PO SCH ×2 (08:32→20:43)
[2018-03-08] MEDS: CEROVITE ADV FORMULA TAB PO SCH (08:33)
[2018-03-08] MEDS: ALLOPURINOL 300 MG TAB PO SCH (08:33)
[2018-03-08] MEDS: CHOLECALCIFEROL 1000 INTER.UNIT TAB PO SCH (08:33)
[2018-03-08] MEDS: ASPIRIN 81 MG ECTAB PO SCH (08:33)
[2018-03-08] MEDS: ATORVASTATIN 20 MG TAB PO SCH (08:33)
[2018-03-08] MEDS: ENOXAPARIN 100 MG/1ML SYR SQ SCH ×2 (08:34→20:44)
[2018-03-08] MEDS ORDERED: ASPIRIN 81 MG ECTAB PO SCH (09:00)
--- NOTE | 2018-03-08 09:24 | Cardiology Consultation ---
Cardiology Consultation Date of Service March 08, 2018. Cardiology Consultation Indication: Consultation for atrial fibrillation History: This is an 82-year-old male patient who has advanced squamous cell lung cancer. He completed radiation and chemotherapy at the beginning of January and there is plan for no further treatment. He was admitted with weakness and heart palpitations. He was found to be in atrial fibrillation with RVR. At first he was started on diltiazem which improved his heart rate but he became hypotensive and the medication was discontinued. He was then started on IV amiodarone and early this morning converted to normal sinus rhythm. He has no current cardiac complaints. The patient's only cardiac history is that of paroxysmal atrial fibrillation. He has no prior history of cardiomyopathy, congestive heart failure, or myocardial infarction. Allergies: No known medical allergies Reported Home Medications Medications Dose Route/Sig Max Daily Dose Days Date Category Dose Instructions Glucophage (Metformin Hcl) 1,000 Mg Tab 1,000 Mg PO DAILY 03/07/18 Reported Novolog Flexpen (Insulin Aspart) 100 Units/Ml Inj 1 Dose SC ACHS 02/20/18 Reported COVERAGE DIRECTED BY PER SLIDING SCALE Lovenox (Enoxaparin) 100 Mg/Ml Inj 100 Mg SC DAILY 02/20/18 Reported Prednisone 20 Mg Tab 60 Mg PO DAILY 30 02/14/18 Rx take 60mg po daily x 2 weeks, then 40mg po daily x 2 weeks, then 20mg po daily Robitussin-Ac Syrup (Codeine Phosphate/Guaifenesin) Syrp 10 Ml PO Q4H PRN 02/06/18 Reported Lopressor (Metoprolol Tartrate) 25 Mg Tab 25 Mg PO BID 01/31/18 Reported Oxygen Gas 2 Liters NA UD 01/31/18 Reported Remeron (Mirtazapine) 15 Mg Tab 15 Mg PO HS 01/31/18 Reported Glimepiride 2 Mg Tab 2 Mg PO DAILY 01/31/18 Reported Vitamin D (Cholecalciferol) 1,000 Unit Tab 1,000 Inter.unit PO DAILY 08/15/17 Reported Aspirin Ec (Aspirin) 81 Mg Tab 81 Mg PO DAILY 06/22/17 Reported Mvi With Minerals (Multivitamins/Minerals) Tab 1 Tab PO DAILY 06/22/17 Reported Lipitor (Atorvastatin Calcium) 20 Mg Tab 20 Mg PO DAILY 06/22/17 Reported Zyloprim (Allopurinol) 300 Mg Tab 300 Mg PO DAILY 06/22/17 Reported Past medical history: In addition to the lung cancer the patient has had a history of paroxysmal atrial arrhythmias and diabetes. Social history: Patient lives with his . He is currently a non-smoker. Family medical history: Noncontributory Review of systems: A 10 point review of systems is negative except for the history of chief complaint. In addition the patient complains of a chronic persistent cough. Vital Signs Past 12 Hours Date Time Temp Pulse Resp B/P (MAP) Pulse Ox O2 Delivery O2 Flow Rate FiO2 03/08/18 06:53 36.6 89 18 116/72 (87) 95 2.0 03/08/18 04:00 Nasal Cannula 2.0 Humidified Air 03/08/18 03:54 36.3 82 24 121/88 (99) 98 2.0 03/08/18 00:10 36.4 91 24 110/68 (82) 98 2.0 03/07/18 23:59 Nasal Cannula 2.0 Humidified Air 03/07/18 21:38 110 103/67 (79) General Appearance: Alert and Oriented x3. NAD. Head: Normocephalic Atraumatic. Eyes: PERRLA, EOMI, conjunctiva and sclera clear Neck: Supple. No carotid bruits noted. No JVD. No HJD. Respiratory: Breath sounds clear to auscultation bilaterally. No w/r/r. Cardiovascular: Reg rate and rhythm. S1 and S2 noted. No murmurs, rubs, gallops. PMI non displace. Abdomen: Normal bowel sounds, soft nontender. no abdominal bruits. Extremities: No edema, no clubbing or cyanosis. distal pulses 2/4 bilaterally. Neuro: No focal deficits. Psychiatric: Normal affect. Last 24 Hours Test 03/07/18 14:59 03/07/18 19:26 03/07/18 21:04 03/07/18 23:14 White Blood Count 16.97 K/uL Red Blood Count 4.05 M/uL Hemoglobin 11.0 g/dL Hematocrit 34.9 % Mean Corpuscular Volume 86.2 fL Mean Corpuscular Hemoglobin 27.2 pg Mean Corpuscular Hemoglobin Concent 31.5 g/dl Platelet Count 317 K/uL Mean Platelet Volume 8.7 fL Neutrophils (%) (Auto) 94.8 % Lymphocytes (%) (Auto) 1.1 % Monocytes (%) (Auto) 3.2 % Eosinophils (%) (Auto) 0.1 % Basophils (%) (Auto) 0.1 % Neutrophils # (Auto) 16.08 K/uL Lymphocytes # (Auto) 0.19 K/uL Monocytes # (Auto) 0.54 K/uL Eosinophils # (Auto) 0.02 K/uL Basophils # (Auto) 0.02 K/uL RDW Standard Deviation 70.4 fL RDW Coefficient of Variation 22.0 % Immature Granulocyte % (Auto) 0.7 % Immature Granulocyte # (Auto) 0.12 K/uL Anisocytosis PRESENT Prothrombin Time 10.3 SECONDS Prothromb Time International Ratio 1.0 Sodium Level 139 mmol/L Potassium Level 5.3 mmol/L Chloride Level 102 mmol/L Carbon Dioxide Level 31 mmol/L Anion Gap 6.0 mmol/L Blood Urea Nitrogen 23 mg/dl Creatinine 1.04 mg/dl Est Creatinine Clear Calc Drug Dose 59.7 ml/min Estimated GFR () 76.1 Estimated GFR (Non- 65.6 BUN/Creatinine Ratio 22.1 Random Glucose 245 mg/dl Calcium Level 9.0 mg/dl Magnesium Level 1.8 mg/dl Total Bilirubin 0.5 mg/dl Aspartate Amino Transf (AST/SGOT) 11 U/L Alanine Aminotransferase (ALT/SGPT) 23 U/L Alkaline Phosphatase 69 U/L Troponin I 0.038 ng/ml 0.034 ng/ml Pro-B-Type Natriuretic Peptide 9763 pg/ml Total Protein 6.6 gm/dl Albumin 2.1 gm/dl Globulin 4.5 gm/dl Albumin/Globulin Ratio 0.5 Thyroid Stimulating Hormone (TSH) 0.773 uIu/ml Estimated Average Glucose 131 mg/dl Hemoglobin A1c 6.2 % Lactic Acid Level 3.8 mmol/L 3.2 mmol/L Bedside Glucose 391 mg/dl Test 03/07/18 23:56 03/08/18 04:00 03/08/18 05:36 03/08/18 05:37 Bedside Glucose 196 mg/dl 72 mg/dl Sodium Level 142 mmol/L Potassium Level 3.9 mmol/L Chloride Level 106 mmol/L Carbon Dioxide Level 30 mmol/L Anion Gap 6.0 mmol/L Blood Urea Nitrogen 21 mg/dl Creatinine 0.76 mg/dl Est Creatinine Clear Calc Drug Dose 82.1 ml/min Estimated GFR () 97.1 Estimated GFR (Non- 83.8 BUN/Creatinine Ratio 27.7 Random Glucose 72 mg/dl Calcium Level 8.1 mg/dl Magnesium Level 1.8 mg/dl Troponin I 0.025 ng/ml Triglycerides Level 95 mg/dl Cholesterol Level 143 mg/dl HDL Cholesterol 58 mg/dl LDL Cholesterol, Calculated 66 mg/dl VLDL Cholesterol, Calculated 19 mg/dl Cholesterol/HDL Ratio 2.5 White Blood Count 9.79 K/uL Red Blood Count 3.60 M/uL Hemoglobin 9.5 g/dL Hematocrit 31.1 % Mean Corpuscular Volume 86.4 fL Mean Corpuscular Hemoglobin 26.4 pg Mean Corpuscular Hemoglobin Concent 30.5 g/dl RDW Standard Deviation 69.7 fL RDW Coefficient of Variation 21.9 % Platelet Count 240 K/uL Mean Platelet Volume 8.2 fL Lactic Acid Level 1.0 mmol/L Test 03/08/18 06:56 03/08/18 07:22 Bedside Glucose 44 mg/dl 78 mg/dl Impression: 1. Advanced stage lung cancer 2. Paroxysmal atrial fibrillation Recommendations: The patient has advanced stage lung cancer and there is no plans for further treatment. I think it is best that we have palliative care at least speak to the patient and family to see what they can offer. I discussed this with the patient and also with his by telephone. They are in agreement to having the palliative service. As far as his atrial arrhythmias are concerned, he is currently in sinus rhythm. I am concerned with using amiodarone due to the pulmonary toxicity and I will stop this medication today. I will place him on low-dose diltiazem which would least hopefully control his heart rate should he have more atrial arrhythmias.
[2018-03-08] MEDS ORDERED: DILTIAZEM HCL 30 MG TAB PO ONE (09:30)
--- NOTE | 2018-03-08 10:28 | PULMONARY CONSULTATION ---
DATE OF CONSULTATION: 03/08/2018 REASON FOR CONSULTATION: Bronchopneumonia in a patient with diagnosed bronchogenic carcinoma. HISTORY OF PRESENT ILLNESS: This is an 82-year-old white male, who was admitted by Dr. Simmons on 03/07/2018 in respiratory distress. The patient's primary care physician is Dr. Ady Mayo. The patient has also been seen by Dr. Cerna who initially saw the patient on 01/18/2018. The patient had been initially admitted to [facility] from 01/03/2018 and 01/08/2018 with bilateral pneumonia, DVT, and new onset atrial fibrillation. He required oxygen at 2 L and was placed on levofloxacin, enoxaparin, and Lopressor. CT angiogram during that hospital stay showed bibasilar pneumonia/infiltrate with small left apical pneumothorax. US showed a nonocclusive DVT in left popliteal vein of undetermined chronicity. The patient complained of chronic fatigue and productive cough. He has been diagnosed with a spindle cell/squamous cell differentiation lung cancer and followed by Dr. Ray Estevez from oncology at [facility]. He has been receiving chemotherapy in the form of paclitaxel/carboplatin-XRT from 07/23/2017 through 08/09/2017 and is now on pembrolizumab started on 11/07/2017. MRI of the brain in May of last year was negative. PET CT scan on 09/07/2017 showed partial response, but significant residual disease in the left lower lobe. The patient also has a history of chronic dysphagia with recurrent aspiration pneumonia and has been on chronic subcutaneous Lovenox. He is a type 2 diabetic with hypertension and diagnosed with chronic atrial fibrillation, for the most part controlled on beta anatoly. 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 There was interval worsening in left upper lobe consolidation suggesting either increased mass-like effect with postobstructive pneumonia. There was also layering debris in the right mainstem bronchus suggesting aspiration. When questioned, the patient feels only on occasion does he have a postprandial cough. Blood cultures have been ordered. He was started on IV Cardizem in the ER and that was discontinued when he became hypotensive. He was then started on IV amiodarone with control of the ventricular response. There is a normal LVEF with grade 1 diastolic dysfunction by echo. He denies chest discomfort currently and states he wishes to go home today. He was started on IV Zosyn empirically and has been supplemented with oxygen up to 4 L. He has had a video fluoroscopic evaluation in the past. We have been asked to see the patient in consultation. For details of past medical history, I refer you to voluminous records. The patient did demonstrate worsening renal function on combined chemotherapy with radiation at one point. Apparently his last encounter with Dr. Estevez was on 01/17/2018 and at that time, the patient did complain of persistent cough. The original mass was discovered in April 2017 measuring 5.6 x 4.7 cm involving the left hilum. CAT scan confirmed this and he underwent CT-guided biopsy demonstrating spindle cell carcinoma with squamous cell differentiation with PD-L1 expression 80%. PET CT SCAN in May 2017 lid up the left lower lobe mass with an SUV of 11.1 as well as left hilar lymph nodes with an SUV of 6. PHYSICAL EXAMINATION: GENERAL: Reveals a well-developed elderly white male, appearing somewhat confused, but conversant and oriented x2. VITAL SIGNS: Temperature 36.6, pulse 89 and irregular, respiratory rate 18, blood pressure 116/72, O2 sat 95% on 2 L currently. SKIN: Without lesion. HEENT: Atraumatic, normocephalic. PERRLA, EOMI. Conjunctivae pale. Sclerae nonicteric. Fundi poorly visualized. NECK: Neck veins are not distended at 45 degrees. No evidence of adenopathy in the supra or infraclavicular areas. LUNGS: Coarse rhonchi involved over the left posterior thorax with decreased breath sounds. There were also some rhonchi heard at the right lower lobe. CARDIAC EXAMINATION: Irregular, tachycardic rhythm. I do not appreciate an S3. ABDOMEN: Soft, scaphoid. No evidence of hepatosplenomegaly. EXTREMITIES: Trace to +1 pitting edema. No clubbing or peripheral cyanosis. NEUROLOGIC: Intact. No lateralizing signs. 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 There is also right lung consolidation with debris and secretions just in the right mainstem bronchus. 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 I suspect a degree of aspiration, especially with the debris seen in the right tracheobronchial tree. The patient stated he wanted to go home, I told him that I did not think that was advisable, but he could the choice. Bronchoscopic with evaluation with BAL may be the best route at this point in time in order to see if there is some way we can improve his respiratory status. We will discuss further with Dr. Cerna who knows the patient well and continue current IV antibiotics including IV amiodarone to control his atrial flutter and discuss with Dr. Cerna further options. HOAD
[2018-03-08 12:29] VITALS: BP 112/67; PULSE 58; TEMP 36.4; O2SAT 98
--- NOTE | 2018-03-08 13:39 | Pharmacy Progress Note ---
Glycemic Control Intl Consult Date of Service March 08, 2018. Scope Glycemic Pharmacist consulted by Dr Simmons on 03/07/18 for glycemic control and to write orders per [facility] inpatient glycemic control protocol Objective Weight (Kilograms): 91.000 Accuchecks BSG (last 24hrs): Test 03/07/18 14:59 03/07/18 21:04 03/07/18 23:56 03/08/18 04:00 Random Glucose 245 mg/dl (70-99) Bedside Glucose 391 mg/dl (70-99) 196 mg/dl (70-99) 72 mg/dl (70-99) Test 03/08/18 05:36 03/08/18 06:56 03/08/18 07:22 03/08/18 11:11 Random Glucose 72 mg/dl (70-99) Bedside Glucose 44 mg/dl (70-99) 78 mg/dl (70-99) 72 mg/dl (70-99) Test 03/08/18 11:46 Bedside Glucose 110 mg/dl (70-99) Laboratory Data (last 24hrs) Test 03/07/18 14:59 03/07/18 19:26 03/08/18 05:36 03/08/18 05:37 Anion Gap 6.0 mmol/L 6.0 mmol/L BUN/Creatinine Ratio 22.1 27.7 Blood Urea Nitrogen 23 mg/dl 21 mg/dl Creatinine 1.04 mg/dl 0.76 mg/dl Potassium Level 5.3 mmol/L 3.9 mmol/L Sodium Level 139 mmol/L 142 mmol/L White Blood Count 16.97 K/uL 9.79 K/uL Red Blood Count 4.05 M/uL Hemoglobin 11.0 g/dL Hematocrit 34.9 % Mean Corpuscular Volume 86.2 fL Mean Corpuscular Hemoglobin 27.2 pg Mean Corpuscular Hemoglobin Concent 31.5 g/dl Platelet Count 317 K/uL Mean Platelet Volume 8.7 fL Neutrophils (%) (Auto) 94.8 % Lymphocytes (%) (Auto) 1.1 % Monocytes (%) (Auto) 3.2 % Eosinophils (%) (Auto) 0.1 % Basophils (%) (Auto) 0.1 % Neutrophils # (Auto) 16.08 K/uL Lymphocytes # (Auto) 0.19 K/uL Monocytes # (Auto) 0.54 K/uL Eosinophils # (Auto) 0.02 K/uL Basophils # (Auto) 0.02 K/uL Hemoglobin A1c 6.2 % HbA1c Test 03/07/18 19:26 Hemoglobin A1c 6.2 % (4.5-5.6) H Recent Pertinent Medications Outpatient Anti-diabetic Regimen: * Metformin 1gm PO daily * Glimepiride 2mg PO daily * Novolog per sliding scale * A1c = 6.2 % 03/07/18 The patient is currently receiving: * Basal insulin: Lantus 20 units SQ x 1 given last evening * Correctional Insulin: Novolog Correction per scale ACHS Goal Range: Low 140 mg/dL - High 180 mg/dL Correction Factor: 25 mg/dL/unit * Prandial insulin: Per carb ratio of 1 unit per 10 grams CHO consumed * Oral Agents: None currently Risk Factors for Insulin Resistance: * Steroids: recently finished a steroid taper, not currently ordered steroids * Infection: pneumonia; receiving Zosyn * Diet: ordered T2DM / Low K+ diet Assessment & Plan ASSESSMENT: * Patient admitted yesterday due to respiratory distress secondary a flutter RVR and pneumonia * BSG as high as 391 last evening. Pt was treated w/ Lantus 20 units (0.2units/ kg) x 1 as well as 7 units Regular insulin IV. BSGs quickly dropped into the 70s and dropped further overnight into the 70's. Pre-lunch BSG also low at 68. * Pt appears to have too much basal insulin on board. Will continue to hold basal insulin at this time. Will resume basal insulin if BSG > 180 but in reduced dose. * Will also lessen the Novolog doses at this time due to excess basal insulin. Reevaluate Novolog doses tomorrow. PLAN FOR INPATIENT GLYCEMIC CONTROL: * Hold Lantus until BSG > 180. If BSG above 180 give 8 units SQ * Changing correction factor to 35 mg/dl/unit * Changing carb ratio to 1 unit per 12 grams CHO consumed * Changing goal range to Low 140 mg/dL - High 180 mg/dL * Please note that the plan above was derived based on current level of insulin resistance and hospital stress. These recommendations are appropriate for inpatient admission only. Plan of care upon discharge will need to be reassessed to avoid potential outpatient hypo/hyperglycemia. Thank you.
[2018-03-08] MEDS: DILTIAZEM HCL 30 MG TAB PO SCH ×2 (14:07→20:43)
[2018-03-08 14:50] VITALS: Ht 177.8 cm; Wt 88.4 kg
[2018-03-08 15:27] VITALS: BP 116/58; PULSE 68; TEMP 36.7; O2SAT 97
--- NOTE | 2018-03-08 18:08 | Progress Note ---
Internal Med Progress Note Date of Service: March 08, 2018. Provider Documentation: SUBJECTIVE: Resting comfortably denies chest pain or sob afebrile has some cough no nausea or abdominal pain OBJECTIVE: Vital Signs-as noted below Exam: General-alert and oriented. Not in distress ENT-Normal hearing Neck-no neck masses Lungs-cta b/l no wheezing no crackles Heart-s1 and s2 heard regular rate and rhythm no murmurs Abdomen-soft bowel sounds present non tender, no distension Extremities-no erythema seen Neuro-alert and awake 'moves extremities Lab data as noted below. ASSESSMENT & PLAN: A FLUTTER/RAPID A. FIB Presents with shortness of breath/dyspnea on exertion/dizzy spell lightheadedness was on Cardizem drip and amiodarone drip Therapeutic anticoagulation with Lovenox Cardiology consult requested case discussed with on-call cardiology Recent echo on 02/07/2018: MILD LVH otherwise unremarkable currently on po Cardizem Monitor on tele RECURRENT ASPIRATION/POST OBSTRUCTIVE PNEUMONIA s/p Video swallow study last admission which showed silent aspiration Patient was recommended mechanical soft "slippery" diet/nectar thick liquids seen by speech and recommends: 1.Dental soft "slippery" diet and NECTAR thick liquids. Avoid food that are dry, thick, pasty, and doughy. Add condiments to foods to keep it moist. On IV Zosyn ACUTE ON CHRONIC HYPOXEMIC RESPIRATORY FAILURE On 2 L home O2 at baseline In the ER became hypoxic required 4 L O2 supplementation possibly from above CT chest with contrast shows no PE Worsening of consolidation/obstruction of airway secondary to lung mass Follows with [facility] physician group Dr. Cerna Seen by Pulmonary and appreciate inputs currently saturating ok on 2lts ELEVATED LACTIC ACID LEVEL Possible secondary to hypoxia/aspiration pneumonia Lactic acid 3.8 on presentation received fluids Empiric antibiotic on IV Zosyn lactic acid normalized LUNG CANCER As per h and P:History of squamous cell carcinoma on left lower lobe Follows with oncology Dr. Estevez Completed chemo and radiation treatment Last dose of chemo was on 01/24/2018 Not a candidate for further chemo treatment because of poor functional status/ deconditioning HISTORY OF DVT /PE In a setting of malignancy On chronic anticoagulation with subcu Lovenox-continued TYPE 2 DIABETES Order for insulin sliding scale Pharmacy consulted for glycemic management hypoglycemic epsiode close monitor. SEVERE DYSPHAGIA CHRONIC ASPIRATION speech eval as above: Mechanical soft diet with nectar thick liquids Aspiration precaution CODE STATUS:Full code as per admission DVT PROPHYLAXIS, On therapeutic Lovenox treatment DISPOSITION: Monitor in tele pt/ot social service for d/c planning Vital Signs: Date Time Temp Pulse Resp B/P (MAP) Pulse Ox O2 Delivery O2 Flow Rate FiO2 03/08/18 16:00 Nasal Cannula 2.0 03/08/18 15:27 36.7 68 20 116/58 (77) 97 Nasal Cannula 2.0 03/08/18 12:29 36.4 58 23 112/67 (82) 98 Nasal Cannula 2.0 03/08/18 12:00 Nasal Cannula 2.0 03/08/18 08:00 Nasal Cannula 2.0 03/08/18 06:53 36.6 89 18 116/72 (87) 95 2.0 03/08/18 04:00 Nasal Cannula 2.0 Humidified Air 03/08/18 03:54 36.3 82 24 121/88 (99) 98 2.0 03/08/18 00:10 36.4 91 24 110/68 (82) 98 2.0 03/07/18 23:59 Nasal Cannula 2.0 Humidified Air 03/07/18 21:38 110 103/67 (79) 03/07/18 21:15 99 22 99/65 (76) 03/07/18 20:11 120 95/64 (74) 03/07/18 19:45 130 20 87/64 (72) 97 Nasal Cannula 2.0 Humidified Air 03/07/18 18:55 147 26 82/71 (75) 03/07/18 18:41 36.5 146 31 99/67 (78) 97 Nasal Cannula 2.0 03/07/18 18:17 138 84/56 98 Nasal Cannula 2.0 03/07/18 18:03 136 104/59 99 Nasal Cannula 2.0 Lab Results: Results Past 24 Hours Test 03/07/18 19:26 03/07/18 21:04 03/07/18 23:14 03/07/18 23:56 Range/Units Estimated Average Glucose 131 mg/dl Hemoglobin A1c 6.2 4.5-5.6 % Lactic Acid Level 3.8 3.2 0.4-2.0 mmol/L Bedside Glucose 391 196 70-99 mg/dl Troponin I 0.034 0-0.045 ng/ml Test 03/08/18 04:00 03/08/18 05:36 03/08/18 05:37 03/08/18 06:56 Range/Units Bedside Glucose 72 44 70-99 mg/dl Sodium Level 142 136-145 mmol/L Potassium Level 3.9 3.5-5.1 mmol/L Chloride Level 106 98-107 mmol/L Carbon Dioxide Level 30 21-32 mmol/L Anion Gap 6.0 3-11 mmol/L Blood Urea Nitrogen 21 7-18 mg/dl Creatinine 0.76 0.60-1.40 mg/dl Est Creatinine Clear Calc Drug Dose 82.1 ml/min Estimated GFR () 97.1 Estimated GFR (Non- 83.8 BUN/Creatinine Ratio 27.7 10-20 Random Glucose 72 70-99 mg/dl Calcium Level 8.1 8.5-10.1 mg/dl Magnesium Level 1.8 1.8-2.4 mg/dl Troponin I 0.025 0-0.045 ng/ml Triglycerides Level 95 0-150 mg/dl Cholesterol Level 143 0-200 mg/dl HDL Cholesterol 58 mg/dl LDL Cholesterol, Calculated 66 mg/dl VLDL Cholesterol, Calculated 19 mg/dl Cholesterol/HDL Ratio 2.5 White Blood Count 9.79 4.8-10.8 K/uL Red Blood Count 3.60 4.7-6.1 M/uL Hemoglobin 9.5 14.0-18.0 g/dL Hematocrit 31.1 42-52 % Mean Corpuscular Volume 86.4 80-100 fL Mean Corpuscular Hemoglobin 26.4 25-34 pg Mean Corpuscular Hemoglobin Concent 30.5 32-36 g/dl RDW Standard Deviation 69.7 36.4-46.3 fL RDW Coefficient of Variation 21.9 11.5-14.5 % Platelet Count 240 130-400 K/uL Mean Platelet Volume 8.2 7.4-10.4 fL Lactic Acid Level 1.0 0.4-2.0 mmol/L Test 03/08/18 07:22 03/08/18 11:11 03/08/18 11:46 03/08/18 11:58 Range/Units Bedside Glucose 78 72 110 70-99 mg/dl Troponin I < 0.015 0-0.045 ng/ml Test 03/08/18 16:33 Range/Units Bedside Glucose 150 70-99 mg/dl Microbiology Results 03/07/18 Blood Culture, Received Pending 03/07/18 Blood Culture, Received Pending
[2018-03-08 19:39] VITALS: BP 137/71; PULSE 77; TEMP 36.7; O2SAT 99
[2018-03-08] MEDS: MIRTAZAPINE TAB 15 MG TAB PO SCH (20:43)
[2018-03-08] MEDS ORDERED: INSULIN GLARGINE SOLOSTAR 100 UNITS/ML 3 ML PEN SC SCH (21:00)
[2018-03-09] VITALS (9 sets, daily range): BP systolic 104–128; BP diastolic 61–73; PULSE 66–81; TEMP 36–36.9; O2SAT 94–99
[2018-03-09 06:19] LABS: HEMOGLOBIN 9.6 g/dL (14.0-18.0); MEAN CELL VOLUME 86.8 fL (80-100); MEAN CORPUSCULAR HEMOGLOBIN 26.9 pg (25-34); MEAN PLATELET VOLUME 8.7 fL (7.4-10.4); PLATELET COUNT 262 K/uL (130-400); RED CELL DISTRIBUTION WIDTH CV 21.7 % (11.5-14.5); RED CELL DISTRIBUTION WIDTH SD 69.7 fL (36.4-46.3); WHITE BLOOD COUNT 9.65 K/uL (4.8-10.8)
[2018-03-09 06:51] LABS: CALCIUM 8.4 mg/dl (8.5-10.1); CREATININE 0.84 mg/dl (0.60-1.40); POTASSIUM 4.1 mmol/L (3.5-5.1)
[2018-03-09] MEDS: PIPERACILL/TAZOBAC IV 3.375 GM in DEXTROSE 5% 100ML 100 ML IV SCH ×3 (07:12→22:37)
[2018-03-09] MEDS: METOPROLOL TARTRATE 25 MG TAB PO SCH ×2 (08:00→20:57)
[2018-03-09] MEDS: ENOXAPARIN 100 MG/1ML SYR SQ SCH ×2 (08:00→20:58)
[2018-03-09] MEDS: CEROVITE ADV FORMULA TAB PO SCH (08:00)
[2018-03-09] MEDS: DILTIAZEM HCL 30 MG TAB PO SCH ×3 (08:01→20:56)
[2018-03-09] MEDS: INSULIN ASPART 100 UNITS/ML 3 ML PEN SC SCH ×4 (08:01→20:56)
[2018-03-09] MEDS: ASPIRIN 81 MG ECTAB PO SCH (08:01)
[2018-03-09] MEDS: ATORVASTATIN 20 MG TAB PO SCH (08:01)
[2018-03-09] MEDS: ALLOPURINOL 300 MG TAB PO SCH (08:01)
[2018-03-09] MEDS: CHOLECALCIFEROL 1000 INTER.UNIT TAB PO SCH (08:01)
--- NOTE | 2018-03-09 08:32 | Cardiology Follow-Up ---
Subjective Subjective Date of Service: March 09, 2018. Additional Details: Patient feeling better today. He is maintaining sinus rhythm and tolerating diltiazem. He is talking about going home and I told him that would not be a good idea. Palliative care consult is still pending. Problem List Medical Problems: (1) Atrial fibrillation with RVR Status: Acute (2) Atrial flutter with rapid ventricular response Status: Acute (3) Bilateral pneumonia Status: Acute (4) Dehydration Status: Acute (5) Dyspnea Status: Acute (6) Fall Status: Acute (7) Lung cancer Status: Acute (8) Lung cancer Status: Acute (9) Malnutrition Status: Acute (10) Pneumonia Status: Acute (11) Right leg weakness Status: Acute Review of Systems Constitutional: + weakness Respiratory: + cough, + shortness of breath Neurologic: + balance problems Objective Vital Signs Last Vital Signs Documentation Date Time Temp Pulse Resp B/P (MAP) Pulse Ox O2 Delivery O2 Flow Rate FiO2 03/09/18 07:02 36.6 77 18 108/62 (77) 97 2.0 03/09/18 04:00 Nasal Cannula Humidified Air Physical Exam: General Appearance: WD/WN, no apparent distress ENT: normal ENT inspection, pharynx normal Respiratory/Chest: chest non-tender, lungs clear, normal breath sounds, no respiratory distress Cardiovascular: regular rate, rhythm, no gallop, no murmur Abdomen: normal bowel sounds, non tender, soft, no organomegaly Extremities: non-tender, no calf tenderness Neurologic/Psychiatric: alert, normal mood/affect, oriented x 3 Skin: normal color, warm/dry, no rash Lymphatic: no adenopathy Assessment and Plan Impression: 1. Advanced stage lung cancer 2. Paroxysmal atrial fibrillation 3. Possible aspiration Recommendations: The patient is not a candidate for long-term anticoagulation. He is tolerating diltiazem and maintaining sinus rhythm. Conservative management is indicated. Medications: Current Inpatient Medications Medications (Trade) Dose Ordered Sig/Mert Route Start Time Stop Time Status Last Admin Dose Admin Ioversol (Optiray 320) 100 ml UD PRN IV 03/07/18 15:00 03/11/18 14:59 Acetaminophen (Tylenol Tab) 650 mg Q4H PRN PO 03/07/18 17:45 04/06/18 17:44 Nitroglycerin (Nitrostat Tab) 0.4 mg UD PRN SL 03/07/18 17:45 04/06/18 17:44 Allopurinol (Zyloprim Tab) 300 mg DAILY PO 03/08/18 09:00 04/07/18 08:59 03/09/18 08:01 300 MG Aspirin (Ecotrin Tab) 81 mg DAILY PO 03/08/18 09:00 04/07/18 08:59 03/09/18 08:01 81 MG Atorvastatin Calcium (Lipitor Tab) 20 mg DAILY PO 03/08/18 09:00 04/07/18 08:59 03/09/18 08:01 20 MG Cholecalciferol (Vitamin D Tab) 1,000 inter.unit DAILY PO 03/08/18 09:00 04/07/18 08:59 03/09/18 08:01 1,000 INTER.UNIT Codeine Phosphate/ Guaifenesin (Robitussin-AC Sugar Free Syrup) 10 ml Q4H PRN PO 03/07/18 19:15 04/06/18 19:14 Metoprolol Tartrate (Lopressor Tab) 25 mg BID PO 03/07/18 21:00 04/06/18 20:59 03/09/18 08:00 25 MG Mirtazapine (Remeron Tab) 15 mg HS PO 03/07/18 21:00 04/06/18 20:59 03/08/18 20:43 15 MG Multivitamins/ Minerals (Multivitamin W/ Minerals Tab) 1 tab DAILY PO 03/08/18 09:00 04/07/18 08:59 03/09/18 08:00 1 TAB Enoxaparin Sodium (Lovenox Inj) 90 mg Q12H SQ 03/07/18 21:00 04/06/18 20:59 03/09/18 08:00 90 MG Piperacillin Sod/ Tazobactam Sod 3.375 gm/Dextrose 115 ml @ 28.75 mls/ hr Q8H IV 03/07/18 23:00 03/14/18 22:59 03/09/18 07:12 28.75 MLS/HR Miscellaneous Information (Consult) 1 ea UD PRN N/A 03/07/18 20:45 04/06/18 20:44 Miscellaneous Information (Consult Glycemic Management Pharmacy) 1 ea DAILY PRN N/A 03/07/18 21:35 04/06/18 21:34 Insulin Aspart (novoLOG ASPART) SLIDING SCALE If C... ACHS SC 03/08/18 07:00 04/07/18 06:59 Glucose (Glucose 40% Gel) 15-30 GRAMS 15 GRAMS... UD PRN PO 03/07/18 21:45 04/06/18 21:44 Glucose (Glucose Chew Tab) 4-8 Tablets 4 Tabl... UD PRN PO 03/07/18 21:45 04/06/18 21:44 Dextrose (Dextrose 50% 50ML Syringe) 25-50ML 25ML FOR ... UD PRN IV 03/07/18 21:45 04/06/18 21:44 03/08/18 07:07 50 ML Glucagon (Glucagon Inj) 1 mg UD PRN SQ 03/07/18 21:45 04/06/18 21:44 Carbohydrates (Carbohydrates For Hypoglycemia) 15-30 GRAMS 15 grams if BSG 54-69... UD PRN PO 03/07/18 21:45 04/06/18 21:44 Ipratropium [place] (Atrovent 0.02% 0.5MG/2.5ML Neb) 0.5 mg Q4H PRN INH 03/08/18 00:45 04/07/18 00:44 Levalbuterol (Xopenex 1.25MG/ 0.5ML Neb) 1.25 mg Q4H PRN INH 03/08/18 00:45 04/07/18 00:44 Diltiazem HCl (Cardizem Tab) 30 mg TID PO 03/08/18 14:00 04/07/18 13:59 03/09/18 08:01 30 MG Lab Results: Last 24 Hours Test 03/08/18 11:11 03/08/18 11:46 03/08/18 11:58 03/08/18 16:33 Bedside Glucose 72 mg/dl 110 mg/dl 150 mg/dl Troponin I < 0.015 ng/ml Test 03/08/18 20:46 03/09/18 05:26 03/09/18 07:07 Bedside Glucose 91 mg/dl 71 mg/dl White Blood Count 9.65 K/uL Red Blood Count 3.57 M/uL Hemoglobin 9.6 g/dL Hematocrit 31.0 % Mean Corpuscular Volume 86.8 fL Mean Corpuscular Hemoglobin 26.9 pg Mean Corpuscular Hemoglobin Concent 31.0 g/dl RDW Standard Deviation 69.7 fL RDW Coefficient of Variation 21.7 % Platelet Count 262 K/uL Mean Platelet Volume 8.7 fL Sodium Level 141 mmol/L Potassium Level 4.1 mmol/L Chloride Level 104 mmol/L Carbon Dioxide Level 34 mmol/L Anion Gap 3.0 mmol/L Blood Urea Nitrogen 16 mg/dl Creatinine 0.84 mg/dl Est Creatinine Clear Calc Drug Dose 74.4 ml/min Estimated GFR () 93.2 Estimated GFR (Non- 80.4 BUN/Creatinine Ratio 19.1 Random Glucose 64 mg/dl Calcium Level 8.4 mg/dl Magnesium Level 1.9 mg/dl
--- NOTE | 2018-03-09 15:00 | PULMONARY PROGRESS NOTE ---
DATE: 03/09/2018 SUBJECTIVE: The patient seems slightly better today and less congested, although still has persistent cough. Seen earlier in the day by Dr. Snell from cardiology. The patient has maintained a sinus rhythm and tolerates diltiazem. Palliative care consult has been requested. PHYSICAL EXAMINATION: CURRENT VITAL SIGNS: Temperature 36.6, pulse 69 and regular, respiratory rate 23, blood pressure 104/64, O2 sat 94% on 2 L. SKIN: Without lesion. HEENT: Atraumatic, normocephalic, PERRLA, EOMI. Conjunctivae pale. Sclerae nonicteric. Fundi poorly visualized. NECK: Veins not distended at 45 degrees. CHEST: Distant P and A with decreased breath sounds, left posterior thorax. CARDIAC: Regular rate, rhythm. I do not appreciate a gallop. ABDOMEN: Soft, scaphoid. EXTREMITIES: No pedal edema, clubbing or cyanosis. ASSESSMENT: Paroxysmal atrial fibrillation, possible aspiration. PLAN: The patient with advanced spindle cell/squamous cell bronchogenic neoplasm having received combined chemotherapy and external beam radiotherapy on maintenance therapy. I spoke with Dr. Cerna who did not feel there have been significant change on CT scan to warrant a repeat bronchoscopy at this point and since the patient does sound better and seems more comfortable from a respiratory standpoint, I believe we will have to continue to follow and hold any consideration for bronchoscopic intervention at this point in time.
--- NOTE | 2018-03-09 16:40 | Progress Note ---
Internal Med Progress Note Date of Service: March 09, 2018. Provider Documentation: SUBJECTIVE: Resting comfortably slept fine denies cough eating ok no sob or chest pain 'afebrile no complaints OBJECTIVE: Vital Signs-as noted below Exam: General-alert and oriented. Not in distress ENT-Normal hearing Neck-no neck masses Lungs-cta b/l no wheezing no crackles Heart-s1 and s2 heard regular rate and rhythm no murmurs Abdomen-soft bowel sounds present non tender, no distension Extremities-no erythema seen Neuro-alert and awake 'moves extremities Lab data as noted below. ASSESSMENT & PLAN: A FLUTTER/RAPID A. FIB Presents with shortness of breath/dyspnea on exertion/dizzy spell lightheadedness was on Cardizem drip and amiodarone drip Therapeutic anticoagulation with Lovenox Cardiology consulted and appreciate inputs Recent echo on 02/07/2018: MILD LVH otherwise unremarkable currently on po Cardizem Monitor on tele stable RECURRENT ASPIRATION/POST OBSTRUCTIVE PNEUMONIA s/p Video swallow study last admission which showed silent aspiration Patient was recommended mechanical soft "slippery" diet/nectar thick liquids seen by speech and recommends: 1.Dental soft "slippery" diet and NECTAR thick liquids. Avoid food that are dry, thick, pasty, and doughy. Add condiments to foods to keep it moist. On IV Zosyn- to continue same for now ACUTE ON CHRONIC HYPOXEMIC RESPIRATORY FAILURE On 2 L home O2 at baseline In the ER became hypoxic required 4 L O2 supplementation possibly from above CT chest with contrast shows no PE Worsening of consolidation/obstruction of airway secondary to lung mass Follows with [facility] physician group Dr. 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 Estevez Completed chemo and radiation treatment Last dose of chemo was on 01/24/2018 Not a candidate for further chemo treatment because of poor functional status/ deconditioning HISTORY OF DVT /PE In a setting of malignancy On chronic anticoagulation with subcu Lovenox-continued TYPE 2 DIABETES Order for insulin sliding scale Pharmacy consulted for glycemic management hypoglycemic epsiode close monitor. SEVERE DYSPHAGIA CHRONIC ASPIRATION speech eval as above: Mechanical soft diet with nectar thick liquids Aspiration precaution CODE STATUS:Full code as per admission DVT PROPHYLAXIS, On therapeutic Lovenox treatment DISPOSITION: Monitor in tele Await pt/ot social service for d/c planning Vital Signs: Date Time Temp Pulse Resp B/P (MAP) Pulse Ox O2 Delivery O2 Flow Rate FiO2 03/09/18 15:22 36.5 74 20 115/67 (83) 95 2.0 03/09/18 12:00 Nasal Cannula 2.0 03/09/18 10:38 36.6 69 23 104/64 (77) 94 Nasal Cannula 2.0 03/09/18 09:55 66 94 03/09/18 08:00 Nasal Cannula 2.0 03/09/18 07:02 36.6 77 18 108/62 (77) 97 2.0 03/09/18 04:00 97 Nasal Cannula 2.0 Humidified Air 03/09/18 03:47 36.7 75 20 126/66 (86) 97 2.0 03/09/18 00:28 36.9 71 18 128/73 (91) 98 03/09/18 00:01 99 Nasal Cannula 2.0 Humidified Air 03/08/18 20:00 Nasal Cannula 2.0 Humidified Air 03/08/18 19:39 36.7 77 24 137/71 (93) 99 2.0 Lab Results: Results Past 24 Hours Test 03/08/18 20:46 03/09/18 05:26 03/09/18 07:07 03/09/18 11:00 Range/Units Bedside Glucose 91 71 134 70-99 mg/dl White Blood Count 9.65 4.8-10.8 K/uL Red Blood Count 3.57 4.7-6.1 M/uL Hemoglobin 9.6 14.0-18.0 g/dL Hematocrit 31.0 42-52 % Mean Corpuscular Volume 86.8 80-100 fL Mean Corpuscular Hemoglobin 26.9 25-34 pg Mean Corpuscular Hemoglobin Concent 31.0 32-36 g/dl RDW Standard Deviation 69.7 36.4-46.3 fL RDW Coefficient of Variation 21.7 11.5-14.5 % Platelet Count 262 130-400 K/uL Mean Platelet Volume 8.7 7.4-10.4 fL Sodium Level 141 136-145 mmol/L Potassium Level 4.1 3.5-5.1 mmol/L Chloride Level 104 98-107 mmol/L Carbon Dioxide Level 34 21-32 mmol/L Anion Gap 3.0 3-11 mmol/L Blood Urea Nitrogen 16 7-18 mg/dl Creatinine 0.84 0.60-1.40 mg/dl Est Creatinine Clear Calc Drug Dose 74.4 ml/min Estimated GFR () 93.2 Estimated GFR (Non- 80.4 BUN/Creatinine Ratio 19.1 10-20 Random Glucose 64 70-99 mg/dl Calcium Level 8.4 8.5-10.1 mg/dl Magnesium Level 1.9 1.8-2.4 mg/dl
--- NOTE | 2018-03-09 20:25 | Palliative Care Consultation ---
Consultation Date of Consultation: March 09, 2018. Requesting Physician: Dr Atwood Attending Physician: Dr Atwood Reason for Consultation: Discuss goals of care and CODE STATUS History of Present Illness Patient is a 82-year-old male who had been hospitalized for 8 days approximately 1 month ago and then transfer to [facility] for 2-1/2 weeks receiving OT/PT/AUDIOLOGIST and had been home only 2 days when he began to have increased coughing. Patient was seen by his PCP on 03/07 where he was noted to have a low blood pressure, increased shortness of breath with sats of 88%, and a heart rate of 160. reports that after patient was able to calm down his sats were 92%. Patient was sent from the PCP office to the ER for his tachycardia with associated SOB. Patient has a past medical history is significant for lung cancer diagnosed approximately 1 year ago, recent onset A. fib/flutter, diabetes, HLD, hypertension, gout, dysphagia with chronic aspiration, PE/DVT-left lower lobe pulmonary artery, and left perihilar mass. Patient is suspected to have a possible postobstructive pneumonia in the left lung along with chronic aspiration in the right lung. Had a long discussion with patient and regarding CODE STATUS and goals of care. Patient and not prepared to think about anything short of aggressive treatment at this time. Patient reports at home he was able to ambulate with a walker but also had a wheelchair ordered after discharge from rehab. After long discussion patient stated he would want aggressive therapy including intubation, shock, and CPR if he could live longer, even if it meant at a lower level of function. Patient stated he would not want to be kept alive artificially for any prolonged period of time. Patient and will continue to think about our discussion and will let me know if there is any change in to his status of full code Past Medical/Surgical History Medical History: Lung cancer, A. fib/flutter, DM, HLD, HTN, mild , gout, dysphasia, chronic aspiration, PE/DVT, diastolic dysfunction, frequent coughing Social History Smoking Status: Former Smoker History of Alcohol Use: No Drug Use: cocaine Marital Status: Housing Status: lives with significant other Occupation Status: retired reports that she had looked into [employer] to help care for patient at home 2 days a week, patient also initiated long-term care insurance with the help of home social work professor Review of Systems Constitutional: No fever, No chills Eyes: No worsening of vision ENT: No hearing loss Respiratory: + cough (Constant frequent coughing, did keep patient up at night on his first night home from rehab), + shortness of breath Cardiac: No chest pain Abdomen: No pain Musculoskeletal: + problem reported (Generalized weakness) Male : No dysuria Neurologic: No memory loss Psychiatric: + anxiety Endo: + fatigue Skin: No new/changing skin lesions Allergies Coded Allergies: No Known Allergies (Unverified , 02/20/18) Medications Current Inpatient Medications Medications (Trade) Dose Ordered Sig/Mert Route Start Time Stop Time Status Last Admin Dose Admin Ioversol (Optiray 320) 100 ml UD PRN IV 03/07/18 15:00 03/11/18 14:59 Acetaminophen (Tylenol Tab) 650 mg Q4H PRN PO 03/07/18 17:45 04/06/18 17:44 Nitroglycerin (Nitrostat Tab) 0.4 mg UD PRN SL 03/07/18 17:45 04/06/18 17:44 Allopurinol (Zyloprim Tab) 300 mg DAILY PO 03/08/18 09:00 04/07/18 08:59 03/09/18 08:01 300 MG Aspirin (Ecotrin Tab) 81 mg DAILY PO 03/08/18 09:00 04/07/18 08:59 03/09/18 08:01 81 MG Atorvastatin Calcium (Lipitor Tab) 20 mg DAILY PO 03/08/18 09:00 04/07/18 08:59 03/09/18 08:01 20 MG Cholecalciferol (Vitamin D Tab) 1,000 inter.unit DAILY PO 03/08/18 09:00 04/07/18 08:59 03/09/18 08:01 1,000 INTER.UNIT Codeine Phosphate/ Guaifenesin (Robitussin-AC Sugar Free Syrup) 10 ml Q4H PRN PO 03/07/18 19:15 04/06/18 19:14 Metoprolol Tartrate (Lopressor Tab) 25 mg BID PO 03/07/18 21:00 04/06/18 20:59 03/09/18 08:00 25 MG Mirtazapine (Remeron Tab) 15 mg HS PO 03/07/18 21:00 04/06/18 20:59 03/08/18 20:43 15 MG Multivitamins/ Minerals (Multivitamin W/ Minerals Tab) 1 tab DAILY PO 03/08/18 09:00 04/07/18 08:59 03/09/18 08:00 1 TAB Enoxaparin Sodium (Lovenox Inj) 90 mg Q12H SQ 03/07/18 21:00 04/06/18 20:59 03/09/18 08:00 90 MG Piperacillin Sod/ Tazobactam Sod 3.375 gm/Dextrose 115 ml @ 28.75 mls/ hr Q8H IV 03/07/18 23:00 03/14/18 22:59 03/09/18 15:32 28.75 MLS/HR Miscellaneous Information (Consult) 1 ea UD PRN N/A 03/07/18 20:45 04/06/18 20:44 Miscellaneous Information (Consult Glycemic Management Pharmacy) 1 ea DAILY PRN N/A 03/07/18 21:35 04/06/18 21:34 Insulin Aspart (novoLOG ASPART) SLIDING SCALE If C... ACHS SC 03/08/18 07:00 04/07/18 06:59 Glucose (Glucose 40% Gel) 15-30 GRAMS 15 GRAMS... UD PRN PO 03/07/18 21:45 04/06/18 21:44 Glucose (Glucose Chew Tab) 4-8 Tablets 4 Tabl... UD PRN PO 03/07/18 21:45 04/06/18 21:44 Dextrose (Dextrose 50% 50ML Syringe) 25-50ML 25ML FOR ... UD PRN IV 03/07/18 21:45 04/06/18 21:44 03/08/18 07:07 50 ML Glucagon (Glucagon Inj) 1 mg UD PRN SQ 03/07/18 21:45 04/06/18 21:44 Carbohydrates (Carbohydrates For Hypoglycemia) 15-30 GRAMS 15 grams if BSG 54-69... UD PRN PO 03/07/18 21:45 04/06/18 21:44 Ipratropium [place] (Atrovent 0.02% 0.5MG/2.5ML Neb) 0.5 mg Q4H PRN INH 03/08/18 00:45 04/07/18 00:44 Levalbuterol (Xopenex 1.25MG/ 0.5ML Neb) 1.25 mg Q4H PRN INH 03/08/18 00:45 04/07/18 00:44 Diltiazem HCl (Cardizem Tab) 30 mg TID PO 03/08/18 14:00 04/07/18 13:59 03/09/18 13:00 30 MG Physical Exam Date Time Temp Pulse Resp B/P (MAP) Pulse Ox O2 Delivery O2 Flow Rate FiO2 03/09/18 19:26 36.0 81 18 117/61 (79) 98 2.0 03/09/18 16:00 Nasal Cannula 2.0 03/09/18 15:22 36.5 74 20 115/67 (83) 95 2.0 03/09/18 12:00 Nasal Cannula 2.0 03/09/18 10:38 36.6 69 23 104/64 (77) 94 Nasal Cannula 2.0 03/09/18 09:55 66 94 03/09/18 08:00 Nasal Cannula 2.0 03/09/18 07:02 36.6 77 18 108/62 (77) 97 2.0 03/09/18 04:00 97 Nasal Cannula 2.0 Humidified Air 03/09/18 03:47 36.7 75 20 126/66 (86) 97 2.0 03/09/18 00:28 36.9 71 18 128/73 (91) 98 03/09/18 00:01 99 Nasal Cannula 2.0 Humidified Air General Appearance: no apparent distress (Resting comfortably on O2) Eyes: EOMI ENT: hearing grossly normal Neck: supple Respiratory: no respiratory distress, + decreased breath sounds Cardiovascular: regular rate, rhythm, + pertinent finding (1+ lower extremity edema) Abdomen: non tender, soft Musculoskeletal: abnormal strength Neurologic/Psychiatric: alert, oriented x 3 Skin: warm/dry Laboratory Results Last 24 Hours Test 03/08/18 20:46 03/09/18 05:26 03/09/18 07:07 03/09/18 11:00 Bedside Glucose 91 mg/dl 71 mg/dl 134 mg/dl White Blood Count 9.65 K/uL Red Blood Count 3.57 M/uL Hemoglobin 9.6 g/dL Hematocrit 31.0 % Mean Corpuscular Volume 86.8 fL Mean Corpuscular Hemoglobin 26.9 pg Mean Corpuscular Hemoglobin Concent 31.0 g/dl RDW Standard Deviation 69.7 fL RDW Coefficient of Variation 21.7 % Platelet Count 262 K/uL Mean Platelet Volume 8.7 fL Sodium Level 141 mmol/L Potassium Level 4.1 mmol/L Chloride Level 104 mmol/L Carbon Dioxide Level 34 mmol/L Anion Gap 3.0 mmol/L Blood Urea Nitrogen 16 mg/dl Creatinine 0.84 mg/dl Est Creatinine Clear Calc Drug Dose 74.4 ml/min Estimated GFR () 93.2 Estimated GFR (Non- 80.4 BUN/Creatinine Ratio 19.1 Random Glucose 64 mg/dl Calcium Level 8.4 mg/dl Magnesium Level 1.9 mg/dl Test 03/09/18 16:24 Bedside Glucose 148 mg/dl Assessment & Plan Palliative Performance Scale: 40 % (1) Palliative care encounter Assessment & Plan: Met with patient and in patient's room, discussed patient's current status, as well as his general decline after hospitalization, especially given his short time at home prior to requiring readmission. Patient would like to remain a full code at this time, he and his will continue to consider other options, will continue to support patient and family with medical decision making. (2) Lung cancer Status: Chronic Assessment & Plan: Patient diagnosed with squamous cell lung cancer approximately 1 year ago he completed chemotherapy and radiation, he is off every 2 to due to non-tolerance (3) SOB (shortness of breath) on exertion Status: Chronic Assessment & Plan: Acute episode of increased shortness of breath likely due to A. fib/flutter, patient also with dyspnea on exertion due to lung disease. Patient continues to have chronic aspiration, discussed other treatment options including being n.p.o. and requiring G-tube feeds, etc. Counseling and Coordination Total time 70 minutes with greater than 50% of time spent at bedside reviewing patient's recent hospitalizations and decline as well as his prognosis and treatment options.
[2018-03-09] MEDS: MIRTAZAPINE TAB 15 MG TAB PO SCH (20:57)
[2018-03-10 00:55] VITALS: BP 136/71; PULSE 70; TEMP 36.9; O2SAT 97
[2018-03-10 03:46] VITALS: BP 118/64; PULSE 74; TEMP 36.9; O2SAT 94
[2018-03-10 06:07] LABS: HEMATOCRIT 31.6 % (42-52); HEMOGLOBIN 9.8 g/dL (14.0-18.0); MEAN CELL VOLUME 85.4 fL (80-100); MEAN CORPUSCULAR HEMOGLOBIN 26.5 pg (25-34); MEAN PLATELET VOLUME 8.3 fL (7.4-10.4); PLATELET COUNT 259 K/uL (130-400); RED CELL DISTRIBUTION WIDTH CV 21.5 % (11.5-14.5); RED CELL DISTRIBUTION WIDTH SD 68.3 fL (36.4-46.3); WHITE BLOOD COUNT 9.51 K/uL (4.8-10.8)
[2018-03-10] MEDS: PIPERACILL/TAZOBAC IV 3.375 GM in DEXTROSE 5% 100ML 100 ML IV SCH ×2 (06:22→14:02)
[2018-03-10 06:48] LABS: CALCIUM 8.8 mg/dl (8.5-10.1); CREATININE 0.85 mg/dl (0.60-1.40); POTASSIUM 3.8 mmol/L (3.5-5.1)
[2018-03-10] MEDS: INSULIN ASPART 100 UNITS/ML 3 ML PEN SC SCH ×3 (07:00→17:10)
[2018-03-10 07:09] VITALS: BP 124/65; PULSE 75; TEMP 36.5; O2SAT 96
--- NOTE | 2018-03-10 08:55 | DIAGNOSTIC IMAGING REPORT ---
L VENOUS DOPP LOWER EXT UNILAT HISTORY: 82 years-old Male LLE swelling acute left lower extremity pain and swelling COMPARISON: None available TECHNIQUE: Multiple real-time sonographic images of the deep venous structures were obtained assessing grayscale appearance, color and spectral flow FINDINGS: The distal portion of the popliteal vein is diminutive in size demonstrates echogenic linear stranding centrally with areas of intermittent decreased flow. No acute occlusive thrombus identified. The remaining deep venous structures about the left lower extremity appear normal. IMPRESSION: 1. 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 2. No evidence of acute occlusive deep venous thrombus. The above report was generated using voice recognition software. It may contain grammatical, syntax or spelling errors. Electronically signed by: Richard Doyle M.D. 03/10/2018 8:53 AM Dictated Date/Time: 03/10/2018 8:52 AM
[2018-03-10] MEDS: ATORVASTATIN 20 MG TAB PO SCH (08:57)
[2018-03-10] MEDS: DILTIAZEM HCL 30 MG TAB PO SCH ×2 (08:57→14:01)
[2018-03-10] MEDS: ASPIRIN 81 MG ECTAB PO SCH (08:57)
[2018-03-10] MEDS: CEROVITE ADV FORMULA TAB PO SCH (08:58)
[2018-03-10] MEDS: ALLOPURINOL 300 MG TAB PO SCH (08:58)
[2018-03-10] MEDS: METOPROLOL TARTRATE 25 MG TAB PO SCH (08:58)
[2018-03-10] MEDS: CHOLECALCIFEROL 1000 INTER.UNIT TAB PO SCH (08:58)
[2018-03-10] MEDS: ENOXAPARIN 100 MG/1ML SYR SQ SCH (08:59)
--- NOTE | 2018-03-10 09:01 | Cardiology Follow-Up ---
Subjective Subjective Date of Service: March 10, 2018. Pt evaluation today including: conversation w/ patient, conversation w/ family , physical exam, chart review, lab review, review of studies, review of inpatient medication list Additional Details: The patient had an uneventful night. Palate of care consult is appreciated and was also appreciated by the patient. He has no new complaints today. His heart rhythm has remained sinus and he is tolerating diltiazem. Problem List Medical Problems: (1) Atrial fibrillation with RVR Status: Acute (2) Atrial flutter with rapid ventricular response Status: Acute (3) Bilateral pneumonia Status: Acute (4) Dehydration Status: Acute (5) Dyspnea Status: Acute (6) Fall Status: Acute (7) Lung cancer Status: Acute (8) Lung cancer Status: Chronic (9) Malnutrition Status: Acute (10) Pneumonia Status: Acute (11) Right leg weakness Status: Acute Review of Systems Constitutional: No fever, No chills Eyes: No worsening of vision ENT: No hearing loss Respiratory: + cough (Constant frequent coughing, did keep patient up at night on his first night home from rehab), + shortness of breath Cardiac: No chest pain Abdomen: No pain Musculoskeletal: + problem reported (Generalized weakness) Male : No dysuria Neurologic: No memory loss Psychiatric: + anxiety Endo: + fatigue Skin: No new/changing skin lesions Objective Vital Signs Last Vital Signs Documentation Date Time Temp Pulse Resp B/P (MAP) Pulse Ox O2 Delivery O2 Flow Rate FiO2 03/10/18 07:09 36.5 75 24 124/65 (84) 96 2.0 03/10/18 04:00 Nasal Cannula Physical Exam: General Appearance: no apparent distress (Resting comfortably on O2) ENT: hearing grossly normal Neck: supple Respiratory/Chest: no respiratory distress, + decreased breath sounds Cardiovascular: regular rate, rhythm, + pertinent finding (1+ lower extremity edema) Abdomen: non tender, soft Extremities: non-tender, no calf tenderness Neurologic/Psychiatric: alert, oriented x 3 Skin: warm/dry Lymphatic: no adenopathy Assessment and Plan Impression: 1. Advanced stage lung cancer 2. Paroxysmal atrial fibrillation 3. Possible aspiration Recommendations: The patient is not a candidate for long-term anticoagulation. He is tolerating diltiazem and maintaining sinus rhythm. Conservative management is indicated. Medications: Current Inpatient Medications Medications (Trade) Dose Ordered Sig/Mert Route Start Time Stop Time Status Last Admin Dose Admin Ioversol (Optiray 320) 100 ml UD PRN IV 03/07/18 15:00 03/11/18 14:59 Acetaminophen (Tylenol Tab) 650 mg Q4H PRN PO 03/07/18 17:45 04/06/18 17:44 Nitroglycerin (Nitrostat Tab) 0.4 mg UD PRN SL 03/07/18 17:45 04/06/18 17:44 Allopurinol (Zyloprim Tab) 300 mg DAILY PO 03/08/18 09:00 04/07/18 08:59 03/09/18 08:01 300 MG Aspirin (Ecotrin Tab) 81 mg DAILY PO 03/08/18 09:00 04/07/18 08:59 03/09/18 08:01 81 MG Atorvastatin Calcium (Lipitor Tab) 20 mg DAILY PO 03/08/18 09:00 04/07/18 08:59 03/09/18 08:01 20 MG Cholecalciferol (Vitamin D Tab) 1,000 inter.unit DAILY PO 03/08/18 09:00 04/07/18 08:59 03/09/18 08:01 1,000 INTER.UNIT Codeine Phosphate/ Guaifenesin (Robitussin-AC Sugar Free Syrup) 10 ml Q4H PRN PO 03/07/18 19:15 04/06/18 19:14 Metoprolol Tartrate (Lopressor Tab) 25 mg BID PO 03/07/18 21:00 04/06/18 20:59 03/09/18 20:57 25 MG Mirtazapine (Remeron Tab) 15 mg HS PO 03/07/18 21:00 04/06/18 20:59 03/09/18 20:57 15 MG Multivitamins/ Minerals (Multivitamin W/ Minerals Tab) 1 tab DAILY PO 03/08/18 09:00 04/07/18 08:59 03/09/18 08:00 1 TAB Enoxaparin Sodium (Lovenox Inj) 90 mg Q12H SQ 03/07/18 21:00 04/06/18 20:59 03/09/18 20:58 90 MG Piperacillin Sod/ Tazobactam Sod 3.375 gm/Dextrose 115 ml @ 28.75 mls/ hr Q8H IV 03/07/18 23:00 03/14/18 22:59 03/10/18 06:22 28.75 MLS/HR Miscellaneous Information (Consult) 1 ea UD PRN N/A 03/07/18 20:45 04/06/18 20:44 Miscellaneous Information (Consult Glycemic Management Pharmacy) 1 ea DAILY PRN N/A 03/07/18 21:35 04/06/18 21:34 Insulin Aspart (novoLOG ASPART) SLIDING SCALE If C... ACHS SC 03/08/18 07:00 04/07/18 06:59 03/09/18 20:56 3 UNITS Glucose (Glucose 40% Gel) 15-30 GRAMS 15 GRAMS... UD PRN PO 03/07/18 21:45 04/06/18 21:44 Glucose (Glucose Chew Tab) 4-8 Tablets 4 Tabl... UD PRN PO 03/07/18 21:45 04/06/18 21:44 Dextrose (Dextrose 50% 50ML Syringe) 25-50ML 25ML FOR ... UD PRN IV 03/07/18 21:45 04/06/18 21:44 03/08/18 07:07 50 ML Glucagon (Glucagon Inj) 1 mg UD PRN SQ 03/07/18 21:45 04/06/18 21:44 Carbohydrates (Carbohydrates For Hypoglycemia) 15-30 GRAMS 15 grams if BSG 54-69... UD PRN PO 03/07/18 21:45 04/06/18 21:44 Ipratropium [place] (Atrovent 0.02% 0.5MG/2.5ML Neb) 0.5 mg Q4H PRN INH 03/08/18 00:45 04/07/18 00:44 Levalbuterol (Xopenex 1.25MG/ 0.5ML Neb) 1.25 mg Q4H PRN INH 03/08/18 00:45 04/07/18 00:44 Diltiazem HCl (Cardizem Tab) 30 mg TID PO 03/08/18 14:00 04/07/18 13:59 03/09/18 20:56 30 MG Lab Results: Last 24 Hours Test 03/09/18 11:00 03/09/18 16:24 03/09/18 20:27 03/10/18 05:43 Bedside Glucose 134 mg/dl 148 mg/dl 257 mg/dl White Blood Count 9.51 K/uL Red Blood Count 3.70 M/uL Hemoglobin 9.8 g/dL Hematocrit 31.6 % Mean Corpuscular Volume 85.4 fL Mean Corpuscular Hemoglobin 26.5 pg Mean Corpuscular Hemoglobin Concent 31.0 g/dl RDW Standard Deviation 68.3 fL RDW Coefficient of Variation 21.5 % Platelet Count 259 K/uL Mean Platelet Volume 8.3 fL Sodium Level 139 mmol/L Potassium Level 3.8 mmol/L Chloride Level 104 mmol/L Carbon Dioxide Level 31 mmol/L Anion Gap 4.0 mmol/L Blood Urea Nitrogen 10 mg/dl Creatinine 0.85 mg/dl Est Creatinine Clear Calc Drug Dose 72.4 ml/min Estimated GFR () 92.7 Estimated GFR (Non- 80.0 BUN/Creatinine Ratio 11.9 Random Glucose 138 mg/dl Calcium Level 8.8 mg/dl Magnesium Level 2.0 mg/dl Test 03/10/18 07:24 Bedside Glucose 167 mg/dl
--- NOTE | 2018-03-10 11:32 | PULMONARY PROGRESS NOTE ---
DATE: 03/10/2018 TIME: 10:40 a.m. SUBJECTIVE: The patient is feeling better than on admission. He states he still feels shortness of breath the most when he is getting up in the morning and when he is going to bed at night. His was present during this evaluation. He clearly is much less short of breath than when he first presented. He has an occasional cough. He is not having any chest pain. His cardiac rhythm has been controlled. His appetite is poor. The patient reportedly has been suspected of having aspiration. His says that by testing, they found that food goes down the wrong way. The patient himself does not notice any problem. OBJECTIVE: GENERAL: The patient was comfortable at rest. VITAL SIGNS: Temperature is 36.5. HEENT: Pupils were reactive. Mouth exam is unremarkable. CARDIOVASCULAR: Heart rate is 75 per minute. The rhythm is regular. Blood pressure 124/65. RESPIRATORY: Lung [place] reveal rales and rhonchi greater on the left than the right. The entire left lung seems to be involved. His respiratory rate at the time of my exam was 20. Oxygen saturation was 96% on 2 L. MUSCULOSKELETAL: Extremities showed some swelling of the left lower extremity. IMAGING: The patient did have a Doppler of the left lower extremity showing chronic appearing, partially occlusive deep vein thrombosis of the left popliteal vein, with no evidence of acute thrombus. LABORATORY DATA: White count is 9.51, hemoglobin 9.8, platelets are 259,000. Electrolytes show sodium 139, potassium 3.8, chloride 104, bicarbonate 31. The BUN is 10, with a creatinine of 0.85. Blood sugar this morning is 167. Blood cultures have shown no growth. IMPRESSION: 1. Advanced spindle cell/squamous cell bronchogenic carcinoma, status post radiation therapy and chemotherapy. 2. Left upper lobe infiltrate, questionable post obstructive pneumonia versus aspiration. 3. Atrial fibrillation with rapid ventricular response, converted to sinus rhythm. COMMENTS: The patient is not in any distress at rest. I am suspicious he would be winded with any exertion at all. He feels better than on admission. He has p.r.n. nebulizer treatments ordered, but it does not look like he has received much if any. The patient's told me that he had been on prednisone at home. I am not sure of those circumstances. It would appear that he is not getting prednisone at present. The history and physical from admission suggest that he was on 60 mg daily. I am uncertain if there was a plan to stop the prednisone such as that or if it was simply an oversight. We will defer this to the hospitalist team. It would appear that the patient's prognosis is poor. MTDD
[2018-03-10 12:00] VITALS: BP 109/63; PULSE 63; TEMP 36.6; O2SAT 100
--- NOTE | 2018-03-10 12:16 | Pharmacy Progress Note ---
Pharmacy Glycemic Short Note 2 Date of Service March 10, 2018. OUTPATIENT ANTIDIABETIC REGIMEN: * Metformin 1gm PO daily * Glimepiride 2mg daily * Novolog per sliding scale * A1c 6.1% 02/08/18 The patient is currently receiving: * Basal insulin: none * Correctional Insulin: Novolog Correction per scale ACHS Goal Range: Low 140 mg/dL - High 180 mg/dL Correction Factor: 35 mg/dL/unit * Prandial insulin: none * Oral Agents: None currently Item Value Date Time Bedside Glucose 245 mg/dl H 03/10/18 1116 Bedside Glucose 167 mg/dl H 03/10/18 0724 Bedside Glucose 257 mg/dl H 03/09/187 Bedside Glucose 148 mg/dl H 03/09/18 1624 ASSESSMENT: 03/10/18 * Fasting AM BSG higher today than previously. No basal insulin on board at this time. A low dose may be helpful to prevent rise in BSGs * Post-prandial BSGs have been elevated over the last 24 hours. No prandial insulin is being given and home meds that help prevent post-prandial hyperglycemia are also being held. A small dose of prandial insulin has been tolerated on prior admission. PLAN FOR INPATIENT GLYCEMIC CONTROL: * Hold outpatient oral diabetes medications * Basal insulin * Lantus Q HS per the following scale: give 0 units if BSG less than 180; give 5 units if BSG 180 or above (dose increase) * Bolus insulin * NovoLog per scale ACHS or Q6hrs while NPO * Goal Range: Low 140 mg/dL - High 180 mg/dL * Correction Factor: 35 mg/dL/unit * Nutritional / Prandial insulin per carb ratio of 1 unit per 20 grams CHO consumed (dose increase)
[2018-03-10 14:59] VITALS: BP 123/50; PULSE 77; TEMP 36.4; O2SAT 98
[2018-03-10] MEDS ORDERED: LVNIS100 SQ ×2 (15:49→16:06)
[2018-03-10] MEDS ORDERED: CRDCD/180 PO ×2 (15:49→16:06)
[2018-03-10] MEDS ORDERED: LCTX PO ×2 (15:49→16:06)
[2018-03-10] MEDS ORDERED: AMOX875T PO ×2 (15:49→16:06)
--- NOTE | 2018-03-10 15:57 | Discharge Instructions ---
Discharge Instructions Date of Service March 10, 2018. Admission Reason for Admission: Sob (Shortness Of Breath) On Exertion Discharge Discharge Diagnosis / Problem: aspiration pneumonitis, acute on chronic resp failure, rapid afib Discharge Goals Goal(s): Decrease discomfort, Improve function Activity Recommendations Activity Limitations: resume your previous activity . Instructions / Follow-Up Instructions / Follow-Up FOLLOWUP WITH FAMILY DOCTOR ON February AT 10:45AM FOLLOWUP WITH PULMONARY IN 1-2 WEEKS FOLLOWUP WITH HEME/ONCO IN 1-2 WEEKS PREDNISONE TAPER PER PULMONARY OR HEME/ONCO DURATION OF LOVENOX SHOTS PER PULMONARY. SPEECH RECOMMENDATIONS: Speech Therapy Discharge Instructions * Recommendin.Dental soft "slippery" diet and NECTAR thick liquids. Avoid food that are dry, thick, pasty, and doughy. Add condiments to foods to keep it moist. 2. Aspiration and GERD precautions, NO straws. Fully upright for meals and for 30 minutes after meals. Head of the bed should be elevated to at least 30 degrees at all time, to include while sleeping. 3.Stringent oral care- brushing all surfaces of the mouth and tongue prior to and after meals, and before bed, to reduce bacteria that can be aspirated in saliva. 4. Safe swallow strategies: Small bites, small sips, double effortful swallow with each bite/sip. Alternate solids and liquids. Current Hospital Diet Patient's current hospital diet: Diabetes Type 2 Diet, Low Potassium Diet (2g K) Discharge Diet Recommended Diet: AHA Diet (Heart Healthy), Diabetes Type 2 Diet Diet Texture: Dental Soft (bite-sized) (HONEY THICK LIQUIDS) Pending Studies Studies pending at discharge: no Laboratory Results Hemoglobin A1c Test 03/07/18 19:26 Range/Units Estimated Average Glucose 131 mg/dl Hemoglobin A1c 6.2 H 4.5-5.6 % Lipid Panel Test 03/08/18 05:36 Range/Units Triglycerides Level 95 0-150 mg/dl Cholesterol Level 143 0-200 mg/dl HDL Cholesterol 58 mg/dl Cholesterol/HDL Ratio 2.5 LDL Cholesterol, Calculated 66 mg/dl Medical Emergencies . Who to Call and When: Medical Emergencies: If at any time you feel your situation is an emergency, please call 911 immediately. . Non-Emergent Contact Non-Emergency issues call your: Primary Care Provider . . "Provider Documentation" section prepared by Martin Atwood. .
[2018-03-10 16:15] VITALS: BP 123/50; PULSE 77; TEMP 36.4; O2SAT 98
[2018-03-10] MEDS ORDERED: AMOXICILLIN/CLAVULANATE TAB 875 MG TAB PO STA (16:42)
--- NOTE | 2018-03-10 20:16 | Progress Note ---
Internal Med Progress Note Date of Service: March 10, 2018. Provider Documentation: SUBJECTIVE: Resting comfortably eating ok denies sob or chest pain afebrile ambulated ok likes to go home refuses placement OBJECTIVE: Vital Signs-as noted below Exam: General-alert and oriented. Not in distress ENT-Normal hearing Neck-no neck masses Lungs-cta b/l no wheezing no crackles Heart-s1 and s2 heard regular rate and rhythm no murmurs Abdomen-soft bowel sounds present non tender, no distension Extremities-no erythema seen Neuro-alert and awake 'moves extremities Lab data as noted below. ASSESSMENT & PLAN: A FLUTTER/RAPID A. FIB Presents with shortness of breath/dyspnea on exertion/dizzy spell lightheadedness was on Cardizem drip and amiodarone drip Therapeutic anticoagulation with Lovenox Cardiology consulted and appreciate inputs Recent echo on 02/07/2018: MILD LVH otherwise unremarkable currently on po Cardizem Monitor on tele d/c on po Cardizem cd 180mg daily RECURRENT ASPIRATION/POST OBSTRUCTIVE PNEUMONIA s/p Video swallow study last admission which showed silent aspiration Patient was recommended mechanical soft "slippery" diet/nectar thick liquids seen by speech and recommends: 1.Dental soft "slippery" diet and NECTAR thick liquids. Avoid food that are dry, thick, pasty, and doughy. Add condiments to foods to keep it moist. On IV Zosyn- to continue same for now d/c on po Augmentin f/u with pulmonary and pcp ACUTE ON CHRONIC HYPOXEMIC RESPIRATORY FAILURE On 2 L home O2 at baseline In the ER became hypoxic required 4 L O2 supplementation possibly from above CT chest with contrast shows no PE Worsening of consolidation/obstruction of airway secondary to lung mass Follows with [facility] physician group Dr. 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 Estevez Completed chemo and radiation treatment Last dose of chemo was on 01/24/2018 Not a candidate for further chemo treatment because of poor functional status/ deconditioning seen by palliative care-patient likes to be full code on prednisone per heme/onco for Keytruda induced pneumonitis? 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 d/c on home meds. SEVERE DYSPHAGIA CHRONIC ASPIRATION speech eval as above: Mechanical soft diet with nectar thick liquids Aspiration precaution CODE STATUS:Full code as per admission Discharged home with home health Vital Signs: Date Time Temp Pulse Resp B/P (MAP) Pulse Ox O2 Delivery O2 Flow Rate FiO2 03/10/18 16:15 36.4 77 16 98 Nasal Cannula 03/10/18 14:59 36.4 77 16 123/50 (74) 98 Nasal Cannula 3.0 03/10/18 12:00 36.6 63 20 109/63 (78) 100 Nasal Cannula 2.0 03/10/18 12:00 Nasal Cannula 2.0 03/10/18 08:00 Nasal Cannula 2.0 03/10/18 07:09 36.5 75 24 124/65 (84) 96 2.0 03/10/18 04:00 Nasal Cannula 2.0 03/10/18 03:46 36.9 74 16 118/64 (82) 94 03/10/18 00:55 36.9 70 18 136/71 (92) 97 03/09/18 23:59 Nasal Cannula 2.0 Lab Results: Results Past 24 Hours Test 03/09/18 20:27 03/10/18 05:43 03/10/18 07:24 03/10/18 11:16 Range/Units Bedside Glucose 257 167 245 70-99 mg/dl White Blood Count 9.51 4.8-10.8 K/uL Red Blood Count 3.70 4.7-6.1 M/uL Hemoglobin 9.8 14.0-18.0 g/dL Hematocrit 31.6 42-52 % Mean Corpuscular Volume 85.4 80-100 fL Mean Corpuscular Hemoglobin 26.5 25-34 pg Mean Corpuscular Hemoglobin Concent 31.0 32-36 g/dl RDW Standard Deviation 68.3 36.4-46.3 fL RDW Coefficient of Variation 21.5 11.5-14.5 % Platelet Count 259 130-400 K/uL Mean Platelet Volume 8.3 7.4-10.4 fL Sodium Level 139 136-145 mmol/L Potassium Level 3.8 3.5-5.1 mmol/L Chloride Level 104 98-107 mmol/L Carbon Dioxide Level 31 21-32 mmol/L Anion Gap 4.0 3-11 mmol/L Blood Urea Nitrogen 10 7-18 mg/dl Creatinine 0.85 0.60-1.40 mg/dl Est Creatinine Clear Calc Drug Dose 72.4 ml/min Estimated GFR () 92.7 Estimated GFR (Non- 80.0 BUN/Creatinine Ratio 11.9 10-20 Random Glucose 138 70-99 mg/dl Calcium Level 8.8 8.5-10.1 mg/dl Magnesium Level 2.0 1.8-2.4 mg/dl Test 03/10/18 16:30 Range/Units Bedside Glucose 285 70-99 mg/dl
--- NOTE | 2018-03-10 20:32 | Discharge Summary ---
Discharge Summary Date of Service March 10, 2018. Discharge Summary Admission Date: March 07, 2018 at 17:32 Discharge Date: March 10, 2018 Discharge Disposition: Home with services Principal Diagnosis: ACUTE ON CHRONIC RESP FAILURE ASPIRATION PNEUMONITIS RAPID AFIB Secondary Diagnoses/Problems: 1) Atrial flutter with rapid ventricular response (2) Bilateral pneumonia (3) Cancer of lower lobe of left lung (4) Dehydration (5) Dehydration (6) Diastolic dysfunction (7) DM type 2 (diabetes mellitus, type 2) (8) Dyslipidemia (9) Fall (10) Fall (11) HTN (hypertension) (12) Lung cancer (13) Malnutrition (14) Malnutrition (15) Mild aortic valve stenosis (16) Right leg weakness (17) SOB (shortness of breath) on exertion Procedures: CTA CHEST: 1. Allowing for suboptimal image quality, no evidence of pulmonary embolus. 2. 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 3. Interval worsening of left upper lobe consolidation, which could represent spread of malignancy or postobstructive pneumonia. 4. Interval improvement of basilar and peripheral predominant diffuse right lung consolidation. 5. Layering debris in the right mainstem bronchus suggest aspiration. 6. Findings consistent with elevated right heart pressure. 7. Cardiomegaly. LEFT LOWER EXTREMITY DOPPLER: 1. 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 2. No evidence of acute occlusive deep venous thrombus. Consultations: CARDIOLOGY PULMONARY Medication Reconciliation New Medications: Amoxicillin & Pot Clavulanate (Augmentin 875-125 mg) 1 Tab Tab 875 MG PO BID, #14 TAB Diltiazem Hcl Coated Beads (Cardizem Cd) 180 Mg Cap 1 CAP PO DAILY for 30 Days, #30 CAP 2 Refills Lactobacillus Acidophilus (Lactinex) Tab 2 TAB PO BID for 10 Days, #40 TAB Enoxaparin (Enoxaparin Sodium) 100 Mg/Ml Inj 90 MG SQ Q12H for 30 Days, #60 SYR Continued Medications: Allopurinol (Zyloprim) 300 Mg Tab 300 MG PO DAILY, TAB Aspirin (Aspirin Ec) 81 Mg Tab 81 MG PO DAILY Atorvastatin (Lipitor) 20 Mg Tab 20 MG PO DAILY, TAB Cholecalciferol (Vitamin D) 1,000 Unit Tab 1000 INTER.UNIT PO DAILY Glimepiride (Glimepiride) 2 Mg Tab 2 MG PO DAILY, TAB Guaifenesin/Codeine (Robitussin-Ac Syrup) Syrp 10 ML PO Q4H PRN for Cough, ML Home O2 Therapy (Oxygen) Gas 2 LITERS NA UD, BTL Insulin Aspart (Novolog Flexpen) 100 Units/Ml Inj 1 DOSE SC ACHS COVERAGE DIRECTED BY PER SLIDING SCALE Metformin Hcl (Glucophage) 1,000 Mg Tab 1000 MG PO DAILY, TAB Metoprolol Tartrate (Lopressor) (Lopressor) 25 Mg Tab 25 MG PO BID, TAB Mirtazapine (Remeron) 15 Mg Tab 15 MG PO HS, TAB Multivitamins/Minerals (Mvi With Minerals) Tab 1 TAB PO DAILY, TAB Prednisone (Prednisone) 20 Mg Tab 60 MG PO DAILY for 30 Days, #90 TAB 1 Refill take 60mg po daily x 2 weeks, then 40mg po daily x 2 weeks, then 20mg po daily Discontinued Medications: Enoxaparin (Lovenox) 100 Mg/Ml Inj 100 MG SC DAILY Admission Information HPI (per Admitting provider): This is a 82-year-old male with complex past medical history of lung carcinoma, chronic dysphagia with recurrent aspiration pneumonia, history of PE DVT on subcu Lovenox anticoagulation, type 2 diabetes hypertension,recently diagnosed with A. [id number] Presented to ER with complaint of worsening worsening shortness of breath palpitation, weakness poor p.o. intake Diminished breath soundIn ER patient was found to be in a flutter wave with heart rate of 150 The chest with angiogram showed chronic occlusion of left lower lobe pulmonary artery likely due to poorly defined central left perihilar mass Interval worsening of left upper lobe consolidation could represent spread of malignancy or postobstructive pneumonia Layering debris is in the right mainstem bronchus suggestive of aspiration Physical Exam (per Admitting): General Appearance: + pertinent finding (Chronically ill-appearing, at present no apparent distress noted) Head: normocephalic, atraumatic Eyes: PERRL, EOMI, sclerae normal Neck: trachea midline Respiratory/Chest: + decreased breath sounds, + crackles, + rales Cardiovascular: + tachycardia, + irregularly irregular Abdomen/GI: non tender, soft Neurologic/Psych: no motor/sensory deficits, alert, oriented x 3 Hospital Course A FLUTTER/RAPID A. FIB Presents with shortness of breath/dyspnea on exertion/dizzy spell lightheadedness was on Cardizem drip and amiodarone drip Therapeutic anticoagulation with Lovenox Cardiology consulted and appreciate inputs Recent echo on 02/07/2018: MILD LVH otherwise unremarkable currently on po Cardizem Monitor on tele d/c on po Cardizem cd 180mg daily RECURRENT ASPIRATION/POST OBSTRUCTIVE PNEUMONIA s/p Video swallow study last admission which showed silent aspiration Patient was recommended mechanical soft "slippery" diet/nectar thick liquids seen by speech and recommends: 1.Dental soft "slippery" diet and NECTAR thick liquids. Avoid food that are dry, thick, pasty, and doughy. Add condiments to foods to keep it moist. On IV Zosyn- to continue same for now d/c on po Augmentin f/u with pulmonary and pcp ACUTE ON CHRONIC HYPOXEMIC RESPIRATORY FAILURE On 2 L home O2 at baseline In the ER became hypoxic required 4 L O2 supplementation possibly from above CT chest with contrast shows no PE Worsening of consolidation/obstruction of airway secondary to lung mass [facility]s [facility] physician group Dr. 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 Estevez Completed chemo and radiation treatment Last dose of chemo was on 01/24/2018 Not a candidate for further chemo treatment because of poor functional status/ deconditioning seen by palliative care-patient likes to be full code on prednisone per heme/onco for Keytruda induced pneumonitis? 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 d/c on home meds. SEVERE DYSPHAGIA CHRONIC ASPIRATION speech eval as above: Mechanical soft diet with nectar thick liquids Aspiration precaution CODE STATUS:Full code as per admission Discharged home with home health Total time spent on discharge = 35MINUTES This includes examination of the patient, discharge planning, medication reconciliation, and communication with other providers. Discharge Instructions Discharge Instructions Date of Service March 10, 2018. Admission Reason for Admission: Sob (Shortness Of Breath) On Exertion Discharge Discharge Diagnosis / Problem: aspiration pneumonitis, acute on chronic resp failure, rapid afib Discharge Goals Goal(s): Decrease discomfort, Improve function Activity Recommendations Activity Limitations: resume your previous activity . Instructions / Follow-Up Instructions / Follow-Up FOLLOWUP WITH FAMILY DOCTOR ON February AT 10:45AM FOLLOWUP WITH PULMONARY IN 1-2 WEEKS FOLLOWUP WITH HEME/ONCO IN 1-2 WEEKS PREDNISONE TAPER PER PULMONARY OR HEME/ONCO DURATION OF LOVENOX SHOTS PER PULMONARY. SPEECH RECOMMENDATIONS: Speech Therapy Discharge Instructions * Recommendin.Dental soft "slippery" diet and NECTAR thick liquids. Avoid food that are dry, thick, pasty, and doughy. Add condiments to foods to keep it moist. 2. Aspiration and GERD precautions, NO straws. Fully upright for meals and for 30 minutes after meals. Head of the bed should be elevated to at least 30 degrees at all time, to include while sleeping. 3.Stringent oral care- brushing all surfaces of the mouth and tongue prior to and after meals, and before bed, to reduce bacteria that can be aspirated in saliva. 4. Safe swallow strategies: Small bites, small sips, double effortful swallow with each bite/sip. Alternate solids and liquids. Current Hospital Diet Patient's current hospital diet: Diabetes Type 2 Diet, Low Potassium Diet (2g K) Discharge Diet Recommended Diet: AHA Diet (Heart Healthy), Diabetes Type 2 Diet Diet Texture: Dental Soft (bite-sized) (HONEY THICK LIQUIDS) Pending Studies Studies pending at discharge: no Laboratory Results Hemoglobin A1c Test 03/07/18 19:26 Range/Units Estimated Average Glucose 131 mg/dl Hemoglobin A1c 6.2 H 4.5-5.6 % Lipid Panel Test 03/08/18 05:36 Range/Units Triglycerides Level 95 0-150 mg/dl Cholesterol Level 143 0-200 mg/dl HDL Cholesterol 58 mg/dl Cholesterol/HDL Ratio 2.5 LDL Cholesterol, Calculated 66 mg/dl Medical Emergencies . Who to Call and When: Medical Emergencies: If at any time you feel your situation is an emergency, please call 911 immediately. . Non-Emergent Contact Non-Emergency issues call your: Primary Care Provider . .
[2018-03-10] MEDS ORDERED: INSULIN GLARGINE SOLOSTAR 100 UNITS/ML 3 ML PEN SC SCH (21:00)
== END 2018-03-10 17:43 | disposition home or self-care (01) | DRG 177 ==
LOC: EDBD 14:07 → C.EDA 14:08 → C.2E 17:32 → ENRESERV 17:58
PROVIDERS: ADMIT Hospitalist; ATTEND Internal Medicine
DX: J69.0 Pneumonitis due to inhalation of food and vomit (principal); J96.21 Acute and chronic respiratory failure with hypoxia; C34.32 Malignant neoplasm of lower lobe, left bronchus or lung; I48.92 Unspecified atrial flutter; E78.5 Hyperlipidemia, unspecified; E11.9 Type 2 diabetes mellitus without complications; R79.89 Other specified abnormal findings of blood chemistry; I10 Essential (primary) hypertension; D64.9 Anemia, unspecified; M10.9 Gout, unspecified; E87.5 Hyperkalemia; I48.0 Paroxysmal atrial fibrillation; Z92.21 Personal history of antineoplastic chemotherapy; Z87.01 Personal history of pneumonia (recurrent); Z98.49 Cataract extraction status, unspecified eye; Z79.82 Long term (current) use of aspirin; Z79.84 Long term (current) use of oral hypoglycemic drugs; Z99.81 Dependence on supplemental oxygen; Z92.3 Personal history of irradiation; Z87.891 Personal history of nicotine dependence; Z86.718 Personal history of other venous thrombosis and embolism; Z80.9 Family history of malignant neoplasm, unspecified; Z83.3 Family history of diabetes mellitus; Z82.49 Family history of ischemic heart disease and other diseases of the circulatory system